=== PATIENT | female | born 1935 | race Caucasian/White ===

== ENCOUNTER 2023-07-14 17:26 | Inpatient (IN) | payer MEDICARE, SELFPAY ==
[2023-07-13] VITALS (10 sets, daily range): BP systolic 82–152; BP diastolic 55–104; BMI 23.0; BMI 21.4; BMI 22.7
--- NOTE | 2023-07-13 08:27 | ED.GENMED ---
History of Present Illness
General
Chief Complaint: Failure to Thrive
Time Seen by Provider: 07/13/23 08:13
Travel History
Have you had any contact with someone who has COVID-19?: No
Do you have any symptoms of coronavirus? Fever > 100 degrees, chills, cough, shortness of breath, sore throat, loss of taste or smell, muscle aches, or headache?: No
History of Present Illness
History of Present Illness:
88-year-old female with history of dementia and A-fib on Eliquis presents to the emergency department via EMS for reported failure to thrive. She resides at home with her son who according to EMS does have some degree of intellectual disability.
EMS was called by the son for lift assist in order to roll the patient in bed however they noted generally poor living conditions and a foul smell of urine about the patient and thus opted to bring her to the emergency department for medical
evaluation. She is a very poor historian and cannot provide me know significant medical details at this time. She is disoriented to year and events which apparently is baseline. She was admitted to this hospital in early May for GI bleeding
Past History
Past History
ED Past Medical History: Arrthythmia (Atrial fibrillation), HTN and Other (urinary track infection recently treated)
ED Past Surgical History: Appendectomy, Cholecystectomy and Gynecological
Social History
Tobacco: Non-smoker
Alcohol: None
Drug: None
Personal: Single
Living: with family
Employment: Retired
Review of Systems
Review of Systems
Allergies reviewed?: Yes
Unable to obtain full review of systems at this time due to: dementia
Phy Exam
Physical Exam
Physical Exam:
GEN: Thin and frail, disheveled, no immediate distress
Eyes: PERRLA, EOMs intact, no scleral icterus
HENT: NCAT, oral mucosa dry
Lungs: CTAB, no wheezes, rales, rhonchi, normal chest wall excursion
Cardiac: Tachycardic and irregular
Abdomen: S, NT, ND, NABS, no masses or hepatosplenomegaly
Neuro: Alert, follows commands, confused
MSK: No gross deformity or ecchymosis.
Skin: No rashes, petechiae.
Psych: Calm, cooperative, disheveled and malodorous
Course
Orders/Labs/Results
Orders:
Orders
07/13/23 08:26
Electrocardiogram (*1) Urgent
Reason for Study: Tachycardia
EKG- Treatment ONCE
Straight cath- Treatment ONCE
07/13/23 08:27
CT Head W/o Iv Contrast Urgent
Comment:
Reason For Exam: altered mental status
07/13/23 08:39
Basic Metabolic Panel Urgent
Complete Blood Count/With Diff Urgent
Prothrombin Time Urgent
Urinalysis Reflex To Culture Urgent
Date Specimen was Collected: 07/13/23
Time Specimen was Collected: 08:38
Urine Microscopic Reflex Cult Urgent
Blood Culture Q30M
ABRAHAN Source: Blood/Venous
Specimen Description:
Blood Culture Q30M
ABRAHAN Source: Blood/Venous
Specimen Description:
Urine Culture Urgent
ABRAHAN Source: U
Specimen Description:
Date Specimen was Collected: 07/13/23
Time Specimen was Collected: 08:38
07/13/23 09:31
LevoFLOXacin 500 MG/100 ML [Levaquin] 500 mg in 100 ml IV NOW
07/13/23 09:32
0.9% Sodium Chloride 1000 ml [Nss] 1,000 ml IV BOLUS
07/13/23 10:30
CMP [Comprehensive Metabolic Panel] Urgent
07/13/23 11:05
Lactic Acid Urgent
07/13/23 12:30
Lactic Acid Q4H
Comment: CANCEL 2nd LACTIC ACID IF 1st LACTIC ACID IS LESS THAN 2
Abnormal Lab Results
07/13/23 07/13/23
08:39 10:30
WBC 13.5 H 10^3/uL
(4.8-10.8)
Abs Immat Gran (auto) 0.1 H 10^3/uL
(0-0.05)
Absolute Neuts (auto) 11.7 H 10^3/uL
(1.4-6.5)
Absolute Lymphs (auto) 1.1 L 10^3/uL
(1.2-3.4)
Immature Gran % 0.6 H %
(0-0.5)
Neutrophils % 86.9 H %
(42.2-75.2)
Lymphocytes % 7.8 L %
(20.5-51.1)
PT 17.3 H Sec
(11.4-14.6)
BUN 22 H mg/dl 22 H mg/dl
(7-17) (7-17)
Creatinine 0.5 L mg/dL
(0.6-1.0)
Glucose 211 H mg/dl 169 H mg/dl
(70-99) (70-99)
Total Bilirubin 1.8 H mg/dl
(0.2-1.3)
Total Protein 5.9 L g/dl
(6.3-8.2)
Albumin 3.1 L g/dl
(3.5-5.0)
Ur Occult Blood Reflex Trace A
(Negative)
Leukocyte Esterase Rfl 2+ A
(Negative)
Urine WBC (Reflex) 70-80 A /HPF
(0-5)
Urine Bacteria (Reflex) Many A
(Negative)
07/13/23 08:39
07/13/23 10:30
Vital Signs
Initial and Last Documented VS:
Initial Vital Signs
Pulse Ox
94
07/13/23 08:15
Last Documented Vital Signs
Pulse Resp BP Pulse Ox
107 21 111/71 95
07/13/23 11:00 07/13/23 11:00 07/13/23 10:13 07/13/23 08:26
MDM/Problems Addressed
MDM/Problems Addressed:
88-year-old female arrives due to EMS concerns for failure to thrive. She is quite malodorous and disheveled and has excoriations to the genitourinary and rectal area suggesting development of pressure injuries. Does have evidence for UTI.
Unclear if her mental status is baseline for her or acutely altered. Given the associated leukocytosis we will admit for IV antibiotics and further case management evaluations
*Critical Care Note
Total Time (30-74mins, 75-104mins- exclusive of procedures): Not Applicable
ED Attending Note
-
Portions of this chart may have been created with voice recognition software.� Occasional wrong word or��sound alike� substitutions may have occurred due to the inherent limitations of voice recognition software.
Discharge Plan
Departure
Patient Disposition: Admit
Date of Disposition: 07/13/23
Time of Disposition: 09:35
Admit to: Med/Surg
Presentation/result/management discussed w/ accepting MD/DO: Hospitalist
Discharge Problem:
Urinary tract infection, Adult failure to thrive
Prescriptions:
No Action
citalopram 10 mg Tablet
10 mg PO DAILY
Patient Comments:
07/13/2023, prescribed BID or 2 tablets daily; however, discharge paperwork from 05/26/2023 state that this med. is taken once daily.
metoprolol succinate 100 mg Tablet Extended Release 24 Hr
100 mg PO BID
Santyl 250 unit/gram Ointment
1 applic TOPICAL TID
Patient Comments:
07/13/2023, this med. is included on discharge paperwork from 05/26/2023 but not in pt.'s pharmacy fill or [facility] records.
cholecalciferol (vitamin D3) 25 mcg (1,000 unit) Tablet
25 mcg PO DAILY
diltiazem HCl 180 mg Capsule,Ext.Rel 24h Degradable
180 mg PO DAILY
Eliquis 5 mg Tablet
2.5 mg PO BID Qty: 0 0RF
Patient Comments:
07/13/2023, discharge paperwork from 05/26/2023 mention that this med. was changed to be taken 1/2 tablet BID.
Referrals:
Pedro Richter MD [Family Provider] -
Interventions
Interventions:
*Risk Screen - Suicide Last Done: 07/13/23 08:15
*General Assessment Last Done: 07/13/23 08:15
*Neglect/Abuse Screening Last Done: 07/13/23 08:15
*ED COVID-19 Vaccine History Last Done: 07/13/23 08:15
[2023-07-13 08:53] LABS: % Basophils 0.2 % (0-2); % Immature Granulocytes 0.6 % (0-0.5); % Lymphocytes 7.8 % (20.5-51.1); % Monocytes 4.5 % (1.7-9.3); % Neutrophils 86.9 % (42.2-75.2); Absolute Immature Granulocytes 0.1 10^3/uL (0-0.05); Absolute Lymphocytes 1.1 10^3/uL (1.2-3.4); Absolute Monocytes 0.6 10^3/uL (0.1-0.6); Absolute Neutrophils 11.7 10^3/uL (1.4-6.5); Hemoglobin 15.1 g/dL (12.0-16.0); Mean Corp Hgb Conc. 34.3 g/dL (33.0-37.0); Mean Corpuscular Hgb 30.6 pg (27.0-31.0); Mean Corpuscular Volume 89.2 fL (81.0-99.0); Nucleated Red Blood Cells % 0 %; Platelet Count 223 10^3/uL (130-400); Red Blood Cell Count 4.93 10^6/uL (4.20-5.40); Red Cell Dist. Width 13.9 % (11.5-14.5); White Blood Cell Count 13.5 10^3/uL (4.8-10.8)
[2023-07-13 09:01] LABS: Urine Albumin Trace (Neg - Trace); Urine Bilirubin Negative (Negative); Urine Character Very Cloudy (Clear); Urine Color Yellow; Urine Glucose Negative (Negative); Urine Ketone Negative (Negative); Urine Leukocyte 2+ (Negative); Urine Nitrite Negative (Negative); Urine Occult Blood Trace (Negative); Urine Urobilinogen Negative (Neg - 1+)
[2023-07-13 09:04] LABS: PT 17.3 Sec (11.4-14.6)
[2023-07-13 09:09] LABS: Urine Amorphous Seen; Urine Mucus Few
[2023-07-13 09:11] LABS: Urine Red Blood Cell 0-2 /HPF (0-2); Urine White Cell 70-80 /HPF (0-5)
[2023-07-13 09:12] LABS: Urine Bacteria Many (Negative)
[2023-07-13 09:15] LABS: Blood Urea Nitrogen 22 mg/dl (7-17); Glucose 211 mg/dl (70-99)
[2023-07-13 09:16] LABS: Calcium 9.4 mg/dl (8.4-10.2); Carbon Dioxide 25 mmol/L (22-30); Chloride 99 mmol/L (98-107); Sodium 135 mmol/L (135-145); eGFR > 60.00
[2023-07-13] MEDS: NSS 1000 IV ×2 (10:10→15:07)
[2023-07-13] MEDS: LEVAQUIN 100 IV (10:13)
--- NOTE | 2023-07-13 10:16 | PHANOTE ---
07/13/2023, med rec tech, used pt.'s discharge paperwork from 05/26/2023, [facility] records, and pharmacy fill data to compile a list of pt.'s meds.; attempted to call pt.'s son to help confirm pt.'s meds. but was unsuccessful in reaching him. Could not
confirm pt.'s meds.
[2023-07-13 11:00] LABS: ALT (SGPT) 18 U/L (0-35); AST (SGOT) 28 U/L (14-36); Albumin 3.1 g/dl (3.5-5.0); Alkaline Phosphatase 71 U/L (38-126); Blood Urea Nitrogen 22 mg/dl (7-17); Calcium 8.9 mg/dl (8.4-10.2); Carbon Dioxide 30 mmol/L (22-30); Chloride 102 mmol/L (98-107); Glucose 169 mg/dl (70-99); Sodium 135 mmol/L (135-145); Total Bilirubin 1.8 mg/dl (0.2-1.3); Total Protein 5.9 g/dl (6.3-8.2); eGFR > 60.00
--- NOTE | 2023-07-13 11:01 | HPS.HSE ---
Family Physician
-
Family Physician: Pedro Richter
Chief Complaint
-
Foul urine smell, failure to thrive, poor living conditions at home
History of Present Illness
88-year-old female with history of dementia, A-fib on Eliquis, vertigo, diverticulosis with history of diverticulitis, nephrolithiasis, depression, dementia, and history of old stroke presented to the emergency department via EMS for reported
failure to thrive. She resides at home with her son who according to EMS does have some degree of intellectual disability. EMS was called by the son for lift assist in order to roll the patient in bed however they noted generally poor living
conditions and a foul smell of urine about the patient and thus opted to bring her to the emergency department for medical evaluation. She was admitted to [facility] in early May 2023 for rectal bleeding (in the setting of taking
Eliquis for atrial fibrillation) - per the discharge summary from that time, at that time she got Kcentra in the ER, she had scan of the abdomen and pelvis with contrast that showed findings suggesting active or recent gastrointestinal hemorrhage in
the transverse colon, possibly secondary to angiodysplasia; rectal bleeding stopped; patient was offered interventional radiology evaluation for possible embolization but she declined. Urine culture was positive for Klebsiella infection. Patient
received Levaquin - at that patient was evaluated by urologist - she was found to have right hydronephrosis with some layering and lower pole calculi, nonobstructive but urology recommended treating the urinary tract infection and no further workup
recommended for this issue needed because of patient age and comorbidities.
Medical History
Past Medical History
Past Medical History: Reports Other (As per HPI above)
Past Surgical History: Reports Appendectomy and Urological (Kidney Stone Surgery. Bilateral Cataract Surgery.)
Social History
Tobacco: Non-smoker
Alcohol: None
Drug: None
Family History
Family History: Not pertinent
Allergies / Home Medications
Allergies reflects when Allergies were last updated in [facility].
Home Medications with original date entered in [facility]
Allergy/Medication List:
Allergies
Allergy/AdvReac Type Severity Reaction Status Date / Time
cephalexin monohydrate Allergy RASH, SOB Verified 05/26/23 19:24
[From Keflex]
erythromycin base Allergy Unknown Verified 05/26/23 19:24
Penicillins Allergy SOB, RASH Verified 05/26/23 19:24
sulfamethoxazole Allergy Unknown Verified 05/26/23 19:24
antibiotic that starts w/ 'a' Allergy Unknown Uncoded 05/26/23 19:24
Home Medications
cholecalciferol (vitamin D3) 25 mcg (1,000 unit) tablet 25 mcg PO DAILY 05/20/23
citalopram 10 mg tablet 10 mg PO DAILY 05/20/23
collagenase clostridium histo. 250 unit/gram topical ointment (Santyl) 1 applic topical TID apply to B/L heels 05/20/23
diltiazem HCl 180 mg capsule,extended release 24 hr, controlled 180 mg PO DAILY 05/20/23
metoprolol succinate 100 mg tablet,extended release 24 hr 100 mg PO BID 05/20/23
apixaban 5 mg tablet (Eliquis) 2.5 mg PO BID #0 tabs 05/26/23
Review of Systems
-
Unable to obtain full review of systems at this time due to: Dementia
Physical Exam
Vital Signs
Vital Signs
Pulse Resp BP Pulse Ox
129 17 121/81 95
07/13/23 08:24 07/13/23 08:24 07/13/23 08:23 07/13/23 08:26
Physical Exam
General: Appears Chronically Ill
HEENT: NormoCephalic
Respiratory: Clear
Cardiac: S1/S2 and Tachycardia
GI: Soft, Non Tender and Normal Bowel Sounds
Musculoskeletal: No Cyanosis and No Edema
Skin: Warm and Dry
Neuro: Other (Sleepy)
Psych: Calm and Apparent Dementia
Laboratory Results
-
07/13/23 08:39
07/13/23 10:30
Laboratory Results
PT 17.3 Sec (11.4-14.6) H 07/13/23 08:39
INR 1.40 07/13/23 08:39
Total Bilirubin 1.8 mg/dl (0.2-1.3) H 07/13/23 10:30
AST 28 U/L (14-36) 07/13/23 10:30
ALT 18 U/L (0-35) 07/13/23 10:30
Alkaline Phosphatase 71 U/L (38-126) 07/13/23 10:30
Impression/Plan
-
Assessment/Plan
# Suspected Urinary Tract Infection
# Recent Urinary Tract Infection
# Leukocytosis
# Failure to Thrive
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
# History of nephrolithiasis
# Recent Mild Right Hydronephrosis on the right side without evidence of obstruction such as calculus
-Urinalysis this admission suggests UTI
-Last admission urine culture grew Klebsiella ozaenae, resistant to Amipicillin
-Continue Levaquin (patient has allergies to multiple different antibiotics - but received Levaquin last admission and this morning in the ER)
-Will consider ID consultation
-Follow urine and blood cultures
-PT/OT
-Placement
# Recent Acute Rectal bleeding - in the transverse colon, possibly secondary to angiodysplasia
-Hgb this admission is good at 15.1
-Got Kcentra last admission
-Last admission refused arteriogramolization, saying that she doesn't want any invasive procedures at her age
# Paroxysmal atrial fibrillation on Eliquis at home
Continue Eliquis
Continue metoprolol and Cardizem
# Moderate to severe mitral regurgitation
moderate TR, mild AI
Mild pulmonary regurgitation
# Recent moderate right pleural effusion
# Recent Small Left Pleural Effusion
# Moderate to severe aortic regurgitation.
# Severe tricuspid regurgitation.
# Pulmonary Hypertension
# Moderate to severe mitral regurgitation
# Mild pulmonary regurgitation
# History of h. pylori
# History of erosive gastropathy
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
# History of fatty liver
# Hypertension
-Continue home diltiazem
# Depression-continue Celexa
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
# Per CT Head radiologist's report on 07/13/23: 3.5 cm focal area of encephalomalacia at the right parietal occipital junction, stable dating back to the 01/29/2023 MRI examination and most consistent with nonhemorrhagic infarct
# Vertigo
# Dementia
# Underweight
# DVT prophylaxis-SCDs
# CODE STATUS-full code
[2023-07-13 12:57] LABS: Lactic Acid 1.6 mmol/L (0.7-2.0)
[2023-07-13] MEDS: MIRALAX 17 GRAMS PO (15:06)
[2023-07-13] MEDS: DESENEX/MITRAZOL/ZEASORB 1 APPLIC TOPICAL ×2 (15:10→19:55)
[2023-07-13] MEDS: ELIQUIS 2.5 MG PO ×2 (15:10→19:50)
[2023-07-13] MEDS: CARDIZEM CD 180 MG PO (15:11)
[2023-07-13] MEDS: TOPROL XL 100 MG PO ×2 (15:17→19:50)
--- NOTE | 2023-07-13 15:50 | CM ---
CM reviewed medical records. CM spoke with patient's son via phone. Patient's son confirmed demographics. Patient lives with son. He confirmed that they have caregivers 7 days a week 4 hours/day from [facility] [place]. Patient is know to [facility].
Patient's son stated that patient did have a history of SNF at [facility].
Patient's son stated that he feels that she needs additional caregiving hours. He requested assistance from [facility] CM sent request for services via email to [facility] Patient's son is agreeable to placement if needed .
PETERS letter given and discussed.
PLAN: Pending PT recommendations.
[2023-07-13] MEDS: COLACE 100 MG PO (19:50)
[2023-07-13] MEDS: SENOKOT 8.59999999999999964 MG PO (19:50)
[2023-07-13] MEDS: CELEXA 10 MG PO (19:50)
[2023-07-14 03:38] VITALS: BP 110/55
[2023-07-14] MEDS: NSS 1000 IV ×2 (04:06→19:18)
[2023-07-14 07:23] VITALS: BP 108/62
[2023-07-14 07:37] LABS: % Basophils 0.2 % (0-2); % Eosinophils 0.5 % (0-6); % Immature Granulocytes 0.6 % (0-0.5); % Lymphocytes 26.1 % (20.5-51.1); % Monocytes 10.3 % (1.7-9.3); % Neutrophils 62.3 % (42.2-75.2); Absolute Immature Granulocytes 0.1 10^3/uL (0-0.05); Absolute Lymphocytes 2.2 10^3/uL (1.2-3.4); Absolute Monocytes 0.9 10^3/uL (0.1-0.6); Absolute Neutrophils 5.3 10^3/uL (1.4-6.5); Hematocrit 37.7 % (37.0-47.0); Hemoglobin 12.5 g/dL (12.0-16.0); Mean Corp Hgb Conc. 33.2 g/dL (33.0-37.0); Mean Corpuscular Hgb 30.3 pg (27.0-31.0); Mean Corpuscular Volume 91.5 fL (81.0-99.0); Mean Platelet Volume 9.4 fL (7.4-10.4); Nucleated Red Blood Cells % 0 %; Platelet Count 192 10^3/uL (130-400); Red Blood Cell Count 4.12 10^6/uL (4.20-5.40); Red Cell Dist. Width 14.1 % (11.5-14.5); White Blood Cell Count 8.5 10^3/uL (4.8-10.8)
[2023-07-14 08:10] LABS: Blood Urea Nitrogen 20 mg/dl (7-17); Calcium 8.3 mg/dl (8.4-10.2); Carbon Dioxide 29 mmol/L (22-30); Chloride 105 mmol/L (98-107); Creatine Phosphokinase 94 U/L (30-135); Estimated Creatinine Clearance 43 ml/min; Glucose 83 mg/dl (70-99); Magnesium 1.6 mg/dl (1.6-2.3); Potassium 3.7 mmol/L (3.5-5.1); Sodium 136 mmol/L (135-145); eGFR > 60.00
[2023-07-14] MEDS: CELEXA 10 MG PO ×2 (08:55→19:35)
[2023-07-14] MEDS: COLACE 100 MG PO ×2 (08:55→19:35)
[2023-07-14] MEDS: CARDIZEM CD 180 MG PO (08:55)
[2023-07-14] MEDS: TOPROL XL 100 MG PO ×2 (08:55→19:35)
[2023-07-14] MEDS: VITAMIN D3 (cholecalciferol) 25 MCG PO (08:55)
[2023-07-14] MEDS: ELIQUIS 2.5 MG PO ×2 (08:55→19:36)
[2023-07-14] MEDS: SENOKOT 8.59999999999999964 MG PO ×2 (08:55→19:36)
[2023-07-14] MEDS: MAGNESIUM SULFATE 50 IV (08:55)
[2023-07-14] MEDS: MIRALAX 17 GRAMS PO (08:56)
[2023-07-14] MEDS: DESENEX/MITRAZOL/ZEASORB 1 APPLIC TOPICAL ×2 (09:03→19:36)
[2023-07-14 11:15] VITALS: BP 98/44
--- NOTE | 2023-07-14 15:00 | WOUNDNOTE ---
WOC RN NOTE: Reviewed chart, met with patient. Patient assessed with JENNEI Whitaker and PCT Leni. Patient admitted with Sacral stage 1 PI vs DTI. Left buttock with open area likely the result of pressure and moisture (stage 2, pink wound bed). Bilateral
heels are boggy, with small open area on left heel. Patient requires assistance turning and is incontinent of urine. Static air overlay placed and properly inflated. Local wound care provided to heels and stage 2 PI. Plan is to continue off-loading
sacrum along with frequent continence care and skin protection. Recommend dietary consult as chart review states 'failure to thrive.' Patient positioned off-sacrum with heels off-loaded on pillows. Contact WOC RN if wounds worsen. Will confirm
orders with hospitalist. JENNIE Whitaker updated. Will follow as needed.
[2023-07-14 15:20] VITALS: BP 96/50
--- NOTE | 2023-07-14 16:13 | W.PN.HOSP.TC ---
Today's Communication/Plan
-
Doing better
Continue Abx
Monitor QTc
Assessment / Plan
Assessment / Plan
Physical Exam
General: Appears Chronically Ill
HEENT: Normocephalic
Respiratory: Clear
Cardiac: S1/S2 and Regular Rate
GI: Soft, Non Tender and Normal Bowel Sounds
Musculoskeletal: No Cyanosis and No Edema
Skin: Warm and Dry
Neuro: Awake. Alert.
Psych: Calm and Apparent Dementia

Assessment/Plan
# Suspected Urinary Tract Infection
# Recent Urinary Tract Infection
# Leukocytosis
# Failure to Thrive
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
# History of nephrolithiasis
# Recent Mild Right Hydronephrosis on the right side without evidence of obstruction such as calculus
-Urinalysis this admission suggests UTI
-Last admission urine culture grew Klebsiella ozaenae, resistant to Amipicillin
-Continue Levaquin (patient has allergies to multiple different antibiotics - but received Levaquin last admission and this morning in the ER)
-Will consider ID consultation
-Follow urine and blood cultures
-PT/OT
-Placement
# Recent Acute Rectal bleeding - in the transverse colon, possibly secondary to angiodysplasia
�
-Hgb this admission is good at initial value of 15.1
-Got Kcentra last admission
-Last admission refused arteriogramolization, saying that she doesn't want any invasive procedures at her age
# Paroxysmal atrial fibrillation on Eliquis at home
Continue Eliquis
Continue Metoprolol and Cardizem
# Moderate to severe mitral regurgitation
moderate TR, mild AI
Mild pulmonary regurgitation
# Recent moderate right pleural effusion
# Recent Small Left Pleural Effusion
# Moderate to severe aortic regurgitation.
# Severe tricuspid regurgitation.
# Pulmonary Hypertension
# Moderate to severe mitral regurgitation
# Mild pulmonary regurgitation
# History of h. pylori
# History of erosive gastropathy
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
# History of fatty liver
# Hypertension
-Continue home diltiazem
# Depression-continue Celexa
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
# Per CT Head radiologist's report on 07/13/23: 3.5 cm focal area of encephalomalacia at the right parietal occipital junction, stable dating back to the 01/29/2023 MRI examination and most consistent with nonhemorrhagic infarct
# Vertigo
# Dementia
# Underweight
# DVT prophylaxis-SCDs
# CODE STATUS-full code
Anticipated Discharge: 24 - 48 hours
Subjective/Interval History
-
Date of Service: July 14, 2023
Patient was seen and examined. She appeared more alert and responsive today, asking for breakfast.
Objective Data
-
Labs:
Laboratory Results
07/14/23
06:25
WBC 8.5
Hgb 12.5
Hct 37.7
Plt Count 192
Sodium 136
Potassium 3.7
Chloride 105
Carbon Dioxide 29
BUN 20 H
Creatinine 0.7
Glucose 83
Calcium 8.3 L
Vital Signs:
Vital Signs
Temp Pulse Resp BP Pulse Ox
98.1 F 89 20 98/44 97
07/14/23 11:15 07/14/23 11:15 07/14/23 11:15 07/14/23 11:15 07/14/23 13:28
I&O
07/13/23 07/14/23 07/15/23
06:59 06:59 06:59
Intake Total 900 / 900
Balance 900 / 900
[2023-07-14 16:39] VITALS: BMI 22.7
--- NOTE | 2023-07-14 17:10 | CM ---
Pt on 1 liter oxygen Pox 97%.
Pt attempted PT but will try again tomorrow.
Will need PT OT for SNF.
Son requested [facility].
PLAN Will need to check if she has had prior SNF . She is under observation.
[2023-07-14 19:23] VITALS: BP 93/63
[2023-07-14 23:07] VITALS: BP 105/61
[2023-07-15 03:25] VITALS: BP 122/58
[2023-07-15 05:30] VITALS: BMI 23.7
[2023-07-15 07:25] VITALS: BP 143/82
--- NOTE | 2023-07-15 07:28 | PTCARENOTE ---
Patient had no urine output overnight. Tried to urinate on own and was unable. AAOx1 (self only). RN bladder scanned for over 400mL. HOST AND HOSTESS put in order for bladder scan and straight cath. Patient tolerated straight cath, output of 530mL yellow, kathleen
urine with some sediment. UA sent down to lab. Patient made comfortable, call hennessy within reach.
[2023-07-15 07:42] LABS: % Basophils 0.5 % (0-2); % Eosinophils 1.2 % (0-6); % Immature Granulocytes 0.5 % (0-0.5); % Lymphocytes 31.1 % (20.5-51.1); % Neutrophils 56.7 % (42.2-75.2); Absolute Eosinophils 0.1 10^3/uL (0-0.7); Absolute Lymphocytes 2.5 10^3/uL (1.2-3.4); Absolute Monocytes 0.8 10^3/uL (0.1-0.6); Absolute Neutrophils 4.6 10^3/uL (1.4-6.5); Mean Corp Hgb Conc. 33.3 g/dL (33.0-37.0); Mean Corpuscular Hgb 30.6 pg (27.0-31.0); Mean Corpuscular Volume 91.8 fL (81.0-99.0); Mean Platelet Volume 9.4 fL (7.4-10.4); Nucleated Red Blood Cells % 0 %; Platelet Count 194 10^3/uL (130-400); Red Blood Cell Count 4.25 10^6/uL (4.20-5.40); Red Cell Dist. Width 14.1 % (11.5-14.5); White Blood Cell Count 8.1 10^3/uL (4.8-10.8)
[2023-07-15] MEDS: ELIQUIS 2.5 MG PO ×2 (08:17→20:53)
[2023-07-15] MEDS: SENOKOT 8.59999999999999964 MG PO ×2 (08:17→20:52)
[2023-07-15] MEDS: COLACE 100 MG PO ×2 (08:17→20:52)
[2023-07-15] MEDS: CARDIZEM CD 180 MG PO (08:17)
[2023-07-15] MEDS: CELEXA 10 MG PO ×2 (08:17→20:52)
[2023-07-15] MEDS: TOPROL XL 100 MG PO ×2 (08:17→20:53)
[2023-07-15] MEDS: VITAMIN D3 (cholecalciferol) 25 MCG PO (08:17)
[2023-07-15] MEDS: MIRALAX 17 GRAMS PO (08:18)
--- NOTE | 2023-07-15 08:18 | PN.CDI ---
CDI
- -
CDI:
Physician Documentation Request
Admit Date: 07/13/23 12:34
Dear Doctor Blayne,
Patient admitted with UTI.
Nursing skin assessment, 'Stage 2 left buttock, POA....Stage 1 right heel, POA.'
Physician documentation of the type and location of wounds is required for compliant documentation. Based on the above clinical findings and your assessment, please provide the following in your progress note:
2. Type (etiology) of ulcer/wound:
- Pressure (decubitus) ulcer
- Other
- Unable to determine
For a pressure ulcer, please also include the stage* of the ulcer:
- Stage 1 - Skin intact, non-blanchable redness
- Stage 2 - Partial thickness loss of dermis, includes intact or open blister
- Stage 3 - Full thickness tissue not including bone, tendon or muscle
- Stage 4 - Full thickness tissue loss, including exposed bone, tendon or muscle
- Unstageable - Full thickness loss in which the base of the ulcer is covered by slough (yellow, solis, hitchcock, green or brown) and/or eschar (solis, brown or black) in the wound bed.
- Unable to determine
Use of terms such as suspected, likely, concern for, or probable (associated with a specific diagnosis that is being evaluated, monitored, or treated as if it exists) are acceptable and can be coded in the inpatient setting, when documented at the
time of discharge.
Thank you,
Keira POTTER,RN,CCDS
CDI Specialist
Available via [employer]
Please use your independent medical judgment in providing your response.
*Source: National Pressure Ulcer Advisory Panel (NPUAP)
[2023-07-15 08:21] LABS: Blood Urea Nitrogen 17 mg/dl (7-17); Calcium 8.2 mg/dl (8.4-10.2); Carbon Dioxide 29 mmol/L (22-30); Chloride 105 mmol/L (98-107); Estimated Creatinine Clearance 50 ml/min; Glucose 91 mg/dl (70-99); Magnesium 1.9 mg/dl (1.6-2.3); Sodium 137 mmol/L (135-145); eGFR > 60.00
[2023-07-15] MEDS: DESENEX/MITRAZOL/ZEASORB 1 APPLIC TOPICAL ×2 (08:25→20:53)
[2023-07-15] MEDS: LEVAQUIN 150 IV (08:28)
[2023-07-15 08:36] LABS: Potassium 3.4 mmol/L (3.5-5.1)
--- NOTE | 2023-07-15 08:41 | PN.CDI ---
CDI
- -
CDI:
Physician Documentation Request
Admit Date: 07/13/23 12:34
Dear Doctor Blayne,
Patient admitted with UTI.
PN, 'Continue Levaquin.'
On admission, WBC 13.5 and HR> 90.
Please clarify which of the following most accurately describes the status of the patient's infection:
Sepsis, POA
UTI only
Other
Sepsis
- Systemic manifestations of infection, with 2 or more SIRS criteria which include:
- Fever >100.4 degrees F or hypothermia < 96.8 degrees F
- Leukocytosis - WBC > 12,000 or leukopenia - WBC < 4,000 or > 10% bands
- Tachycardia > 90 beats per minute
- Tachypnea - RR > 20 breaths per minute or PaCO2 , 32mmHg
Source: Merck Manual 2013
- Indicate the known or suspected organism
- Indicate the known or suspected underlying infection, such as UTI
Localized Infection Only, Without Systemic Illness
- indicate the site/source, such as UTI
Other
Use of terms such as suspected, likely, concern for, or probable (associated with a specific diagnosis that is being evaluated, monitored, or treated as if it exists) are acceptable and can be coded in the inpatient setting, when documented at the
time of discharge.
Thank you,
Keira POTTER,RN,CCDS
CDI Specialist
Available via [employer] text
Please use your independent medical judgment in providing your response.
--- NOTE | 2023-07-15 09:04 | PN.CDI ---
CDI
- -
CDI:
Physician Documentation Request
Admit Date: 07/13/23 12:34
Dear Doctor,
Dear Doctor Blayne,
Patient admitted with UTI.
Nursing skin assessment, 'Stage 2 left buttock pressure injury, POA....Stage 1 right heel pressure injury, POA.'
Physician documentation of the type and location of wounds is required for compliant documentation. Based on the above clinical findings and your assessment, please provide the following in your progress note:
2. Type (etiology) of ulcer/wound:
- Pressure (decubitus) ulcer
- Other
- Unable to determine
For a pressure ulcer, please also include the stage* of the ulcer:
- Stage 1 - Skin intact, non-blanchable redness
- Stage 2 - Partial thickness loss of dermis, includes intact or open blister
- Stage 3 - Full thickness tissue not including bone, tendon or muscle
- Stage 4 - Full thickness tissue loss, including exposed bone, tendon or muscle
- Unstageable - Full thickness loss in which the base of the ulcer is covered by slough (yellow, solis, hitchcock, green or brown) and/or eschar (solis, brown or black) in the wound bed.
- Unable to determine
Use of terms such as suspected, likely, concern for, or probable (associated with a specific diagnosis that is being evaluated, monitored, or treated as if it exists) are acceptable and can be coded in the inpatient setting, when documented at the
time of discharge.
Thank you,
Please use your independent medical judgment in providing your response.
*Source: National Pressure Ulcer Advisory Panel (NPUAP)
--- NOTE | 2023-07-15 09:23 | PTOTSP ---
Attempted to see patient for evaluation - patient AAOx3, initially agreeable to sitting edge of bed but upon initiation of assisting the patient, she became very upset, noting she was very fearful, 'last time I sat up I almost !' Patient
refusing sitting edge of bed despite much encouragement and education. Per notes on previous admissions, the patient remains in bed all day at home, including for ADL's. Patient stated again today that she does not get out of bed. There are no
functional goals to support rehab at discharge - will sign off at this time. Patient's requires long-term care needs, will defer to case management.
--- NOTE | 2023-07-15 10:02 | PTOTSP ---
ST Dysphagia Evaluation
Oropharyngeal function appears intact at the bedside
Pt received awake/alert with AM meal of regular solids/thin liquids at the bedside. Demo grossly functional mastication and bolus was orally cleared. Thin liquids by straw serial sips swallow appears prompt. No overt s/sx of aspiration observed.
Recommend
1. Continue current diet of regular solids/thin liquids
2. Standard aspirtaion precautions
3. Meds with sip of water
4. No further acute BLOG WRITER needs. BLOG WRITER signing off please reconsult as needed
[2023-07-15 11:33] VITALS: BP 110/67
[2023-07-15] MEDS: KCL 40 MEQ PO (14:09)
[2023-07-15 15:12] VITALS: BP 120/68
--- NOTE | 2023-07-15 16:11 | W.PN.HOSP.TC ---
Today's Communication/Plan
-
Continue abx
ID consulted
Case management working on SNF placement
Assessment / Plan
Assessment / Plan
Physical Exam
General: Appears Chronically Ill
HEENT: Normocephalic
Respiratory: Clear
Cardiac: S1/S2 and Regular Rate
GI: Soft, Non Tender and Normal Bowel Sounds
Musculoskeletal: No Cyanosis and No Edema
Skin: Warm and Dry
Neuro: Awake. Alert.
Psych: Calm and Apparent Dementia

Assessment/Plan
# Suspected Urinary Tract Infection
# Sepsis - POA Secondary to Urinary Tract Infection
# Recent Urinary Tract Infection
# Leukocytosis
# Failure to Thrive
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
# History of nephrolithiasis
# Recent Mild Right Hydronephrosis on the right side without evidence of obstruction such as calculus
-Urinalysis this admission suggests UTI
-Last admission urine culture grew Klebsiella ozaenae, resistant to Ampicillin
-Continue Levaquin (patient has allergies to multiple different antibiotics - but received Levaquin last admission and this morning in the ER)
-Consulted ID, recommendations appreciated
-Follow urine and blood cultures
-PT/OT
-Placement
# Recent Acute Rectal bleeding - in the transverse colon, possibly secondary to angiodysplasia
�
-Hgb this admission is good at initial value of 15.1
-Got Kcentra last admission
-Last admission refused arteriogramolization, saying that she doesn't want any invasive procedures at her age
# Hypokalemia
-Monitor and replace
# Paroxysmal atrial fibrillation on Eliquis at home
Continue Eliquis
Continue Metoprolol and Cardizem
# Moderate to severe mitral regurgitation
moderate TR, mild AI
Mild pulmonary regurgitation
# Recent moderate right pleural effusion
# Recent Small Left Pleural Effusion
# Moderate to severe aortic regurgitation.
# Severe tricuspid regurgitation.
# Pulmonary Hypertension
# Moderate to severe mitral regurgitation
# Mild pulmonary regurgitation
# History of h. pylori
# History of erosive gastropathy
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
# History of fatty liver
# Hypertension
-Continue home diltiazem
# Depression-continue Celexa
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
# Per CT Head radiologist's report on 07/13/23: 3.5 cm focal area of encephalomalacia at the right parietal occipital junction, stable dating back to the 01/29/2023 MRI examination and most consistent with nonhemorrhagic infarct
# Vertigo
# Dementia
# Underweight
# Stage 2 left buttock pressure injury, POA
# Stage 1 right heel pressure injury, POA
-Continue wound care
# DVT prophylaxis-SCDs
# CODE STATUS-full code
Anticipated Discharge: > 48 hours
Subjective/Interval History
-
Date of Service: July 15, 2023
Objective Data
-
Labs:
Laboratory Results
07/15/23
07:18
WBC 8.1
Hgb 13.0
Hct 39.0
Plt Count 194
Sodium 137
Potassium 3.4 L
Chloride 105
Carbon Dioxide 29
BUN 17
Creatinine 0.5 L
Glucose 91
Calcium 8.2 L
Vital Signs:
Vital Signs
Temp Pulse Resp BP Pulse Ox
97.5 F 78 18 120/68 95
07/15/23 15:12 07/15/23 15:12 07/15/23 15:12 07/15/23 15:12 07/15/23 15:12
I&O
07/14/23 07/15/23 07/16/23
06:59 06:59 06:59
Intake Total 900 / 900 1120 / 1120
Output Total 530 / 530
Balance 900 / 900 590 / 590
--- NOTE | 2023-07-15 17:19 | CM ---
Pt refusing PT OT evals. She is fearful.
Spoke with brother James and brother (in person )in [facility]( via phone).
Explained that can not place in SNF if she does not participate in PT OT.
Pt lives with brother James and [facility] 4 hours daily.
Pt has been having several UTI. James does not change her depends till Care givers come next day.
Instructed James that depend needs to be changed depend every 4 hours as needed.
Encouraged family to contact [facility] and see if she qualifies for waiver care care givers to increase time of care giving.
Weaned to room air.
Pt has hospital bed ,commode,wc and walker at home as per James.
PLAN Home with care givers
[2023-07-15 19:46] VITALS: BP 125/79
[2023-07-15 23:30] VITALS: BP 136/77
[2023-07-16 03:47] VITALS: BP 145/91
[2023-07-16 06:00] VITALS: BMI 24.4
[2023-07-16 06:57] LABS: % Basophils 0.4 % (0-2); % Eosinophils 1.3 % (0-6); % Immature Granulocytes 0.7 % (0-0.5); % Lymphocytes 31.2 % (20.5-51.1); % Neutrophils 56.4 % (42.2-75.2); Absolute Eosinophils 0.1 10^3/uL (0-0.7); Absolute Immature Granulocytes 0.1 10^3/uL (0-0.05); Absolute Lymphocytes 2.2 10^3/uL (1.2-3.4); Absolute Monocytes 0.7 10^3/uL (0.1-0.6); Absolute Neutrophils 3.9 10^3/uL (1.4-6.5); Hematocrit 38.3 % (37.0-47.0); Hemoglobin 12.8 g/dL (12.0-16.0); Mean Corp Hgb Conc. 33.4 g/dL (33.0-37.0); Mean Corpuscular Hgb 30.5 pg (27.0-31.0); Mean Corpuscular Volume 91.4 fL (81.0-99.0); Mean Platelet Volume 9.3 fL (7.4-10.4); Nucleated Red Blood Cells % 0 %; Platelet Count 200 10^3/uL (130-400); Red Blood Cell Count 4.19 10^6/uL (4.20-5.40); Red Cell Dist. Width 14.3 % (11.5-14.5); White Blood Cell Count 6.9 10^3/uL (4.8-10.8)
[2023-07-16 07:24] VITALS: BP 145/79
[2023-07-16 07:29] LABS: Blood Urea Nitrogen 16 mg/dl (7-17); Calcium 8.3 mg/dl (8.4-10.2); Carbon Dioxide 29 mmol/L (22-30); Chloride 105 mmol/L (98-107); Estimated Creatinine Clearance 50 ml/min; Glucose 89 mg/dl (70-99); Sodium 137 mmol/L (135-145); eGFR > 60.00
[2023-07-16] MEDS: DESENEX/MITRAZOL/ZEASORB 1 APPLIC TOPICAL ×2 (08:00→20:45)
[2023-07-16] MEDS: CARDIZEM CD 180 MG PO (09:53)
[2023-07-16] MEDS: TOPROL XL 100 MG PO ×2 (09:54→20:44)
--- NOTE | 2023-07-16 09:57 | CM ---
Chart reviewed and plan is skilled placement per sample case porter notes, patient needs to participate in physical therapy for skilled placement. Referral sent to [facility] however no determination from admissions at [facility] and admissions is not open on
weekends, physician made aware.
Plan; skilled placement, need PT/OT evaluations.
[2023-07-16] MEDS: ELIQUIS 2.5 MG PO ×2 (10:09→20:43)
[2023-07-16] MEDS: VITAMIN D3 (cholecalciferol) 25 MCG PO (10:10)
[2023-07-16] MEDS: COLACE 100 MG PO ×2 (10:11→20:43)
[2023-07-16] MEDS: SENOKOT 8.59999999999999964 MG PO ×2 (10:11→20:43)
[2023-07-16] MEDS: CELEXA 10 MG PO ×2 (10:12→20:44)
[2023-07-16] MEDS: MIRALAX 17 GRAMS PO (10:13)
[2023-07-16 11:09] VITALS: BP 139/87
--- NOTE | 2023-07-16 13:32 | CON.ID ---
Consultation
-
Date/Time Consultation Requested: 07/15/2023, 1614
Date/Time Consultation Performed: 07/16/2023, 1330
Requesting Provider: Dr. Binh Cisneros
Performing Provider: Dr. Sofi Perez
Reason for Consultation: UTI
Chief Complaint / Past History
Chief Complaint
Poor living condition.
History of Present Illness
88 year old female with Afib on Apixaban, renal stones recently admitted 05/20 - 05/26 with GIB. CTA showed GI bleeding tansverse colon, pt refused embolization. CT also showed air in bladder wall, mild right hydro without obstructing stone. Urologist
deemed hydronephrosis was not acute. Pt was treated with levofloxacin for Klebsiella in urine. Pt lives with son who called EMS to help turn patient over while in bed. EMS noted poor living condition and patient covered in urine. She was brought
to ED on 07/13. UA 2+LE, 20-80 WBC, Ucx contaminanted specimen. She is curretly on levoloacin. Pt reports not dysuria, urgency, or frequency. No flank pain. Appetite is good.
Past History
Additional Past Medical History:
Depression
Afib on Eliquis
GIB
nephrolithiasis
LOPES
CVA
Appendectomy
Allergy History:
cephalexin monohydrate [From Keflex] Allergy (Verified 05/26/23 19:24)
RASH, SOB
erythromycin base Allergy (Verified 05/26/23 19:24)
Unknown
Penicillins Allergy (Verified 05/26/23 19:24)
SOB, RASH
sulfamethoxazole Allergy (Verified 05/26/23 19:24)
Unknown
antibiotic that starts w/ 'a' Allergy (Uncoded 05/26/23 19:24)
Unknown
Medications Reviewed: Yes
Current Antibiotics:
Levofloxacin IV d4
Social History
Tobacco: Non-Smoker
Alcohol: None
Drug: None
Family History
Family History: Not Pertinent
Review of Systems
Review of Systems
General: Negative Fever, Chills or Change in Appetite
HEENT: Negative Sinus Problems or Headache
Respiratory: Negative Dyspnea or Cough
Gasteroenterology: Other (no diarrhea); Negative Nausea or Vomiting
Genital / Urological: Negative Dysuria or Flank Pain
Neurological: Negative Headache
All systems: All other systems were reviewed and were negative
Vital Signs
Temp Pulse Resp BP Pulse Ox
98.2 F 117 18 139/87 96
07/16/23 11:09 07/16/23 11:09 07/16/23 11:09 07/16/23 11:09 07/16/23 11:09
Physical Exam
Physical Exam
Constitutional: No Acute Distress and Comfortable
Eyes: No Conjunctival Hemorrhage and Sclera Anicteric
Pulmonary: Clear
Gastrointestinal: Soft, Non Tender and Non Distended
Genito-Urinary: Negative Carrion, Suprapubic Tenderness or CVA Tenderness
Extremities: Negative Edema
Neurological: Awake and Alert
Lab / Diagnostic Study Results
07/16/23 05:57
07/16/23 05:57
Abs Immat Gran (auto) 0.1 10^3/uL (0-0.05) H 07/16/23 05:57
Absolute Neuts (auto) 3.9 10^3/uL (1.4-6.5) 07/16/23 05:57
Absolute Lymphs (auto) 2.2 10^3/uL (1.2-3.4) 07/16/23 05:57
Absolute Monos (auto) 0.7 10^3/uL (0.1-0.6) H 07/16/23 05:57
Absolute Basos (auto) 0.0 10^3/uL (0-0.2) 07/16/23 05:57
Immature Gran % 0.7 % (0-0.5) H 07/16/23 05:57
Neutrophils % 56.4 % (42.2-75.2) 07/16/23 05:57
Lymphocytes % 31.2 % (20.5-51.1) 07/16/23 05:57
Monocytes % 10.0 % (1.7-9.3) H 07/16/23 05:57
Eosinophils % 1.3 % (0-6) 07/16/23 05:57
Basophils % 0.4 % (0-2) 07/16/23 05:57
PT 17.3 Sec (11.4-14.6) H 07/13/23 08:39
INR 1.40 07/13/23 08:39
Lactic Acid 1.6 mmol/L (0.7-2.0) 07/13/23 12:32
Ur Squamous Epith Cells 6-10 /LPF (Few) 07/13/23 08:39
Microbiology Results
Micro:
07/15/23 06:36 Urine Culture - Preliminary
Urine
07/13/23 08:39 Blood Culture - Preliminary
Blood/Venous No Growth in 72 hours- Final report to follow
07/13/23 08:39 Blood Culture - Preliminary
Blood/Venous No Growth in 72 hours- Final report to follow
07/13/23 18:18 MRSA Screen - Final
Nose No Methicillin Resistant Staphylococcus aureus isolated.
07/13/23 08:39 Urine Culture - Final
Urine
Assessment / Plan
# Pyuria/bacteruria
- Pt without urinary symptoms.
-Afebrile, normal WBC.
-DC Levofloxacin (day4)
[2023-07-16] MEDS: SANTYL OINTMENT 1 APPLIC TOPICAL (13:35)
[2023-07-16 15:35] VITALS: BP 112/63
--- NOTE | 2023-07-16 18:10 | W.PN.HOSP.TC ---
Today's Communication/Plan
-
Pending SNF placement
Assessment / Plan
Assessment / Plan
Physical Exam
General: Appears Chronically Ill
HEENT: Normocephalic
Respiratory: Clear
Cardiac: S1/S2 and Regular Rate
GI: Soft, Non Tender and Normal Bowel Sounds
Musculoskeletal: No Cyanosis and No Edema
Skin: Warm and Dry
Neuro: Awake. Alert.
Psych: Calm and Apparent Dementia

Assessment/Plan
# Suspected Urinary Tract Infection
# Sepsis - POA Secondary to Urinary Tract Infection
# Recent Urinary Tract Infection
# Leukocytosis
# Failure to Thrive
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
# History of nephrolithiasis
# Recent Mild Right Hydronephrosis on the right side without evidence of obstruction such as calculus
-Urinalysis this admission suggested UTI
-Last admission urine culture grew Klebsiella ozaenae, resistant to Ampicillin
-Status post Levaquin
-Consulted ID, recommendations appreciated: patient is not having symptoms of UTI, stop Levaquin/antibiotics
-Follow urine (contaminated) and blood cultures (no growth)
-PT/OT
-Placement
# Recent Acute Rectal bleeding - in the transverse colon, possibly secondary to angiodysplasia
�
-Hgb this admission is good at initial value of 15.1
-Got Kcentra last admission
-Last admission refused arteriogramolization, saying that she doesn't want any invasive procedures at her age
# Hypokalemia
-Monitor and replace
# Paroxysmal atrial fibrillation on Eliquis at home
Continue Eliquis
Continue Metoprolol and Cardizem
# Moderate to severe mitral regurgitation
moderate TR, mild AI
Mild pulmonary regurgitation
# Recent moderate right pleural effusion
# Recent Small Left Pleural Effusion
# Moderate to severe aortic regurgitation.
# Severe tricuspid regurgitation.
# Pulmonary Hypertension
# Moderate to severe mitral regurgitation
# Mild pulmonary regurgitation
# History of h. pylori
# History of erosive gastropathy
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
# History of fatty liver
# Hypertension
-Continue home diltiazem
# Depression-continue Celexa
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
# Per CT Head radiologist's report on 07/13/23: 3.5 cm focal area of encephalomalacia at the right parietal occipital junction, stable dating back to the 01/29/2023 MRI examination and most consistent with nonhemorrhagic infarct
# Vertigo
# Dementia
# Underweight
# Stage 2 left buttock pressure injury, POA
# Stage 1 right heel pressure injury, POA
-Continue wound care
# DVT prophylaxis-SCDs
# CODE STATUS-full code
Anticipated Discharge: > 48 hours
Subjective/Interval History
-
Date of Service: July 16, 2023
Patient was seen and examined. She denied any new symptoms or complaints.
Objective Data
-
Labs:
Laboratory Results
07/16/23
05:57
WBC 6.9
Hgb 12.8
Hct 38.3
Plt Count 200
Sodium 137
Potassium 4.0
Chloride 105
Carbon Dioxide 29
BUN 16
Creatinine 0.5 L
Glucose 89
Calcium 8.3 L
Vital Signs:
Vital Signs
Temp Pulse Resp BP Pulse Ox
98.2 F 76 16 112/63 97
07/16/23 15:35 07/16/23 15:35 07/16/23 15:35 07/16/23 15:35 07/16/23 15:35
I&O
07/15/23 07/16/23 07/17/23
06:59 06:59 06:59
Intake Total 1120 / 1120 240 / 240
Output Total 530 / 530
Balance 590 / 590 240 / 240
[2023-07-16 19:22] VITALS: BP 134/73
[2023-07-16 23:14] VITALS: BP 128/82
[2023-07-17 03:27] VITALS: BP 140/83
[2023-07-17 06:06] LABS: % Basophils 0.7 % (0-2); % Eosinophils 2.1 % (0-6); % Immature Granulocytes 0.3 % (0-0.5); % Lymphocytes 35.9 % (20.5-51.1); % Monocytes 8.8 % (1.7-9.3); % Neutrophils 52.2 % (42.2-75.2); Absolute Basophils 0.1 10^3/uL (0-0.2); Absolute Eosinophils 0.2 10^3/uL (0-0.7); Absolute Lymphocytes 2.6 10^3/uL (1.2-3.4); Absolute Monocytes 0.6 10^3/uL (0.1-0.6); Absolute Neutrophils 3.8 10^3/uL (1.4-6.5); Hematocrit 41.6 % (37.0-47.0); Hemoglobin 13.8 g/dL (12.0-16.0); Mean Corp Hgb Conc. 33.2 g/dL (33.0-37.0); Mean Corpuscular Hgb 30.5 pg (27.0-31.0); Mean Corpuscular Volume 91.8 fL (81.0-99.0); Mean Platelet Volume 9.1 fL (7.4-10.4); Nucleated Red Blood Cells % 0 %; Platelet Count 214 10^3/uL (130-400); Red Blood Cell Count 4.53 10^6/uL (4.20-5.40); Red Cell Dist. Width 14.3 % (11.5-14.5); White Blood Cell Count 7.2 10^3/uL (4.8-10.8)
[2023-07-17 06:32] LABS: Blood Urea Nitrogen 13 mg/dl (7-17); Calcium 8.2 mg/dl (8.4-10.2); Carbon Dioxide 29 mmol/L (22-30); Chloride 107 mmol/L (98-107); Estimated Creatinine Clearance 50 ml/min; Glucose 90 mg/dl (70-99); Sodium 136 mmol/L (135-145); eGFR > 60.00
[2023-07-17 07:38] VITALS: BP 157/78
[2023-07-17] MEDS: VITAMIN D3 (cholecalciferol) 25 MCG PO (08:59)
[2023-07-17] MEDS: TOPROL XL 100 MG PO ×2 (08:59→21:35)
[2023-07-17] MEDS: SENOKOT 8.59999999999999964 MG PO ×2 (08:59→21:31)
[2023-07-17] MEDS: CELEXA 10 MG PO ×2 (09:00→21:30)
[2023-07-17] MEDS: COLACE 100 MG PO ×2 (09:00→21:30)
[2023-07-17] MEDS: CARDIZEM CD 180 MG PO (09:00)
[2023-07-17] MEDS: ELIQUIS 2.5 MG PO ×2 (09:01→21:31)
[2023-07-17] MEDS: MIRALAX 17 GRAMS PO (09:05)
[2023-07-17] MEDS: DESENEX/MITRAZOL/ZEASORB 1 APPLIC TOPICAL ×2 (09:08→21:31)
[2023-07-17 11:48] VITALS: BP 120/65
[2023-07-17 15:00] VITALS: BP 114/62
--- NOTE | 2023-07-17 18:33 | W.PN.HOSP.TC ---
Today's Communication/Plan
-
Patient is pending SNF placement
Assessment / Plan
Assessment / Plan
Physical Exam
General: Appears Chronically Ill
HEENT: Normocephalic
Respiratory: Clear
Cardiac: S1/S2 and Regular Rate
GI: Soft, Non Tender and Normal Bowel Sounds
Musculoskeletal: No Cyanosis and No Edema
Skin: Warm and Dry
Neuro: Awake. Alert.
Psych: Calm and Apparent Dementia

Assessment/Plan
# Urinary Tract Infection - ruled out
# Recent Urinary Tract Infection
# Leukocytosis
# Failure to Thrive
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
# History of nephrolithiasis
# Recent Mild Right Hydronephrosis on the right side without evidence of obstruction such as calculus
-Urinalysis this admission suggested UTI
-Last admission urine culture grew Klebsiella ozaenae, resistant to Ampicillin
-Status post Levaquin
-Consulted ID, recommendations appreciated: patient is not having symptoms of UTI, stop Levaquin/antibiotics
-Follow urine (contaminated) and blood cultures (no growth)
-PT/OT
-Placement
# Recent Acute Rectal bleeding - in the transverse colon, possibly secondary to angiodysplasia
�
-Hgb this admission is good at initial value of 15.1
-Got Kcentra last admission
-Last admission refused arteriogramolization, saying that she doesn't want any invasive procedures at her age
# Hypokalemia
-Monitor and replace
# Paroxysmal atrial fibrillation on Eliquis at home
Continue Eliquis
Continue Metoprolol and Cardizem
# Moderate to severe mitral regurgitation
moderate TR, mild AI
Mild pulmonary regurgitation
# Recent moderate right pleural effusion
# Recent Small Left Pleural Effusion
# Moderate to severe aortic regurgitation.
# Severe tricuspid regurgitation.
# Pulmonary Hypertension
# Moderate to severe mitral regurgitation
# Mild pulmonary regurgitation
# History of h. pylori
# History of erosive gastropathy
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
# History of fatty liver
# Hypertension
-Continue home diltiazem
# Depression-continue Celexa
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
# Per CT Head radiologist's report on 07/13/23: 3.5 cm focal area of encephalomalacia at the right parietal occipital junction, stable dating back to the 01/29/2023 MRI examination and most consistent with nonhemorrhagic infarct
# Vertigo
# Dementia
# Underweight
# Stage 2 left buttock pressure injury, POA
# Stage 1 right heel pressure injury, POA
-Continue wound care
# DVT prophylaxis-SCDs
# CODE STATUS-full code
Anticipated Discharge: 24 - 48 hours
Subjective/Interval History
-
Date of Service: July 17, 2023
Patient was seen and examined. She reported no problems and denied any new symptoms.
Objective Data
-
Vital Signs:
Vital Signs
Temp Pulse Resp BP Pulse Ox
98.2 F 73 20 114/62 94
07/17/23 15:00 07/17/23 15:00 07/17/23 15:00 07/17/23 15:00 07/17/23 15:00
I&O
07/16/23 07/17/23 07/18/23
06:59 06:59 06:59
Intake Total 240 / 240 240 / 240 240 / 240
Balance 240 / 240 240 / 240 240 / 240
[2023-07-17 23:21] VITALS: BP 130/80
[2023-07-18 07:10] VITALS: BP 122/65
[2023-07-18 08:12] LABS: % Basophils 0.5 % (0-2); % Eosinophils 1.7 % (0-6); % Immature Granulocytes 0.5 % (0-0.5); % Lymphocytes 35.3 % (20.5-51.1); Absolute Eosinophils 0.1 10^3/uL (0-0.7); Absolute Lymphocytes 2.8 10^3/uL (1.2-3.4); Absolute Monocytes 0.6 10^3/uL (0.1-0.6); Absolute Neutrophils 4.3 10^3/uL (1.4-6.5); Hematocrit 40.3 % (37.0-47.0); Hemoglobin 13.5 g/dL (12.0-16.0); Mean Corp Hgb Conc. 33.5 g/dL (33.0-37.0); Mean Corpuscular Hgb 30.2 pg (27.0-31.0); Mean Corpuscular Volume 90.2 fL (81.0-99.0); Mean Platelet Volume 9.1 fL (7.4-10.4); Nucleated Red Blood Cells % 0 %; Platelet Count 232 10^3/uL (130-400); Red Blood Cell Count 4.47 10^6/uL (4.20-5.40); Red Cell Dist. Width 14.5 % (11.5-14.5)
[2023-07-18 08:37] LABS: Blood Urea Nitrogen 10 mg/dl (7-17); Calcium 8.1 mg/dl (8.4-10.2); Carbon Dioxide 29 mmol/L (22-30); Chloride 105 mmol/L (98-107); Estimated Creatinine Clearance 50 ml/min; Glucose 89 mg/dl (70-99); Potassium 3.6 mmol/L (3.5-5.1); Sodium 135 mmol/L (135-145); eGFR > 60.00
[2023-07-18] MEDS: VITAMIN D3 (cholecalciferol) 25 MCG PO (09:33)
[2023-07-18] MEDS: TOPROL XL 100 MG PO ×2 (09:33→22:28)
[2023-07-18] MEDS: CELEXA 10 MG PO ×2 (09:33→22:22)
[2023-07-18] MEDS: CARDIZEM CD 180 MG PO (09:33)
[2023-07-18] MEDS: ELIQUIS 2.5 MG PO ×2 (09:33→22:21)
[2023-07-18] MEDS: COLACE PO (09:34)
[2023-07-18] MEDS: DESENEX/MITRAZOL/ZEASORB 1 APPLIC TOPICAL ×2 (09:34→22:31)
[2023-07-18] MEDS: SENOKOT PO (09:34)
[2023-07-18] MEDS: MIRALAX PO (09:34)
--- NOTE | 2023-07-18 11:09 | W.PN.HOSP.TC ---
Today's Communication/Plan
-
DC planning
Assessment / Plan
Assessment / Plan

Assessment/Plan
# Urinary Tract Infection - ruled out
# Recent Urinary Tract Infection
# Leukocytosis
# Failure to Thrive
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
# History of nephrolithiasis
# Recent Mild Right Hydronephrosis on the right side without evidence of obstruction such as calculus
-Urinalysis this admission suggested UTI
-Last admission urine culture grew Klebsiella ozaenae, resistant to Ampicillin
-Status post Levaquin
-Consulted ID, recommendations appreciated: patient is not having symptoms of UTI, stop Levaquin/antibiotics
-Follow urine (contaminated) and blood cultures (no growth)
-PT/OT
-Placement
# Recent Acute Rectal bleeding - in the transverse colon, possibly secondary to angiodysplasia
�
-Hgb stable
-Got Kcentra last admission
-Last admission refused arteriogramolization, saying that she doesn't want any invasive procedures at her age
# Paroxysmal atrial fibrillation on Eliquis at home
Continue Eliquis
Continue Metoprolol and Cardizem
# Moderate to severe mitral regurgitation
moderate TR, mild AI
Mild pulmonary regurgitation
# Recent moderate right pleural effusion
# Recent Small Left Pleural Effusion
# Moderate to severe aortic regurgitation.
# Severe tricuspid regurgitation.
# Pulmonary Hypertension
# Moderate to severe mitral regurgitation
# Mild pulmonary regurgitation
# History of h. pylori
# History of erosive gastropathy
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
# History of fatty liver
# Hypertension
-Continue home diltiazem
# Depression-continue Celexa
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
0n AC for stroke prevention
# Per CT Head radiologist's report on 07/13/23: 3.5 cm focal area of encephalomalacia at the right parietal occipital junction, stable dating back to the 01/29/2023 MRI examination and most consistent with nonhemorrhagic infarct
# Vertigo
# Dementia
Pt is bedbound status for a while and taken care by son
She has declined PT eval and PT recs no skilled need as she is bedbound
Pt admits not thriving at home and needs help.
Her motor strength is 4+/5 in LE but pt is refusing to get up and participate with PT
Needs placement
# Underweight
# Stage 2 left buttock pressure injury, POA
# Stage 1 right heel pressure injury, POA
-Continue wound care
# DVT prophylaxis-SCDs
# CODE STATUS-full code
Anticipated Discharge: Today
Subjective/Interval History
-
Date of Service: July 18, 2023
Alert and oriented to place person.
Not sure why she came to the hospital.
She is voicing no specific complaints. She does recognize that she is not able to cope at home now.
She says that she has not been able to ambulate and pretty much bedbound for some time now. Son takes care of all the staff including personal care.
Objective Data
-
Labs:
Laboratory Results
07/18/23
06:37
WBC 8.0
Hgb 13.5
Hct 40.3
Plt Count 232
Sodium 135
Potassium 3.6
Chloride 105
Carbon Dioxide 29
BUN 10
Creatinine 0.5 L
Glucose 89
Calcium 8.1 L
Vital Signs:
Vital Signs
Temp Pulse Resp BP Pulse Ox
97.7 F 81 18 120/65 94
07/18/23 07:10 07/18/23 09:33 07/18/23 07:10 07/18/23 09:33 07/18/23 07:10
I&O
07/17/23 07/18/23 07/19/23
06:59 06:59 06:59
Intake Total 240 / 240 240 / 240
Balance 240 / 240 240 / 240
Review of Systems
-
Constitutional: Denies Fever
EENT: Denies Sore Throat
Respiratory: Denies Trouble Breathing
Cardiac: Denies Chest Pain
Abdomen/GI: Denies Abdominal Pain, Nausea or Vomiting
Neuro: Denies Dizzy, Weakness (But cannot walk.), Numbness or Tremors
Physical Exam
-
General: No Apparent Distress
HEENT: Moist Mucous Membranes
Respiratory: Clear to Auscultation
Cardiac: Regular Rhythm and S1/S2
GI: Soft and Nontender
Neuro: AO x 3 and No Motor Deficits (4+/5 BL LE; 5/5 UE BL); Negative Tremors
Psych: Calm
Data Reviewed
-
Labs: Labs Reviewed by me
--- NOTE | 2023-07-18 12:44 | VNURNOTE ---
Patient is current with [facility] since 02/18, with SN, resumption of care 05/28, will monitor progress and plan at discharge.
[2023-07-18 15:10] VITALS: BP 120/69
[2023-07-18] MEDS: COLACE 100 MG PO (22:22)
[2023-07-18] MEDS: SENOKOT 8.59999999999999964 MG PO (22:22)
[2023-07-18 22:25] VITALS: BP 136/76
[2023-07-18 23:15] VITALS: BP 130/75
[2023-07-19 06:00] VITALS: BMI 23.8
[2023-07-19 06:56] LABS: % Basophils 0.4 % (0-2); % Immature Granulocytes 0.4 % (0-0.5); % Lymphocytes 29.9 % (20.5-51.1); % Monocytes 8.7 % (1.7-9.3); % Neutrophils 58.6 % (42.2-75.2); Absolute Eosinophils 0.2 10^3/uL (0-0.7); Absolute Lymphocytes 2.3 10^3/uL (1.2-3.4); Absolute Monocytes 0.7 10^3/uL (0.1-0.6); Absolute Neutrophils 4.5 10^3/uL (1.4-6.5); Hematocrit 42.5 % (37.0-47.0); Hemoglobin 13.9 g/dL (12.0-16.0); Mean Corp Hgb Conc. 32.7 g/dL (33.0-37.0); Mean Corpuscular Hgb 29.9 pg (27.0-31.0); Mean Corpuscular Volume 91.4 fL (81.0-99.0); Mean Platelet Volume 8.9 fL (7.4-10.4); Nucleated Red Blood Cells % 0 %; Platelet Count 224 10^3/uL (130-400); Red Blood Cell Count 4.65 10^6/uL (4.20-5.40); Red Cell Dist. Width 14.1 % (11.5-14.5); White Blood Cell Count 7.6 10^3/uL (4.8-10.8)
[2023-07-19 07:00] VITALS: BP 134/83
[2023-07-19 07:17] LABS: Blood Urea Nitrogen 11 mg/dl (7-17); Calcium 8.5 mg/dl (8.4-10.2); Carbon Dioxide 33 mmol/L (22-30); Chloride 101 mmol/L (98-107); Estimated Creatinine Clearance 50 ml/min; Glucose 91 mg/dl (70-99); Potassium 3.8 mmol/L (3.5-5.1); Sodium 137 mmol/L (135-145); eGFR > 60.00
[2023-07-19] MEDS: COLACE 100 MG PO ×2 (08:36→20:37)
[2023-07-19] MEDS: TOPROL XL 100 MG PO ×2 (08:36→20:37)
[2023-07-19] MEDS: SENOKOT 8.59999999999999964 MG PO ×2 (08:36→20:38)
[2023-07-19] MEDS: CELEXA 10 MG PO ×2 (08:36→20:38)
[2023-07-19] MEDS: MIRALAX 17 GRAMS PO (08:36)
[2023-07-19] MEDS: VITAMIN D3 (cholecalciferol) 25 MCG PO (08:36)
[2023-07-19] MEDS: ELIQUIS 2.5 MG PO ×2 (08:37→20:37)
[2023-07-19] MEDS: SANTYL OINTMENT 1 APPLIC TOPICAL (08:37)
[2023-07-19] MEDS: CARDIZEM CD 180 MG PO (08:37)
[2023-07-19] MEDS: DESENEX/MITRAZOL/ZEASORB 1 APPLIC TOPICAL ×2 (08:43→20:39)
--- NOTE | 2023-07-19 09:07 | CM ---
Entry form 07/18/23/
Spoke with Kemi Amezcua she said she can take her tomorrow 07/19/23.
Brother James she lives with and brother in [place] is [place].
She has [facility] 4 hours daily.
Pt has been having several UTI. James does not change her depends till Care givers come next day.
Instructed James that depend needs to be changed depend every 4 hours as needed.
Encouraged family to contact [facility] and see if she qualifies for waiver care care givers to increase time of care giving.
Weaned to room air.
Pt has hospital bed ,commode,wc and walker at home as per James.
Will need ambulance
PLAN [facility]avier A[facility]zcua if accepted
--- NOTE | 2023-07-19 12:13 | CM ---
Addendum entered by Alison Perez 07/19/23 13:55:
CM received a TT from nursing indicating that the patient does not feel safe returning home with her son and is willing to participate in PT session to hopefully admit to SNF
CM sent a TT to admissions at [facility] to inform of pt possibly admitting today based off of therapy assessment and also sent a TT to clinical liaison w/[facility]
CM awaiting therapy assessment to assist with recommendations r/t to discharge planning
PLAN; CM following for d/c needs
Original Note:
CM following re: d/c planning
Chart reviewed
Pt is medically stable for d/c
Initially discharge goal was for SNF however patient has been denying therapy and at baseline is bed bound
CM called and left a voice mail message for the patient's son James to discuss d/c plans as going to a SNF is not option since the patient does not have a skilled need
Pt is current with [facility] and also has 4 hours of private care givers through [facility]
Additionally, the patient does have a hospital bed at home and other DME to assist the patient's son when care givers aren't presen
Previous CM encouraged the patient's son to contact [facility] to inquire about waiver services and in home support
Awaiting a return call from James at this time to discuss
PLAN; d/c to home with DEB provided by [facility] and [facility]
--- NOTE | 2023-07-19 12:41 | W.PN.HOSP.TC ---
Today's Communication/Plan
-
DC
Assessment / Plan
Assessment / Plan

Assessment/Plan
# Urinary Tract Infection - ruled out
# Recent Urinary Tract Infection
# Leukocytosis
# Failure to Thrive
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
# History of nephrolithiasis
# Recent Mild Right Hydronephrosis on the right side without evidence of obstruction such as calculus
-Urinalysis this admission suggested UTI
-Last admission urine culture grew Klebsiella ozaenae, resistant to Ampicillin
-Status post Levaquin
-Consulted ID, recommendations appreciated: patient is not having symptoms of UTI, stop Levaquin/antibiotics
-Follow urine (contaminated) and blood cultures (no growth)
-PT/OT
-Placement
# Recent Acute Rectal bleeding - in the transverse colon, possibly secondary to angiodysplasia
�
-Hgb stable
-Got Kcentra last admission
-Last admission refused arteriogramolization, saying that she doesn't want any invasive procedures at her age
# Paroxysmal atrial fibrillation on Eliquis at home
Continue Eliquis
Continue Metoprolol and Cardizem
# Moderate to severe mitral regurgitation
moderate TR, mild AI
Mild pulmonary regurgitation
# Recent moderate right pleural effusion
# Recent Small Left Pleural Effusion
# Moderate to severe aortic regurgitation.
# Severe tricuspid regurgitation.
# Pulmonary Hypertension
# Moderate to severe mitral regurgitation
# Mild pulmonary regurgitation
# History of h. pylori
# History of erosive gastropathy
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
# History of fatty liver
# Hypertension
-Continue home diltiazem
# Depression-continue Celexa
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
0n AC for stroke prevention
# Per CT Head radiologist's report on 07/13/23: 3.5 cm focal area of encephalomalacia at the right parietal occipital junction, stable dating back to the 01/29/2023 MRI examination and most consistent with nonhemorrhagic infarct
# Vertigo
# Dementia
Pt is bedbound status for a while and taken care by son
She has declined PT eval and PT recs no skilled need as she is bedbound
Pt admits not thriving at home and needs help.
Her motor strength is 4+/5 in LE but pt is refusing to get up and participate with PT
Needs placement
# Underweight
# Stage 2 left buttock pressure injury, POA
# Stage 1 right heel pressure injury, POA
-Continue wound care
# DVT prophylaxis-SCDs
# CODE STATUS-full code
Medically stable for discharge to rehab when bed available.
Anticipated Discharge: Today
Subjective/Interval History
-
Date of Service: July 19, 2023
No overnight events. Patient voicing no specific complaints.
Objective Data
-
Labs:
Laboratory Results
07/19/23
06:28
WBC 7.6
Hgb 13.9
Hct 42.5
Plt Count 224
Sodium 137
Potassium 3.8
Chloride 101
Carbon Dioxide 33 H
BUN 11
Creatinine 0.5 L
Glucose 91
Calcium 8.5
Vital Signs:
Vital Signs
Temp Pulse Resp BP Pulse Ox
97.8 F 87 18 134/83 97
07/19/23 07:00 07/19/23 07:00 07/19/23 07:00 07/19/23 07:00 07/19/23 09:47
I&O
07/18/23 07/19/23 07/20/23
06:59 06:59 06:59
Intake Total 240 / 240 840 / 840
Balance 240 / 240 840 / 840
Review of Systems
-
Constitutional: Denies Fever
EENT: Denies Sore Throat
Respiratory: Denies Cough or Trouble Breathing
Cardiac: Denies Chest Pain
Abdomen/GI: Denies Abdominal Pain, Nausea or Vomiting
Neuro: Denies Dizzy
Physical Exam
-
General: No Apparent Distress
HEENT: Moist Mucous Membranes
Respiratory: Clear to Auscultation
Cardiac: Regular Rhythm and S1/S2
GI: Soft and Nontender
Neuro: AO x 3
Psych: Calm
Data Reviewed
-
Labs: Labs Reviewed by me
--- NOTE | 2023-07-19 12:45 | W.DS.TRANS ---
DC Summary - [facility] [employer]
-
Discharge Instructions:
Discharge Diagnosis/Procedures Failure to thrive
Diet Regular
Activity As tolerated
Driving Restrictions No driving
Bathing Restrictions None
Other Services PT,OT
Instructions:
Stand-Alone Forms:
Changes to Home Medications: Yes
Discharge Medications:
DC Medications w/original date entered in [facility]
cholecalciferol (vitamin D3) 25 mcg (1,000 unit) tablet 25 mcg PO DAILY Supplement 05/20/23
citalopram 10 mg tablet 10 mg PO BID Mental Health 05/20/23
collagenase clostridium histo. 250 unit/gram topical ointment (Santyl) 1 applic topical .2 X PER WEEK apply to B/L heels 05/20/23
diltiazem HCl 180 mg capsule,extended release 24 hr, controlled 180 mg PO DAILY Arrhythmia 05/20/23
metoprolol succinate 100 mg tablet,extended release 24 hr 100 mg PO BID Blood Pressure 05/20/23
apixaban 5 mg tablet (Eliquis) 2.5 mg PO BID Blood Clot Prevention/Tx 07/13/23
miconazole nitrate 2 % topical powder (Desenex) 1 applic topical BID right breast rash 07/13/23
docusate sodium 100 mg capsule 100 mg PO BID #1 cap 07/19/23
polyethylene glycol 3350 17 gram oral powder packet (HealthyLax) 17 g PO DAILY #14 ea 07/19/23
sennosides 8.6 mg tablet (Senna Lax) 8.6 mg PO BID #1 tab 07/19/23
Home Medication Changes
New-Senna, MiraLAX, Colace
Pending Results: No
[2023-07-19 15:00] VITALS: BP 134/76
--- NOTE | 2023-07-19 16:18 | W.DCSUMMARY ---
Addendum entered and electronically signed by Johnny Garcia MD 07/20/23 10:51:
Date of discharge 07/20/2023
Original Note:
Discharge Summary
Discharge Data
Date of Admission: 07/13/23
Date of Discharge: 07/19/23
-
Pending Results: No
Hospital Course
Primary diagnosis:
Failure to thrive
Secondary diagnosis:
Paroxysmal fibrillation on Eliquis
Moderate to severe mitral regurgitation
Severe tricuspid regurgitation
Pulmonary hypertension
Moderate to severe aortic regurgitation
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
Hypertension essential
Depression
History of stroke
Hospital course:
Patient came in as she was failing to thrive at home and living in poor living conditions and foul-smelling urine.
She resides at home with his son. She apparently is pretty much bedbound and not participating with PT/therapies.
Son called EMS for lift assist in order to roll the patient in the bed however with when EMS noted poor poor living condition and pt in foul smelling of urine they brought her to the hospital.
Essentially she is not motivated to work with a therapist despite significant encouragement.
She was ruled out for any acute infection. No acute new medical issues. She was compensated from a cardiac standpoint. She is noted to have normal EF despite all her valvular dysfunction. Her A-fib was mostly rate controlled without issues
during the stay here. She had CT of the head without any acute intracranial abnormalities. She was maintained on Eliquis for A-fib.
Lab work showed no significant metabolic disturbances daily.
She was afraid to work with the PT here as she was not feeling confident on her legs. She needed strong encouragement to participate with them. She did realize that she can go back home as she is requiring more help and agreed to go to rehab this
time.
Consultants on board:
Infectious disease-Dr. Perez
Discharge Plan
-
Patient Disposition: Residential/SNF
Discharge Diagnosis/Procedures: Failure to thrive
Diet: Regular
Activity: As tolerated
Driving Restrictions: No driving
Bathing Restrictions: None
Other Services: PT and OT
Activity Restrictions/Additional Instructions:
Wound Care Instructions Left Buttock- Clean with normal saline or soap and water. Apply silicone border foam. Change Q 48 hours and PRN for drainage or if soiled. May also use Calazime to open wound if patient is frequently incontinent.
Bilateral heels- No sting barrier wipe and adhesive foam. Change Q 3 days and PRN if loose or soiled
Sacrum- Keep off-loaded with frequent position changes. Use barrier ointment for incontinence management.
Static Air Overlay
Keep Sacrum off-loaded with frequent position changes
Encourage good po intake
Keep heels off-loaded with air cushion or pillow under calves
Follow up at wound care center call for an appointment.
Referrals:
Pedro Richter MD [Family Provider] -
Prescriptions:
New
docusate sodium 100 mg Capsule
100 mg PO BID Qty: 1 0RF
polyethylene glycol 3350 [HealthyLax] 17 gram Powder In Packet
17 g PO DAILY Qty: 14 0RF
sennosides [Senna Lax] 8.6 mg Tablet
8.6 mg PO BID Qty: 1 0RF
Continued
citalopram 10 mg Tablet
10 mg PO BID
metoprolol succinate 100 mg Tablet Extended Release 24 Hr
100 mg PO BID
Santyl 250 unit/gram Ointment
1 applic TOPICAL .2 X PER WEEK
cholecalciferol (vitamin D3) 25 mcg (1,000 unit) Tablet
25 mcg PO DAILY
diltiazem HCl 180 mg Capsule,Ext.Rel 24h Degradable
180 mg PO DAILY
miconazole nitrate [Desenex] 2 % Powder
1 applic TOPICAL BID
Eliquis 5 mg tablet
2.5 mg PO BID
Patient Comments:
07/13/2023, discharge paperwork from 05/26/2023 mention that this med. was changed to be taken 1/2 tablet BID.
Discharge Orders:
Discharge Patient (As Directed); Ordered 07/19/23
Ordered By: Johnny Garcia
[2023-07-19 23:24] VITALS: BP 146/79
[2023-07-20 06:00] VITALS: BMI 23.8
[2023-07-20 07:25] VITALS: BP 165/94
[2023-07-20 08:17] LABS: % Basophils 0.6 % (0-2); % Eosinophils 1.6 % (0-6); % Immature Granulocytes 0.5 % (0-0.5); % Lymphocytes 31.5 % (20.5-51.1); % Monocytes 8.9 % (1.7-9.3); % Neutrophils 56.9 % (42.2-75.2); Absolute Basophils 0.1 10^3/uL (0-0.2); Absolute Eosinophils 0.1 10^3/uL (0-0.7); Absolute Lymphocytes 2.5 10^3/uL (1.2-3.4); Absolute Monocytes 0.7 10^3/uL (0.1-0.6); Absolute Neutrophils 4.6 10^3/uL (1.4-6.5); Hematocrit 40.7 % (37.0-47.0); Mean Corp Hgb Conc. 34.4 g/dL (33.0-37.0); Mean Platelet Volume 8.9 fL (7.4-10.4); Nucleated Red Blood Cells % 0 %; Platelet Count 229 10^3/uL (130-400); Red Blood Cell Count 4.52 10^6/uL (4.20-5.40); Red Cell Dist. Width 14.3 % (11.5-14.5)
[2023-07-20] MEDS: VITAMIN D3 (cholecalciferol) 25 MCG PO (08:45)
[2023-07-20] MEDS: SENOKOT 8.59999999999999964 MG PO (08:45)
[2023-07-20] MEDS: TOPROL XL 100 MG PO (08:45)
[2023-07-20] MEDS: COLACE 100 MG PO (08:45)
[2023-07-20] MEDS: CELEXA 10 MG PO (08:46)
[2023-07-20] MEDS: CARDIZEM CD 180 MG PO (08:46)
[2023-07-20] MEDS: ELIQUIS 2.5 MG PO (08:46)
[2023-07-20] MEDS: DESENEX/MITRAZOL/ZEASORB 1 APPLIC TOPICAL (08:48)
[2023-07-20] MEDS: MIRALAX 17 GRAMS PO (08:48)
[2023-07-20 08:50] LABS: Blood Urea Nitrogen 11 mg/dl (7-17); Calcium 8.4 mg/dl (8.4-10.2); Carbon Dioxide 30 mmol/L (22-30); Chloride 101 mmol/L (98-107); Estimated Creatinine Clearance 50 ml/min; Glucose 84 mg/dl (70-99); Potassium 3.4 mmol/L (3.5-5.1); Sodium 137 mmol/L (135-145); eGFR > 60.00
--- NOTE | 2023-07-20 10:51 | W.PN.HOSP.TC ---
Addendum entered and electronically signed by Johnny Garcia MD 07/24/23 16:11:
Sepsis ruled out
Original Note:
Today's Communication/Plan
-
DC
Assessment / Plan
Assessment / Plan

Assessment/Plan
# Urinary Tract Infection - ruled out
# Recent Urinary Tract Infection
# Leukocytosis
# Failure to Thrive
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
# History of nephrolithiasis
# Recent Mild Right Hydronephrosis on the right side without evidence of obstruction such as calculus
-Urinalysis this admission suggested UTI
-Last admission urine culture grew Klebsiella ozaenae, resistant to Ampicillin
-Status post Levaquin
-Consulted ID, recommendations appreciated: patient is not having symptoms of UTI, stop Levaquin/antibiotics
-Follow urine (contaminated) and blood cultures (no growth)
-PT/OT
-Placement
# Recent Acute Rectal bleeding - in the transverse colon, possibly secondary to angiodysplasia
�
-Hgb stable
-Got Kcentra last admission
-Last admission refused arteriogramolization, saying that she doesn't want any invasive procedures at her age
# Paroxysmal atrial fibrillation on Eliquis at home
Continue Eliquis
Continue Metoprolol and Cardizem
# Moderate to severe mitral regurgitation
moderate TR, mild AI
Mild pulmonary regurgitation
# Recent moderate right pleural effusion
# Recent Small Left Pleural Effusion
# Moderate to severe aortic regurgitation.
# Severe tricuspid regurgitation.
# Pulmonary Hypertension
# Moderate to severe mitral regurgitation
# Mild pulmonary regurgitation
# History of h. pylori
# History of erosive gastropathy
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
# History of fatty liver
# Hypertension
-Continue home diltiazem
# Depression-continue Celexa
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
0n AC for stroke prevention
# Per CT Head radiologist's report on 07/13/23: 3.5 cm focal area of encephalomalacia at the right parietal occipital junction, stable dating back to the 01/29/2023 MRI examination and most consistent with nonhemorrhagic infarct
# Vertigo
# Dementia
Pt is bedbound status for a while and taken care by son
She has declined PT evals
Pt admits not thriving at home and needs help.
Her motor strength is 4+/5 in LE but pt is refusing to get up and participate with PT
Needs placement
# Underweight
# Stage 2 left buttock pressure injury, POA
# Stage 1 right heel pressure injury, POA
-Continue wound care
# DVT prophylaxis-SCDs
# CODE STATUS-full code
Medically stable for discharge to rehab when bed available.
DW son James yesterday about clinicals and discharge plan.
While at home patient she was declining all therapies.Stayed pretty much in the bed despite encouragement from the son. he was glad she is agreeing to go to rehab ,hopefully she gets on her feet and do well.
More than 30 minutes spent in discharge including
Final examination of the patient
Summarizing hospital stay
Instructions for continuing care to all relevant caregivers
Preparation of discharge records, prescriptions, and referral forms
Total time spent (in minutes): 35
Anticipated Discharge: Today
Subjective/Interval History
-
Date of Service: July 20, 2023
Await placement.
No overnight events.
Objective Data
-
Labs:
Laboratory Results
07/20/23
07:31
WBC 8.0
Hgb 14.0
Hct 40.7
Plt Count 229
Sodium 137
Potassium 3.4 L
Chloride 101
Carbon Dioxide 30
BUN 11
Creatinine 0.5 L
Glucose 84
Calcium 8.4
Vital Signs:
Vital Signs
Temp Pulse Resp BP Pulse Ox
98.0 F 81 18 165/94 99
07/20/23 07:25 07/20/23 08:45 07/20/23 07:25 07/20/23 08:45 07/20/23 07:25
I&O
07/19/23 07/20/23 07/21/23
06:59 06:59 06:59
Intake Total 840 / 840 960 / 960
Balance 840 / 840 960 / 960
Review of Systems
-
Constitutional: Denies Fever
Respiratory: Denies Trouble Breathing
Cardiac: Denies Chest Pain
Abdomen/GI: Denies Abdominal Pain, Nausea or Vomiting
Neuro: Denies Dizzy
Physical Exam
-
General: No Apparent Distress
HEENT: Moist Mucous Membranes
Respiratory: Clear to Auscultation
Cardiac: Regular Rhythm and S1/S2
GI: Soft
Neuro: AO x 3
Psych: Calm
[2023-07-20] MEDS: KCL 20 MEQ PO (12:08)
--- NOTE | 2023-07-20 12:39 | CON.MD ---
Addendum entered and electronically signed by Nhung Avina MD 07/20/23 12:55:
psych will sign off.
Original Note:
Consultation - Medical
-
patient seen chart reviewed. this consult ordered re ? depression and FTT. the patient was admitted to for UTI FTT . spoke with nursing . this patient is an 88 year old woman who was pleasant but is rather confused and unable to give a good
hx. she started out seeming to answer questions appropriately eg have you been depressed in the past 'yes' but adding 'feeling better today' do you take medication for depression? 'yes but could not tell me what medication, did not know the year,
could not tell me how old she was (eventually said '34') could not tell me where she was born. i asked her if how i could help her and she did say 'have they served lunch yet?' which is not inappropriate at 1 pm. i do not know how reliable her
answers to other questions are....she denied ever being in a psychiatric hospital (she did know she was in hospital currently). she said she sleeps well. she said she eats okay (nursing begs to differ and said she eats very little). i asked her
about her unwillingness to be engaged in PT and she was adamant that she was unable to get up and walk. she is not wanting to hurt herself and is not hearing voices. my understanding is that patient is close to dc to snf.
past psych hx being rx w celexa 10 mg bid patient denied psych hospital stay but not clear if this is accurate.
medical hx uti ftt htn other kidney issues hx gi issues in the past inc rectal bleed diverticulitis/losis, h pylori underweight perhaps secondary to angiodysplasia paf cardiac valvular dysfunction hx cva and dementia sodium okay qtc
normal lft's nl
fh non contributory
social resides w son at home
substance abuse not
mse alert to person place not to time. hearing impaired. accented speech very short answers not necessarily accurate no psychosis mood is neutral affect constricted denies aud briceno cognitive impairment insight judgment lacking
dx dysthymia neurocognitive disorder
recommendations there does seem to be a level of cognitive dysfunction which should be clarifired as out patient and when patient medically more stable. could continue celexa as there is no contraindication. sodium and qtc are ok. it can be
given as a once daily dose 20 mg. not sure there is any benefit to increasing it as it is not clear to me at this point whether this is a severe depression or debility secondary to living situation, insufficient caloric intake and stimulation. would
have her dc to snf and observed there. could consider switch to remeron which would inc appetite but would not change medications when dc is imminent.
--- NOTE | 2023-07-20 15:24 | CM ---
Addendum entered by Alison Perez 07/20/23 15:44:
DESEAN also called and spoke with Keira Spring at [facility] to inquire about waiver program and in home services the [facility] may be able to provide to the patient when she's stable to be released from SNF
Keira states that the son had already been in contact with the office and they will make an appointment to meet the patient once she's at home
Original Note:
CM following re: d/c planning
Chart reviewed
Pt is medically stable for d/c
Pt again refused PT/OT when they attempted to assess patient at bedside
DESEAN then met with the patient's son James at bedside and he called his brother Mp who resides on the [facility] to include in discharge planning discussion
Both sons in agreement with placement if one found as patient's care currently exceeds what can be managed at home
DESEAN called [facility] and spoke with Katrin in admissions and she confirmed one female bed in the memory care unit
CM completed LOMN & inhouse transport forms and attached to patient chart
Transport confirmed for 7pm
No additional d/c needs identified at this time
DESEAN did speak with James to provide transport time and the address of the facility & notified the patient's nurse of above
PLAN; d/c to [facility]
Report: [phone] ext [phone]
[2023-07-20 15:26] VITALS: BP 130/69
--- NOTE | 2023-07-20 19:19 | PTCARENOTE ---
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 Pt refused at first. RN called patients son James. James spoke to his mom. Pt agreed to go. She was yelling when first put on stretcher. She then was
transported by ambulance. Pt has history of dementia. Four attempts made to call Report. [id number] called to [place] Nurse Viola.
--- NOTE | 2023-07-21 15:15 | PN.CDI ---
CDI
- -
CDI:
Physician Documentation Request
Admit Date: 07/14/23 17:26
Dear Doctor Jose,
Patient admitted with UTI.
3/2 PN, 'Sepsis - POA Secondary to Urinary Tract Infection.'
3/6 PN, 'Urinalysis this admission suggested UTI...Status post Levaquin...Urinary Tract Infection - ruled out.
After careful study, please update the status of documented sepsis:
Sepsis remains a valid diagnosis
Sepsis is ruled out
Other
Use of terms such as suspected, likely, concern for, or probable (associated with a specific diagnosis that is being evaluated, monitored, or treated as if it exists) are acceptable and can be coded in the inpatient setting, when documented at the
time of discharge.
Thank you,
Keira POTTER,RN,CCDS
CDI Specialist
Available via tiger text
Please use your independent medical judgment in providing your response.
== END 2023-07-20 19:05 | DRG 641 ==
LOC: EICU 17:26
PROVIDERS: Physician Assistant; ADMITTING PHYSICIAN Hospitalist; ATTENDING PHYSICIAN Internal Medicine; CONSULT PHYSICIAN Internal Medicine Infectious Disease; CONSULT PHYSICIAN Psychiatry & Neurology Psychiatry; EMERGENCY PHYSICIAN Emergency Medicine; FAMILY PHYSICIAN Internal Medicine Geriatric Medicine
DX: R62.7 Adult failure to thrive (principal); N13.6 Pyonephrosis; F03.93 Unspecified dementia, unspecified severity, with mood disturbance; I48.0 Paroxysmal atrial fibrillation; Z79.01 Long term (current) use of anticoagulants; I10 Essential (primary) hypertension; F32.A Depression, unspecified; R63.6 Underweight; E87.6 Hypokalemia; L89.322 Pressure ulcer of left buttock, stage 2; L89.611 Pressure ulcer of right heel, stage 1; I27.20 Pulmonary hypertension, unspecified; I08.3 Combined rheumatic disorders of mitral, aortic and tricuspid valves; Z68.23 Body mass index [BMI] 23.0-23.9, adult
CPT/HCPCS: 51701; 70450; 80048; 80053; 81003; 81015; 82550; 83605; 83735; 85025; 85610; 87040; 87070; 87077; 87086; 87147; 87186; 92610; 93005; 96361; 96365; 99285

== ENCOUNTER 2023-08-09 15:44 | Inpatient (IN) | payer MEDICARE, SELFPAY ==
[2023-08-09] VITALS (35 sets, daily range): BP systolic 65–137; BP diastolic 36–96
[2023-08-09 14:11] LABS: % Basophils 0.3 % (0-2); % Immature Granulocytes 1.3 % (0-0.5); % Lymphocytes 23.9 % (20.5-51.1); % Monocytes 5.4 % (1.7-9.3); % Neutrophils 69.1 % (42.2-75.2); Absolute Immature Granulocytes 0.2 10^3/uL (0-0.05); Absolute Lymphocytes 2.8 10^3/uL (1.2-3.4); Absolute Monocytes 0.6 10^3/uL (0.1-0.6); Absolute Neutrophils 8.2 10^3/uL (1.4-6.5); Hematocrit 40.6 % (37.0-47.0); Hemoglobin 12.8 g/dL (12.0-16.0); Mean Corp Hgb Conc. 31.5 g/dL (33.0-37.0); Mean Corpuscular Hgb 29.7 pg (27.0-31.0); Mean Corpuscular Volume 94.2 fL (81.0-99.0); Mean Platelet Volume 9.7 fL (7.4-10.4); Nucleated Red Blood Cells % 0.6 %; Platelet Count 191 10^3/uL (130-400); Red Blood Cell Count 4.31 10^6/uL (4.20-5.40); Red Cell Dist. Width 14.8 % (11.5-14.5); White Blood Cell Count 11.9 10^3/uL (4.8-10.8)
--- NOTE | 2023-08-09 14:20 | ED.GENMED ---
History of Present Illness
General
Chief Complaint: CODE
Source: patient, ambulance crew and [facility]
Exam Limitations: clinical condition
Time Seen by Provider: 08/09/23 14:00
Nursing documentation reviewed up to this point in time: agreed with
Travel History
Have you had any contact with someone who has COVID-19?: Unable to Answer
Do you have any symptoms of coronavirus? Fever > 100 degrees, chills, cough, shortness of breath, sore throat, loss of taste or smell, muscle aches, or headache?: Unable to Answer
History of Present Illness
History of Present Illness:
Patient with history of paroxysmal atrial fibrillation on Eliquis, presents to ED from [facility], after patient became unresponsive shortly after returning from [facility]. Per paramedics, [facility] staff transported patient back from dining
briceno to her room. After she was transitioned to her bed, patient became unresponsive. CPR was initiated immediately by staff. Pulse returned within 2 to 3 minutes. When paramedics arrived at scene, patient with decreased mental status with
agonal breathing. For airway protection, patient was intubated prehospital. Postintubation, patient was bolused with epinephrine secondary to hypotension. Unable to obtain any further information at this time.
Past History
Past History
ED Past Medical History: Arrthythmia (Atrial fibrillation), HTN and Other (urinary track infection recently treated)
ED Past Surgical History: Appendectomy, Cholecystectomy and Gynecological
Social History
Tobacco: Non-smoker
Alcohol: None
Drug: None
Personal: Single
Living: with family
Employment: Retired
Review of Systems
Review of Systems
Allergies reviewed?: Yes
Unable to obtain full review of systems at this time due to: intubated
All Other Systems: Not applicable
Phy Exam
Physical Exam
Physical Exam:
Physical Exam
General: no apparent distress, not acutely ill. afebrile. unresponsive to verbal/physical stimuli.
Head: nc/at. eomi
Neck: supple. no jvd.
Heart: tachycardic, systolic ejection murmur. equal radial pulses.
Lungs: no acute respiratory distress. clear while being bagged.
Abdomen: normal bowel sounds. not tender.
Neuro: unresponsive to verbal/physical stimuli.
Skin: no rash
Extremities: LE edema b/l
Course
Orders/Labs/Results
Orders:
Orders
08/09/23
Electrocardiogram (*1) Stat
Comment: ALREADY DONE
08/09/23 13:53
Sterile Water [Sterile Water For Injection] 10 ml .ROUTE .STK-MED ONE
Vecuronium [place] [Norcuron] 10 mg .ROUTE .STK-MED ONE
08/09/23 13:55
NORepinephrine 4 MG/250 ML [Levophed] 4 mg in 250 ml .ROUTE .STK-MED
08/09/23 13:56
NORepinephrine 4 MG/250 ML [Levophed] 4 mg in 250 ml .ROUTE .STK-MED
Propofol 1,000,000 Mcg/100 ml [Diprivan] 1,000,000 mcg in 100 ml .ROUTE .STK-MED
08/09/23 13:59
Portable Chest Xray [CR Chest Portable - 1 View] Urgent
Comment:
Reason For Exam: intubation
Reason Study Needs to be Portable: Patient Unstable
08/09/23 14:04
Complete Blood Count/With Diff Urgent
Comprehensive Metabolic Panel Urgent
Cortisol, Random Urgent
Comment: ADD ON
Lactate Level [Lactic Acid] Urgent
NT-proBNP Urgent
Comment: ADD ON
Troponin I Urgent
08/09/23 14:10
CT Head W/o Iv Contrast Urgent
Comment:
Reason For Exam: mental status change
Vecuronium [place] [Norcuron] 10 mg IV NOW STA
08/09/23 14:11
Propofol 1,000,000 Mcg/100 ml [Diprivan] 1,000,000 mcg in 100 ml IV NOW
Indication:: Light Sedation
Begin Infusion:: Now
Goal:: RASS 0 to -2
Maximum dose in mcg/kg/min:: 50
Initial dose based on RASS:: Yes
If RASS is:: +1 or pt hemodynamically unstable (SBP < 90mmHg), initiate at 10 mcg/kg/min
If RASS is:: +2, initiate at 20 mcg/kg/min
If RASS is:: greater than or equal to +3, initiate at 30 mcg/kg/min
Titration Instructions:: Titrate by 5-10 mcg/kg/min every 5 minutes until RASS 0 to -2 achieved.
Taper Instructions:: If RASS is at or below goal for 4 consecutive hours decrease infusion by
Taper Instructions:: 5-10 mcg/kg/min every 2 hours to off.
Over-sedation Instructions:: If CPOT 0-2 (at goal) AND RASS -3 to -5 (below goal) decrease sedative by
Over-sedation Instructions:: 50% first. If pain score remains at goal and RASS remains below goal in
Over-sedation Instructions:: 1 hour, decrease opioid infusion by 50%.
Notify provider:: immediately if patient exhibits signs/symptoms of propofol-related
Notify provider:: infusion syndrome.
Additional Instructions:: Patient MUST be mechanically ventilated and MUST receive analgesia.
08/09/23 14:12
0.9% Sodium Chloride 1000 ml [Nss] 1,000 ml IV BOLUS
08/09/23 14:15
NORepinephrine 4 MG/250 ML [Levophed] 4 mg in 250 ml IV PER PROTOCOL
Initial dose in mcg/min, then titrate:: 5
Titrate to keep:: SBP > 90 mmHg
Titrate by mcg/min:: 1-2 mcg/min
Frequency of titrations (minutes):: 5
Maximum dose in ICU in mcg/min:: 30
Maximum dose in IMU in mcg/min:: 8
Maximum dose in IVU in mcg/min:: 4
Begin to taper infusion when:: Remained at goal for 4hrs
Taper by mcg/min:: 1-2 mcg/min
Frequency of taper (minutes) if patient maintains goal:: 30
Taper to off?: Yes
If infusion off & no longer maintaining goal:: Contact Provider
08/09/23 14:27
ABG [Arterial Blood Gas] Urgent
%Oxygen/Room Air: 100
Comment: on ventilator
Triglycerides Routine
Comment: baseline levels with propofol infusion
08/09/23 14:34
Carrion Placement- Treatment ONCE
Reason for insertion: I&O's Critical Care
Catheter- Indwelling As Directed
Reason for insertion: I&O's Critical Care
Assess insertion reason daily.Remove if no longer applicable: Yes
08/09/23 14:37
DOPamine 400 MG/D5W 250 ML [DOPamine 400 MG] 400 mg in 250 ml .ROUTE .STK-MED
08/09/23 14:45
DOPamine 400 MG/D5W 250 ML [DOPamine 400 MG] 400 mg in 250 ml IV PER PROTOCOL
Initial dose in mcg/kg/min, then titrate:: 10
Titrate to keep:: MAP > 65 mmHg
Titrate by mcg/kg/min:: 1-2 mcg/kg/min
Frequency of titrations (minutes):: 15
Maximum dose in ICU in mcg/kg/min:: 20
Maximum dose in IMU in mcg/kg/min:: 10
Begin to taper infusion when:: Remained at goal for 4hrs
Taper by mcg/kg/min:: 1-2 mcg/kg/min
Frequency of taper (minutes) if patient maintains goal:: 30
Taper to off?: Yes
If infusion off & no longer maintaining goal:: Contact Provider
08/09/23 15:06
CT Chest/abd/pel Wo Iv Cont Urgent
Comment:
Reason For Exam: mental status change with hypotension
08/09/23 15:09
Metoprolol [Lopressor] 5 mg IV NOW STA
08/09/23 15:10
Metoprolol [Lopressor] 5 mg .ROUTE .STK-MED ONE
08/09/23 15:23
Echo 2D MMode Color/Doppler Stat
Reason for Study: cardiac arrest
08/09/23 15:31
Admit/Transfer Patient As Directed
Co-Sign Provider:
Level of Care: Inpatient admission
Assign to:: ICU
Physician / Group: Jose
Diagnosis: out of hospital cardiac arrest
Reason for Hospitalization: ICU admit
Expected length of stay greater than two midnights?: Yes
ELOS- Estimated Length of Stay in days: 5
I certify the patient meets the requirements for IP care: Yes
08/09/23 15:33
Code Status As Directed
Resuscitation Status: Full Code
08/09/23 16:37
Acetaminophen [Tylenol] 650 mg PO Q6HPRN PRN
Bisacodyl [Dulcolax] 10 mg RECTAL DAILYPRN PRN
Magnesium Hydroxide [Milk of Magnesia] 30 ml PO [id number] PRN
Phosphate Enema [Fleet Phosphate Enema-Adult] 135 ml RECTAL DAILYPRN PRN
08/09/23 16:37
Add On- LAB Routine
Tests Added?: BNP
CARDIOLOGY CONSULT Routine
Consulting Provider: Tam Caicedo
Was physician already notified: Yes
Reason for consult: cardiac arrest
Ice Puller Consult Routine
Consulting Provider: Jeffrey Blake
Was physician already notified: Yes
Reason for consult: cardiac arrest
I&O [Intake/ Output] As Directed
Frequency: q12h
08/09/23 19:10
Troponin I Q8H
08/09/23 20:00
Apixaban [Eliquis] 2.5 mg TUBE BID
Citalopram [Celexa] 10 mg TUBE BID
Docusate Sodium [Colace Liquid] 100 mg TUBE BID
Sennosides [Senna Syrup] 8.8 mg TUBE BID
08/10/23 03:52
CBC/No Diff [Complete Blood Count/No Diff] IN AM
Comprehensive Metabolic Panel IN AM
Abnormal Lab Results
08/09/23 08/09/23 08/09/23
14:04 14:25 14:27
WBC 11.9 H 10^3/uL
(4.8-10.8)
MCHC 31.5 L g/dL
(33.0-37.0)
RDW 14.8 H %
(11.5-14.5)
Abs Immat Gran (auto) 0.2 H 10^3/uL
(0-0.05)
Absolute Neuts (auto) 8.2 H 10^3/uL
(1.4-6.5)
Immature Gran % 1.3 H %
(0-0.5)
pH 7.20 L
(7.35-7.45)
pCO2 51 H mmHg
(32-35)
pO2 157 H mmHg
(83-108)
HCO3 19.9 L mmol/L
(21-28)
ABG O2 Sat (Measured) 99.8 H %
(94-98)
BUN 39 H mg/dl
(7-17)
Glucose 193 H mg/dl
(70-99)
Lactic Acid 6.1 H* mmol/L
(0.7-2.0)
Calcium 7.9 L mg/dl
(8.4-10.2)
Troponin I 0.055 H* ng/ml
Total Protein 5.1 L g/dl
(6.3-8.2)
Albumin 2.5 L g/dl
(3.5-5.0)
POC Glucose 161 H mg/dl
(70-99)
08/09/23 14:04
08/09/23 14:04
Vital Signs
Initial and Last Documented VS:
Initial Vital Signs
Pulse Resp BP Pulse Ox
92 18 99/50 98
08/09/23 13:53 08/09/23 13:53 08/09/23 13:53 08/09/23 13:53
Last Documented Vital Signs
Temp Pulse Resp BP Pulse Ox
98.0 F 124 22 78/48 99
08/10/23 03:53 08/10/23 03:30 08/10/23 03:30 08/10/23 00:00 08/10/23 04:00
MDM/Problems Addressed
MDM/Problems Addressed:
Patient arrived in ED and evaluated immediately. Breath sounds equal bilaterally while being bagged. Hypotension noted. Patient started on Levophed infusion immediately along with continue IV fluid administration. EKG without any acute changes.
CXR ordered to confirm ETT placement. No changes made, as patient with stable pulse ox
Patient started on propofol infusion as well as dose of vecuronium.
CT head: No acute findings.
(ICU attending) notified via [employer]. Requesting noncontrast CT chest/abd/pel.
Pt will be admitted to ICU for further evaluation and treatment.
Dopamine infusion started at low-dose, secondary to persistent hypotension despite max dose of Levophed. Shortly afterwards, patient noted to become moderately tachycardic. Dopamine discontinued and patient given Lopressor 5 mg IV, with
improvement.
Discussed with patient's son at bedside - FULL CODE
Critical care statement: A total of 60 minutes of critical care time was provided for this patient. This includes management of unstable vital signs, evaluation of the patient at bedside, reviewing the patient's pertinent medical records, discussion
with consultants, review of old EKGs and review of pertinent medical records. This time with separate from time utilized to perform the aforementioned documented procedures
*EKG
Interpreted by ED Provider?: Yes
EKG Intrepretation Date: 08/09/23
Heart Rate: 101
Rate: tachycardiac
Rhythm: a-fib
Schneider: left axis deviation
Interval: normal interval
QRS Pattern: normal QRS
*Critical Care Note
Total Time (30-74mins, 75-104mins- exclusive of procedures): 60 min
ED Attending Note
-
Portions of this chart may have been created with voice recognition software.� Occasional wrong word or��sound alike� substitutions may have occurred due to the inherent limitations of voice recognition software.
Discharge Plan
Departure
Patient Disposition: Admit
Date of Disposition: 08/09/23
Time of Disposition: 15:21
Admit to: ICU
Presentation/result/management discussed w/ accepting MD/DO: Hospitalist
Discharge Problem:
Altered mental status, Respiratory failure
Interventions
Interventions:
*Risk Screen - Suicide Last Done: 08/09/23 13:53
*General Assessment Last Done: 08/09/23 13:53
*Neglect/Abuse Screening Last Done: 08/09/23 13:53
*ED COVID-19 Vaccine History Last Done: 08/09/23 13:53
*Nursing Disposition Last Done: 08/09/23 16:47
ED- Cardiac Assessment Last Done: 08/09/23 14:52
ED- Pulmonary Assessment Last Done: 08/09/23 14:52
Discharge Date and Time
Discharge Date/Time: 08/09/23 16:48
[2023-08-09] MEDS: NORCURON 10 MG IV (14:23)
[2023-08-09 14:24] LABS: ALT (SGPT) 19 U/L (0-35); AST (SGOT) 35 U/L (14-36); Albumin 2.5 g/dl (3.5-5.0); Alkaline Phosphatase 53 U/L (38-126); Blood Urea Nitrogen 39 mg/dl (7-17); Calcium 7.9 mg/dl (8.4-10.2); Carbon Dioxide 24 mmol/L (22-30); Chloride 105 mmol/L (98-107); Glucose 193 mg/dl (70-99); Potassium 3.8 mmol/L (3.5-5.1); Sodium 140 mmol/L (135-145); Total Bilirubin 0.7 mg/dl (0.2-1.3); Total Protein 5.1 g/dl (6.3-8.2); eGFR > 60.00
[2023-08-09] MEDS: DIPRIVAN 100 IV (14:24)
[2023-08-09] MEDS: LEVOPHED 250 IV ×3 (14:25→21:08)
[2023-08-09] MEDS: NSS 1000 IV ×3 (14:25→21:03)
[2023-08-09 14:27] LABS: Glucose - Point of Care 161 mg/dl (70-99)
[2023-08-09 14:39] LABS: B.E. -8.3 mmol/L; HCO3 19.9 mmol/L (21-28); O2 Saturation % 99.8 % (94-98); PCO2 51 mmHg (32-35); PO2 157 mmHg (83-108)
[2023-08-09 14:42] LABS: Lactic Acid 6.1 mmol/L (0.7-2.0); Troponin I 0.055 ng/ml
--- NOTE | 2023-08-09 14:54 | EDRN ---
the pt is currentlyo n 20 of Levo, and 10 of dopamine, this RN notified Dr. Frausto that the pts blood pressure is 89/74 (79), no new orders received and per provider no titration on drips
--- NOTE | 2023-08-09 15:05 | EDRN ---
Dr. Frausto was brought to the pts bedside due to the pts HR increasing from the 90's to the 140-150's, per Dr. Frausto Dopamine is to be turned off
[2023-08-09 15:06] LABS: Triglycerides 54 mg/dl (10-149)
[2023-08-09] MEDS: LOPRESSOR 5 MG IV (15:10)
--- NOTE | 2023-08-09 15:36 | HPS.HSE ---
Family Physician
-
Family Physician: Jeffrey Oden, DO
Chief Complaint
-
Cardiac arrest - [id number].
History of Present Illness
Patient currently living in [facility].
Came in because of out of hospital cardiac arrest.
Patient currently sedated and intubated.
History from ER physician and the son at bedside in the ER.
Last time son saw her was 2 days ago and she was doing okay. Not eating much but otherwise she had no specific complaints to the Son.
Today at the [facility] she became unresponsive shortly after returning from dining briceno. Apparently [facility] staff transported patient from the dining room to her room. After she was transition to her bed she became unresponsive and CPR was
started immediately. Again according to the chart pulse return within 2 to 3 minutes.
When EMS came patient decreased mental status with agonal breathing so got intubated. She got a bolus of epinephrine for hypotension.
Currently on propofol and Levophed in the ER. Unresponsive. She is in rapid atrial fibrillation. Has hx of atrial fibrillation. No ventricular arrhythmia noted on the monitor.
She was here discharged from at the beginning of the month. She was here because of failure to thrive at home. She was not participating with physical therapy here and according to son she is still not participating much with physical therapy
at rehab.
Medical History
Past Medical History
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
pulmonary hypertension)
Past Surgical History: Reports Appendectomy
Social History
Tobacco: Non-smoker
Alcohol: None
Drug: None
Living: Usp
Family History
Family History: Not pertinent
Allergies / Home Medications
Allergies reflects when Allergies were last updated in [employer].
Home Medications with original date entered in [employer]
Allergy/Medication List:
Allergies
Allergy/AdvReac Type Severity Reaction Status Date / Time
cephalexin monohydrate Allergy RASH, SOB Verified 05/26/23 19:24
[From Keflex]
erythromycin base Allergy Unknown Verified 05/26/23 19:24
Penicillins Allergy SOB, RASH Verified 05/26/23 19:24
sulfamethoxazole Allergy Unknown Verified 05/26/23 19:24
antibiotic that starts w/ 'a' Allergy Unknown Uncoded 05/26/23 19:24
Home Medications
cholecalciferol (vitamin D3) 25 mcg (1,000 unit) tablet 25 mcg PO DAILY Supplement 05/20/23
citalopram 10 mg tablet 10 mg PO BID Mental Health 05/20/23
diltiazem HCl 180 mg capsule,extended release 24 hr, controlled 180 mg PO DAILY Arrhythmia 05/20/23
metoprolol succinate 100 mg tablet,extended release 24 hr 100 mg PO BID Blood Pressure 05/20/23
apixaban 5 mg tablet (Eliquis) 2.5 mg PO BID Blood Clot Prevention/Tx 07/13/23
miconazole nitrate 2 % topical powder (Desenex) 1 applic topical BID right breast rash 07/13/23
docusate sodium 100 mg capsule 100 mg PO BID #1 cap 07/19/23
polyethylene glycol 3350 17 gram oral powder packet (HealthyLax) 17 g PO DAILY #14 ea 07/19/23
sennosides 8.6 mg tablet (Senna Lax) 8.6 mg PO BID #1 tab 07/19/23
acetaminophen 325 mg tablet (Tylenol) 650 mg PO Q6HPRN PRN mild pain 08/09/23
bisacodyl 10 mg rectal suppository (Dulcolax (bisacodyl)) 10 mg NH DAILYPRN PRN if no bm aftr mom 08/09/23
magnesium hydroxide 400 mg/5 mL oral suspension (Milk of Magnesia) 2,400 mg PO [id number] PRN if no bm by 3rd day 08/09/23
sodium phosphates 19 gram-7 gram/118 mL enema (Fleet Enema) 118 ml NH DAILYPRN PRN if no bm aftr dulcolax 08/09/23
Review of Systems
-
A 12 point ROS was completed and negative except as noted: Yes
Physical Exam
Vital Signs
Vital Signs
Temp Pulse Resp BP Pulse Ox
75.9 F L 145 16 122/76 94
08/09/23 15:06 08/09/23 15:10 08/09/23 15:06 08/09/23 15:10 08/09/23 15:08
Physical Exam
General: No Apparent Distress
HEENT: Moist mucous membranes
Respiratory: Clear (Anteriorly) and Non Labored Respirations; No Accessory Resp Muscle Use
Cardiac: S1/S2, Irregular Rhythm, Tachycardia, Murmur, Peripheral Edema and JVD
GI: Soft, Non Distended and Normal Bowel Sounds
Musculoskeletal: Edema, Left Lower Extremity, Edema, Right Lower Extremity and Other
Skin: Other (LE foot cyanosis ;capillary refill <5 sec)
Neuro: No AO x 3
Psych: Calm
Laboratory Results
-
08/09/23 14:04
08/09/23 14:04
Laboratory Results
pH 7.20 (7.35-7.45) L 08/09/23 14:27
pCO2 51 mmHg (32-35) H 08/09/23 14:27
pO2 157 mmHg (83-108) H 08/09/23 14:27
HCO3 19.9 mmol/L (21-28) L 08/09/23 14:27
Lactic Acid 6.1 mmol/L (0.7-2.0) H* 08/09/23 14:04
Total Bilirubin 0.7 mg/dl (0.2-1.3) 08/09/23 14:04
AST 35 U/L (14-36) 08/09/23 14:04
ALT 19 U/L (0-35) 08/09/23 14:04
Alkaline Phosphatase 53 U/L (38-126) 08/09/23 14:04
Troponin I 0.055 ng/ml H* 08/09/23 14:04
Data Reviewed
-
CT Scan: Report Reviewed by me (CT head)
Lab Data: Labs Reviewed by me
Impression/Plan
-
[id number] cardiac arrest status post successful resuscitation on ROSC? In 2 to 3 minutes. Hard to assess neurological status as she is on propofol. Consider holding propofol and assess neurological status and if not responsive consider
cooling protocol. Admit to ICU. Consult safety engineer pressure vessels.
Unclear etiology for cardiac arrest. EKG with A-fib and RVR which is known to her. No acute ST-T changes. No significant troponin elevation yet. Patient with significant valvular heart disease concern if she has new cardiomyopathy and secondary
arrhythmia. Will get a stat echocardiogram and consult cardiology.Doubt PE - on work station support specialist AC and receiving it at [place].Doubt volume related -HH stable ,Cr normal.
Permanent Afib - now in RVR -patient hypotensive post cardiac arrest and on Levophed. Normally on Cardizem and beta-rosa elena which she may not tolerate now. Consider antiarrhythmic. Consult cardiology. Continue with anticoagulation.
Moderate to severe AR/moderate to severe MR/severe TR- Clinical concern for heart failure-elevated JVD, bilateral lower extremity edema noted. Chest x-ray without overt pulm edema check BNP and echocardiogram.
Pulmonary hypertension
Hypotensive shock-patient currently requiring vasopressors postcardiac arrest. Continue with vasopressors. Check an echocardiogram. Follow urine output and I&O.
Lactic acidosis-suspect secondary to cardiac arrest and hypotension. Continue to follow .
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 LFTs normal. No clinical evidence of ascites.
Essential hypertension-hold home medications due to current hypotension
Discussed with James zamorano at the bedside and explained out of hospital cardiac arrest, respiratory failure, hypotensive shock and prognosis is very guarded. He understands the critical nature of illness. Full code for now.
--- NOTE | 2023-08-09 15:58 | CON.INTV ---
Consultation
Consultation Request
Date/Time Consultation Requested: 15:00pm, 08/09/2023
Date/Time Consultation Performed: 16:15 pm, 08/09/2023
Medical History
Past Medical History
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
Past Surgical History: Appendectomy, Cholecystectomy and Gynecological
Social History
Tobacco: Non-smoker
Alcohol: None
Drug: None
Personal: Single
Living: Residential
Employment: Retired
Allergies / Home Medications
Allergies
Allergy/AdvReac Type Severity Reaction Status Date / Time
cephalexin monohydrate Allergy RASH, SOB Verified 05/26/23 19:24
[From Keflex]
erythromycin base Allergy Unknown Verified 05/26/23 19:24
Penicillins Allergy SOB, RASH Verified 05/26/23 19:24
sulfamethoxazole Allergy Unknown Verified 05/26/23 19:24
antibiotic that starts w/ 'a' Allergy Unknown Uncoded 05/26/23 19:24
Home Medications
Medication Instructions Recorded Confirmed Last Taken Type
cholecalciferol (vitamin D3) 25 25 mcg PO DAILY Supplement 05/20/23 08/09/23 07/12/23 History
mcg (1,000 unit) tablet
citalopram 10 mg tablet 10 mg PO BID Mental Health 05/20/23 08/09/23 07/12/23 History
diltiazem HCl 180 mg 180 mg PO DAILY Arrhythmia 05/20/23 08/09/23 07/12/23 History
capsule,extended release 24 hr,
controlled
metoprolol succinate 100 mg 100 mg PO BID Blood Pressure 05/20/23 08/09/23 07/12/23 History
tablet,extended release 24 hr
apixaban 5 mg tablet (Eliquis) 2.5 mg PO BID Blood Clot 07/13/23 08/09/23 07/12/23 19:00 History
Prevention/Tx
miconazole nitrate 2 % topical 1 applic topical BID right breast 07/13/23 08/09/23 Unknown History
powder (Desenex) rash
docusate sodium 100 mg capsule 100 mg PO BID #1 cap 07/19/23 08/09/23 Unknown Rx
polyethylene glycol 3350 17 gram 17 g PO DAILY #14 ea 07/19/23 08/09/23 Unknown Rx
oral powder packet (HealthyLax)
sennosides 8.6 mg tablet (Senna 8.6 mg PO BID #1 tab 07/19/23 08/09/23 Unknown Rx
Lax)
acetaminophen 325 mg tablet 650 mg PO Q6HPRN PRN mild pain 08/09/23 08/09/23 Unknown History
(Tylenol)
bisacodyl 10 mg rectal suppository 10 mg NM DAILYPRN PRN if no bm 08/09/23 08/09/23 Unknown History
(Dulcolax (bisacodyl)) aftr mom
magnesium hydroxide 400 mg/5 mL 2,400 mg PO [id number] PRN if no bm 08/09/23 08/09/23 Unknown History
oral suspension (Milk of Magnesia) by 3rd day
sodium phosphates 19 gram-7 118 ml NM DAILYPRN PRN if no bm 08/09/23 08/09/23 Unknown History
gram/118 mL enema (Fleet Enema) aftr dulcolax
Review of Systems
Vitals / Labs / Diagnostic Testing
Vital Signs
Temp Pulse Resp BP Pulse Ox
75.9 F L 145 16 122/76 94
08/09/23 15:06 08/09/23 15:10 08/09/23 15:06 08/09/23 15:10 08/09/23 15:08
Lab Data
08/09/23 14:04
08/09/23 14:04
Laboratory Results
08/09/23
14:27
pH 7.20 L
pCO2 51 H
pO2 157 H
HCO3 19.9 L
O2 Delivery Level Not Reportable
Diagnostic Testing:
Physical Exam
-
HEENT: Normocephalic
Cardiovascular: S1/S2, Irregular Rhythm, Murmur (Systolic murmur) and Peripheral Edema
Respiratory: Other
GI: Soft and Non Distended
General: Other (Patient is sedated)
Assessment
-
88-year-old, female was brought to the ER by EMS after having out of hospital cardiac arrest. She is a resident of [facility] , patient became unresponsive shortly after returning from dining briceno, CPR was started with return of
pulse in 2 to 3 minutes. Patient had altered mental status with agonal respirations at the time when EMS arrived, and she was intubated. She got a bolus of epinephrine for hypotension. Currently patient is critically ill on ventilator, on
propofol. She is hypotensive requiring pressors, Levophed. Patient has a past medical history of atrial fibrillation on Eliquis, rate controlled with diltiazem, h/o hypertension on metoprolol.
Chest x-ray 08/09/23
Endotracheal tube with tip in trachea above the darshan. No pneumothorax.
Some mild bibasilar opacification such as subsegmental atelectasis and/or pneumonia cannot be excluded, left greater than right.
Head CT 08/09/2023 - No acute intracranial abnormality.
EKG 08/09/2023- ATRIAL FIBRILLATION WITH RAPID VENTRICULAR RESPONSE
LEFT AXIS DEVIATION
MINIMAL VOLTAGE CRITERIA FOR LVH, MAY BE NORMAL VARIANT ( Hammad product )
ANTERIOR INFARCT (CITED ON OR BEFORE 26-MAY-2023)
CT chest 08/09/2023 1)There is moderate interstitial and confluent alveolar airspace disease in both perihilar regions extending into the mid and lower portions of both lungs, most consistent with pneumonia associated with small left moderate right
pleural effusions.
2). Cardiomegaly without associated pulmonary edema
3). Atherosclerosis.
4). Bilateral nonobstructing calculi.
5). Moderate bilateral cortical atrophy
6). 9.5 cm left renal cyst
7).Imaging for bowel pathology is limited by the lack of enteric contrast
Diverticuli are present in the colon with no CT evidence of diverticulitis
8).There is mild thoracolumbar dextroscoliosis
There is multilevel degenerative disc disease
Echo 08/09/2023: 1.� Normal left ventricular size and function, ejection fraction 55-60%
�2.� Thickened mitral leaflets, mild to moderate mitral regurgitation and
�dilated left atrium
�3.� Aortic sclerosis with mild-moderate aortic regurgitation
�4.� Dilated right ventricle with preserved systolic function, dilated right
�atrium, moderate to severe tricuspid regurgitation, and pulmonary artery
�systolic pressure 46 mmHg systolic
�
�In May of this year, mitral regurgitation was called moderate to severe,
�and aortic regurgitation was called moderate to severe.� Tricuspid
�regurgitation was severe and the pulmonary artery systolic pressure was
�similar.� The EF was 60-65%.
�
Impression
Acute hypoxic respiratory failure
Cardiac arrest/hypotensive shock requiring pressors
Pneumonia
Atrial fibrillation in RVR
Leukocytosis
Lactic acidosis
Respiratory acidosis
Hyperglycemia
Elevated troponin
History of nonalcoholic steatohepatitis/cirrhosis
# Acute hypoxic respiratory failure
Patient is on ventilatory support, sedated
Continue mechanical ventilation, adjust PEEP and FiO2 to maintain SpO2> 94%
Spontaneous breathing trial/spontaneous awakening trial
Repeat ABG at 6 PM
Trend BMP
# Pneumonia
Start antibiotics vancomycin/cefepime
Blood cultures
Endotracheal aspirate cultures
Check procalcitonin
Streptococcal antigen
Legionella urinary antigen
# Cardiac arrest/hypotensive shock
Patient is on norepinephrine, maintain MAP greater than 65
Start albumin
IVF�bolus NS
Elevated troponin at 0.055
Check BNP
# History of recurrent UTIs
Leukocyte esterase positive
Urine culture
# A-fib with RVR
Diltiazem and metoprolol on hold due to hypotension
Continue Eliquis 2.5 mg twice daily
Monitor telemetry
# Hyperglycemia
No history of DM
Insulin low-dose sliding scale
Monitor blood sugars, goal 140-180
# Check random cortisol, if less than 9 start, stress dose steroids
# IV Protonix
# DVT prophylaxis�continue Eliquis
--- NOTE | 2023-08-09 16:09 | CON.CAR ---
Addendum entered and electronically signed by Tam Caicedo MD 08/09/23 17:45:
88-year-old woman known to me, last seen in the office in April 2022, at which point she was active cleaning her home and offering no complaints. She declined over 2022 and was admitted with failure to thrive in June 2023, possibly with UTI
and with marked decrease in activity tolerance. She was transferred to [facility], and today became unresponsive, received CPR and had ROSC. She was never shocked, and was intubated by paramedics at the scene for respiratory failure. Seen in the
emergency department on high-dose Levophed and low-dose dopamine she has a heart rate of approximately 100 with a blood pressure of approximately 100. Urgent echocardiography shows preserved LV function, biatrial dilatation, mitral and aortic
regurgitation but no pulmonary hypertension. She is unresponsive on propofol and having been paralyzed. Son at bedside.
PMH: Permanent atrial fibrillation, hypertension, mild valvular heart disease that was more severe by echo May 2023, GERD, XAVIER, depression, CVA by imaging
PSH: Noncontributory
SH: Non-smoker, no alcohol, , was living with son until recently
Allergies/meds as below
ROS not obtainable
Intubated, blood pressure 100 systolic heart rate 100 and irregular
Head neck exam NG tube, endotracheal tube, lungs relatively clear, cardiac irregular rate and rhythm with soft systolic murmur at apex, JVD okay, abdomen benign extremities without much edema neuro patient paralyzed and sedated, pulses palpable,
mildly cyanotic
CT of chest abdomen pelvis suspected bilateral pneumonia, pleural effusion, no pulmonary edema, vascular calcification, renal cortical atrophy, renal stones
Echo: As above
ECG: Atrial fibrillation, possible old anterior UT, lateral T wave changes, possible inferior UT, left axis deviation, LVH by Grethel, lateral T wave changes are new
White count 11.9, hemoglobin 12.8, potassium 3.8, BUN/creatinine 39 and 0.8, Lactic acid 6.1, procalcitonin pending, proBNP 6640, troponin 0.055
Chest x-ray suspected bilateral pneumonia
Assessment:
Out of hospital respiratory arrest, with vent dependent respiratory failure and suspected septic shock related to pneumonia
Permanent atrial fibrillation
Possible acute HFpEF
Elevated troponin, suspect nonischemic myocardial injury
Admission to for FTT 07/13-07/19/23, discharged to [facility] for SNF
History of rectal bleeding
HTN
MR and AR, severe TR by echo 05/2023
GERD
XAVIER
Depression
History of CVA on MRI imaging
Plan:
The sequence of events is uncertain but the most likely explanation may be pneumonia with septic shock and respiratory failure.
LV function remains preserved by echo. There are no regional wall motion abnormalities and troponin is minimally elevated, suspect nonischemic myocardial injury related to sepsis and pneumonia.
proBNP is elevated, but on exam she is not volume overloaded. Will need to follow volume status closely, no diuretics at present given hypotension and shock.
Her valvular heart disease is not as severe as described by echo in early 2023.
At present, diltiazem and metoprolol will need to be on hold. IV amiodarone may be needed for rate control if she remains hypotensive.
Would continue Eliquis if possible.
Continue pressor support, would use norepinephrine and phenylephrine, limit dopamine at present. Digoxin could be considered for short-term use and IV amiodarone may be necessary as mentioned above.
We will continue to follow.
Original Note:
Consultation
Consultation Request
Date/Time Consultation Performed: 08/09/23
Requesting Provider: Dr. Frausto
Performing Provider: Agata Yoon PA-C for Dr. BRENNAN Caicedo
Reason for Consultation: OOH arrest
Medical History
-
Chief Complaint: OOH arrest
History of Present Illness:
Patient is an 88-year-old female with past medical history of permanent atrial fibrillation on chronic Eliquis, hypertension, Xavier, moderate to severe MR and AR and severe TR by echo 05/2023 who had recent admission to [facility] for failure
to thrive 07/13 - 07/19/2023. She previously lived with her son who was helping to take care of her, however was discharged to [facility] for rehab after recent admission. Reportedly at the [facility] today she became unresponsive after returning
to her room from the dining briceno. With transitioning her to the bed she became unresponsive and CPR was started immediately. She reportedly received 2 to 3 minutes of CPR with ROSC. Upon EMS arrival was noted to have agonal breathing and was
intubated in the field. She also received epinephrine for hypotension. Her son who is present at the bedside, states she last saw her on Tuesday and she was doing well at that time without complaints, and seemed at baseline for her by his report.
She is currently on Levophed, low-dose dopamine, and propofol. She is noted to be in atrial fibrillation with heart rates around 100. Cardiology consulted for evaluation of out of hospital arrest.
PMH:
Admission to for FTT 07/13-07/19/23, discharged to [facility] for SNF
permanent atrial fibrillation
chronic OAC with eliquis
History of rectal bleeding
HTN
mod to severe MR and AR, severe TR by echo 05/2023
GERD
XAVIER
Depression
History of CVA on MRI imaging
Past Medical History
Past Medical History: Other (in HPI)
Social History
Tobacco: Non-Smoker
Alcohol: None
Living: With Family (until recent admission, subsequently discharged to [facility])
Employment: Retired
Allergies / Home Medications
Allergy/AdvReac Type Severity Reaction Status Date / Time
cephalexin monohydrate Allergy RASH, SOB Verified 05/26/23 19:24
[From Keflex]
erythromycin base Allergy Unknown Verified 05/26/23 19:24
Penicillins Allergy SOB, RASH Verified 05/26/23 19:24
sulfamethoxazole Allergy Unknown Verified 05/26/23 19:24
antibiotic that starts w/ 'a' Allergy Unknown Uncoded 05/26/23 19:24
Medication Instructions Recorded Confirmed Type
cholecalciferol (vitamin D3) 25 25 mcg PO DAILY Supplement 05/20/23 08/09/23 History
mcg (1,000 unit) tablet
citalopram 10 mg tablet 10 mg PO BID Mental Health 05/20/23 08/09/23 History
diltiazem HCl 180 mg 180 mg PO DAILY Arrhythmia 05/20/23 08/09/23 History
capsule,extended release 24 hr,
controlled
metoprolol succinate 100 mg 100 mg PO BID Blood Pressure 05/20/23 08/09/23 History
tablet,extended release 24 hr
apixaban 5 mg tablet (Eliquis) 2.5 mg PO BID Blood Clot 07/13/23 08/09/23 History
Prevention/Tx
miconazole nitrate 2 % topical 1 applic topical BID right breast 07/13/23 08/09/23 History
powder (Desenex) rash
docusate sodium 100 mg capsule 100 mg PO BID #1 cap 07/19/23 08/09/23 Rx
polyethylene glycol 3350 17 gram 17 g PO DAILY #14 ea 07/19/23 08/09/23 Rx
oral powder packet (HealthyLax)
sennosides 8.6 mg tablet (Senna 8.6 mg PO BID #1 tab 07/19/23 08/09/23 Rx
Lax)
acetaminophen 325 mg tablet 650 mg PO Q6HPRN PRN mild pain 08/09/23 08/09/23 History
(Tylenol)
bisacodyl 10 mg rectal suppository 10 mg PA DAILYPRN PRN if no bm 08/09/23 08/09/23 History
(Dulcolax (bisacodyl)) aftr mom
magnesium hydroxide 400 mg/5 mL 2,400 mg PO [id number] PRN if no bm 08/09/23 08/09/23 History
oral suspension (Milk of Magnesia) by 3rd day
sodium phosphates 19 gram-7 118 ml PA DAILYPRN PRN if no bm 08/09/23 08/09/23 History
gram/118 mL enema (Fleet Enema) aftr dulcolax
Review of Systems
-
Unable to obtain full review of systems at this time due to: Patient Intubation
History Source: Family, Transfer Record and Other (ER nursing)
All other systems: Negative unless noted
Physical Exam
Vital Signs
Temp Pulse Resp BP Pulse Ox
75.9 F L 145 16 122/76 94
08/09/23 15:06 08/09/23 15:10 08/09/23 15:06 08/09/23 15:10 08/09/23 15:08
Lab Results
08/09/23 14:04
08/09/23 14:04
Troponin I 0.055 ng/ml H* 08/09/23 14:04
Physical Exam
General: Intubated and Other (sedated)
HEENT: Normocephalic, Anicteric and Moist Mucous Membranes
Respiratory: Rhonchi
Cardiac: S1/S2, Irregular Rhythm and Murmur
GI: Soft, Non Tender, Non Distended and Normal Bowel Sounds
Musculoskeletal: No Clubbing, No Cyanosis and Edema (1+ edema of B/L LE)
Skin: Warm and Dry
Neuro: Sedated
Impression / Plan
-
Primary Adding Machine Servicer: Dr. BRENNAN Caicedo, last seen in office 2021
Assessment:
Presentation with OOH arrest s/p CPR and epi with ROSC 08/09/23
Hypotensive shock, requiring pressor support
Agonal breathing per EMS, requiring intubatio 08/09/23
Elevated lactic acid
Leukocytosis, mild
Elevated troponin
Permanent atrial fibrillation, now with rapid response
chronic OAC with eliquis
Admission to for FTT 07/13-07/19/23, discharged to [facility] for SNF
History of rectal bleeding
HTN
mod to severe MR and AR, severe TR by echo 05/2023
GERD
XAVIER
Depression
History of CVA on MRI imaging
ECHO 05/20/23: EF 60-65%, mild cLVH, mod to severe eccentric jet MR with flow reversal in pulm veins, dilated LA, mod to severe AR, severe TR, PAP 46mmHg
Plan:
-Patient presented with OOH cardiac arrest of unclear etiology. head CT without evidence of acute abnormalities. CXR without PTX, PNA vs atelectasis not able to be excluded. CT C/A/P pending at this time
-intubated, sedated
-reviewed records from last admission 07/13-07/19/23
-prelim repeat echo with preserved EF, dilated B/L atria, AI/MR. awaiting official report
-trop 0.055. trend to peak. EKG without evidence of STEMI
-tele strips from EMS reviewed - atrial fibrillation with elevated HRs with occasional PVCs vs aberrantly conducted complexes. follow on tele
-director of managed services to determine candidacy for targeted temp protocol
-currently on levo @20, dopamine @2. was tachy with higher doses of dopamine. will stop dopamine at this time. wean pressors as able
-SBP 90-100s with MAP in 70s.
-if HRs become uncontrolled in afib, would consider for IV amiodarone as also hypotensive at this time. as OP on toprol 100mg BID and cardizem cd 180mg daily, on hold at present with hypotension
-on eliquis 2.5mg BID as OP. if will not have way to take pills (dobhoff, etc), would consider initiation of IV heparin. hgb stable
-prognosis guarded
-d/w ER nurse/physician, pilot plant technician, son at bedside
-CCT 34 minutes
Data Reviewed
-
EKG: Tracing Personally Visualized and interpreted
Radiology: Report Reviewed by me
CT Scan: Report Reviewed by me
Medical Tests (Nuc Med, Echo etc): Report Reviewed by me
Labs: Labs Reviewed by me
Old Records: Reviewed
Critical Care Time (in minutes): 34
[2023-08-09 17:26] LABS: Urine Albumin 1+ (Neg - Trace); Urine Bilirubin Negative (Negative); Urine Color Yellow; Urine Glucose Negative (Negative); Urine Ketone Trace (Negative); Urine Leukocyte 2+ (Negative); Urine Nitrite Negative (Negative); Urine Occult Blood 4+ (Negative); Urine Urobilinogen Negative (Neg - 1+)
[2023-08-09 17:27] LABS: Urine Character Mucus (Clear)
[2023-08-09 17:29] LABS: NT-proBNP 6640 pg/ml
[2023-08-09 17:51] LABS: Urine Bacteria Many (Negative); Urine Mucus Many; Urine White Cell 21-25 /HPF (0-5)
[2023-08-09] MEDS: FLEXBUMIN 100 IV (17:56)
[2023-08-09] MEDS: SUBLIMAZE 50 MCG IV (17:57)
--- NOTE | 2023-08-09 18:08 | PTCARENOTE ---
recd to ICU 3361 via ED stretcher at 1610. levophed infusing, propofol infusing, propofol dcd per MD to assess responsiveness. no purposeful, no movement, unrestrained. no gag on mouth care. muscle tone limp. Dr. Blake bedside several times,
updates, spoke at length to lona Ramirez re: plan. cultures of urine, sputum, and blood obtained. small bore feeding tube placed. NS bolus infusing, albumin now infusing. see levophed titrations. core temp low, to leave at this time r/t diagnosis,
admission, cooler temps not harmful per MD. son left for home approx 1745. urine very cloudy, sediment. did not flinch with care or lab draw. MRSA swab obtained per order. med with fentanyl as ordered given conditions prior to admission, CPR,
tubes prior to turning/painful procedures of abd flat plate just obtained. capnography in place.
[2023-08-09] MEDS: MAXIPIME 2000 MG IV (18:20)
[2023-08-09] MEDS: STERILE WATER FOR INJECTION 10 ML IV (18:20)
[2023-08-09] MEDS: VANCOCIN 300 MG IV (18:20)
[2023-08-09] MEDS: VANCOCIN 300 ML IV (18:20)
[2023-08-09 18:34] LABS: Glucose - Point of Care 226 mg/dl (70-99)
--- NOTE | 2023-08-09 18:43 | PTCARENOTE ---
discussed with Dr. Blake and BLOCK PRESS OPERATOR Chyna, updated on labs, for arterial line, inserting at present. multiple labs drawn, sent, MRSA swab. getting abx, vanco, maxipime, albumin infusing. fluid bolus nearly completed. titrating levophed see
intervention. pt remains unresponsive. glucose elevated, awaiting insulin pen to treat. abd film obtained, pending reading.
[2023-08-09 18:52] LABS: INR 1.62; PT 19.1 Sec (11.4-14.6)
[2023-08-09 18:53] LABS: APTT 34.6 Sec (23.4-35.0)
[2023-08-09 19:09] LABS: Procalcitonin 1.11 ng/ml (0.0-0.25)
[2023-08-09 19:09] LABS: Cortisol, Random > 123.0 ug/dl
[2023-08-09 19:18] LABS: B.E. -5.5 mmol/L; HCO3 18.2 mmol/L (21-28); O2 Saturation % 91.4 % (94-98); PCO2 30 mmHg (32-35); pH 7.39 (7.35-7.45)
--- NOTE | 2023-08-09 19:19 | W.PN.UPDATE ---
Update Note
Progress Note Update
ARTERIAL LINE (A-Line) PLACEMENT
Date: 08/09/23
Time: 1900
Indication: Hemodynamic monitoring, consent emergent
A time-out was completed verifying correct patient, procedure, site, and positioning.. Chris�s test was performed to ensure adequate perfusion. The patient�s right wrist was prepped and draped in sterile fashion. �A�20G Arrow arterial line was
introduced into the right radial artery. The catheter was threaded over the guide wire and the needle was removed with appropriate pulsatile�blood return. A sterile dressing applied. Perfusion to the extremity distal to the point of catheter
insertion was checked and found to be adequate.
Estimated Blood Loss: <5cc, minimal
The patient tolerated the procedure well and there were no complications.
[2023-08-09 19:21] LABS: PO2 59 mmHg (83-108)
[2023-08-09 19:30] LABS: Lactic Acid 3.8 mmol/L (0.7-2.0)
[2023-08-09 19:44] LABS: Troponin I 0.051 ng/ml
--- NOTE | 2023-08-09 20:00 | PTCARENOTE ---
Received pt from previous RN, pt is intubated, unresponsive, not on sedation. Pupils are 3/3 sluggish and reactive, no corneal reflex. # 7ET tube 23@ lip center of mouth. Po2 59, respiratory therapist increased oxygen to 100%. Dobbhoff in Left nare.
Afib on the monitor, extremities are dusky, pedal pulses with doppler. Carrion with little urine output. Bruising and skin tears scattered. Levo titrated per order, Double lumen PICC placed in right upper arm, Xray confirmed. Hamilton in right wrist.
--- NOTE | 2023-08-09 20:01 | W.PN.UPDATE ---
Addendum entered and electronically signed by Nimco Valencia DO 08/10/23 06:35:
cEEG unchanged through 6:30am; no seizures noted. Will c/t follow.
Original Note:
Update Note
Progress Note Update
Continuous EEG Update Note
Reviewed cEEG through 8pm which showed diffuse slowing of the background to 3-4Hz on average. No seizures noted. Will c/t follow.
[2023-08-09] MEDS: NOVOLOG FLEXPEN-MODERATE RESISTANCE 1 UNITS SC (20:28)
[2023-08-09] MEDS: COLACE LIQUID 100 MG TUBE (20:28)
[2023-08-09] MEDS: SENNA SYRUP 8.80000000000000071 MG TUBE (20:28)
[2023-08-09] MEDS: CELEXA 10 MG TUBE (20:28)
[2023-08-09] MEDS: ELIQUIS 2.5 MG TUBE (20:28)
--- NOTE | 2023-08-09 20:30 | PHA.VAN.IN ---
Assessment
- Assessment
Renal Function: Appears elevated from baseline (0.5 on 07/20/23)
Minimum Temperature: 95.8 F core 08/08 @ 1645
Concomitant Antimicrobials: cefepime
Plan
- Plan
Initial / Loading Dose: vanc 1500mg
Maintenance Regimen: dosing by level
Monitoring: random level 08/09 0600
Pharmacokinetics Vancomycin I
- -
Patient Age: 88
Patient Sex: Female
Vancomycin Day #: 1
Indication: Pulmonary/Respiratory
Requesting Provider: Dr. Blake
Pertinent Antimicrobial Allergies:
cephalexin - rash, SOB
erythromycin unknown
penicillin - rash, SOB
'antibiotic that starts with 'a'' - unknown
Height / Weight:
Height 5 ft 2 in
Actual Weight 57.6 kg
- Vital Signs / Lab Results
Temp Pulse Resp BP Pulse Ox
95.8 F L 97 22 110/72 97
08/09/23 16:45 08/09/23 19:15 08/09/23 19:15 08/09/23 18:45 08/09/23 20:25
Lab Results - Hematology
08/09/23
14:04
WBC 11.9 H
Lab Results - Chemistry
08/09/23
14:04
BUN 39 H
Creatinine 0.8
Albumin 2.5 L
08/09/23 08/09/23 08/09/23
14:04 19:10 20:00
Lactic Acid 6.1 H* 3.8 H Cancelled
08/09/23
22:37
Lactic Acid Cancelled
Lab Results - Urine
08/09/23
17:12
Urine Nitrite (Reflex) Negative
Leukocyte Esterase Rfl 2+ A
Urine WBC (Reflex) 21-25 A
Urine Bacteria (Reflex) Many A
Microbiology Results
08/09/23 17:12 Gram Stain - Preliminary
Endotracheal
08/09/23 17:12 Legionella Urinary Antigen - Final
Urine Negative for Legionella pneumophila Serogroup 1 antigen.
A negative result does not rule out the possiblity of
Legionella infection due to other serogroups or species of
Legionella. Clinical correlation is recommended.
Streptococcus pneumoniae Antigen (M - Final
Negative for Streptococcus pneumoniae antigen.
A negative result does not exclude infection with
Streptococcus pneumoniae. Clinical correlation is
recommended.
[2023-08-09 20:35] LABS: Glucose - Point of Care 196 mg/dl (70-99)
--- NOTE | 2023-08-09 21:05 | VATNOTE ---
right picc dsg saturated with bright red blood; redressed per protocol with 2 quik clot , claus and 500ml bag of IV fluid for pressure.
[2023-08-09 21:39] LABS: Blood Urea Nitrogen 34 mg/dl (7-17); Calcium 7.6 mg/dl (8.4-10.2); Carbon Dioxide 16 mmol/L (22-30); Chloride 109 mmol/L (98-107); Estimated Creatinine Clearance 50 ml/min; Glucose 203 mg/dl (70-99); Magnesium 1.5 mg/dl (1.6-2.3); Potassium 3.1 mmol/L (3.5-5.1); Sodium 137 mmol/L (135-145); eGFR > 60.00
[2023-08-09] MEDS: MAGNESIUM SULFATE 50 IV (22:43)
[2023-08-09] MEDS: KCL 100 IV (22:43)
[2023-08-09] MEDS: CALCIUM GLUCONATE 100 IV (23:47)
[2023-08-09 23:56] LABS: Glucose - Point of Care 158 mg/dl (70-99)
[2023-08-10] VITALS (21 sets, daily range): BP systolic 78–129; BP diastolic 48–90; BMI 24.2
[2023-08-10] MEDS: NOVOLOG FLEXPEN-MODERATE RESISTANCE 1 UNITS SC (00:07)
[2023-08-10 00:17] LABS: B.E. -7.9 mmol/L; HCO3 17.7 mmol/L (21-28); O2 Saturation % 96.1 % (94-98); PCO2 36 mmHg (32-35); PO2 73 mmHg (83-108)
[2023-08-10] MEDS: MAXIPIME 2000 MG IV ×3 (00:54→18:20)
[2023-08-10] MEDS: STERILE WATER FOR INJECTION 10 ML IV ×3 (00:54→18:20)
[2023-08-10] MEDS: LEVOPHED 250 IV ×4 (00:58→14:40)
[2023-08-10] MEDS: NEO-SYNEPHRINE 250 IV (00:58)
[2023-08-10] MEDS: TYLENOL 650 MG PO (03:26)
[2023-08-10 04:08] LABS: B.E. -7.5 mmol/L; HCO3 17.4 mmol/L (21-28); O2 Saturation % 97.1 % (94-98); PCO2 33 mmHg (32-35); PO2 81 mmHg (83-108); pH 7.33 (7.35-7.45)
[2023-08-10 04:14] LABS: Hematocrit 43.6 % (37.0-47.0); Hemoglobin 14.1 g/dL (12.0-16.0); Mean Corp Hgb Conc. 32.3 g/dL (33.0-37.0); Mean Corpuscular Hgb 29.6 pg (27.0-31.0); Mean Corpuscular Volume 91.4 fL (81.0-99.0); Mean Platelet Volume 9.9 fL (7.4-10.4); Platelet Count 166 10^3/uL (130-400); Red Blood Cell Count 4.77 10^6/uL (4.20-5.40); Red Cell Dist. Width 14.9 % (11.5-14.5); White Blood Cell Count 7.1 10^3/uL (4.8-10.8)
[2023-08-10 04:27] LABS: Vancomycin Random 17.4 ug/ml
[2023-08-10] MEDS: SODIUM BICARBONATE 50 MEQ IV (04:28)
[2023-08-10 04:33] LABS: ALT (SGPT) 15 U/L (0-35); AST (SGOT) 26 U/L (14-36); Albumin 2.3 g/dl (3.5-5.0); Alkaline Phosphatase 42 U/L (38-126); Blood Urea Nitrogen 34 mg/dl (7-17); Carbon Dioxide 14 mmol/L (22-30); Chloride 114 mmol/L (98-107); Estimated Creatinine Clearance 43 ml/min; Glucose 135 mg/dl (70-99); Lactic Acid 4.1 mmol/L (0.7-2.0); Potassium 4.1 mmol/L (3.5-5.1); Sodium 135 mmol/L (135-145); Total Bilirubin 0.8 mg/dl (0.2-1.3); Total Protein 4.6 g/dl (6.3-8.2); eGFR > 60.00
[2023-08-10 04:36] LABS: Troponin I 0.063 ng/ml
[2023-08-10] MEDS: SODIUM BICARBONATE 1150 MEQ IV (04:59)
--- NOTE | 2023-08-10 05:23 | PTCARENOTE ---
Pt CO2 was 14, Bicarb push given and IVF changed to Sodium bicarb at 100ml/hr. Adrián added to for more pressure support. Potassium, Magnesium and calcium replaced. Urine out put is scant.
[2023-08-10] MEDS: CORDARONE 103 MG IV (05:58)
[2023-08-10] MEDS: CORDARONE 518 MG IV (06:14)
[2023-08-10] MEDS: NOVOLOG FLEXPEN-MODERATE RESISTANCE SC ×2 (06:28→17:40)
--- NOTE | 2023-08-10 06:28 | PTCARENOTE ---
Amiodarone bolus given and gtt started.
--- NOTE | 2023-08-10 06:28 | DOWNTIME ---
There was a [employer] Client Rectifying Operator Downtime on 08/10/2023 from 0100 to 08/10/2023 at 0322. Downtime documentation of patient's care, including medication administrations, has been reconciled in the electronic record per guidelines. Refer to the
patient's paper chart under the miscellaneous tab to see printed paper medication records and downtime forms.
[2023-08-10 06:33] LABS: Glucose - Point of Care 143 mg/dl (70-99)
--- NOTE | 2023-08-10 08:20 | CON.NEURO4 ---
Addendum entered and electronically signed by Paul Medina MD 08/10/23 12:33:
Studies reviewed.
I have personally examined the patient. I reviewed and agree with the CLASSROOM COORDINATOR's Note.
My addenda:
Awake, Closes eyes after few seconds of interaction, non-interactive. Wearing O2.
Speech unable, intubated
Follows no step requests. Spontaneously opens eyes some limited tracking. Involuntary intermittent movements momentarily of all extremities in nonsynkinetic manner more distally than proximally
Extra-ocular movements grossly intact, Negative doll's eyes.
Facial movements full and symmetric. Hearing Unable to assess.
Normal UE movements bilaterally.
Neck: full ROM.
Chest: no dyspnea
Heart: no JVD
Ext: (-) Clubbing, (-) Cyanosis, (-) Edema
IMPRESSIONS/RECOMMENDATIONS:
Abrupt onset of Change in mental status associated with sepsis, And immediately following short-term pulselessness
Differential diagnosis includes toxic metabolic encephalopathy as well as anoxic encephalopathy both of which are likely producing worsening of function in this person of extreme age
Supportive care
May continue Apixaban from neurological standpoint
May discontinue EEG based on improvement of cognitive function over time and absence of epileptiform changes; recheck if worsening of mentation without focal cause
Check blood work for additional metabolic causes
Will continue to follow as needed.
Original Note:
Consultation - Neurology 4
-
CONSULTING PHYSICIAN: Paul Medina MD
REFERRING PHYSICIAN: [facility]/Dr. Blake
DICTATED BY: BORA Hewitt
DATE/TIME OF REQUEST: 08/09/23
DATE/TIME OF CONSULTATION: 08/10/23
Reason for Consultation: Cardiac arrest
History of Present Illness:
This is an 88-year-old female who has presented to the hospital on 08/09/23 from [facility] with report of cardiac arrest. This information is obtained from medical records as the patient is unable to provide any details. Patient was recently
hospitalized here in May 2023 with rectal bleeding and was treated for a UTI. She presented to again earlier this month with failure to thrive and was ultimately discharged to [facility] instead of home for a higher level of care.
Yesterday (08/09/23), patient was being transferred by staff from the dining briceno back to her bed, when she suddenly became unresponsive with no pulse. CPR was initiated immediately and ROSC was achieved in about 2-3 minutes. When EMS arrived patient
was noted to be agonally breathing and poorly responsive, and she was intubated in transit for airway protection. She also required on dose of epi for hypotension. CT head was obtained on arrival to the ER and is negative for any acute abnormalities
but demonstrates a chronic right parietal-occipital ischemic infarct. CT chest/abd/pelvis demonstrates bilateral pneumonia with a small left and moderate right pleural effusion. WBC 11.9, lactic acid 4.1, trop 0.063, pro-BNP 6640. Continuous EEG was
placed overnight and demonstrates diffuse slowing but no seizures are noted. Patient is currently in the ICU on mechanical ventilation and two pressors, she is not requiring any sedation. She is on Eliquis for Afib. She has never been evaluated by
our Neurology service but per psychiatry's evaluation during her last admission there was question of baseline cognitive impairment.
Past Medical History: Afib (Eliquis), chronic R parietal-occipital ischemic stroke, HTN, HLD, GERD, fatty liver, vitamin D deficiency, depression
Surgical History: Cholecystectomy, hysterectomy
Family History: Reviewed and noncontributory.
Social History: No tobacco, alcohol, or illicit drug use.
Allergies: Penicillins, sulfamethoxazole, erythromycin base, cephalexin.
Home Medications: See below.
Review of Symptoms:
Per the HPI. I am unable to obtain a complete review of systems�because of patient's inability to provide history.
Physical Exam:
The patient is afebrile, abdomen is nondistended, breathing assisted with mechanical ventilation, skin is cold and dry, trace BLE edema.
Neurologic Examination:
The patient is intubated, not on any sedation. She opens her eyes to loud voice. Does not follow any commands. On cranial nerve assessment, pupils are 3 mm bilateral, round and reactive to light and accommodation. JHONATAN visual santos or EOMs but she
tracks in all directions, conjugate gaze. Absent Dolls eyes. +Cough. JHONATAN facial asymmetry or tongue. JHONATAN hearing. All extremities withdraw to pain. Lorraine scale. There is a low amplitude, intermittent but frequent movement of the feet and hands,
unclear if this is myoclonus vs shivering. Deep tendon reflexes are 1+ bilateral upper and lower extremities. Babinski is positive bilaterally. JHONATAN sensation, DBS, and coordination.
Lab Results: See below.
Neuro Imaging:
1. CT Head 08/09/23: No acute intracranial abnormality. Mild to moderate age-related parenchymal atrophy. Stable chronic infarct at the right parieto-occipital junction.
2. EEG 08/09/23: Diffuse slowing, no seizures noted.
3. CT Chest/Abd/Pelvis: Bilateral pneumonia associated with small left moderate right pleural effusions.
Differentials for the patient's presentation include:
1. Toxic metabolic encephalopathy in the setting of cardiac arrest, vent dependent respiratory failure, and sepsis. Etiology metabolic vs anoxic. Improving since arrival.
2. Chronic right parietal-occipital ischemic infarct.
3. Afib (Eliquis)
4. Pneumonia
Patient has the following risk factors for their symptoms: Sepsis, age, Afib, FTF
Recommendations:
-Discontinue EEG as there is no sign of seizure activity.
-Supportive care.
-Infectious workup per primary team
-Continue home Eliquis 2.5mg BID.
-Neurological checks.
-If no improvement in mental status in several days, can consider MRI brain imaging.
-If patient makes a full recovery, consider outpatient neuropsychological testing.
Discussed patient care with: Dr. Medina, nursing staff, ICU Resident
Vital Signs and Labs
-
Vital Signs and Labs:
Vital Signs
Temp Pulse Resp BP Pulse Ox
99.7 F 124 22 78/48 100
08/10/23 07:23 08/10/23 03:30 08/10/23 03:30 08/10/23 00:00 08/10/23 07:41
Lab Results
08/10/23 03:52
08/10/23 03:52
PT 19.1 Sec (11.4-14.6) H 08/09/23 18:35
INR 1.62 08/09/23 18:35
APTT 34.6 Sec (23.4-35.0) 08/09/23 18:35
Sodium 135 mmol/L (135-145) 08/10/23 03:52
Potassium 4.1 mmol/L (3.5-5.1) D 08/10/23 03:52
BUN 34 mg/dl (7-17) H 08/10/23 03:52
Glucose 135 mg/dl (70-99) H 08/10/23 03:52
Calcium 8.0 mg/dl (8.4-10.2) L 08/10/23 03:52
Udl-Z-Dtlkqjpojfl Pept 6640 pg/ml 08/09/23 14:04
Medications
-
Active Medications
Generic Name Dose Route Start Last Admin
Trade Name Freq PRN Reason Stop Dose Admin
Acetaminophen 650 mg 08/09/23 16:37 08/10/23 03:26
Acetaminophen 325 Mg Tablet PO 09/06/23 16:36 650 mg
Q6HPRN PRN Administration
mild pain
Apixaban 2.5 mg 08/09/23 20:00 08/10/23 08:59
Apixaban (Eliquis) 2.5 Mg Tablet TUBE 09/06/23 19:59 2.5 mg
BID SAMANTHA Administration
Bisacodyl 10 mg 08/09/23 16:37
Bisacodyl 10 Mg Rectal Suppository RECTAL 09/06/23 16:36
DAILYPRN PRN
if no bm aftr mom
Cefepime HCl 2,000 mg 08/09/23 18:00 08/10/23 10:08
Cefepime Hcl 2,000 Mg/12.5 Ml Vial IV 2,000 mg
Q8H SAMANTHA Administration
Citalopram Hydrobromide 10 mg 08/09/23 20:00 08/10/23 08:59
Citalopram 10 Mg Tablet TUBE 09/06/23 19:59 10 mg
BID SAMANTHA Administration
Docusate Sodium 100 mg 08/09/23 20:00 08/10/23 08:59
Docusate Sodium Liquid (100 Mg/10 Ml) Cup TUBE 09/06/23 19:59 100 mg
BID SAMANTHA Administration
Fentanyl Citrate 50 mcg 08/09/23 16:49 08/09/23 17:57
Fentanyl (50 Mcg/Ml) 100 Mcg/2 Ml Ampul IV 08/23/23 16:48 50 mcg
[id number] PRN Administration
see protocol
Protocol
Norepinephrine Bitartrate 4 mg in 250 mls @ 0 mls/hr 08/09/23 14:15 08/10/23 09:50
Levophed IV 250 mls
PER PROTOCOL SAMANTHA Administration
Protocol
Per Protocol
Vancomycin HCl 1 each/ Device 0 mls @ 0 mls/hr 08/09/23 18:00
IV
PER PROTOCOL SAMANTHA
Protocol
As Directed
Sodium Bicarbonate 150 meq/ 1,150 mls @ 100 mls/hr 08/10/23 04:30 08/10/23 04:59
Sterile Water IV 08/11/23 04:29 1,150 mls
.[id number] SAMANTHA Administration
Amiodarone HCl 900 mg/ 518 mls @ 0 mls/hr 08/10/23 05:45 08/10/23 06:14
Dextrose/Water IV 518 mls
PER PROTOCOL SAMANTHA Administration
Protocol
Per Protocol
Albumin Human 25 grams in 100 mls @ 60 mls/hr 08/10/23 09:30 08/10/23 10:09
Flexbumin IV 08/10/23 15:09 100 mls
Q4H SAMANTHA Administration
Insulin Aspart 0 units 08/09/23 20:00 08/10/23 06:28
Insulin Aspart Moderate Resistance 300 Units/3 Ml Pen.Injctr SC 09/06/23 19:59 Not Given
Q6 SAMANTHA
Protocol
Magnesium Hydroxide 30 ml 08/09/23 16:37
Milk Of Magnesia 30 Ml Cup PO 09/06/23 16:36
[id number] PRN
if no bm by 3rd day
Pantoprazole Sodium 40 mg 08/10/23 08:00 08/10/23 08:59
Pantoprazole Sodium 40 Mg/10 Ml Vial IV 09/07/23 07:59 40 mg
DAILY SAMANTHA Administration
Polyethylene Glycol 17 grams 08/10/23 08:00 08/10/23 09:06
Polyethylene Glycol Powder 17 Grams Packet TUBE 09/07/23 07:59 17 grams
DAILY SAMANTHA Administration
Sennosides 8.8 mg 08/09/23 20:00 08/10/23 08:59
Sennosides (Senna Syrup) 8.8 Mg/5 Ml Unit Dose Cup TUBE 09/06/23 19:59 8.8 mg
BID SAMANTHA Administration
Sodium Biphosphate/Sodium Phosphate 135 ml 08/09/23 16:37
Fleet Phosphate Enema (Adult) 135 Ml Bottle RECTAL 09/06/23 16:36
DAILYPRN PRN
if no bm aftr dulcolax
Sodium Chloride 0 flush 08/09/23 17:00 08/10/23 10:09
Sodium Chloride 0.9% (Flush) Syringe IV 09/06/23 16:59 1 flush
PER PROTOCOL SAMANTHA Administration
Sterile Water 10 ml 08/09/23 18:00 08/10/23 10:08
Sterile Water For Injection 10 Ml Vial IV 09/06/23 17:59 10 ml
Q8H SAMANTHA Administration
Home Medications
�Medication �Instructions �Recorded
cholecalciferol (vitamin D3) 25 25 mcg PO DAILY Supplement 05/20/23
mcg (1,000 unit) tablet
citalopram 10 mg tablet 10 mg PO BID Mental Health 05/20/23
diltiazem HCl 180 mg 180 mg PO DAILY Arrhythmia 05/20/23
capsule,extended release 24 hr,
controlled
metoprolol succinate 100 mg 100 mg PO BID Blood Pressure 05/20/23
tablet,extended release 24 hr
apixaban 5 mg tablet (Eliquis) 2.5 mg PO BID Blood Clot 07/13/23
Prevention/Tx
miconazole nitrate 2 % topical 1 applic topical BID right breast 07/13/23
powder (Desenex) rash
docusate sodium 100 mg capsule 100 mg PO BID #1 cap 07/19/23
polyethylene glycol 3350 17 gram 17 g PO DAILY #14 ea 07/19/23
oral powder packet (HealthyLax)
sennosides 8.6 mg tablet (Senna 8.6 mg PO BID #1 tab 07/19/23
Lax)
acetaminophen 325 mg tablet 650 mg PO Q6HPRN PRN mild pain 08/09/23
(Tylenol)
bisacodyl 10 mg rectal suppository 10 mg NV DAILYPRN PRN if no bm 08/09/23
(Dulcolax (bisacodyl)) aftr mom
magnesium hydroxide 400 mg/5 mL 2,400 mg PO [id number] PRN if no bm 08/09/23
oral suspension (Milk of Magnesia) by 3rd day
sodium phosphates 19 gram-7 118 ml NV DAILYPRN PRN if no bm 08/09/23
gram/118 mL enema (Fleet Enema) aftr dulcolax
--- NOTE | 2023-08-10 08:40 | W.PN.INTV ---
Today's Communication / Plan
Recommendations
Continue mechanical ventilation
Hopefully can do SBT tomorrow
Patient remains full code
Diurese today and replete K >4, Mg >2
prn DuoNebs
MAP>65
Remove off bicarb gtt as pH>7.40
Guarded prognosis
Assessment
-
Assessment: 88-year-old with PMHx of HTN, A-fib on AC, valvular heart disease, Hx of GI bleed and pHTN who presents with unresponsiveness while at [facility]. Staff at [facility] found her and pt was pulseless and CPR started - appears that CPR was started soon
after pt became unresponsive. Pt achieved ROSC after 2-3 mins. EMS arrived and she was intubated [facility] then brought here to ER. Vitals in ER were BP 99/50, HR 92, RR 18 and SpO2 98% on vent. Labs showed WBC 11.9, Hb 12.8, plt 191, pH 7.2, pCO2
51, pO2 157, glucose 193, lactate 6.1 Vent settings are: 16/450/5/50%. Imaging done with CT head/chest/abd/pelvis, and there is no acute intracranial pathology, there is e/o multifocal PNA, normal appearing liver, bilateral renal stones
(non-obstructing) measuring up to 1.2cm, and diverticuli without diverticulosis. In ER she was given 1L NS 0.9%, vecuronium 10mg IVP x1, started on propofol gtt and levophed + dopamine also started due to hypotension with SBP in 80s. Patient then
became tachycardic and dopamine was stopped. Lopressor 5 mg IV was given as well. Given her cardiac arrest and need for continuous monitoring while on ventilator, pt admitted to ICU and Application Security Architect consulted for additional
management/recommendations.
Chronic medical conditions [facility]: Atrial fibrillation on Eliquis, hypertension, valvular heart disease, history of GI bleed, pulmonary pretension, history of UTI, Hx of FTT
Impression:
#Pxi-li-qcghavxy cardiac arrest - difficult to say if pt actually lost a pulse as unknown which rhythm she was in and does not appear that she received any epinephrine during code
#Acute respiratory failure with hypoxemia and hypercapnea on mechanical ventilation
#HAP
#Hypothermic - likely auto-hypothermic in ?setting of cardiac arrest with autonomic dysfunction and likely due to reduced PO intake [facility]
#Chronic bilateral pleural effusions (R>L)
#Lactic acidosis - likely dude to cardiac arrest
#Elevated troponin - likely due to cardiac arrest with resultant type II IL - troponin peaked at 0.063 on 08/10/2023
#Hypoalbuminemia
#Abnormal UA suspicious for UTI
#Chronic liver disease with cirrhotic appearing morphology on abd US
Plan:
- Continue mechanical ventilation with daily SAT/SBT if clinically appropriate
- Titrate PEEP and FiO2 to maintain SpO2 >94%
- Keep plateau pressure <30, driving pressure 15-20
- Limit sedation so we can assess her neurological status; would give boluses of fentanyl only to help with this
- Avoid fever
- Maintain net negative fluid balance as tolerated as it appears that she is having worsening bilateral pleural effusions on today's CXR
- Considering patient is now awakening and following commands, no need to passively maintain hypothermia. Would still avoid fever.
- Neurology and cardiology consulted --> recs appreciated
- Continue broad spectrum Abx with vanc/cefepime; check MRSA swab and DC IV vanco if this is negative
- Follow up paredes-culture with blood, sputum and urine Cx
- Trend lactate until <2mmol/L
- No need to continue trending troponin at it has already peaked this morning at 0.063
- Maintain BG 140-180mg/dL and check BG q4-6hr
- stress ulcer ppx: continue PPI
- DVT ppx: Continue ELiquis 2.5mg BID
- Guarded prognosis
Critical care statement: A total of 38 minutes of critical care time was provided for this patient today. This includes management of unstable vital signs, evaluation of the patient at bedside, reviewing the patient's pertinent medical records
including radiographs, microbiology, laboratory evaluations, and discussion with primary team, consultants, pharmacy, nutrition, physical therapy, case management, charge nurse, critical care nursing, and respiratory therapy.
Data:
CT Chest/Abd/Pelvis without Contrast 08-09-2023:
1).There is moderate interstitial and confluent alveolar airspace disease in both perihilar regions extending into the mid and lower portions of both lungs, most consistent with pneumonia associated with small left moderate right pleural effusions.
2). Cardiomegaly without associated pulmonary edema
3). Atherosclerosis.
4). Bilateral nonobstructing calculi.
5). Moderate bilateral cortical atrophy
6). 9.5 cm left renal cyst
7).Imaging for bowel pathology is limited by the lack of enteric contrast
Diverticuli are present in the colon with no CT evidence of diverticulitis
8).There is mild thoracolumbar dextroscoliosis
There is multilevel degenerative disc disease
CT Head without COntrast 08-09-2023: No acute intracranial abnormality. Stable chronic findings
CXR 08-09-2023:
Endotracheal tube with tip in trachea above the darshan. No pneumothorax.
Some mild bibasilar opacification such as subsegmental atelectasis and/or pneumonia cannot be excluded, left greater than right.
CXR 08-10-2023:
Endotracheal tube is present with its tip 5.6 cm above the darshan.
Airspace opacities within both lungs, with appearance most suggestive of pneumonia, although pulmonary edema could have a similar appearance. Slight interval increase in confluent increased density over the left lower hemithorax.
EEG 08-10-2023:
This EEG is abnormal due to the presence of polymorphic moderate to severe diffuse slowing of the background consistent with moderate to severe diffuse cerebral dysfunction, nonspecific in etiology. No clear epileptiform abnormalities were noted.
Subjective Dataa
Subjective Data
Date of Service:
Date of Service: August 10, 2023
Chief Complaint: Application Security Architect Follow Up
Subjective:
Patient was seen and evaluated today at bedside. A-line placed overnight and serum HCO3 dropped this morning via AM labs and sterile water-bicarb drip was started. Currently on Levophed at 14mcg/min and Adrián-Synephrine at 30mcg/min. She is on
amiodarone and 1mg/min. Son at bedside and I answered all of his questions. Patient's current heart rate is 111, BP 101/82 and SpO2 100% on FiO2 70%. She does awaken and is following commands. She has a cough/gag reflex this morning. She is
sleepy but easily arousable and in no acute distress.
Review of Systems
General: Other (Unable to obtain as patient is intubated)
Objective Data
Data Reviewed
Vital Signs / I&O / Oxygen:
Vital Signs
Temp Pulse Resp BP Pulse Ox
98.3 F 112 22 113/76 99
08/10/23 15:03 08/10/23 15:15 08/10/23 15:15 08/10/23 15:00 08/10/23 15:15
Intake and Output
08/09/23 08/10/23 08/11/23
06:59 06:59 06:59
Intake Total 3015.5 / 3222.3 2994.6 / 2994.6
Output Total 285 / 285 115 / 115
Balance 2730.5 / 2937.3 2879.6 / 2879.6
SaO2 [A/C] 100
SaO2 99
Physical Exam
General: Respiratory Distress (negative) and Comfortable
HEENT: Normocephalic and Anicteric
Cardiovascular: Irregular Rhythm (Irregularly irregular), Peripheral Edema (+1 LE pitting edema ) and Other (Tachycardic)
Respiratory: Wheeze (negative), Crackles (negative), Rhonchi (bilaterally), Accessory Resp Muscle Use (negative), Stridor (negative) and ET Tube
GI: Soft, Non Distended, Non Tender and Normal Bowel Sounds
Neurology: Tremors (Negative), Lethargic (Easily arousable to voice and is following commands) and Other (Pupils +4mm and brisk)
Labs/Micro/Reports
Lab Data
08/10/23 03:52
Laboratory Results
08/09/23 08/09/23 08/10/23
18:35 19:10 00:01
PT 19.1 H
INR 1.62
APTT 34.6
pH 7.39 7.30 L
pCO2 30 L 36 H
pO2 59 L* 73 L
HCO3 18.2 L 17.7 L
O2 Delivery Level
08/10/23 08/10/23
03:52 13:05
PT
INR
APTT
pH 7.33 L 7.43
pCO2 33 29 L
pO2 81 L 103
HCO3 17.4 L 19.2 L
O2 Delivery Level
Microbiology
08/09/23 17:12 Endotracheal Respiratory Culture - Preliminary
Usual Respiratory Viviana
08/09/23 17:12 Endotracheal Gram Stain - Preliminary
08/09/23 17:12 Urine Urine Culture - Preliminary
Sparse growth, too young to be identified. Further results
to follow.
08/09/23 17:12 Urine Legionella Urinary Antigen - Final
Negative for Legionella pneumophila Serogroup 1 antigen.
A negative result does not rule out the possiblity of
Legionella infection due to other serogroups or species of
Legionella. Clinical correlation is recommended.
08/09/23 17:12 Urine Streptococcus pneumoniae Antigen (M - Final
Negative for Streptococcus pneumoniae antigen.
A negative result does not exclude infection with
Streptococcus pneumoniae. Clinical correlation is
recommended.
--- NOTE | 2023-08-10 08:58 | W.PN.CARDCBS ---
Today's Communication / Plan
-
Cont IV pressor support for hypotension.
Wean IV Adrián as able. Remains on IV Levo as well
IV Amiodarone started for better HR control
Outpt Toprol and Cardizem are on hold with hypotension
Eliquis for stroke prophylaxis. Consider IV heparin if Eliquis needs to be held.
Continue medical therapy of likely non-MT troponin trend until peak
Monitor EKG, lateral T wave inversions last 24 hrs.
Impression / Plan
-
.
Primary Geography Professor: Dr. BRENNAN Caicedo, last seen in office 2021
Impression:
Presentation with OOH arrest s/p CPR and epi with ROSC 08/09/23
Hypotensive shock, requiring pressor support
VDRF, s/p agonal breathing per EMS, requiring intubation 08/09/23
Elevated lactic acid
Leukocytosis, mild
Elevated troponin
Permanent atrial fibrillation, now with rapid response on chronic OAC with eliquis
mod to severe MR and AR, severe TR by echo 05/2023
Admission to for FTT 07/13-07/19/23, discharged to [facility] for SNF
History of rectal bleeding
HTN
LOPES
GERD
Depression
History of CVA on MRI imaging
ECHO 05/20/23: EF 60-65%, mild cLVH, mod to severe eccentric jet MR with flow reversal in pulm veins, dilated LA, mod to severe AR, severe TR, PAP 46mmHg
CT chest/abd/pelvis August 09 2023: moderate interstitial and confluent alveolar airspace disease in both perihilar regions extending into the mid and lower portions of both lungs, most consistent with pneumonia associated with small left moderate
right pleural effusions. Cardiomegaly without associated pulmonary edema. Atherosclerosis. Bilateral nonobstructing calculi.
Echo August 09 2023: EF 55 to 60% with mild to moderate aortic regurgitation, severe tricuspid regurgitation, pulmonary artery pressure 46 mmHg
Plan:
Cont IV pressor support for hypotension.
Wean IV Adrián as able. Remains on IV Levo as well
IV Amiodarone started for better HR control
Outpt Toprol and Cardizem are on hold with hypotension
Eliquis for stroke prophylaxis. Consider IV heparin if Eliquis needs to be held.
Continue medical therapy of likely non-MT troponin trend until peak
Monitor EKG, lateral T wave inversions last 24 hrs.
Cont pulm toilet and vent care. Wean as able.
Broad spectrum abx as per [employer].
Prognosis guarded.
Discussed with nursing
CCT: 31 min
HPI: 88-year-old woman known to Dr Caicedo, last seen in the office in April 2022, at which point she was active cleaning her home and offering no complaints. She declined over 2022 and was admitted with failure to thrive in June 2023,
possibly with UTI and with marked decrease in activity tolerance. She was transferred to [facility], and today became unresponsive, received CPR and had ROSC. She was never shocked, and was intubated by paramedics at the scene for respiratory
failure. Seen in the emergency department on high-dose Levophed and low-dose dopamine she has a heart rate of approximately 100 with a blood pressure of approximately 100. Urgent echocardiography shows preserved LV function, biatrial dilatation,
mitral and aortic regurgitation but no pulmonary hypertension. She is unresponsive on propofol and having been paralyzed. Son at bedside.
Progress Note - Geography Professor
Subjective
Date of Service: August 10, 2023
Pt seen and examined. sedated on vent.
Objective
Labs:
08/10/23 03:52
08/10/23 03:52
Labs
Hgb 14.1 g/dL (12.0-16.0) 08/10/23 03:52
Hct 43.6 % (37.0-47.0) 08/10/23 03:52
Plt Count 166 10^3/uL (130-400) 08/10/23 03:52
PT 19.1 Sec (11.4-14.6) H 08/09/23 18:35
INR 1.62 08/09/23 18:35
APTT 34.6 Sec (23.4-35.0) 08/09/23 18:35
Sodium 135 mmol/L (135-145) 08/10/23 03:52
Potassium 4.1 mmol/L (3.5-5.1) D 08/10/23 03:52
BUN 34 mg/dl (7-17) H 08/10/23 03:52
Creatinine 0.7 mg/dL (0.6-1.0) 08/10/23 03:52
Glucose 135 mg/dl (70-99) H 08/10/23 03:52
Troponins
08/09/23 08/09/23 08/09/23
14:04 19:10 20:00
Troponin I 0.055 H* 0.051 H* Cancelled
08/10/23
03:52
Troponin I 0.063 H*
Vital Signs and I&O:
Vital Signs
Temp Pulse Resp BP Pulse Ox
99.7 F 124 78/48 100
08/10/23 07:23 08/10/23 03:30 08/10/23 03:30 08/10/23 00:00 08/10/23 07:41
Vital Signs
Temp Pulse Resp BP Pulse Ox
99.7 F 124 48 100
08/10/23 07:23 08/10/23 03:30 08/10/23 03:30 08/10/23 00:00 08/10/23 07:41
Intake & Output
08/08/23 08/09/23 08/10/23 08/11/23
06:59 06:59 06:59 06:59
Intake Total 3015.5 / 3015.5
Output Total 285 / 285
Balance 2730.5 / 2730.5
Physical Exam
Physical Exam
General: sedated on vent, cachetic chronic ill appearing
Neck: Negative JVD
Heart: Irregularly irregular, Negative S3 positive S1/S2, Negative S4, No murmur
Lungs: CTA b/l, negative wheezes/rales/rhonchi
Abd: Positive BS, NT/ND, neg rebound/rigidity/guarding
Ext: Negative cyanosis/clubbing/edema
Neuro: nonfocal
[2023-08-10] MEDS: COLACE LIQUID 100 MG TUBE (08:59)
[2023-08-10] MEDS: CELEXA 10 MG TUBE ×2 (08:59→20:28)
[2023-08-10] MEDS: PROTONIX IV 40 MG IV (08:59)
[2023-08-10] MEDS: ELIQUIS 2.5 MG TUBE ×2 (08:59→20:28)
[2023-08-10] MEDS: SENNA SYRUP 8.80000000000000071 MG TUBE (08:59)
--- NOTE | 2023-08-10 09:00 | PTCARENOTE ---
ETT is a 7.0 tube at the 23 cm lei
--- NOTE | 2023-08-10 09:00 | PTCARENOTE ---
Rec'd pt at 0730 resting in bed. Initially had started to move her hands and feet almost like an intermittent twitch but not rhythmic. By 0800 had started to open eyes and intermittently have purposeful movements- would withdrawal to pain then by
0900 was opening eyes to command, nodding head yes and no and following basic commands to grasp hand and move feet/wiggle toes. Nodded head no to having pain. When pt turned reached arm over to try to hold siderail. Overall however when left alone
will tend to keep her eyes shut. YISEL at 3mm. Pt had continuous EEG in progress. Neurology here at 0800 and currently EEG removed. Skin is pale wm and dry. Feet are cool to the touch. Temp 99.4 via thermistor dickinson. Foam dressing placed on stage 2
excoriation on buttocks and on skin tear on R lateral calf. Respirs are intact on the Vent. Vent settings currently AC 22, tv 450m peep 5 Fio2 90%. Sats are 99-100%. Pt not adding rate or volume currently but now has a cough and a gag which she did
not have earlier. #7.5 ett at the 25 cm lei- repositioned in the center of the mouth. Suctioned for very scant whitish secretions. Monitor AFib in the 120's. Pt remains on IV Amiodarone at 1 mg/min. VS as documented. Pt with R radial david-site
wnl. Good cms checks. Overall within 10 mm/hr of cuff bp. Waveform as documented. Rec'd pt on IV Levophed at 14 mcg and Adrián at 70 mcg. Currently Adrián weaned down to 50mcg with goal of syst BP >90. + pulses. PT and DP pulses with the doppler. +2 pedal
edema. Abd is round and soft with hypoactive BS, L nare dobhoff clamped. Placement auscultated. Scant clear residual. Thermistor dickinson in place for small amts of cloudy yellow/kathleen urine with sediment. IV Levo/Adrián and AMiodarone infusing via R arm
DL picc-site wnl. IV team in and removed pressure dressing. IV Bicarb gtt infusing via LAC IV site. Capped int intact L wrist/forearm. Sites wnl. Pt with multiple bruises. Turned and repositioned. Skin and mouth care given. Bilateral soft wrist
restraints in place for pt safety. Pt reoriented as to events. Will monitor closely.
[2023-08-10] MEDS: FLUSH (NSS) 2 FLUSH IV (09:06)
[2023-08-10] MEDS: MIRALAX 17 GRAMS TUBE (09:06)
[2023-08-10 10:00] LABS: Lactic Acid 4.2 mmol/L (0.7-2.0)
[2023-08-10] MEDS: FLEXBUMIN 100 IV ×2 (10:09→13:28)
[2023-08-10] MEDS: FLUSH (NSS) 1 FLUSH IV ×5 (10:09→19:21)
--- NOTE | 2023-08-10 10:11 | PHA.VAN.FU ---
Vancomycin Assessment / Plan
- Assessment
Renal Function: Stable (BUN remains elevated)
WBC's are: WNL
Concomitant Antimicrobials: cefepime
- Assessment - Therapeutic Drug Monitoring
Random Level: 17.4 - drawn ~9.5H after 1500mg loading dose
- Dosing Plan
Dosing by Level: Re-dose today (Vanc 750mg)
- Monitoring Plan
Random Level: 08/10 599
- Follow Up
Pharmacy will continue to follow.
Vancomycin Follow UP
- -
Patient Age: 88
Patient Sex: Female
Vancomycin Day #: 2
Indication: Pulmonary/Respiratory
Requesting Provider: Dr. Blake
Pertinent Antimicrobial Allergies:
cephalexin - rash, SOB
erythromycin unknown
penicillin - rash, SOB
'antibiotic that starts with 'a'' - unknown
Height / Weight:
Height 5 ft 2 in
Actual Weight 60 kg
Pertinent Past Medical History: s/p cardiac arrest
- Vital Signs / Lab Results
Temp Pulse Resp BP Pulse Ox
99.7 F 124 22 78/48 100
08/10/23 07:23 08/10/23 03:30 08/10/23 03:30 08/10/23 00:00 08/10/23 07:41
Lab Results - Hematology
08/09/23 08/10/23
14:04 03:52
WBC 11.9 H 7.1
Lab Results - Chemistry
08/09/23 08/09/23 08/10/23
14:04 21:08 03:52
BUN 39 H 34 H 34 H
Creatinine 0.8 0.6 0.7
Estimated Creat Clear 50 43
Albumin 2.5 L 2.3 L
08/09/23 08/09/23 08/09/23
14:04 19:10 20:00
Lactic Acid 6.1 H* 3.8 H Cancelled
08/09/23 08/10/23 08/10/23
22:37 00:00 03:52
Lactic Acid Cancelled Cancelled 4.1 H*
08/10/23
08:46
Lactic Acid 4.2 H*
Lab Results - Urine
08/09/23
17:12
Urine Nitrite (Reflex) Negative
Leukocyte Esterase Rfl 2+ A
Microbiology Results
08/09/23 17:12 Gram Stain - Preliminary
Endotracheal
08/09/23 17:12 Legionella Urinary Antigen - Final
Urine Negative for Legionella pneumophila Serogroup 1 antigen.
A negative result does not rule out the possiblity of
Legionella infection due to other serogroups or species of
Legionella. Clinical correlation is recommended.
Streptococcus pneumoniae Antigen (M - Final
Negative for Streptococcus pneumoniae antigen.
A negative result does not exclude infection with
Streptococcus pneumoniae. Clinical correlation is
recommended.
Therapeutic Drug Monitoring
Random Vancomycin 17.4 ug/ml 08/10/23 03:52
--- NOTE | 2023-08-10 10:40 | PTCARENOTE ---
IV Albumin hung per md order at 1010 via L forearm IV site. Pt currently decreased to 70% FIo2. Weaning IV Levophed as BP permits- currently keeping syst BP >90. Pt is sensitive to the IV Levophed- when levophed bag ran dry pts BP decreased briefly
to the 60's syst and back up almost immediately when new bag hung. Pt drowsy but does arouse to stimuli. HR overall lower- more in the 115-120 range- AFIb. Will continue to monitor
[2023-08-10 11:48] LABS: Glucose - Point of Care 211 mg/dl (70-99)
[2023-08-10] MEDS: VANCOCIN 150 IV (11:50)
[2023-08-10] MEDS: NOVOLOG FLEXPEN-MODERATE RESISTANCE 3 UNITS SC ×2 (11:50→23:59)
--- NOTE | 2023-08-10 11:50 | PTCARENOTE ---
IV Adrián weaned to off. Resp therapy in and Fio2 decreased to 60%.
--- NOTE | 2023-08-10 12:02 | CM ---
CM following re: discharge planning.
Discussed in Rounds, reviewed pt's chart, met with pt and spoke to pt's son James over the phone.
Pt is an 88 year old female, admitted with primary dx of out of hospital cardiac arrest. Per Rounds meeting, pt remains intubated, continue supportive care.
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 Pt's son expressed his negative feelings
regarding care at [facility] and he is requested pt be discharged to a different SNF for a short term and a fdc care. Per son, his mother was not doing well with PT and OT at [facility], ambulated with a walker with PT and mostly uses
a wheelchair. Pt's son requested [facility] and pt's son was informed that [facility] does not accept pts for a terminal computer operator care. Pt's son stated he will visit his mother at 1:30 p.m. today and this CM will give him a list of SNFs.Pt's son stated he
lives in [place] and he expressed his interest to get the pt to [facility] for a short term and a terminal computer operator care.
D/C plan: Preferred SNF for a short term and a fdc care.
CM will follow with discharge plan updates as hospitalization progresses
--- NOTE | 2023-08-10 12:45 | PTCARENOTE ---
Addendum entered by Denisse Morales RN 08/10/23 15:45:
additional assessment- Amiodarone gtt decreased at 1225 to 0.5 mg/min per protocol
Original Note:
Labs sent as ordered.
[2023-08-10] MEDS: NSS 1000 IV (12:51)
--- NOTE | 2023-08-10 13:12 | EEGC.RPT ---
Continuous EEG Report
Recording
Start Date of Data Reviewed: 08/09/23
Start Time of Data Reviewed: 19:31
End Date of Data Reviewed: 08/10/23
End Time of Data Reviewed: 09:13
Type of EEG: Continuous
Done with Video Recording: Yes
Study Sequence: Initiation of Study
Electrocardiogram: Unremarkable
Report
METHODS
A 21 channel digitized electroencephalogram was performed at [facility]. The 10/20 international system of electrode placement was used. In addition to EEG, the patient was monitored for EKG. The duration of the recording was 13 hours and
41 minutes.
BACKGROUND
With eyes closed, the EEG was diffusely slow to 3-4Hz frequencies on average. The study was at times limited by muscle artifact.
HYPERVENTILATION
Hyperventilation was not performed as the patient is intubated.
ABNORMAL EEG ACTIVITY
This EEG is abnormal due to the presence of delta range slowing that was diffuse and polymorphic. The study was at times limited by muscle artifact.
CLINICAL EVENTS
None
INTERPRETATION AND CLINICAL CORRELATION
This EEG is abnormal due to the presence of polymorphic moderate to severe diffuse slowing of the background consistent with moderate to severe diffuse cerebral dysfunction, nonspecific in etiology. No clear epileptiform abnormalities were noted.
[2023-08-10 13:19] LABS: HCO3 19.2 mmol/L (21-28); O2 Saturation % 99.7 % (94-98); PCO2 29 mmHg (32-35); PO2 103 mmHg (83-108); pH 7.43 (7.35-7.45)
[2023-08-10] MEDS: TYLENOL ORAL SOLUTION 650 MG PO (13:26)
--- NOTE | 2023-08-10 13:30 | PTCARENOTE ---
1000 ml NS bolus hung via PICC per md order. Levophed at 12 mcg currently - will wean now to MAP >65. Pt turned and repositioned. Mostly keeps eyes closed but will open them to stimuli and follow some basic commands. Nods head no to pain but did
grimace with turning. CPOT a 3 medicated with Tylenol 650 mg via tube at 1325. Currently on 60% FIo2 and tolerating with sats of 100%. Urine output remains about 10-15 ml/hr. Vancomycin 750 mg dose hung at 1150 and completed. Currently 2nd bag of
Albumin 25 % hung via L wrist/forearm site. Pts son James in to see pt and updated. Son also spoke with Case management. ECG done as ordered
[2023-08-10 13:31] LABS: Lactic Acid 5.5 mmol/L (0.7-2.0)
[2023-08-10 13:33] LABS: Blood Urea Nitrogen 34 mg/dl (7-17); Calcium 7.6 mg/dl (8.4-10.2); Carbon Dioxide 19 mmol/L (22-30); Chloride 106 mmol/L (98-107); Estimated Creatinine Clearance 43 ml/min; Glucose 155 mg/dl (70-99); Potassium 3.3 mmol/L (3.5-5.1); Sodium 131 mmol/L (135-145); eGFR > 60.00
[2023-08-10 13:45] LABS: Troponin I 0.055 ng/ml
--- NOTE | 2023-08-10 14:57 | W.PN.HOSP.TC ---
Today's Communication/Plan
-
Discussed with the nurse
Discussed with ICU team
Prognosis is poor
Assessment / Plan
Assessment / Plan
Physical exam:
General: On vent, opens eyes to verbal stimuli, shake it in answering some question,, not in distress.
HEENT: Ecchymosis and bruises on the face, ET and OG tube, no active discharge, ecchymosis or bruising, moist lips, tongue and mucous membrane.
Eyes: No discharge or red conjunctiva, no nystagmus, pupils are reactive and equal
Neck:Supple, no JVD no bruit no goiter.
Respiratory: Normal AP contour and diameter, normal chest wall movement, normal respiratory effort, no respiratory distress,
Lungs: Good air entry bilaterally, no wheezing or rhonchi, no rales or crackles
Heart: S1, S2 tachycardic with irregular irregular no added sound.
Gastrointestinal: Positive bowel sounds, soft, nontender, no guarding or rigidity or organomegaly
Musculoskeletal: , no chest wall abnormality or tenderness. All joints and extremities have good range of motion, no muscle tenderness or any joint swelling or tenderness.
Extremities: No pitting edema, good peripheral pulses, good range of motion
Skin: Warm and dry, no ulceration, normal color.
Assessment and plan:
[id number] cardiac arrest status post successful resuscitation on ROSC? In 2 to 3 minutes. Possibility in light of A-fib with RVR or septic shock.
On the vent and on 2 pressor
Continue Levophed and wean as tolerated
Phenylephrine
IV cefepime and bank
Discussed with the critical care team
Discussed with the nurse
Close monitoring
Unclear etiology for cardiac arrest. Possible to be related toeptic shock with A-fib with RVR, known history of A-fib. No acute ST-T changes. No significant troponin elevation yet. Patient with significant valvular heart disease concern if she
has new cardiomyopathy and secondary arrhythmia. Will get a stat echocardiogram and consult cardiology.Doubt PE - on buttermaker continuous churn AC and receiving it at [facility].
No evidence volume related
HH stable ,Cr normal.
Permanent Afib - now in RVR -patient hypotensive post cardiac arrest and on Levophed. Normally on Cardizem and beta-rosa elena which she may not tolerate now.
Continue Eliquis
Cardiology input appreciated
On amiodarone drip as Cardizem discontinued because of the hypotension
Moderate to severe AR/moderate to severe MR/severe TR- Clinical concern for heart failure-elevated JVD, bilateral lower extremity edema noted. Chest x-ray without overt pulm edema check BNP and echocardiogram.
Pulmonary hypertension
Hypotensive shock-patient currently requiring vasopressors postcardiac arrest. Continue with vasopressors.
Lactic acidosis-suspect secondary to cardiac arrest and hypotension. Continue to follow .
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 LFTs normal. No clinical evidence of ascites.
Essential hypertension-hold home medications due to current hypotension
Anticipated Discharge: > 48 hours
Subjective/Interval History
-
Date of Service: August 10, 2023
Seen and examined with the nurse and ICU team, on the vent, opens eyes to verbal stimulus, off sedation but on pressors Levophed and phenylephrine, also on amiodarone drip.
Still A-fib with RVR
Objective Data
-
Labs:
Laboratory Results
08/10/23 08/10/23
03:52 13:05
WBC 7.1
Hgb 14.1
Hct 43.6
Plt Count 166
HCO3 17.4 L 19.2 L
Sodium 135 131 L
Potassium 4.1 D 3.3 L
Chloride 114 H 106
Carbon Dioxide 14 L* 19 L
BUN 34 H 34 H
Creatinine 0.7 0.7
Glucose 135 H 155 H
Calcium 8.0 L 7.6 L
Total Bilirubin 0.8
AST 26
ALT 15
Alkaline Phosphatase 42
Vital Signs:
Vital Signs
Temp Pulse Resp BP Pulse Ox
98.8 F 96 22 99/67 100
08/10/23 13:00 08/10/23 14:00 08/10/23 14:00 08/10/23 14:00 08/10/23 14:00
I&O
08/09/23 08/10/23 08/11/23
07:59 07:59 07:59
Intake Total 3222.3 / 3429.1 2626.1 / 2626.1
Output Total 285 / 295 90 / 90
Balance 2937.3 / 3134.1 2536.1 / 2536.1
Review of Systems
-
Unable to obtain full review of systems at this time due to: Patient Intubation
All other systems: Not reviewed unless documented
[2023-08-10] MEDS: KCL ELIXIR 40 MEQ TUBE ×2 (15:20→18:20)
--- NOTE | 2023-08-10 15:30 | PTCARENOTE ---
KCL 40 meq given via Feeding tube.
[2023-08-10] MEDS: PITRESSIN 100 IV (16:07)
[2023-08-10] MEDS: SUBLIMAZE 50 MCG IV ×2 (16:43→19:19)
[2023-08-10] MEDS: LASIX 40 MG IV (16:45)
--- NOTE | 2023-08-10 17:00 | PTCARENOTE ---
Has remained resting mostly with eyes closed this afternoon. Continues to wake up with verbal stimuli and will nod and follow few basic commands. Will nod head no to pain but at 1640 medicated with Fentanyl 50 mcg for vent dysnchrony and biting on
the ETT. Also seemed anxious and uncomfortable after turning and cleaning up stool. CPOT was a 5 and RASS a +2. More comfortable after. ETT repositioned on the L side of her mouth at the 23 cm lei. Suctioned for scan whitish secretions. + cough and
gag, BS remain coarse rhonchi. Monitor Afib rates were the 105-100 range but with anxiousness up to 120's. Amiodarone remians at 0.5 mg/min. Vasopressin added at 1610 as Bp was running around 102-105 syst and MAP 70. With the Vasopressin on will try
to wean the Levophed which is currently at 10 mcg. Currently Tube feeds Osmolite 1.2 started at 20 ml/hr with 15 ml/hr flush via L nare feeding tube. Pt incont of a large amt of loose brown liquid stool. Tala care given. Lasix 40 mg IV given at
1645 per MD order. IV with Bicarb was DC'd at 1530 per md order. Pt turned and repositioned. Mouth care given. Will continue to monitor
[2023-08-10 17:51] LABS: Glucose - Point of Care 134 mg/dl (70-99)
--- NOTE | 2023-08-10 18:40 | PTCARENOTE ---
Pt has been on 40% Fio2 since 1600- overall tolerating. Sats currently 92-94%- sometimes difficult to lease picker. LA sent. Awake and calm. No other changes.
--- NOTE | 2023-08-10 19:35 | PTCARENOTE ---
Incont again of large amt of liquid brown stool. Got anxious after moving bowels and was biting on ETT. Fentanyl 50 mcg IV given
[2023-08-10] MEDS: SENNA SYRUP TUBE (20:14)
[2023-08-10] MEDS: COLACE LIQUID TUBE (20:14)
[2023-08-10 20:49] LABS: Lactic Acid 7.1 mmol/L (0.7-2.0)
[2023-08-10 20:58] LABS: Blood Urea Nitrogen 32 mg/dl (7-17); Calcium 7.8 mg/dl (8.4-10.2); Carbon Dioxide 16 mmol/L (22-30); Chloride 105 mmol/L (98-107); Estimated Creatinine Clearance 43 ml/min; Glucose 265 mg/dl (70-99); Magnesium 1.7 mg/dl (1.6-2.3); Potassium 5.2 mmol/L (3.5-5.1); Sodium 130 mmol/L (135-145); eGFR > 60.00
--- NOTE | 2023-08-10 21:02 | VATNOTE ---
DRSG ON 5FR DL R PICC CHANGED.QUICK CLOT REMOVED BUT SMALL AMT OF CONTINUOUS OOZING OF BLOOD NOTED. RD WITH GAUZE BUT NO BIOPATCH. PCN AWARE OF INTERVETNION. WILL ASSESS IN AM.
[2023-08-10 23:25] LABS: Glucose - Point of Care 230 mg/dl (70-99)
[2023-08-11] VITALS (10 sets, daily range): BP systolic 77–127; BP diastolic 60–82; BMI 26.4
[2023-08-11] MEDS: PITRESSIN 100 IV (02:20)
[2023-08-11] MEDS: SUBLIMAZE 50 MCG IV ×3 (02:25→20:54)
[2023-08-11] MEDS: MAXIPIME 2000 MG IV ×3 (02:25→17:34)
[2023-08-11] MEDS: STERILE WATER FOR INJECTION 10 ML IV ×3 (02:25→17:34)
[2023-08-11 02:58] LABS: B.E. -13.6 mmol/L; O2 Saturation % 94.9 % (94-98); PCO2 33 mmHg (32-35); PO2 74 mmHg (83-108); pH 7.21 (7.35-7.45)
[2023-08-11 02:59] LABS: HCO3 13.2 mmol/L (21-28)
[2023-08-11] MEDS: SODIUM BICARBONATE 50 MEQ IV ×3 (03:10→05:56)
[2023-08-11 04:18] LABS: % Basophils 0.1 % (0-2); % Immature Granulocytes 3.9 % (0-0.5); % Lymphocytes 5.4 % (20.5-51.1); % Monocytes 1.6 % (1.7-9.3); Absolute Immature Granulocytes 0.6 10^3/uL (0-0.05); Absolute Lymphocytes 0.8 10^3/uL (1.2-3.4); Absolute Monocytes 0.3 10^3/uL (0.1-0.6); Absolute Neutrophils 13.6 10^3/uL (1.4-6.5); Hemoglobin 12.6 g/dL (12.0-16.0); Mean Corp Hgb Conc. 33.2 g/dL (33.0-37.0); Mean Corpuscular Hgb 29.4 pg (27.0-31.0); Mean Corpuscular Volume 88.6 fL (81.0-99.0); Mean Platelet Volume 10.2 fL (7.4-10.4); Nucleated Red Blood Cells % 0.2 %; Platelet Count 163 10^3/uL (130-400); Red Blood Cell Count 4.29 10^6/uL (4.20-5.40); Red Cell Dist. Width 15.5 % (11.5-14.5); White Blood Cell Count 15.2 10^3/uL (4.8-10.8)
[2023-08-11 04:42] LABS: Lactic Acid 8.4 mmol/L (0.7-2.0)
[2023-08-11 04:43] LABS: Albumin 2.4 g/dl (3.5-5.0); Blood Urea Nitrogen 34 mg/dl (7-17); Calcium 7.7 mg/dl (8.4-10.2); Carbon Dioxide 17 mmol/L (22-30); Chloride 103 mmol/L (98-107); Estimated Creatinine Clearance 38 ml/min; Glucose 317 mg/dl (70-99); Magnesium 1.7 mg/dl (1.6-2.3); Phosphorus 3.6 mg/dl (2.5-4.5); Potassium 4.6 mmol/L (3.5-5.1); Sodium 132 mmol/L (135-145); eGFR > 60.00
[2023-08-11 04:53] LABS: Procalcitonin 11.17 ng/ml (0.0-0.25)
[2023-08-11 04:56] LABS: NT-proBNP 8260 pg/ml
[2023-08-11] MEDS: LASIX 40 MG IV ×2 (05:09→16:06)
[2023-08-11] MEDS: CORDARONE 518 MG IV (05:40)
[2023-08-11] MEDS: LEVOPHED 250 IV ×2 (05:44→19:59)
[2023-08-11] MEDS: NOVOLOG FLEXPEN-MODERATE RESISTANCE 5 UNITS SC (05:50)
[2023-08-11 06:01] LABS: Glucose - Point of Care 263 mg/dl (70-99)
--- NOTE | 2023-08-11 06:37 | PTCARENOTE ---
received patient from dayshift RN, patient is vented and awake able to follow simple commands. assessments completed and charted,
patient is on levo which has been titrated per protocol,
no c/o pain or discomfort, patient suctioned as needed, respiratory adjusting settings for spo2 of 88
--- NOTE | 2023-08-11 06:40 | PTCARENOTE ---
patient having drop in BP, levo titrated, however labs drawn andd bicarb low, new order for 2 amps bicarb,
urine output decreasing, lasix given
patient had 2 soft bm this shift
lactic acid elevating however no new orders at this time,
vent settings changed r/t pnuemothorax, pt has small thick secretions from her ETT,
3rd amp of bicarb given at 0600
patient is awake and still offers no c//o pain,
patient remains restrained for her safety,
--- NOTE | 2023-08-11 07:06 | W.PN.UPDATE ---
Update Note
Progress Note Update
0615- Large left pneumothorax on morning chest xray. Respiratory therapist called to bedside, tidal volume dropped on ventilator settings. RN updated at bedside. Interventional radiologist Dr. Riley consulted for chest tube placement for
pneumothorax. IR updated patient has had increased hypotension and is on vasopressors. Dr. Stephenson, taker off braker machine updated on current patient condition/events.
--- NOTE | 2023-08-11 07:30 | PTCARENOTE ---
recd pt IR here for CT, resp here to discontinue peep. wide awake, med with fentanyl. amio, levo, vaso infusing, rest of assessment as in report. bilat restraints. rest of vent settings noted.
[2023-08-11] MEDS: ELIQUIS 2.5 MG TUBE ×2 (08:15→20:33)
--- NOTE | 2023-08-11 08:15 | W.PN.INTV ---
Today's Communication / Plan
Recommendations
Repeat CXR this evening and if pneumothorax resolved Place chest tube to waterseal, overnight continue to lower FiO2 to goal 50% and keep PEEP at 0
Possible SBT in the morning
Keep lightly sedated with SAT in the morning
Raise Lasix to 40 mg IV BID to get net negative 1.5L per day for next 1-2 days
Start scheduled aspart to reach goal BG 140�180
Start oxycodone for possible pain especially in the setting of newly placed chest tube
Trend lactate until <2
Guarded prognosis -GOC was discussed with son � emotional support provided, he wants to remain full code with full medical treatment however depending on the next several days he may change code status depending on her progression.
Assessment
-
Assessment: 88-year-old with PMHx of HTN, A-fib on AC, valvular heart disease, Hx of GI bleed and pHTN who presents with unresponsiveness while at [facility]. Staff at [facility] found her and pt was pulseless and CPR started - appears that CPR was started soon
after pt became unresponsive. Pt achieved ROSC after 2-3 mins. 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 Vitals in ER were BP 99/50, HR 92, RR 18 and SpO2 98% on vent. Labs showed WBC 11.9, Hb 12.8, plt 191, pH 7.2, pCO2
51, pO2 157, glucose 193, lactate 6.1 Vent settings are: 16/450/5/50%. Imaging done with CT head/chest/abd/pelvis, and there is no acute intracranial pathology, there is e/o multifocal PNA, normal appearing liver, bilateral renal stones
(non-obstructing) measuring up to 1.2cm, and diverticuli without diverticulosis. In ER she was given 1L NS 0.9%, vecuronium 10mg IVP x1, started on propofol gtt and levophed + dopamine also started due to hypotension with SBP in 80s. Patient then
became tachycardic and dopamine was stopped. Lopressor 5 mg IV was given as well. Given her cardiac arrest and need for continuous monitoring while on ventilator, pt admitted to ICU and Christian Counselor consulted for additional
management/recommendations.
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
Impression:
#Fay-mg-tzivqxdn cardiac arrest - difficult to say if pt actually lost a pulse as unknown which rhythm she was in and does not appear that she received any epinephrine during code
#Acute respiratory failure with hypoxemia and hypercapnea on mechanical ventilation
#Left large spontaneous secondary pneumothorax s/p IR chest tube (placed 08/11/2023)
#HAP
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
#Acute on chronic bilateral pleural effusions (R>L) with acute pulmonary edema
#A-fib with RVR now on amio gtt
#Lactic acidosis - worsening - likely worsening in setting of tension PTX and septic shock on vasopressors
#Elevated troponin - likely due to cardiac arrest with resultant type II OH - troponin peaked at 0.063 on 08/10/2023
#Hypoalbuminemia
#UTI - coagulase negative Staph on urine Cx (she has a hx of Staph epidermidis from [facility] on 07/15/2023)
#Hyperglycemia - likely due to critical illness
#Chronic liver disease with cirrhotic appearing morphology on abd US
Plan:
- Continue mechanical ventilation with daily SAT/SBT if clinically appropriate
- Titrate PEEP and FiO2 to maintain SpO2 >94%, but in setting of PTX keep PEEP to 0 and maintain FiO2 100% at least until air leak resolves --> repeat CXR later today and if PTX gone and no air leak when suction interrupted, then will place chest
tube to CWS and wean down FiO2 to goal of 50% and keep PEEP to 0.
- Keep plateau pressure <30, driving pressure 15-20
- Limit sedation so we can assess her neurological status; would give boluses of fentanyl only to help with this; due to concern for pain we will start scheduled oxycodone
- Avoid fever
- Maintain net negative fluid balance as tolerated as it appears that she is having worsening bilateral pleural effusions on CXR --> raise lasix to 40mg IV BID with goal net negative 1.5L/24 hrs for 1-2 days
- Considering patient is now awake and following commands, no need to passively maintain hypothermia. Would still avoid fever.
- Neurology and cardiology consulted --> recs appreciated
- Continue broad spectrum Abx with cefepime (started 08/09/2023); IV vanco DC'd given negative MRSA swab (she got 2 doses of IV vanco on 08/08 + 08/09)
- Follow up paredes-culture with blood, sputum and urine Cx --> Urine Cx growing coag. negative Staph, likely Staph epidermidis; follow up species and sensitivities
- Continue amiodarine gtt with goal HR<110
- Trend lactate until <2mmol/L
- No need to continue trending troponin at it has already peaked this morning at 0.063
- Maintain BG 140-180mg/dL and with ISS q6hr; add Aspart 2 units q6hr
- stress ulcer ppx: continue PPI
- DVT ppx: Continue Eliquis 2.5mg BID
- Guarded prognosis
Critical care statement: A total of 41 minutes of critical care time was provided for this patient today. This includes management of unstable vital signs, evaluation of the patient at bedside, reviewing the patient's pertinent medical records
including radiographs, microbiology, laboratory evaluations, and discussion with primary team, consultants, pharmacy, nutrition, physical therapy, case management, charge nurse, critical care nursing, and respiratory therapy.
Data:
CT Chest/Abd/Pelvis without Contrast 08-09-2023:
1).There is moderate interstitial and confluent alveolar airspace disease in both perihilar regions extending into the mid and lower portions of both lungs, most consistent with pneumonia associated with small left moderate right pleural effusions.
2). Cardiomegaly without associated pulmonary edema
3). Atherosclerosis.
4). Bilateral nonobstructing calculi.
5). Moderate bilateral cortical atrophy
6). 9.5 cm left renal cyst
7).Imaging for bowel pathology is limited by the lack of enteric contrast
Diverticuli are present in the colon with no CT evidence of diverticulitis
8).There is mild thoracolumbar dextroscoliosis
There is multilevel degenerative disc disease
CT Head without COntrast 08-09-2023: No acute intracranial abnormality. Stable chronic findings
CXR 08-09-2023:
Endotracheal tube with tip in trachea above the darshan. No pneumothorax.
Some mild bibasilar opacification such as subsegmental atelectasis and/or pneumonia cannot be excluded, left greater than right.
CXR 08-10-2023:
Endotracheal tube is present with its tip 5.6 cm above the darshan.
Airspace opacities within both lungs, with appearance most suggestive of pneumonia, although pulmonary edema could have a similar appearance. Slight interval increase in confluent increased density over the left lower hemithorax.
CXR 08-11-2023:
1. Significantly improved left pneumothorax following chest tube insertion.
2. Mild cardiomegaly. Central pulmonary vascular congestion.
3. Bibasilar opacities, which may represent pneumonia, subsegmental atelectasis, or aspiration.
4. Tiny bilateral pleural effusions.
EEG 08-10-2023:
This EEG is abnormal due to the presence of polymorphic moderate to severe diffuse slowing of the background consistent with moderate to severe diffuse cerebral dysfunction, nonspecific in etiology. No clear epileptiform abnormalities were noted.
Subjective Dataa
Subjective Data
Date of Service:
Date of Service: August 11, 2023
Chief Complaint: Christian Counselor Follow Up
Subjective:
Pt seen this AM. She suffered a PTX overnight on left hemithorax. Chest tube placed this AM. She is on levophed at 3mcg/min this AM, and off vaso and off loraine. She is awake and following commands. ETT secretions are scant. UOP 575cc last 24
hrs. She does reply to some my questions, otherwise she may just stare at me with a blank face. I discussed her worsening status with her son today including her persistently elevated lactic acidosis, pneumothorax requiring chest tube, and her
rising procalcitonin. She also has poor urine output over the last 24 hours despite getting Lasix yesterday. He was upset but understandable. Emotional support was provided. Patient remains full code with full medical treatment.
Review of Systems
General: Other (Unable to obtain due to patient's acute clinical condition (intubated))
Objective Data
Data Reviewed
Vital Signs / I&O / Oxygen:
Vital Signs
Temp Pulse Resp BP Pulse Ox
98.5 F 136 21 127/82 100
08/11/23 07:34 08/11/23 07:15 08/11/23 07:15 08/11/23 07:00 08/11/23 08:00
Intake and Output
08/10/23 08/11/23 08/12/23
06:59 06:59 06:59
Intake Total 3015.5 / 3222.3 3944.5 / 4039.0 189.0 / 189.0
Output Total 285 / 285 575 / 575 35 / 35
Balance 2730.5 / 2937.3 3369.5 / 3464.0 154.0 / 154.0
SaO2 [A/C] 100
SaO2 100
Physical Exam
General: Respiratory Distress (negative) and Comfortable
HEENT: Normocephalic and Anicteric
Cardiovascular: Irregular Rhythm (Irregularly irregular), Peripheral Edema (+1 LE pitting edema ) and Other (Tachycardic)
Respiratory: Wheeze (negative), Crackles (negative), Rhonchi (bilaterally), Accessory Resp Muscle Use (negative), Stridor (negative), ET Tube and Chest Tube (left hemithorax)
GI: Soft, Non Distended, Non Tender and Normal Bowel Sounds
Neurology: Awake, Alert, Tremors (Negative) and Other (Pupils +4mm and brisk)
Skin: Warm, Dry and Jaundice (negative)
Labs/Micro/Reports
Lab Data
08/11/23 04:09
08/11/23 04:09
Laboratory Results
08/10/23 08/11/23
13:05 02:44
pH 7.43 7.21 L
pCO2 29 L 33
pO2 103 74 L
HCO3 19.2 L 13.2 L*
O2 Delivery Level
Microbiology
08/09/23 17:47 Blood/Venous Blood Culture - Preliminary
No Growth in 24 hours- Final report to follow
08/09/23 17:34 Blood/Venous Blood Culture - Preliminary
No Growth in 24 hours- Final report to follow
08/09/23 17:12 Endotracheal Respiratory Culture - Preliminary
Usual Respiratory Viviana
08/09/23 17:12 Endotracheal Gram Stain - Preliminary
08/09/23 17:12 Urine Urine Culture - Preliminary
Sparse growth, too young to be identified. Further results
to follow.
08/09/23 17:12 Urine Legionella Urinary Antigen - Final
Negative for Legionella pneumophila Serogroup 1 antigen.
A negative result does not rule out the possiblity of
Legionella infection due to other serogroups or species of
Legionella. Clinical correlation is recommended.
08/09/23 17:12 Urine Streptococcus pneumoniae Antigen (M - Final
Negative for Streptococcus pneumoniae antigen.
A negative result does not exclude infection with
Streptococcus pneumoniae. Clinical correlation is
recommended.
[2023-08-11] MEDS: MIRALAX TUBE (08:16)
[2023-08-11] MEDS: NSS (PRESERVATIVE FREE) 10 ML IV (08:16)
[2023-08-11] MEDS: PROTONIX IV 40 MG IV (08:16)
[2023-08-11] MEDS: COLACE LIQUID TUBE ×2 (08:16→20:20)
[2023-08-11] MEDS: SENNA SYRUP TUBE ×2 (08:16→20:21)
[2023-08-11] MEDS: CELEXA 10 MG TUBE ×2 (08:16→20:33)
--- NOTE | 2023-08-11 09:09 | W.PN.CARDCBS ---
Today's Communication / Plan
-
cont Iv Amiodarone for rate control.
Continue Levophed and Adrián-Synephrine
Continue Eliquis
Chest tube output placed for pneumothorax.
Continue antibiotics
Impression / Plan
-
.
Primary Public Works Director: Dr. BRENNAN Caicedo, last seen in office 2021
Impression:
Presentation with OOH arrest s/p CPR and epi with ROSC 08/09/23
Hypotensive shock, requiring pressor support
VDRF, s/p agonal breathing per EMS, requiring intubation 08/09/23
Pneumothorax status post chest tube 08/10
Elevated lactic acid
Leukocytosis, mild
Elevated troponin
Permanent atrial fibrillation, now with rapid response on chronic OAC with eliquis
mod to severe MR and AR, severe TR by echo 05/2023
Admission to for FTT 07/13-07/19/23, discharged to [facility] for SNF
History of rectal bleeding
HTN
LOPES
GERD
Depression
History of CVA on MRI imaging
ECHO 05/20/23: EF 60-65%, mild cLVH, mod to severe eccentric jet MR with flow reversal in pulm veins, dilated LA, mod to severe AR, severe TR, PAP 46mmHg
CT chest/abd/pelvis August 09 2023: moderate interstitial and confluent alveolar airspace disease in both perihilar regions extending into the mid and lower portions of both lungs, most consistent with pneumonia associated with small left moderate
right pleural effusions. Cardiomegaly without associated pulmonary edema. Atherosclerosis. Bilateral nonobstructing calculi.
Echo August 09 2023: EF 55 to 60% with mild to moderate aortic regurgitation, severe tricuspid regurgitation, pulmonary artery pressure 46 mmHg
Plan:
Chest tube placed today
Remains in Afib. Vent rates are adequate
cont IV Amiodarone. Consider switch to po over next 24 hours
Outpt Toprol and Cardizem are on hold with hypotension
Eliquis for stroke prophylaxis. Consider IV heparin if Eliquis needs to be held.
echo with EF 55-60%
Cont Adrián/levophed.
Continue medical therapy of likely non-IA troponin trend until peak
Monitor EKG, lateral T wave inversions last 24 hrs.
Cont pulm toilet and vent care. Wean as able.
Broad spectrum abx as per jig box operator.
Prognosis guarded.
Discussed with nursing
CC time 33 min
HPI: 88-year-old woman known to Dr Caicedo, last seen in the office in April 2022, at which point she was active cleaning her home and offering no complaints. She declined over 2022 and was admitted with failure to thrive in June 2023,
possibly with UTI and with marked decrease in activity tolerance. She was transferred to [facility], and today became unresponsive, received CPR and had ROSC. She was never shocked, and was intubated by paramedics at the scene for respiratory
failure. Seen in the emergency department on high-dose Levophed and low-dose dopamine she has a heart rate of approximately 100 with a blood pressure of approximately 100. Urgent echocardiography shows preserved LV function, biatrial dilatation,
mitral and aortic regurgitation but no pulmonary hypertension. She is unresponsive on propofol and having been paralyzed. Son at bedside.
Progress Note - Public Works Director
Subjective
Date of Service: August 11, 2023
had pneumothorax and CT placed this morning. Remains on pressors
Objective
Labs:
08/11/23 04:09
08/11/23 04:09
Labs
Hgb 12.6 g/dL (12.0-16.0) 08/11/23 04:09
Hct 38.0 % (37.0-47.0) 08/11/23 04:09
Plt Count 163 10^3/uL (130-400) 08/11/23 04:09
PT 19.1 Sec (11.4-14.6) H 08/09/23 18:35
INR 1.62 08/09/23 18:35
APTT 34.6 Sec (23.4-35.0) 08/09/23 18:35
Sodium 132 mmol/L (135-145) L 08/11/23 04:09
Potassium 4.6 mmol/L (3.5-5.1) 08/11/23 04:09
BUN 34 mg/dl (7-17) H 08/11/23 04:09
Creatinine 0.8 mg/dL (0.6-1.0) 08/11/23 04:09
Glucose 317 mg/dl (70-99) H 08/11/23 04:09
Troponins
08/09/23 08/09/23 08/09/23
14:04 19:10 20:00
Troponin I 0.055 H* 0.051 H* Cancelled
08/10/23 08/10/23
03:52 13:05
Troponin I 0.063 H* 0.055 H*
Vital Signs and I&O:
Vital Signs
Temp Pulse Resp BP Pulse Ox
98.5 F 136 21 127/82 100
08/11/23 07:34 08/11/23 07:15 08/11/23 07:15 08/11/23 07:00 08/11/23 08:00
Vital Signs
Temp Pulse Resp BP Pulse Ox
98.5 F 136 21 127/82 100
08/11/23 07:34 08/11/23 07:15 08/11/23 07:15 08/11/23 07:00 08/11/23 08:00
Intake & Output
08/09/23 08/10/23 08/11/23 08/12/23
06:59 06:59 06:59 06:59
Intake Total 3015.5 / 3222.3 3944.5 / 4039.0 189.0 / 189.0
Output Total 285 / 285 575 / 575 35 / 35
Balance 2730.5 / 2937.3 3369.5 / 3464.0 154.0 / 154.0
Physical Exam
Physical Exam
GEN: No distress, awake,
HEENT: supple, anicteric, mmm, ET
LUNGS: scatt rhonchi, chests tube
CV: Irreg, S1/S2, 1/6 syst LSB, no gallop
ABD: soft, BS+, NT/ND
EXT: No edema
NEURO: Gross non-focal
SKIN: No rash
[2023-08-11 09:35] LABS: Lactic Acid 7.2 mmol/L (0.7-2.0)
--- NOTE | 2023-08-11 09:37 | PN.CDI ---
CDI
- -
CDI:
Physician Documentation Request
Admit Date: 08/09/23 15:44
Dear Doctor Yifan,
Patient admitted after cardiac arrest.
08/09 Park Interpreter PN: 'Elevated troponin - likely due to cardiac arrest with resultant type II UT - troponin peaked at 0.063 on 08/10/2023'
08/09 Cardiology PN: 'Continue medical therapy of likely non-UT troponin trend until peak'
Please clarify the following regarding the elevated troponin:
Non-ischemic myocardial infarction
Type 2 UT
Other
Use of terms such as suspected, likely, concern for, or probable (associated with a specific diagnosis that is being evaluated, monitored, or treated as if it exists) are acceptable and can be coded in the inpatient setting, when documented at the
time of discharge.
Thank you,
Sujey Bueno RN, BSN
CDI Specialist
Available via [employer] text
Please use your independent medical judgment in providing your response.
[2023-08-11] MEDS: TYLENOL ORAL SOLUTION 650 MG PO (11:00)
--- NOTE | 2023-08-11 11:07 | PTCARENOTE ---
bite block removed earlier for comfort, replaced now for continuing biting, high pressuring, non-redirectable. med with tylenol as ordered for CPOT score.
[2023-08-11 12:09] LABS: Glucose - Point of Care 166 mg/dl (70-99)
[2023-08-11] MEDS: ROXICODONE ORAL SOLUTION 2.5 MG TUBE ×2 (12:18→16:14)
[2023-08-11] MEDS: NOVOLOG FLEXPEN-MODERATE RESISTANCE 1 UNITS SC (12:47)
[2023-08-11] MEDS: NOVOLOG FLEXPEN 2 UNITS SC ×2 (12:48→17:34)
[2023-08-11 13:17] LABS: B.E. -2.8 mmol/L; HCO3 19.4 mmol/L (21-28); PCO2 26 mmHg (32-35); PO2 263 mmHg (83-108); pH 7.48 (7.35-7.45)
[2023-08-11 13:30] LABS: Lactic Acid 6.1 mmol/L (0.7-2.0)
--- NOTE | 2023-08-11 14:53 | CM ---
CM following re: discharge planning.
Discussed in rounds, reviewed pt's chart. Per rounds meeting, pt remains intubated, chest tube output placed for pneumothorax, continue antibiotics, continue supportive care.
CM met with pt's son aJmes yesterday and requested list of SNFs with LTC options provided.
D/C plan: uncertain at this time and will depend on pt's progress.
CM will follow with discharge plan updates as hospitalization progresses
--- NOTE | 2023-08-11 15:00 | W.PN.INTV ---
Today's Communication / Plan
Recommendations
Continue norepinephrine
Vancomycin stopped, continue cefepime
Start IV Lasix 40 mg twice daily
Assessment
-
88-year-old, female in critically ill condition in ICU requiring mechanical ventilation and vasopressors. She was brought to the ER by EMS after having out of hospital cardiac arrest. She is a resident of [facility] , patient
became unresponsive shortly after returning from dining briceno, CPR was started with return of pulse in 2 to 3 minutes. Patient had altered mental status with agonal respirations at the time when EMS arrived, and she was intubated. She got a bolus
of epinephrine for hypotension. Currently patient is critically ill on ventilator, on propofol. She is hypotensive requiring pressors, Levophed. Patient has a past medical history of atrial fibrillation on Eliquis, rate controlled with diltiazem,
h/o hypertension on metoprolol.
Chest x-ray 08/11/2023 at 7:30 AM- Large left pneumothorax with possible minimal tension component.
Chest x-ray 08/11/2023 after chest tube placement-
There is no pneumothorax
There is left-sided chest tube as detailed above and left pneumothorax has completely resolved
There are small bilateral pleural effusions
There is retrocardiac atelectasis
Chest x-ray 08/09/23
Endotracheal tube with tip in trachea above the darshan. No pneumothorax.
Some mild bibasilar opacification such as subsegmental atelectasis and/or pneumonia cannot be excluded, left greater than right.
Head CT 08/09/2023 - No acute intracranial abnormality.
EKG 08/09/2023- ATRIAL FIBRILLATION WITH RAPID VENTRICULAR RESPONSE
LEFT AXIS DEVIATION
MINIMAL VOLTAGE CRITERIA FOR LVH, MAY BE NORMAL VARIANT ( Hammad product )
ANTERIOR INFARCT (CITED ON OR BEFORE 26-MAY-2023)
CT chest 08/09/2023 1)There is moderate interstitial and confluent alveolar airspace disease in both perihilar regions extending into the mid and lower portions of both lungs, most consistent with pneumonia associated with small left moderate right
pleural effusions.
2). Cardiomegaly without associated pulmonary edema
3). Atherosclerosis.
4). Bilateral nonobstructing calculi.
5). Moderate bilateral cortical atrophy
6). 9.5 cm left renal cyst
7).Imaging for bowel pathology is limited by the lack of enteric contrast
Diverticuli are present in the colon with no CT evidence of diverticulitis
8).There is mild thoracolumbar dextroscoliosis
There is multilevel degenerative disc disease
Echo 08/09/2023: 1.� Normal left ventricular size and function, ejection fraction 55-60%
�2.� Thickened mitral leaflets, mild to moderate mitral regurgitation and
�dilated left atrium
�3.� Aortic sclerosis with mild-moderate aortic regurgitation
�4.� Dilated right ventricle with preserved systolic function, dilated right
�atrium, moderate to severe tricuspid regurgitation, and pulmonary artery
�systolic pressure 46 mmHg systolic
�
�In May of this year, mitral regurgitation was called moderate to severe,
�and aortic regurgitation was called moderate to severe.� Tricuspid
�regurgitation was severe and the pulmonary artery systolic pressure was
�similar.� The EF was 60-65%.
�
Impression
Pneumothorax
Acute hypoxic respiratory failure
Cardiac arrest/hypotensive shock requiring pressors
Pneumonia
Atrial fibrillation in RVR
Leukocytosis
Lactic acidosis
Respiratory acidosis
Hyperglycemia
Elevated troponin
History of nonalcoholic steatohepatitis/cirrhosis
# Spontaneous pneumothorax
Tidal volume dropped on ventilator settings
Large left-sided pneumothorax on chest x-ray
Chest tube placed by IR on 08/11/2023
Chest drain with underwater seal showing level 1 air leak
# Acute hypoxic respiratory failure
Patient is on mechanical ventilation
Continue mechanical ventilation, adjust PEEP and FiO2 to maintain SpO2> 94%
VAP prevention protocol
Aspiration precautions
Trend ABG
Trend BMP
# Pneumonia
On day 3 antibiotics ,continue cefepime
MRSA screen negative, stop vancomycin
procalcitonin trending high 11.7
Streptococcal antigen negative
Legionella urinary antigen negative
# Cardiac arrest/hypotensive shock
Patient is on norepinephrine, maintain MAP greater than 65
Elevated troponin at 0.055
BNP 8260
# History of recurrent UTIs
Leukocyte esterase positive
Urine imdudsg-lgvaoizzk-sciftivb staph
# A-fib with RVR
Diltiazem and metoprolol on hold due to hypotension
Continue amiodarone drip
Continue Eliquis 2.5 mg twice daily
Monitor telemetry
# Lactic acidosis-possibly secondary to cardiac arrest/ hypotension
Trend lactate
# Hyperglycemia
No history of DM
Insulin low-dose sliding scale
Monitor blood sugars, goal 140-180
# IV Protonix
# DVT prophylaxis�continue Eliquis
Subjective Dataa
Subjective Data
Date of Service:
Date of Service: August 11, 2023
Chief Complaint: Purchasing/Receiving Follow Up
Subjective:
Patient is responding to verbal stimuli. She is not in acute distress.
Review of Systems
GI: Tube Feeding
Genitourinary: Carrion
Objective Data
Data Reviewed
Vital Signs / I&O / Oxygen:
Vital Signs
Temp Pulse Resp BP Pulse Ox
98.2 F 136 21 127/82 99
08/11/23 11:15 08/11/23 07:15 08/11/23 07:15 08/11/23 07:00 08/11/23 12:00
Intake and Output
08/10/23 08/11/23 08/12/23
06:59 06:59 06:59
Intake Total 3015.5 / 3222.3 3944.5 / 4039.0 577.6 / 577.6
Output Total 285 / 285 575 / 575 100 / 100
Balance 2730.5 / 2937.3 3369.5 / 3464.0 477.6 / 477.6
SaO2 [A/C] 99
SaO2 100
Physical Exam
General: Comfortable
HEENT: Normocephalic and Anicteric
Cardiovascular: S1-S2, Irregular Rhythm (Irregularly irregular), Peripheral Edema (+1 LE pitting edema ) and Other (Tachycardic)
Respiratory: Clear, ET Tube and Chest Tube
GI: Soft, Non Distended, Non Tender, Normal Bowel Sounds and Feeding Tube
Neurology: Awake
Labs/Micro/Reports
Lab Data
08/11/23 04:09
08/11/23 04:09
Laboratory Results
08/11/23 08/11/23
02:44 13:04
pH 7.21 L 7.48 H
pCO2 33 26 L
pO2 74 L 263 H
HCO3 13.2 L* 19.4 L
O2 Delivery Level
Microbiology
08/09/23 17:12 Urine Urine Culture - Preliminary
Coagulase neg. staphylococcus
08/09/23 17:12 Endotracheal Respiratory Culture - Final
Usual Respiratory Viviana
08/09/23 17:12 Endotracheal Gram Stain - Final
08/09/23 17:46 Nose MRSA Screen - Final
No Methicillin Resistant Staphylococcus aureus isolated.
08/09/23 17:47 Blood/Venous Blood Culture - Preliminary
No Growth in 24 hours- Final report to follow
08/09/23 17:34 Blood/Venous Blood Culture - Preliminary
No Growth in 24 hours- Final report to follow
08/09/23 17:12 Urine Legionella Urinary Antigen - Final
Negative for Legionella pneumophila Serogroup 1 antigen.
A negative result does not rule out the possiblity of
Legionella infection due to other serogroups or species of
Legionella. Clinical correlation is recommended.
08/09/23 17:12 Urine Streptococcus pneumoniae Antigen (M - Final
Negative for Streptococcus pneumoniae antigen.
A negative result does not exclude infection with
Streptococcus pneumoniae. Clinical correlation is
recommended.
--- NOTE | 2023-08-11 15:11 | W.PN.HOSP.TC ---
Addendum entered and electronically signed by Óscar Saha MD 08/11/23 17:08:
Other impression: Elevated troponin likely secondary to demand ischemia and type II VA
Original Note:
Today's Communication/Plan
-
Discussed with the nurse and ICU team
Assessment / Plan
Assessment / Plan
Physical exam:
General: On vent, opens eyes to verbal stimuli, shake it in answering some question,, not in distress.
HEENT: Ecchymosis and bruises on the face, ET and OG tube, no active discharge, ecchymosis or bruising, moist lips, tongue and mucous membrane.
Eyes: No discharge or red conjunctiva, no nystagmus, pupils are reactive and equal
Neck:Supple, no JVD no bruit no goiter.
Respiratory: Normal AP contour and diameter, normal chest wall movement, normal respiratory effort, no respiratory distress,
Lungs: Good air entry bilaterally, no wheezing or rhonchi, no rales or crackles
Heart: S1, S2 tachycardic with irregular irregular no added sound.
Gastrointestinal: Positive bowel sounds, soft, nontender, no guarding or rigidity or organomegaly
Musculoskeletal: , no chest wall abnormality or tenderness. All joints and extremities have good range of motion, no muscle tenderness or any joint swelling or tenderness.
Extremities: No pitting edema, good peripheral pulses, good range of motion
Assessment and plan:
[id number] cardiac arrest status post successful resuscitation on ROSC? In 2 to 3 minutes. Possibility in light of A-fib with RVR or septic shock.
On the vent and on 1 pressor only today,
Continue Levophed
IV cefepime and bank
Discussed with the critical care team
Discussed with the nurse
Close monitoring
Unclear etiology for cardiac arrest. Possible to be related toeptic shock with A-fib with RVR, known history of A-fib. No acute ST-T changes. No significant troponin elevation yet. Patient with significant valvular heart disease concern if she
has new cardiomyopathy and secondary arrhythmia. Will get a stat echocardiogram and consult cardiology.Doubt PE - on [facility] AC and receiving it at [facility].
No evidence volume related
HH stable ,Cr normal.
Permanent Afib - now in RVR -patient hypotensive post cardiac arrest and on Levophed. Normally on Cardizem and beta-rosa elena which she may not tolerate now.
Continue Eliquis
Cardiology input appreciated
On amiodarone drip as Cardizem discontinued because of the hypotension
Moderate to severe AR/moderate to severe MR/severe TR- Clinical concern for heart failure-elevated JVD, bilateral lower extremity edema noted. Chest x-ray without overt pulm edema check BNP and echocardiogram.
Pulmonary hypertension
Hypotensive shock-patient currently requiring vasopressors postcardiac arrest. Continue with vasopressors.
Lactic acidosis-suspect secondary to cardiac arrest and hypotension. Continue to follow .
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 LFTs normal. No clinical evidence of ascites.
Essential hypertension-hold home medications due to current hypotension
Anticipated Discharge: > 48 hours
Subjective/Interval History
-
Date of Service: August 11, 2023
Seen and examined, still on the vent not sedated open eyes to verbal stimuli
Only on 1 pressor now. Urinating well.
Objective Data
-
Labs:
Laboratory Results
08/11/23 08/11/23
04:09 13:04
WBC 15.2 H
Hgb 12.6
Hct 38.0
Plt Count 163
HCO3 19.4 L
Sodium 132 L
Potassium 4.6
Chloride 103
Carbon Dioxide 17 L
BUN 34 H
Creatinine 0.8
Glucose 317 H
Calcium 7.7 L
Vital Signs:
Vital Signs
Temp Pulse Resp BP Pulse Ox
98.2 F 136 21 127/82 99
08/11/23 11:15 08/11/23 07:15 08/11/23 07:15 08/11/23 07:00 08/11/23 12:00
I&O
08/10/23 08/11/23 08/12/23
07:59 07:59 07:59
Intake Total 3222.3 / 3429.1 3832.2 / 3915.4 650.9 / 650.9
Output Total 285 / 295 575 / 610 125 / 125
Balance 2937.3 / 3134.1 3257.2 / 3305.4 525.9 / 525.9
Review of Systems
-
Unable to obtain full review of systems at this time due to: Patient Intubation
--- NOTE | 2023-08-11 16:11 | PTCARENOTE ---
cxr obtained per order. Dr. Blake in room, CT to water seal completed. Tolerating cxr well, awake, only rarely following commands or answering questions but is brightly awake. did wriggle toes to command.
[2023-08-11 17:25] LABS: Glucose - Point of Care 134 mg/dl (70-99)
[2023-08-11] MEDS: NOVOLOG FLEXPEN-MODERATE RESISTANCE SC (17:35)
--- NOTE | 2023-08-11 18:30 | PTCARENOTE ---
remains as noted, levophed titrated slightly, see block charting, seems to need no more and no less than 3 mcg/min.
[2023-08-11 18:32] LABS: Lactic Acid 4.5 mmol/L (0.7-2.0)
--- NOTE | 2023-08-11 20:15 | PTCARENOTE ---
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 AFib HR low 100s-1teens, occasionally appears to be in ST briefly. R PICC with amio & levo gtts infusing per work list. R Jm AL WNL.
intubated, Sat 99% on current settings. L CT to water seal, BT drainage, WNL. L dht with TF infusing per order. Carrion cath draining borderline amt kathleen yellow urine. repositioned/mouth care. full assessment per work list doc.
[2023-08-12] MEDS: ROXICODONE ORAL SOLUTION 2.5 MG TUBE ×3 (00:32→20:38)
[2023-08-12] MEDS: NOVOLOG FLEXPEN-MODERATE RESISTANCE SC ×5 (00:37→23:57)
[2023-08-12] MEDS: NOVOLOG FLEXPEN 2 UNITS SC (00:38)
[2023-08-12 00:48] LABS: Glucose - Point of Care 113 mg/dl (70-99)
[2023-08-12] MEDS: MAXIPIME 2000 MG IV ×2 (03:00→09:27)
[2023-08-12] MEDS: STERILE WATER FOR INJECTION 10 ML IV ×3 (03:20→18:16)
[2023-08-12] MEDS: SUBLIMAZE 50 MCG IV (03:21)
[2023-08-12 04:50] LABS: % Basophils 0.5 % (0-2); % Eosinophils 0.1 % (0-6); % Immature Granulocytes 4.2 % (0-0.5); % Neutrophils 87.2 % (42.2-75.2); Absolute Basophils 0.1 10^3/uL (0-0.2); Absolute Immature Granulocytes 0.5 10^3/uL (0-0.05); Absolute Lymphocytes 0.8 10^3/uL (1.2-3.4); Absolute Monocytes 0.1 10^3/uL (0.1-0.6); Absolute Neutrophils 9.4 10^3/uL (1.4-6.5); Hematocrit 33.4 % (37.0-47.0); Hemoglobin 11.3 g/dL (12.0-16.0); Mean Corp Hgb Conc. 33.8 g/dL (33.0-37.0); Mean Corpuscular Hgb 28.9 pg (27.0-31.0); Mean Corpuscular Volume 85.4 fL (81.0-99.0); Nucleated Red Blood Cells % 0.4 %; Platelet Count 108 10^3/uL (130-400); Red Blood Cell Count 3.91 10^6/uL (4.20-5.40); Red Cell Dist. Width 14.9 % (11.5-14.5); White Blood Cell Count 10.8 10^3/uL (4.8-10.8)
[2023-08-12 04:51] LABS: B.E. 1.3 mmol/L; HCO3 24.7 mmol/L (21-28); O2 Saturation % 98.8 % (94-98); PCO2 34 mmHg (32-35); PO2 88 mmHg (83-108); pH 7.47 (7.35-7.45)
[2023-08-12 04:54] LABS: O2 Therapy 80%
[2023-08-12 05:10] LABS: ALT (SGPT) 130 U/L (0-35); AST (SGOT) 223 U/L (14-36); Alkaline Phosphatase 110 U/L (38-126); Blood Urea Nitrogen 42 mg/dl (7-17); Carbon Dioxide 25 mmol/L (22-30); Chloride 102 mmol/L (98-107); Estimated Creatinine Clearance 38 ml/min; Glucose 96 mg/dl (70-99); Magnesium 1.7 mg/dl (1.6-2.3); Phosphorus 1.7 mg/dl (2.5-4.5); Potassium 3.8 mmol/L (3.5-5.1); Sodium 133 mmol/L (135-145); Total Protein 4.1 g/dl (6.3-8.2); eGFR > 60.00
[2023-08-12 05:18] LABS: NT-proBNP 7520 pg/ml
[2023-08-12 06:00] VITALS: BMI 25.8
--- NOTE | 2023-08-12 06:00 | PTCARENOTE ---
no changes in pt assessment.
[2023-08-12] MEDS: NOVOLOG FLEXPEN SC ×2 (06:27→12:25)
--- NOTE | 2023-08-12 08:24 | W.PN.INTV ---
Today's Communication / Plan
Recommendations
Continue vasopressors
Continue IV Lasix 40 mg twice daily --> may increase if UOP not sufficient to make net negative
Keep chest tube to CWS
Failed SBT this AM due to tachypnea --> mumtaz re-assess tomorrow
Goal BG 140�180
Reduce oxycodone frequency to q12hr from q8hr given her less responsive state today - she does not seem uncomfortable or in pain
Trend lactate until <2
Guarded prognosis -GOC was discussed with son yesterday � emotional support provided, he wants her to remain full code with full medical treatment however depending on the next several days he may change code status depending on her progression. I
believe she should be DNR at very least as she is not improving and our aggressive interventions may not lead to a favorable outcome.
Assessment
-
Assessment: 88-year-old with PMHx of HTN, A-fib on AC, valvular heart disease, Hx of GI bleed and pHTN who presents with unresponsiveness while at [facility]. Staff at [facility] found her and pt was pulseless and CPR started - appears that CPR was started soon
after pt became unresponsive. Pt achieved ROSC after 2-3 mins. 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 Vitals in ER were BP 99/50, HR 92, RR 18 and SpO2 98% on vent. Labs showed WBC 11.9, Hb 12.8, plt 191, pH 7.2, pCO2
51, pO2 157, glucose 193, lactate 6.1 Vent settings are: 16/450/5/50%. Imaging done with CT head/chest/abd/pelvis, and there is no acute intracranial pathology, there is e/o multifocal PNA, normal appearing liver, bilateral renal stones
(non-obstructing) measuring up to 1.2cm, and diverticuli without diverticulosis. In ER she was given 1L NS 0.9%, vecuronium 10mg IVP x1, started on propofol gtt and levophed + dopamine also started due to hypotension with SBP in 80s. Patient then
became tachycardic and dopamine was stopped. Lopressor 5 mg IV was given as well. Given her cardiac arrest and need for continuous monitoring while on ventilator, pt admitted to ICU and Scrum Product Owner consulted for additional
management/recommendations.
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
Impression:
#Ouf-sm-kfkeaody cardiac arrest - difficult to say if pt actually lost a pulse as unknown which rhythm she was in and does not appear that she received any epinephrine during code
#Acute respiratory failure with hypoxemia and hypercapnea on mechanical ventilation
#Left large spontaneous secondary pneumothorax s/p IR chest tube (placed 08/11/2023)
#HAP
#Hypothermic - likely auto-hypothermic in ?setting of cardiac arrest with autonomic dysfunction and likely due to reduced PO intake GRIT REMOVAL OPERATOR
#Acute on chronic bilateral pleural effusions (R>L) with acute pulmonary edema
#A-fib with RVR now on amio gtt
#Lactic acidosis -improving- likely worsened in setting of tension PTX and septic shock on vasopressors
#Elevated troponin - likely due to cardiac arrest with resultant type II MT - troponin peaked at 0.063 on 08/10/2023
#Hypoalbuminemia
#UTI - due to Staph simulans (she has a hx of Staph epidermidis from [facility] on 07/15/2023)
#Hyperglycemia - likely due to critical illness
#Chronic liver disease with cirrhotic appearing morphology on abd US
Plan:
- Continue mechanical ventilation with daily SAT/SBT if clinically appropriate
- Titrate PEEP and FiO2 to maintain SpO2 >94%, but in setting of PTX keep PEEP to 0 and can wean down FiO2 given PTX has resolved per CXR; of note, repeat CXR last night (08/10) shows resolved PTX, hence chest tube placed to CWS and PEEP kept at 0.
Wean FIO2 down to keep SpO2 >90-94%
- Keep plateau pressure <30, driving pressure 15-20
- Limit sedation so we can assess her neurological status; would give boluses of fentanyl only to help with this; due to concern for pain we started scheduled oxycodone --> I will lower oxy 2.5mg from q8hr to q12hr as she is less responsive today
- Avoid fever
- Maintain net negative fluid balance as tolerated as it appears that she is having worsening bilateral pleural effusions on CXR --> continue lasix to 40mg IV BID with goal net negative 1.5L/24 hrs for 1-2 days
- Neurology and cardiology consulted --> recs appreciated
- Continue broad spectrum Abx with cefepime (started 08/09/2023); IV vanco DC'd given negative MRSA swab (she got 2 doses of IV vanco on 08/08 + 08/09)
- Follow up paredes-culture with blood, sputum and urine Cx --> Urine Cx grew S. simulans
- Continue amiodarine gtt with goal HR<110 --> add low dose BB with metoprolol 12.5mg BID
- Trend lactate until <2mmol/L
- No need to continue trending troponin at it has already peaked this morning at 0.063
- Maintain BG 140-180mg/dL and with ISS q6hr; BG improved, will DC scheduled aspart
- stress ulcer ppx: continue PPI
- DVT ppx: Continue Eliquis 2.5mg BID
- Guarded prognosis
Critical care statement: A total of 38 minutes of critical care time was provided for this patient today. This includes management of unstable vital signs, evaluation of the patient at bedside, reviewing the patient's pertinent medical records
including radiographs, microbiology, laboratory evaluations, and discussion with primary team, consultants, pharmacy, nutrition, physical therapy, case management, charge nurse, critical care nursing, and respiratory therapy.
Data:
CT Chest/Abd/Pelvis without Contrast 08-09-2023:
1).There is moderate interstitial and confluent alveolar airspace disease in both perihilar regions extending into the mid and lower portions of both lungs, most consistent with pneumonia associated with small left moderate right pleural effusions.
2). Cardiomegaly without associated pulmonary edema
3). Atherosclerosis.
4). Bilateral nonobstructing calculi.
5). Moderate bilateral cortical atrophy
6). 9.5 cm left renal cyst
7).Imaging for bowel pathology is limited by the lack of enteric contrast
Diverticuli are present in the colon with no CT evidence of diverticulitis
8).There is mild thoracolumbar dextroscoliosis
There is multilevel degenerative disc disease
CT Head without COntrast 08-09-2023: No acute intracranial abnormality. Stable chronic findings
CXR 08-09-2023:
Endotracheal tube with tip in trachea above the darshan. No pneumothorax.
Some mild bibasilar opacification such as subsegmental atelectasis and/or pneumonia cannot be excluded, left greater than right.
CXR 08-10-2023:
Endotracheal tube is present with its tip 5.6 cm above the darshan.
Airspace opacities within both lungs, with appearance most suggestive of pneumonia, although pulmonary edema could have a similar appearance. Slight interval increase in confluent increased density over the left lower hemithorax.
CXR 08-11-2023:
1. Significantly improved left pneumothorax following chest tube insertion.
2. Mild cardiomegaly. Central pulmonary vascular congestion.
3. Bibasilar opacities, which may represent pneumonia, subsegmental atelectasis, or aspiration.
4. Tiny bilateral pleural effusions.
CXR 08-12-2023:
1. No pneumothorax on the current study.
2. Interstitial prominence, consistent with mild pulmonary edema, more pronounced compared to prior chest x-ray.
3. Bibasilar airspace consolidation, also pronounced. Differential diagnosis includes pneumonia, subsegmental atelectasis, aspiration, and alveolar pulmonary edema.
4. Small bilateral pleural effusions may be present.
EEG 08-10-2023:
This EEG is abnormal due to the presence of polymorphic moderate to severe diffuse slowing of the background consistent with moderate to severe diffuse cerebral dysfunction, nonspecific in etiology. No clear epileptiform abnormalities were noted.
Subjective Dataa
Subjective Data
Date of Service:
Date of Service: August 12, 2023
Chief Complaint: Scrum Product Owner Follow Up
Subjective:
Pt seen and evaluated this AM. Left sided chest tube on CWS with level 1 air leak. She is awake today, slow to respond -not following commands today. HR 122 on amiodarone at 0.5mg/min, on levo at 3mcg/min. BP 112/71, SpO2 94% on FiO2 40%, PEEP
of 0. TV 400 and rate at 18. UOP 580cc last 24 hrs. Net (+) 890 last 24 hrs.
Review of Systems
General: Unobtainable - Pat Unresp
Objective Data
Data Reviewed
Vital Signs / I&O / Oxygen:
Vital Signs
Temp Pulse Resp BP Pulse Ox
98.5 F 120 19 109/58 96
08/12/23 07:57 08/12/23 06:30 08/12/23 06:30 08/11/23 16:06 08/12/23 10:31
Intake and Output
08/11/23 08/12/23 08/13/23
06:59 06:59 06:59
Intake Total 3944.5 / 4039.0 2090.4 / 2183.4 214.0 / 214.0
Output Total 575 / 575 1200 / 1300 200 / 200
Balance 3369.5 / 3464.0 890.4 / 883.4 14.0 / 14.0
SaO2 [A/C] 97
SaO2 96
Physical Exam
General: Comfortable and Chills (negative)
HEENT: Normocephalic and Anicteric
Cardiovascular: Irregular Rhythm (Irregularly irregular), Peripheral Edema (+1 LE pitting edema ) and Other (Tachycardic)
Respiratory: Wheeze (negative), Crackles (negative), Rhonchi (bilaterally), Accessory Resp Muscle Use (negative), Stridor (negative), ET Tube and Chest Tube (left hemithorax)
GI: Soft, Non Distended, Non Tender, Normal Bowel Sounds and Feeding Tube
Neurology: Awake, Tremors (Negative) and Other (Pupils +2mm and brisk)
Skin: Warm, Dry and Jaundice (negative)
Labs/Micro/Reports
Lab Data
08/12/23 04:34
08/12/23 04:33
Laboratory Results
08/11/23 08/12/23
13:04 04:34
pH 7.48 H 7.47 H
pCO2 26 L 34
pO2 263 H 88
HCO3 19.4 L 24.7
O2 Delivery Level 80%
Microbiology
08/09/23 17:47 Blood/Venous Blood Culture - Preliminary
No Growth in 48 hours- Final report to follow
08/09/23 17:34 Blood/Venous Blood Culture - Preliminary
No Growth in 48 hours- Final report to follow
08/09/23 17:12 Urine Urine Culture - Preliminary
Coagulase neg. staphylococcus
08/09/23 17:12 Endotracheal Respiratory Culture - Final
Usual Respiratory Viviana
08/09/23 17:12 Endotracheal Gram Stain - Final
08/09/23 17:46 Nose MRSA Screen - Final
No Methicillin Resistant Staphylococcus aureus isolated.
08/09/23 17:12 Urine Legionella Urinary Antigen - Final
Negative for Legionella pneumophila Serogroup 1 antigen.
A negative result does not rule out the possiblity of
Legionella infection due to other serogroups or species of
Legionella. Clinical correlation is recommended.
08/09/23 17:12 Urine Streptococcus pneumoniae Antigen (M - Final
Negative for Streptococcus pneumoniae antigen.
A negative result does not exclude infection with
Streptococcus pneumoniae. Clinical correlation is
recommended.
[2023-08-12] MEDS: NSS (PRESERVATIVE FREE) 10 ML IV (09:14)
[2023-08-12] MEDS: PROTONIX IV 40 MG IV (09:15)
[2023-08-12] MEDS: SENNA SYRUP 8.80000000000000071 MG TUBE ×2 (09:15→20:38)
[2023-08-12] MEDS: LASIX 40 MG IV ×2 (09:16→16:02)
[2023-08-12] MEDS: ELIQUIS 2.5 MG TUBE ×2 (09:16→20:38)
[2023-08-12] MEDS: MIRALAX TUBE (09:17)
[2023-08-12] MEDS: COLACE LIQUID 100 MG TUBE (09:17)
[2023-08-12] MEDS: CELEXA 10 MG TUBE ×2 (09:20→20:38)
[2023-08-12] MEDS: CORDARONE 518 MG IV (09:46)
[2023-08-12 10:09] VITALS: BP 112/71
--- NOTE | 2023-08-12 10:37 | W.PN.CARDCBS ---
Today's Communication / Plan
-
Remains vented. Continue ventilatory care.
Continue antibiotics.
Agree with Lasix 40 mg IV twice daily. proBNP is elevated and she has severe valvular disease. LVEF is preserved.
A-fib rates are somewhat elevated. Will continue IV amiodarone for another 12 hours and start oral amiodarone load 400 3 times daily via tube
Continue Eliquis
Continue chest tube care
Impression / Plan
-
.
Primary Candy Rolling Machine Operator: Dr. BRENNAN Caicedo, last seen in office 2021
Impression:
Presentation with OOH arrest s/p CPR and epi with ROSC 08/09/23
Hypotensive shock, requiring pressor support
VDRF, s/p agonal breathing per EMS, requiring intubation 08/09/23
Pneumothorax status post chest tube 08/10
Elevated lactic acid
Leukocytosis, mild
Elevated troponin
Permanent atrial fibrillation, now with rapid response on chronic OAC with eliquis
acute HFpef
mod to severe MR and AR, severe TR by echo 05/2023
Admission to for FTT 07/13-07/19/23, discharged to [facility] for SNF
History of rectal bleeding
HTN
LOPES
GERD
Depression
History of CVA on MRI imaging
ECHO 05/20/23: EF 60-65%, mild cLVH, mod to severe eccentric jet MR with flow reversal in pulm veins, dilated LA, mod to severe AR, severe TR, PAP 46mmHg
CT chest/abd/pelvis August 09 2023: moderate interstitial and confluent alveolar airspace disease in both perihilar regions extending into the mid and lower portions of both lungs, most consistent with pneumonia associated with small left moderate
right pleural effusions. Cardiomegaly without associated pulmonary edema. Atherosclerosis. Bilateral nonobstructing calculi.
Echo August 09 2023: EF 55 to 60% with mild to moderate aortic regurgitation, severe tricuspid regurgitation, pulmonary artery pressure 46 mmHg
Plan:
Chest tube still in place
Remains in Afib. Vent rates are elevated.
cont IV Amiodarone. will start po load 400mg tid via tube
Outpt Toprol and Cardizem are on hold with hypotension
Eliquis for stroke prophylaxis. Consider IV heparin if Eliquis needs to be held.
echo with EF 55-60%
Cont levophed. Wean as tolerated
Agree with IV Lasix. proBNP remains elevated. Patient has a preserved ejection fraction but severe mitral aortic and tricuspid valvular disease. Creatinine is normal
Continue medical therapy of likely non-[place] troponin trend until peak
Monitor EKG, lateral T wave inversions last 24 hrs.
Cont pulm toilet and vent care. Wean as able.
Broad spectrum abx as per long filler cigar roller machine.
Prognosis guarded.
CC time 31 min
HPI: 88-year-old woman known to Dr Caicedo, last seen in the office in April 2022, at which point she was active cleaning her home and offering no complaints. She declined over 2022 and was admitted with failure to thrive in June 2023,
possibly with UTI and with marked decrease in activity tolerance. She was transferred to [facility], and today became unresponsive, received CPR and had ROSC. She was never shocked, and was intubated by paramedics at the scene for respiratory
failure. Seen in the emergency department on high-dose Levophed and low-dose dopamine she has a heart rate of approximately 100 with a blood pressure of approximately 100. Urgent echocardiography shows preserved LV function, biatrial dilatation,
mitral and aortic regurgitation but no pulmonary hypertension. She is unresponsive on propofol and having been paralyzed. Son at bedside.
Progress Note - Candy Rolling Machine Operator
Subjective
Date of Service: August 12, 2023
remains intubated/sedated
Objective
Labs:
08/12/23 04:34
08/12/23 04:33
Labs
Hgb 11.3 g/dL (12.0-16.0) L 08/12/23 04:34
Hct 33.4 % (37.0-47.0) L 08/12/23 04:34
Plt Count 108 10^3/uL (130-400) L D 08/12/23 04:34
PT 19.1 Sec (11.4-14.6) H 08/09/23 18:35
INR 1.62 08/09/23 18:35
APTT 34.6 Sec (23.4-35.0) 08/09/23 18:35
Sodium 133 mmol/L (135-145) L 08/12/23 04:33
Potassium 3.8 mmol/L (3.5-5.1) 08/12/23 04:33
BUN 42 mg/dl (7-17) H 08/12/23 04:33
Creatinine 0.9 mg/dL (0.6-1.0) 08/12/23 04:33
Glucose 96 mg/dl (70-99) 08/12/23 04:33
Troponins
08/09/23 08/09/23 08/09/23
14:04 19:10 20:00
Troponin I 0.055 H* 0.051 H* Cancelled
08/10/23 08/10/23
03:52 13:05
Troponin I 0.063 H* 0.055 H*
Vital Signs and I&O:
Vital Signs
Temp Pulse Resp BP Pulse Ox
98.5 F 120 19 109/58 96
08/12/23 07:57 08/12/23 06:30 08/12/23 06:30 08/11/23 16:06 08/12/23 10:31
Vital Signs
Temp Pulse Resp BP Pulse Ox
98.5 F 120 19 109/58 96
08/12/23 07:57 08/12/23 06:30 08/12/23 06:30 08/11/23 16:06 08/12/23 10:31
Intake & Output
03/27/24 03/28/24 03/29/24 03/30/24
06:59 06:59 06:59 06:59
Intake Total 3015.5 / 3222.3 3944.5 / 4039.0 2090.4 / 2183.4 214.0 / 214.0
Output Total 285 / 285 575 / 575 1200 / 1300 200 / 200
Balance 2730.5 / 2937.3 3369.5 / 3464.0 890.4 / 883.4 14.0 / 14.0
Physical Exam
Physical Exam
GEN: No distress, intubated/sedated
HEENT: supple, anicteric, mmm
LUNGS: CTA, no wheezes/rales
CV: Irreg, S1/S2, 1/6 syst LSB, no gallop
ABD: soft, BS+, NT/ND
EXT: No edema
NEURO: Gross non-focal
SKIN: No rash
[2023-08-12 11:51] LABS: Glucose - Point of Care 90 mg/dl (70-99)
[2023-08-12] MEDS: LOPRESSOR 12.5 MG PO ×2 (12:24→20:39)
[2023-08-12] MEDS: PACERONE 400 MG TUBE ×3 (12:24→20:41)
--- NOTE | 2023-08-12 12:27 | W.PN.HOSP.TC ---
Addendum entered and electronically signed by Mono Mcgee MD 08/12/23 14:40:
Typo. should read as Non-ischemic myocardial injury
Original Note:
Today's Communication/Plan
-
Monitor vital signs and see plan
Continues to be intubated
vent management per pulmonary
Maintain chest tube
Continue with Amio
Replete Phos
Continue with antibiotics
Assessment / Plan
Assessment / Plan
Physical exam:
General: On vent, opens eyes to verbal stimuli
HEENT: anicteric; pink conjunctiva
Respiratory: Ventilated breath sounds, normal respiratory effort, no respiratory distress,
Heart: S1, S2 tachycardic with irregular irregular
Gastrointestinal: soft, nontender, no guarding
Extremities: No pitting edema
Assessment and plan:
Jlv-io-xidagtge cardiac arrest status post successful resuscitation on ROSC? In 2 to 3 minutes. Possibility in light of A-fib with RVR or septic shock.
Continue Levophed, wean as
Continue with cefepime
Unclear etiology for cardiac arrest. Possible to be related to septic shock with A-fib with RVR, known history of A-fib. No acute ST-T changes. No significant troponin elevation yet. Patient with significant valvular heart disease concern if
she has new cardiomyopathy and secondary arrhythmia. Echo August 09 2023: EF 55 to 60% with mild to moderate aortic regurgitation, severe tricuspid regurgitation, pulmonary artery pressure 46 mmHg. Doubt PE - on [facility] AC and [facility].
Acute hypoxic hypercapnic respiratory failure
Continues to be intubated, vent management per captain assistant
on tube feeds; monitor
Large left spontaneous secondary pneumothorax status post IR chest tube 08/10
Monitor
Non-ischemic myocardial infarction
Permanent Afib - now in RVR -patient hypotensive post cardiac arrest and on Levophed. Normally on Cardizem and beta-rosa elena which she may not tolerate now.
Continue Eliquis
Cardiology input appreciated
On amiodarone
Suspect acute CHF with preserved ejection fraction
Continue with IV Lasix
Cardiology following
Moderate to severe AR/moderate to severe MR/severe TR
Pulmonary hypertension
Elevated LFTs
Monitor
History of Xavier
Thrombocytopenia
Monitor
Hypophosphatemia
Replete
Hyponatremia
Monitor
Hypotensive shock-patient currently requiring vasopressors postcardiac arrest. Continue with vasopressors.
Lactic acidosis-suspect secondary to cardiac arrest and hypotension. Continue to follow .
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 LFTs normal. No clinical evidence of ascites.
Essential hypertension-hold home medications due to current hypotension
DVTppx
Eliquis
Full code
I spent a total of 54 minutes with the patient or on the floor. More than 50% of this time involved counseling and coordination of care.
Anticipated Discharge: > 48 hours
Subjective/Interval History
-
Date of Service: August 12, 2023
Continues to be intubated
Objective Data
-
Labs:
Laboratory Results
08/12/23 08/12/23
04:33 04:34
WBC 10.8
Hgb 11.3 L
Hct 33.4 L
Plt Count 108 L D
HCO3 24.7
Sodium 133 L
Potassium 3.8
Chloride 102
Carbon Dioxide 25
BUN 42 H
Creatinine 0.9
Glucose 96
Calcium 8.0 L
Total Bilirubin 1.0
AST 223 H
ALT 130 H
Alkaline Phosphatase 110
Vital Signs:
Vital Signs
Temp Pulse Resp BP Pulse Ox
98.2 F 124 18 98/56 93
08/12/23 11:16 08/12/23 12:24 08/12/23 11:45 08/12/23 12:24 08/12/23 11:45
I&O
08/11/23 08/12/23 08/13/23
06:59 06:59 06:59
Intake Total 3944.5 / 4039.0 2090.4 / 2183.4 214.0 / 214.0
Output Total 575 / 575 1200 / 1300 200 / 200
Balance 3369.5 / 3464.0 890.4 / 883.4 14.0 / 14.0
--- NOTE | 2023-08-12 12:40 | PTCARENOTE ---
At 11:00 attempted weaning trial 09/17, shortly after pt RR 50's placed back on (S)CMV 18/400/+0/40%. POX 95%. RR 18; Peak 26; suction oral and ETT thick solis secretion. A/fib 125. RT A/line 114/61 MAP 78. patient open eyes to touch, not following
simple comments. Pupils reactive to light +2 . Restrains to b/l UE. HOB elevated. oral care done per hospital's protocol . Afib 114-125. Metoprolol 12.5 and Amiodarone 400 via tube administered. Tube Feeding Osmolite 50/15water flushed via left
Dobbhoff, tube auscultated for proper placement . Carrion draining cloudy yellow urine left chest tube dressing intact, air leak +1
--- NOTE | 2023-08-12 13:17 | CM ---
CM following re: discharge planning.
Discussed in rounds, reviewed pt's chart. Per rounds meeting, pt remains intubated, continue antibiotics, continue supportive care. GOC discussion will be initiated with pt's son by .
D/C plan: uncertain at this time and will depend on pt's progress.
CM will follow with discharge plan updates as hospitalization progresses
--- NOTE | 2023-08-12 13:40 | PTCARENOTE ---
Titrated Levophed from 3mcg to 2mcg. BP dropped SBP 75 MAP 60.
--- NOTE | 2023-08-12 14:13 | PN.CDI ---
CDI
- -
CDI:
Physician Documentation Request
Admit Date: 08/09/23 15:44
Dear Doctor Everardo,
Patient admitted after cardiac arrest.
08/09 Freight Broker PN: 'Elevated troponin - likely due to cardiac arrest with resultant type II DE - troponin peaked at 0.063 on 08/10/2023'
08/09 Cardiology PN: 'Continue medical therapy of likely non-DE troponin trend until peak'
08/10 Hospitalist PN: 'Elevated troponin likely secondary to demand ischemia and type II DE'
08/11 Hospitalist PN: 'Non-ischemic myocardial infarction'
Please clarify the following regarding the elevated troponin:
Non-ischemic myocardial injury
Type 2 myocardial infarction
Other
Use of terms such as suspected, likely, concern for, or probable (associated with a specific diagnosis that is being evaluated, monitored, or treated as if it exists) are acceptable and can be coded in the inpatient setting, when documented at the
time of discharge.
Thank you,
Sujey Bueno RN, BSN
CDI Specialist
Available via [place] text
Please use your independent medical judgment in providing your response.
[2023-08-12] MEDS: FLEXBUMIN 100 IV (15:39)
[2023-08-12 15:51] LABS: Lactic Acid 2.5 mmol/L (0.7-2.0)
[2023-08-12] MEDS: NEUTRA-PHOS POWDER PACKET 250 MG TUBE (16:02)
[2023-08-12] MEDS: LEVOPHED 250 IV (16:06)
[2023-08-12] MEDS: MAXIPIME 1000 MG IV (18:16)
--- NOTE | 2023-08-12 19:31 | PTCARENOTE ---
pt in bed . no change in assessment. Intubated. pt not on sedation.
--- NOTE | 2023-08-12 20:30 | PTCARENOTE ---
cvt rn, intubated, eyes open but not following commands at this time, makes eye contact to her name. AFib HR low 100s-1teens. R PICC with amio & levo gtts infusing per work list. R Jm AL WNL. intubated, Sat 97% on current settings. L CT to
water seal, BT drainage, WNL. L dht with TF infusing at goal. Carrion cath draining yellow urine. repositioned/mouth care. full assessment per work list doc.
[2023-08-13] MEDS: SUBLIMAZE 50 MCG IV ×5 (00:05→19:39)
[2023-08-13 00:08] LABS: Glucose - Point of Care 112 mg/dl (70-99)
--- NOTE | 2023-08-13 00:30 | PTCARENOTE ---
no changes in pt assessment, CHG cloths, CT drsg changed, turned, +inc small loose brown stool, skin care, repositioned.
[2023-08-13] MEDS: MAXIPIME 1000 MG IV ×3 (03:00→18:16)
[2023-08-13] MEDS: STERILE WATER FOR INJECTION 10 ML IV ×3 (03:30→18:16)
[2023-08-13 03:45] VITALS: BMI 25.6
[2023-08-13 03:47] LABS: B.E. 2.2 mmol/L; HCO3 26.5 mmol/L (21-28); PCO2 39 mmHg (32-35); PO2 76 mmHg (83-108); pH 7.44 (7.35-7.45)
[2023-08-13 03:48] LABS: Hematocrit 30.7 % (37.0-47.0); Hemoglobin 10.6 g/dL (12.0-16.0); Mean Corp Hgb Conc. 34.5 g/dL (33.0-37.0); Mean Corpuscular Hgb 29.7 pg (27.0-31.0); Red Blood Cell Count 3.57 10^6/uL (4.20-5.40); Red Cell Dist. Width 14.9 % (11.5-14.5); White Blood Cell Count 7.2 10^3/uL (4.8-10.8)
--- NOTE | 2023-08-13 04:00 | PTCARENOTE ---
no changes in pt assessment.
[2023-08-13 04:01] LABS: Lactic Acid 2.3 mmol/L (0.7-2.0)
[2023-08-13 04:18] LABS: ALT (SGPT) 99 U/L (0-35); AST (SGOT) 131 U/L (14-36); Albumin 2.7 g/dl (3.5-5.0); Alkaline Phosphatase 95 U/L (38-126); Blood Urea Nitrogen 45 mg/dl (7-17); Carbon Dioxide 26 mmol/L (22-30); Chloride 96 mmol/L (98-107); Estimated Creatinine Clearance 34 ml/min; Glucose 106 mg/dl (70-99); Magnesium 1.6 mg/dl (1.6-2.3); Phosphorus 2.4 mg/dl (2.5-4.5); Potassium 3.8 mmol/L (3.5-5.1); Sodium 131 mmol/L (135-145); Total Bilirubin 1.3 mg/dl (0.2-1.3); Total Protein 4.7 g/dl (6.3-8.2); eGFR > 60.00
[2023-08-13 04:28] LABS: NT-proBNP 7650 pg/ml
[2023-08-13] MEDS: KCL 50 IV (04:41)
[2023-08-13 04:52] LABS: Mean Platelet Volume 10.8 fL (7.4-10.4); Platelet Count 79 10^3/uL (130-400)
[2023-08-13] MEDS: MAGNESIUM SULFATE 102 GRAMS IV (05:38)
[2023-08-13] MEDS: NOVOLOG FLEXPEN-MODERATE RESISTANCE SC ×2 (05:40→18:15)
[2023-08-13] MEDS: FLEXBUMIN 100 IV ×2 (05:43)
[2023-08-13] MEDS: ELIQUIS 2.5 MG TUBE ×2 (08:11→19:36)
[2023-08-13] MEDS: LASIX 40 MG IV ×2 (08:11→16:24)
[2023-08-13] MEDS: PACERONE 400 MG TUBE ×3 (08:11→21:32)
[2023-08-13] MEDS: CELEXA 10 MG TUBE ×2 (08:12→19:36)
[2023-08-13] MEDS: PROTONIX IV 40 MG IV (08:12)
[2023-08-13] MEDS: LOPRESSOR 12.5 MG PO ×2 (08:12→19:36)
[2023-08-13] MEDS: NSS (PRESERVATIVE FREE) 10 ML IV (08:12)
[2023-08-13] MEDS: MIRALAX TUBE (08:13)
[2023-08-13] MEDS: ROXICODONE ORAL SOLUTION 2.5 MG TUBE (08:13)
[2023-08-13] MEDS: SENNA SYRUP 8.80000000000000071 MG TUBE ×2 (08:13→19:37)
--- NOTE | 2023-08-13 08:23 | W.PN.CARDCBS ---
Today's Communication / Plan
-
Okay to stop IV amiodarone after next oral amiodarone dose. Continue Eliquis.
Continue management of ventilator and chest tube. She failed to wean yesterday and overall prognosis appears to be very poor.
Continue IV Lasix and diuresis.
Creatinine overall stable
Comfort care would be reasonable for her.
Impression / Plan
-
.
Primary Public Address Announcer: Dr. BRENNAN Caicedo, last seen in office 2021
Impression:
Presentation with OOH arrest s/p CPR and epi with ROSC 08/09/23
Hypotensive shock, requiring pressor support
VDRF, s/p agonal breathing per EMS, requiring intubation 08/09/23
Pneumothorax status post chest tube 08/10
Elevated lactic acid
Leukocytosis, mild
Elevated troponin
Permanent atrial fibrillation, now with rapid response on chronic OAC with eliquis
acute HFpef
mod to severe MR and AR, severe TR by echo 05/2023
Admission to for FTT 07/13-07/19/23, discharged to [facility] for SNF
History of rectal bleeding
HTN
LOPES
GERD
Depression
History of CVA on MRI imaging
ECHO 05/20/23: EF 60-65%, mild cLVH, mod to severe eccentric jet MR with flow reversal in pulm veins, dilated LA, mod to severe AR, severe TR, PAP 46mmHg
CT chest/abd/pelvis August 09 2023: moderate interstitial and confluent alveolar airspace disease in both perihilar regions extending into the mid and lower portions of both lungs, most consistent with pneumonia associated with small left moderate
right pleural effusions. Cardiomegaly without associated pulmonary edema. Atherosclerosis. Bilateral nonobstructing calculi.
Echo August 09 2023: EF 55 to 60% with mild to moderate aortic regurgitation, severe tricuspid regurgitation, pulmonary artery pressure 46 mmHg
Plan:
Chest tube still in place
Remains in Afib. Continue oral amiodarone via tube today and would stop IV amiodarone. Ventricular rates are overall improved. I would except the ventricular rate of 100 to 110 bpm.
Outpt Toprol and Cardizem are on hold with hypotension
Cont Eliquis for stroke prophylaxis.
echo with EF 55-60%
Cont levophed. Wean as tolerated
Continue Lasix 40 mg IV twice daily. Weight is slowly improving. proBNP remains elevated. Patient has a preserved ejection fraction but severe mitral aortic and tricuspid valvular disease. Creatinine is normal
Continue medical therapy of likely non-AR troponin trend until peak
Monitor EKG, lateral T wave inversions last 24 hrs.
Cont pulm toilet and vent care. Wean as able.
Broad spectrum abx as per boom worker.
Prognosis poor. Would continue to discuss end-of-life care with family
CC time 35 min
HPI: 88-year-old woman known to Dr Caicedo, last seen in the office in April 2022, at which point she was active cleaning her home and offering no complaints. She declined over 2022 and was admitted with failure to thrive in June 2023,
possibly with UTI and with marked decrease in activity tolerance. She was transferred to [facility], and today became unresponsive, received CPR and had ROSC. She was never shocked, and was intubated by paramedics at the scene for respiratory
failure. Seen in the emergency department on high-dose Levophed and low-dose dopamine she has a heart rate of approximately 100 with a blood pressure of approximately 100. Urgent echocardiography shows preserved LV function, biatrial dilatation,
mitral and aortic regurgitation but no pulmonary hypertension. She is unresponsive on propofol and having been paralyzed. Son at bedside.
Progress Note - Public Address Announcer
Subjective
Date of Service: August 13, 2023
Remains intubated and sedated. A-fib rates are overall controlled.
Objective
Labs:
08/13/23 03:28
08/13/23 03:28
Labs
Hgb 10.6 g/dL (12.0-16.0) L 08/13/23 03:28
Hct 30.7 % (37.0-47.0) L 08/13/23 03:28
Plt Count 79 10^3/uL (130-400) L D 08/13/23 03:28
PT 19.1 Sec (11.4-14.6) H 08/09/23 18:35
INR 1.62 08/09/23 18:35
APTT 34.6 Sec (23.4-35.0) 08/09/23 18:35
Sodium 131 mmol/L (135-145) L 08/13/23 03:28
Potassium 3.8 mmol/L (3.5-5.1) 08/13/23 03:28
BUN 45 mg/dl (7-17) H 08/13/23 03:28
Creatinine 0.9 mg/dL (0.6-1.0) 08/13/23 03:28
Glucose 106 mg/dl (70-99) H 08/13/23 03:28
Troponins
08/10/23
13:05
Troponin I 0.055 H*
Vital Signs and I&O:
Vital Signs
Temp Pulse Resp BP Pulse Ox
98.6 F 99 18 125/63 94
08/13/23 06:32 08/13/23 08:12 08/13/23 06:45 08/13/23 08:12 08/13/23 06:45
Vital Signs
Temp Pulse Resp BP Pulse Ox
98.6 F 99 18 125/63 94
08/13/23 06:32 08/13/23 08:12 08/13/23 06:45 08/13/23 08:12 08/13/23 06:45
Intake & Output
08/11/23 08/12/23 08/13/23 08/14/23
06:59 06:59 06:59 06:59
Intake Total 3944.5 / 4039.0 2090.4 / 2183.4 2537.0 / 2537.0
Output Total 575 / 575 1200 / 1300 1984 / 1984
Balance 3369.5 / 3464.0 890.4 / 883.4 552.0 / 552.0
Physical Exam
Physical Exam
GEN: No distress, intubated, sedated
HEENT: supple, anicteric, mmm, ET tube
LUNGS: Bilateral rhonchi
CV: Irreg, S1/S2, 1/6 syst LSB, no gallop
ABD: soft, BS+, NT/ND
EXT: No edema
NEURO: Gross non-focal
SKIN: No rash
--- NOTE | 2023-08-13 08:50 | W.PN.INTV ---
Today's Communication / Plan
Recommendations
Continue vasopressors
Continue IV Lasix 40 mg twice daily --> may increase if UOP not sufficient to make net negative
Keep chest tube to CWS
Failed SBT this AM due to tachypnea --> daily are-assessment
Goal BG 140�180
Stop oxycodone as she appears to be unresponsive today and she started to become less responsive after we started this few days ago
Trend lactate until <2
Guarded prognosis -GOC was discussed with son yesterday and today � emotional support provided, he wants her to remain full code with full medical treatment however now given the information that she is less responsive and had a poor functional
status prior to this admission, I also told him that I am not optimistic about her having a meaningful recovery. I encouraged him to discuss with his brother about changing her code status to DNR. I answered all of his questions.
Assessment
-
Assessment: 88-year-old with PMHx of HTN, A-fib on AC, valvular heart disease, Hx of GI bleed and pHTN who presents with unresponsiveness while at [facility]. Staff at [facility] found her and pt was pulseless and CPR started - appears that CPR was started soon
after pt became unresponsive. Pt achieved ROSC after 2-3 mins. 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 Vitals in ER were BP 99/50, HR 92, RR 18 and SpO2 98% on vent. Labs showed WBC 11.9, Hb 12.8, plt 191, pH 7.2, pCO2
51, pO2 157, glucose 193, lactate 6.1 Vent settings are: 16/450/5/50%. Imaging done with CT head/chest/abd/pelvis, and there is no acute intracranial pathology, there is e/o multifocal PNA, normal appearing liver, bilateral renal stones
(non-obstructing) measuring up to 1.2cm, and diverticuli without diverticulosis. In ER she was given 1L NS 0.9%, vecuronium 10mg IVP x1, started on propofol gtt and levophed + dopamine also started due to hypotension with SBP in 80s. Patient then
became tachycardic and dopamine was stopped. Lopressor 5 mg IV was given as well. Given her cardiac arrest and need for continuous monitoring while on ventilator, pt admitted to ICU and Bicycle Ii Assembler consulted for additional
management/recommendations.
Chronic medical conditions COMPUTER BOOKKEEPER: Atrial fibrillation on Eliquis, hypertension, valvular heart disease, history of GI bleed, pulmonary pretension, history of UTI, Hx of FTT
Impression:
#[id number] cardiac arrest - difficult to say if pt actually lost a pulse as unknown which rhythm she was in and does not appear that she received any epinephrine/drugs during 'code'
#Acute respiratory failure with hypoxemia and hypercapnea on mechanical ventilation
#Left large spontaneous secondary pneumothorax s/p IR chest tube (placed 08/11/2023)
#HAP
#Hypothermic - likely auto-hypothermic in ?setting of cardiac arrest with autonomic dysfunction and likely due to reduced PO intake COMPUTER BOOKKEEPER
#Acute on chronic bilateral pleural effusions (R>L) with acute pulmonary edema
#A-fib now off amiodarone drip (on PO amio) --> tachycardia may also be due to BB withdrawal
#Lactic acidosis -improving- likely worsened in setting of tension PTX and septic shock on vasopressors
#Elevated troponin - likely due to cardiac arrest with resultant type II NM - troponin peaked at 0.063 on 08/10/2023
#Hypoalbuminemia
#UTI - due to Staph simulans (she has a hx of Staph epidermidis from [facility] on 07/15/2023)
#Hyperglycemia (improved)- likely due to critical illness
#Chronic liver disease with cirrhotic appearing morphology on abd US
Plan:
- Patient remains critically ill on mechanical ventilation, on vasopressors
- Continue mechanical ventilation with daily SAT/SBT if clinically appropriate
- Blood gas reviewed and ventilator adjusted as needed
- Titrate PEEP and FiO2 to maintain SpO2 >94%; in setting of PTX keep PEEP to 0 and wean down FiO2 as tolerated to maintain SpO2 >9094%; CXR continues to show resolved PTX, hence chest tube to CWS and PEEP kept at 0.
- Keep plateau pressure <30
- Limit sedation so we can assess her neurological status; would give boluses of fentanyl only to help with this; due to concern for pain we started scheduled oxycodone --> I will stop her oxy as she appeared to become less responsive ever since she
started this. I will leave fentanyl 50 mcg ordered as needed and defer to nursing judgment for usage
- Avoid fever
- Maintain net negative fluid balance as tolerated as it appears that she is having worsening bilateral pleural effusions on CXR --> continue lasix to 40mg IV BID with goal net negative 1.5L/24 hrs
- Neurology and cardiology consulted --> recs appreciated
- Continue broad spectrum Abx with cefepime (started 08/09/2023); IV vanco DC'd given negative MRSA swab (she got 2 doses of IV vanco on 08/08 + 08/09)
- Follow up paredes-culture with blood, sputum and urine Cx --> Urine Cx grew S. simulans
- Continue PO amiodarine --> amio gtt stopped this AM; goal HR<110 --> continue low dose BB with metoprolol 12.5mg BID (she takes toprol-XL 100mg at home)
- Trend lactate until <2mmol/L
- No need to continue trending troponin at it has already peaked this morning at 0.063
- Maintain BG 140-180mg/dL and with ISS q6hr
- stress ulcer ppx: continue PPI
- DVT ppx: Continue Eliquis 2.5mg BID
- Guarded prognosis - had GOC/code status discussion with son today (08-13-2023). I explained that she is now less responsive and is continuing to be weak and I doubt that we can successfully extubate her over the coming days. He tells me that
prior to her coming to the hospital that she was not very mobile, would be frequently living a sedentary lifestyle. Based on this information I highly doubt that she will improve and have a meaningful recovery. I encouraged him to discuss with his
brother about changing code status to DNR at very least. He will discuss this with his brother and then get back to me.
Critical care statement: A total of 41 minutes of critical care time was provided for this patient today. This includes management of unstable vital signs, evaluation of the patient at bedside, reviewing the patient's pertinent medical records
including radiographs, microbiology, laboratory evaluations, and discussion with primary team, consultants, pharmacy, nutrition, physical therapy, case management, charge nurse, critical care nursing, and respiratory therapy.
Data:
CT Chest/Abd/Pelvis without Contrast 08-09-2023:
1).There is moderate interstitial and confluent alveolar airspace disease in both perihilar regions extending into the mid and lower portions of both lungs, most consistent with pneumonia associated with small left moderate right pleural effusions.
2). Cardiomegaly without associated pulmonary edema
3). Atherosclerosis.
4). Bilateral nonobstructing calculi.
5). Moderate bilateral cortical atrophy
6). 9.5 cm left renal cyst
7).Imaging for bowel pathology is limited by the lack of enteric contrast
Diverticuli are present in the colon with no CT evidence of diverticulitis
8).There is mild thoracolumbar dextroscoliosis
There is multilevel degenerative disc disease
CT Head without COntrast 08-09-2023: No acute intracranial abnormality. Stable chronic findings
CXR 08-09-2023:
Endotracheal tube with tip in trachea above the darshan. No pneumothorax.
Some mild bibasilar opacification such as subsegmental atelectasis and/or pneumonia cannot be excluded, left greater than right.
CXR 08-10-2023:
Endotracheal tube is present with its tip 5.6 cm above the darshan.
Airspace opacities within both lungs, with appearance most suggestive of pneumonia, although pulmonary edema could have a similar appearance. Slight interval increase in confluent increased density over the left lower hemithorax.
CXR 08-11-2023:
1. Significantly improved left pneumothorax following chest tube insertion.
2. Mild cardiomegaly. Central pulmonary vascular congestion.
3. Bibasilar opacities, which may represent pneumonia, subsegmental atelectasis, or aspiration.
4. Tiny bilateral pleural effusions.
CXR 08-12-2023:
1. No pneumothorax on the current study.
2. Interstitial prominence, consistent with mild pulmonary edema, more pronounced compared to prior chest x-ray.
3. Bibasilar airspace consolidation, also pronounced. Differential diagnosis includes pneumonia, subsegmental atelectasis, aspiration, and alveolar pulmonary edema.
4. Small bilateral pleural effusions may be present.
CXR 08-13-2023:
Slightly improved aeration in the right mid to lower lung zone. Persistent patchy opacity is noted on the right, most pronounced in the right perihilar distribution.
There is persistent relatively homogeneous retrocardiac opacity without significant interval change.
Endotracheal tube remains in place, unchanged. The gastric tube remains extending into the stomach. Stable right PICC line catheter. Stable chest tube catheter overlying the lower left hemithorax.
No pneumothorax.
The cardiomedial subtle margins are stable.
EEG 08-10-2023:
This EEG is abnormal due to the presence of polymorphic moderate to severe diffuse slowing of the background consistent with moderate to severe diffuse cerebral dysfunction, nonspecific in etiology. No clear epileptiform abnormalities were noted.
Subjective Dataa
Subjective Data
Date of Service:
Date of Service: August 13, 2023
Chief Complaint: Bicycle Ii Assembler Follow Up
Subjective:
Patient seen and evaluated this morning. Not tracking, not following commands. She remains on Levophed at 5mcg/min. CXR today shows persistence airspace opacities in bilateral interstitial edema with improvement seen in the mid lung of the right
hemithorax. Current vitals are: BP 122/60, heart rate 105 (amiodarone drip off since this morning), SpO2 95% on 18/400/40%/PEEP of 0. Left-sided chest tube in place with no airleak. PIP 26, breathing at 18. Carrion catheter in place draining
yellow urine.
Review of Systems
General: Unobtainable - Pat Unresp
Objective Data
Data Reviewed
Vital Signs / I&O / Oxygen:
Vital Signs
Temp Pulse Resp BP Pulse Ox
98.7 F 92 18 120/103 95
08/13/23 12:45 08/13/23 12:30 08/13/23 12:30 08/13/23 09:25 08/13/23 12:30
Intake and Output
08/12/23 08/13/23 08/14/23
06:59 06:59 06:59
Intake Total 2090.4 / 2183.4 2537.0 / 2602.0 325 / 325
Output Total 1200 / 1300 1984 / 2034 400 / 400
Balance 890.4 / 883.4 552.0 / 567.0 -75 / -75
SaO2 [A/C] 97
SaO2 95
Physical Exam
General: Chills (negative)
HEENT: Normocephalic and Anicteric
Cardiovascular: Irregular Rhythm (Irregularly irregular), Peripheral Edema (Trace LE pitting edema ) and Other (Normal heart rate)
Respiratory: Wheeze (negative), Crackles (negative), Rhonchi (bilaterally), Accessory Resp Muscle Use (negative), Stridor (negative), ET Tube, Chest Tube (left hemithorax) and Other (Coarse breath sounds heard bilaterally; mechanical breath sounds
heard)
GI: Soft, Non Distended, Non Tender, Normal Bowel Sounds and Feeding Tube
Neurology: Tremors (Negative), Unresponsive (Moves arms/legs to tactile stimuli but not following commands nor awakening) and Other (Pupils +2mm and brisk)
Skin: Warm, Dry and Jaundice (negative)
Labs/Micro/Reports
Lab Data
08/13/23 03:28
08/13/23 03:28
Laboratory Results
08/13/23
03:27
pH 7.44
pCO2 39 H
pO2 76 L
HCO3 26.5
O2 Delivery Level
Microbiology
08/09/23 17:47 Blood/Venous Blood Culture - Preliminary
No Growth in 72 hours- Final report to follow
08/09/23 17:34 Blood/Venous Blood Culture - Preliminary
No Growth in 72 hours- Final report to follow
08/09/23 17:12 Urine Urine Culture - Final
Staphylococcus simulans
08/09/23 17:12 Endotracheal Respiratory Culture - Final
Usual Respiratory Viviana
08/09/23 17:12 Endotracheal Gram Stain - Final
08/09/23 17:46 Nose MRSA Screen - Final
No Methicillin Resistant Staphylococcus aureus isolated.
--- NOTE | 2023-08-13 08:54 | RESPNOTE ---
Addendum entered by Felicia Luis, RT 08/13/23 09:00:
small cut noted, just inside mouth, left upper lip.
Original Note:
ETT feliciano removed and changed. redness noted under, no breakdown. skin cleaned and dried, steri-prep applied followed by exuderm to cheeks and upper lip. ETT secured on RIGHT side of mouth, 7.0 @ 25. mild agitation during care, vitals stable, SpO2
95%. RN updated.
[2023-08-13 09:25] VITALS: BP 120/103
[2023-08-13] MEDS: NEUTRA-PHOS POWDER PACKET 500 MG PO (11:03)
--- NOTE | 2023-08-13 11:41 | CHAP ---
Addendum entered by William Valles 08/13/23 14:46:
Stopped by again and talked with son, James. He said his mother 'prays every night.' We prayed together for Radha, and a prayer blanket was provided. Assured James he can call on us.
Original Note:
Ms. Diaz opened her eyes, but did not respond. I offered gentle words of comfort and prayed for her at bedside. Asked billing control clerk to contact me if family arrives.
[2023-08-13 12:15] LABS: Glucose - Point of Care 157 mg/dl (70-99)
--- NOTE | 2023-08-13 12:36 | W.PN.HOSP.TC ---
Today's Communication/Plan
-
Monitor vital signs see plan
Amiodarone
Lasix
Wean pressors as tolerated
Continues to be intubated, not following much commands
Prognosis guarded
Assessment / Plan
Assessment / Plan
Physical exam:
General: On vent, opens eyes to verbal stimuli
HEENT: anicteric; pink conjunctiva
Respiratory: Ventilated breath sounds, normal respiratory effort, no respiratory distress,
Heart: S1, S2 tachycardic with irregular irregular
Gastrointestinal: soft, nontender, no guarding
Extremities: No pitting edema
Assessment and plan:
[id number] cardiac arrest status post successful resuscitation on ROSC? In 2 to 3 minutes. Possibility in light of A-fib with RVR or septic shock.
Continue Levophed, wean as tolerated
Continue with cefepime
Unclear etiology for cardiac arrest. Possible to be related to septic shock with A-fib with RVR, known history of A-fib. No acute ST-T changes. No significant troponin elevation yet. Patient with significant valvular heart disease concern if
she has new cardiomyopathy and secondary arrhythmia. Echo August 09 2023: EF 55 to 60% with mild to moderate aortic regurgitation, severe tricuspid regurgitation, pulmonary artery pressure 46 mmHg. Doubt PE - on retirement AC and receiving it at [facility].
Failed weaning trial 08/11. Not following much commands.
Acute hypoxic hypercapnic respiratory failure
Continues to be intubated, vent management per breastfeeding program coordinator
on tube feeds; monitor
Large left spontaneous secondary pneumothorax status post IR chest tube 08/10
Monitor
Non-ischemic myocardial infarction
Permanent Afib - now in RVR -patient hypotensive post cardiac arrest and on Levophed. Normally on Cardizem and beta-rosa elena which she may not tolerate now.
Continue Eliquis
Cardiology input appreciated
On amiodarone
Suspect acute CHF with preserved ejection fraction
Continue with IV Lasix
Cardiology following
Moderate to severe AR/moderate to severe MR/severe TR
Pulmonary hypertension
Elevated LFTs
Monitor
History of Xavier
Thrombocytopenia
Monitor
Hypophosphatemia
Replete
Hyponatremia
Monitor
Hypotensive shock-patient currently requiring vasopressors postcardiac arrest. Continue with vasopressors.
Lactic acidosis-suspect secondary to cardiac arrest and hypotension. Continue to follow .
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 LFTs normal. No clinical evidence of ascites.
Essential hypertension-hold home medications due to current hypotension
DVTppx
Eliquis
Full code
I spent a total of 53 minutes with the patient or on the floor. More than 50% of this time involved counseling and coordination of care.
Anticipated Discharge: > 48 hours
Subjective/Interval History
-
Date of Service: August 13, 2023
Continues to be intubated
Objective Data
-
Labs:
Laboratory Results
08/13/23 08/13/23
03:27 03:28
WBC 7.2
Hgb 10.6 L
Hct 30.7 L
Plt Count 79 L D
HCO3 26.5
Sodium 131 L
Potassium 3.8
Chloride 96 L
Carbon Dioxide 26
BUN 45 H
Creatinine 0.9
Glucose 106 H
Calcium 8.0 L
Total Bilirubin 1.3
AST 131 H
ALT 99 H
Alkaline Phosphatase 95
Vital Signs:
Vital Signs
Temp Pulse Resp BP Pulse Ox
98.6 F 99 18 125/63 94
08/13/23 06:32 08/13/23 08:12 08/13/23 06:45 08/13/23 08:12 08/13/23 10:55
I&O
08/12/23 08/13/23 08/14/23
06:59 06:59 06:59
Intake Total 2089.4 / 2183.4 2537.0 / 2602.0 325 / 325
Output Total 1200 / 1300 1984 / 2034 400 / 400
Balance 890.4 / 883.4 552.0 / 567.0 -75 / -75
[2023-08-13] MEDS: NOVOLOG FLEXPEN-MODERATE RESISTANCE 1 UNITS SC (12:48)
[2023-08-13 16:40] LABS: Lactic Acid 2.7 mmol/L (0.7-2.0)
[2023-08-13 18:22] LABS: Glucose - Point of Care 127 mg/dl (70-99)
[2023-08-14 00:04] LABS: Glucose - Point of Care 138 mg/dl (70-99)
[2023-08-14] MEDS: NOVOLOG FLEXPEN-MODERATE RESISTANCE SC ×2 (00:26→06:06)
--- NOTE | 2023-08-14 00:27 | PTCARENOTE ---
pt reassessed, no changes. a line zeroed and transduced. pt incontinent of stool, rectal tube in place. changed and repositioned. levophed infusing. no changes in vent settings. pt remains out of restraints, no attemps to pull at tubing.
[2023-08-14] MEDS: MAXIPIME 1000 MG IV ×3 (02:06→17:49)
[2023-08-14] MEDS: STERILE WATER FOR INJECTION 10 ML IV ×3 (02:07→17:49)
[2023-08-14] MEDS: SUBLIMAZE 50 MCG IV ×7 (02:30→16:01)
[2023-08-14] MEDS: LEVOPHED 250 IV ×2 (02:44→16:20)
--- NOTE | 2023-08-14 04:00 | PTCARENOTE ---
pt wakes up moves upper extremities but has not attempted to reach for the tube. grimicing, had tears in her eyes, fentanyl bolus given before bath. reassessed, no changes. remains on levophed 3mcg.
[2023-08-14 04:28] LABS: HCO3 29.1 mmol/L (21-28); PCO2 40 mmHg (32-35); PO2 106 mmHg (83-108); pH 7.47 (7.35-7.45)
[2023-08-14 04:29] LABS: Hematocrit 31.7 % (37.0-47.0); Hemoglobin 11.2 g/dL (12.0-16.0); Mean Corp Hgb Conc. 35.3 g/dL (33.0-37.0); Mean Corpuscular Hgb 29.2 pg (27.0-31.0); Mean Corpuscular Volume 82.6 fL (81.0-99.0); Mean Platelet Volume 11.5 fL (7.4-10.4); O2 Saturation % 98.4 % (94-98); O2 Therapy %Oxygen/Room Air 40%; Platelet Count 77 10^3/uL (130-400); Red Blood Cell Count 3.84 10^6/uL (4.20-5.40); Red Cell Dist. Width 14.9 % (11.5-14.5); White Blood Cell Count 8.6 10^3/uL (4.8-10.8)
[2023-08-14 04:49] LABS: Blood Urea Nitrogen 47 mg/dl (7-17); Carbon Dioxide 28 mmol/L (22-30); Chloride 96 mmol/L (98-107); Estimated Creatinine Clearance 34 ml/min; Glucose 120 mg/dl (70-99); Phosphorus 2.6 mg/dl (2.5-4.5); Potassium 3.9 mmol/L (3.5-5.1); Sodium 133 mmol/L (135-145); eGFR > 60.00
[2023-08-14 04:59] LABS: Magnesium 1.6 mg/dl (1.6-2.3)
[2023-08-14 06:00] VITALS: BMI 25.2
[2023-08-14 06:12] LABS: Glucose - Point of Care 112 mg/dl (70-99)
[2023-08-14] MEDS: SENNA SYRUP 8.80000000000000071 MG TUBE ×2 (08:11→19:28)
[2023-08-14] MEDS: MIRALAX 17 GRAMS TUBE (08:11)
[2023-08-14] MEDS: PACERONE 400 MG TUBE ×3 (08:12→21:46)
[2023-08-14] MEDS: ELIQUIS 2.5 MG TUBE ×2 (08:12→19:27)
[2023-08-14] MEDS: LOPRESSOR 12.5 MG PO ×2 (08:12→19:27)
[2023-08-14] MEDS: LASIX 40 MG IV ×2 (08:12→16:01)
[2023-08-14] MEDS: CELEXA 10 MG TUBE ×2 (08:13→19:27)
[2023-08-14] MEDS: PROTONIX IV 40 MG IV (08:13)
[2023-08-14] MEDS: NSS (PRESERVATIVE FREE) 10 ML IV (08:13)
--- NOTE | 2023-08-14 08:15 | W.PN.CARDCBS ---
Today's Communication / Plan
-
Continue amiodarone 400 mg 3 times daily via tube.
Ventricular rates 100-110 and overall acceptable
Continue IV Lasix. Weight improving.
Continue management of chest tube
cont ABx
Prognosis poor.
Impression / Plan
-
.
Primary Lap Machine Operator: Dr. BRENNAN Caicedo, last seen in office 2021
Impression:
Presentation with OOH arrest s/p CPR and epi with ROSC 08/09/23
Hypotensive shock, requiring pressor support
VDRF, s/p agonal breathing per EMS, requiring intubation 08/09/23
Pneumothorax status post chest tube 08/10
Elevated lactic acid
Leukocytosis, mild
Elevated troponin
Permanent atrial fibrillation, now with rapid response on chronic OAC with eliquis
acute HFpef
mod to severe MR and AR, severe TR by echo 05/2023
Admission to for FTT 07/13-07/19/23, discharged to [facility] for SNF
History of rectal bleeding
HTN
LOPES
GERD
Depression
History of CVA on MRI imaging
ECHO 05/20/23: EF 60-65%, mild cLVH, mod to severe eccentric jet MR with flow reversal in pulm veins, dilated LA, mod to severe AR, severe TR, PAP 46mmHg
CT chest/abd/pelvis August 09 2023: moderate interstitial and confluent alveolar airspace disease in both perihilar regions extending into the mid and lower portions of both lungs, most consistent with pneumonia associated with small left moderate
right pleural effusions. Cardiomegaly without associated pulmonary edema. Atherosclerosis. Bilateral nonobstructing calculi.
Echo August 09 2023: EF 55 to 60% with mild to moderate aortic regurgitation, severe tricuspid regurgitation, pulmonary artery pressure 46 mmHg
Plan:
Chest tube remains in place
Remains in Afib. Continue oral amiodarone via tube today 400mg po tid and likely decrease 08/14. Ventricular rates are overall stable I would accept the ventricular rate of 100 to 110 bpm.
Outpt Toprol and Cardizem are on hold with hypotension
Cont Eliquis for stroke prophylaxis.
echo with EF 55-60%
Cont levophed. Wean as tolerated
Continue Lasix 40 mg IV twice daily. Weight is slowly improving. proBNP remains elevated. Patient has a preserved ejection fraction but severe mitral aortic and tricuspid valvular disease. Creatinine is normal
Continue medical therapy of likely non-MD troponin trend until peak
Monitor EKG, lateral T wave inversions last 24 hrs.
Cont pulm toilet and vent care. Wean as able.
Broad spectrum abx as per carry out clerk.
Prognosis poor. Would continue to discuss end-of-life care with family
CC time 31 min
HPI: 88-year-old woman known to Dr Caicedo, last seen in the office in April 2022, at which point she was active cleaning her home and offering no complaints. She declined over 2022 and was admitted with failure to thrive in June 2023,
possibly with UTI and with marked decrease in activity tolerance. She was transferred to [facility], and today became unresponsive, received CPR and had ROSC. She was never shocked, and was intubated by paramedics at the scene for respiratory
failure. Seen in the emergency department on high-dose Levophed and low-dose dopamine she has a heart rate of approximately 100 with a blood pressure of approximately 100. Urgent echocardiography shows preserved LV function, biatrial dilatation,
mitral and aortic regurgitation but no pulmonary hypertension. She is unresponsive on propofol and having been paralyzed. Son at bedside.
Progress Note - Lap Machine Operator
Subjective
Date of Service: August 14, 2023
Remains intubated and sedated.
Objective
Labs:
08/14/23 04:17
08/14/23 04:17
Labs
Hgb 11.2 g/dL (12.0-16.0) L 08/14/23 04:17
Hct 31.7 % (37.0-47.0) L 08/14/23 04:17
Plt Count 77 10^3/uL (130-400) L 08/14/23 04:17
PT 19.1 Sec (11.4-14.6) H 08/09/23 18:35
INR 1.62 08/09/23 18:35
APTT 34.6 Sec (23.4-35.0) 08/09/23 18:35
Sodium 133 mmol/L (135-145) L 08/14/23 04:17
Potassium 3.9 mmol/L (3.5-5.1) 08/14/23 04:17
BUN 47 mg/dl (7-17) H 08/14/23 04:17
Creatinine 0.9 mg/dL (0.6-1.0) 08/14/23 04:17
Glucose 120 mg/dl (70-99) H 08/14/23 04:17
Vital Signs and I&O:
Vital Signs
Temp Pulse Resp BP Pulse Ox
99.2 F 120 18 112/53 96
08/14/23 07:41 08/14/23 08:12 08/14/23 07:00 08/14/23 08:12 08/14/23 08:09
Vital Signs
Temp Pulse Resp BP Pulse Ox
99.2 F 120 18 112/53 96
08/14/23 07:41 08/14/23 08:12 08/14/23 07:00 08/14/23 08:12 08/14/23 08:09
Intake & Output
08/12/23 08/13/23 08/14/23 08/15/23
06:59 06:59 06:59 06:59
Intake Total 2090.4 / 2183.4 2537.0 / 2602.0 915.6 / 1695.6 /
Output Total 1200 / 1300 1984 / 2034 2550 / 2550
Balance 890.4 / 883.4 552.0 / 567.0 -1634.4 / -854.4 /
Physical Exam
Physical Exam
GEN: No distress, intubated and sedated
HEENT: supple, anicteric, mmm, ET tube
LUNGS: bilat rhonchi
CV: irreg, S1/S2, 1/6 syst LSB, no gallop
ABD: soft, BS+, NT/ND
EXT: No edema
NEURO: Gross non-focal
SKIN: No rash
--- NOTE | 2023-08-14 08:18 | W.PN.INTV ---
Today's Communication / Plan
Recommendations
Continue vasopressors
Continue IV Lasix 40 mg twice daily --> may increase if UOP not sufficient to make net negative
Keep chest tube to CWS --> if PTX enlarges then place PEEP back to 0 and put chest tube back to suction
Failed SBT this AM again (2nd day in row) due to tachypnea --> daily re-assessment
Goal BG 140�180
I stopped oxycodone on 08/12 as she appears to be unresponsive today and she started to become less responsive after we started this few days ago
She is having jerking movements today and having ventilator asynchrony -I will start a low-dose propofol and notify neurology as she may need repeat EEG +/- AEDs; if this is due to seizure activity then the propofol should improve her jerking
movements
Trend lactate until <2
Guarded prognosis -GOC was discussed with son multiple days in a row � emotional support provided, he wants her to remain full code with full medical treatment however now given the information that she is less responsive and had a poor functional
status prior to this admission, I expressed that I am not optimistic about her having a meaningful recovery, or getting extubated. I encouraged him to discuss with his brother about changing her code status to DNR. I believe she should be comfort
care, but the son is unable to commit to this right now - he seems overwhelmed. I answered all of his questions.
Assessment
-
Assessment: 88-year-old with PMHx of HTN, A-fib on AC, valvular heart disease, Hx of GI bleed and pHTN who presents with unresponsiveness while at [facility]. Staff at [facility] found her and pt was pulseless and CPR started - appears that CPR was started soon
after pt became unresponsive. Pt achieved ROSC after 2-3 mins. EMS arrived and she was intubated CUSTOMER ADVISOR SPECIALIST then brought here to ER. Vitals in ER were BP 99/50, HR 92, RR 18 and SpO2 98% on vent. Labs showed WBC 11.9, Hb 12.8, plt 191, pH 7.2, pCO2
51, pO2 157, glucose 193, lactate 6.1 Vent settings are: 16/450/5/50%. Imaging done with CT head/chest/abd/pelvis, and there is no acute intracranial pathology, there is e/o multifocal PNA, normal appearing liver, bilateral renal stones
(non-obstructing) measuring up to 1.2cm, and diverticuli without diverticulosis. In ER she was given 1L NS 0.9%, vecuronium 10mg IVP x1, started on propofol gtt and levophed + dopamine also started due to hypotension with SBP in 80s. Patient then
became tachycardic and dopamine was stopped. Lopressor 5 mg IV was given as well. Given her cardiac arrest and need for continuous monitoring while on ventilator, pt admitted to ICU and Biller consulted for additional
management/recommendations.
Chronic medical conditions CUSTOMER ADVISOR SPECIALIST: Atrial fibrillation on Eliquis, hypertension, valvular heart disease, history of GI bleed, pulmonary pretension, history of UTI, Hx of FTT
Impression:
#Mne-[id number] cardiac arrest - difficult to say if pt actually lost a pulse as unknown which rhythm she was in and does not appear that she received any epinephrine/drugs during 'code'
#Acute respiratory failure with hypoxemia and hypercapnea on mechanical ventilation
#Left large spontaneous secondary pneumothorax s/p IR chest tube (placed 08/11/2023)
#HAP
#Hypothermic - likely auto-hypothermic in ?setting of cardiac arrest with autonomic dysfunction and likely due to reduced PO intake CUSTOMER ADVISOR SPECIALIST
#Acute on chronic bilateral pleural effusions (R>L) with acute pulmonary edema
#A-fib now off amiodarone drip (on PO amio) --> tachycardia may also be due to BB withdrawal
#Jerking movements
#Lactic acidosis -improving- likely worsened in setting of tension PTX and septic shock on vasopressors
#Elevated troponin - likely due to cardiac arrest with resultant type II DC - troponin peaked at 0.063 on 08/10/2023
#Hypoalbuminemia
#UTI - due to Staph simulans (she has a hx of Staph epidermidis from [facility] on 07/15/2023)
#Hyperglycemia (improved)- likely due to critical illness
#Chronic liver disease with cirrhotic appearing morphology on abd US
Plan:
- Patient remains critically ill on mechanical ventilation, on vasopressors and failingn PST multiple days in a row
- Continue mechanical ventilation with daily SAT/SBT if clinically appropriate
- Blood gas reviewed and ventilator adjusted as needed
- Titrate PEEP and FiO2 to maintain SpO2 >94%; will trial PEEP back to 5 today and re-check CXR tomorrow. If PTX enlarges then will return PEEP back to 0. Wean down FiO2 as tolerated to maintain SpO2 >90-94%; Keep chest tube to CWS, and place back
to suction if needed based on CXR and peak/plataeu pressures
- Keep plateau pressure <30
- Limit sedation so we can assess her neurological status; would give boluses of fentanyl only to help with this; due to concern for pain we started scheduled oxycodone --> I stopped her oxy as she appeared to become less responsive ever since she
started this. I will leave fentanyl 50 mcg ordered as needed and defer to nursing judgment for usage
- Today, pt appears to be more asynchronous with vent --> will start precedex
- Avoid fever
- Maintain net negative fluid balance as tolerated as it appears that she is having worsening bilateral pleural effusions on CXR --> continue lasix to 40mg IV BID with goal net negative 1.5L/24 hrs
- Neurology and cardiology consulted --> recs appreciated
- Continue broad spectrum Abx with cefepime (started 08/09/2023); IV vanco DC'd given negative MRSA swab (she got 2 doses of IV vanco on 08/08 + 08/09)
- Follow up paredes-culture with blood, sputum and urine Cx --> Urine Cx grew S. simulans
- Continue PO amiodarine --> amio gtt stopped this AM; goal HR<110 --> continue low dose BB with metoprolol 12.5mg BID (she takes toprol-XL 100mg at home) --> raise dose as needed/tolerated
- Trend lactate until <2mmol/L
- No need to continue trending troponin at it has already peaked this morning at 0.063
- Maintain BG 140-180mg/dL and with ISS q6hr
- stress ulcer ppx: continue PPI
- DVT ppx: Continue Eliquis 2.5mg BID
- Guarded prognosis - had GOC/code status discussion with son on 08-13-2023. I explained that she is now less responsive and is continuing to be weak and I doubt that we can successfully extubate her over the coming days. He tells me that prior to
her coming to the hospital that she was not very mobile, would be frequently living a sedentary lifestyle. Based on this information I do not think she will improve and have a meaningful recovery. I encouraged him to discuss with his brother about
changing code status to DNR at very least. He will discuss this with his brother and then get back to me.
Critical care statement: A total of 38 minutes of critical care time was provided for this patient today. This includes management of unstable vital signs, evaluation of the patient at bedside, reviewing the patient's pertinent medical records
including radiographs, microbiology, laboratory evaluations, and discussion with primary team, consultants, pharmacy, nutrition, physical therapy, case management, charge nurse, critical care nursing, and respiratory therapy.
Data:
CT Chest/Abd/Pelvis without Contrast 08-09-2023:
1).There is moderate interstitial and confluent alveolar airspace disease in both perihilar regions extending into the mid and lower portions of both lungs, most consistent with pneumonia associated with small left moderate right pleural effusions.
2). Cardiomegaly without associated pulmonary edema
3). Atherosclerosis.
4). Bilateral nonobstructing calculi.
5). Moderate bilateral cortical atrophy
6). 9.5 cm left renal cyst
7).Imaging for bowel pathology is limited by the lack of enteric contrast
Diverticuli are present in the colon with no CT evidence of diverticulitis
8).There is mild thoracolumbar dextroscoliosis
There is multilevel degenerative disc disease
CT Head without COntrast 08-09-2023: No acute intracranial abnormality. Stable chronic findings
CXR 08-09-2023:
Endotracheal tube with tip in trachea above the darshan. No pneumothorax.
Some mild bibasilar opacification such as subsegmental atelectasis and/or pneumonia cannot be excluded, left greater than right.
CXR 08-10-2023:
Endotracheal tube is present with its tip 5.6 cm above the darshan.
Airspace opacities within both lungs, with appearance most suggestive of pneumonia, although pulmonary edema could have a similar appearance. Slight interval increase in confluent increased density over the left lower hemithorax.
CXR 08-11-2023:
1. Significantly improved left pneumothorax following chest tube insertion.
2. Mild cardiomegaly. Central pulmonary vascular congestion.
3. Bibasilar opacities, which may represent pneumonia, subsegmental atelectasis, or aspiration.
4. Tiny bilateral pleural effusions.
CXR 08-12-2023:
1. No pneumothorax on the current study.
2. Interstitial prominence, consistent with mild pulmonary edema, more pronounced compared to prior chest x-ray.
3. Bibasilar airspace consolidation, also pronounced. Differential diagnosis includes pneumonia, subsegmental atelectasis, aspiration, and alveolar pulmonary edema.
4. Small bilateral pleural effusions may be present.
CXR 08-13-2023:
Slightly improved aeration in the right mid to lower lung zone. Persistent patchy opacity is noted on the right, most pronounced in the right perihilar distribution.
There is persistent relatively homogeneous retrocardiac opacity without significant interval change.
Endotracheal tube remains in place, unchanged. The gastric tube remains extending into the stomach. Stable right PICC line catheter. Stable chest tube catheter overlying the lower left hemithorax.
No pneumothorax.
The cardiomedial subtle margins are stable.
CXR 08-14-2023: Possible faint/trace left apical pneumothorax.
EEG 08-10-2023:
This EEG is abnormal due to the presence of polymorphic moderate to severe diffuse slowing of the background consistent with moderate to severe diffuse cerebral dysfunction, nonspecific in etiology. No clear epileptiform abnormalities were noted.
Subjective Dataa
Subjective Data
Date of Service:
Date of Service: August 14, 2023
Chief Complaint: Biller Follow Up
Subjective:
Patient seen and evaluated today at bedside. She failed her pressure support trial this AM due to tachypnea and she lasted less than 1 minute on wean. She is on Levophed at 4mcg/min with BP 110/55 via arterial line. Heart rate 114, respiratory
rate 18 (riding the ventilator) and SpO2 97%. She is on VC on settings 18/400/40% and PEEP of 0 due to left-sided PTX. Left-sided chest tube in place on CWS with occasional level 1 air leak. She is not following commands and she is randomly
opening eyes but not tracking. She is net -1.6 L last 24 hours.
Review of Systems
General: Unobtainable - Pat Unresp (Intubated)
Objective Data
Data Reviewed
Vital Signs / I&O / Oxygen:
Vital Signs
Temp Pulse Resp BP Pulse Ox
99.2 F 120 18 112/53 96
08/14/23 07:41 08/14/23 08:12 08/14/23 07:00 08/14/23 08:12 08/14/23 08:09
Intake and Output
08/13/23 08/14/23 08/15/23
06:59 06:59 06:59
Intake Total 2537.0 / 2602.0 915.6 / 1695.6 780 / 780
Output Total 1984 2550 / 2550
Balance 552.0 / 567.0 -1634.4 / -854.4 780 / 780
SaO2 [A/C] 97
SaO2 96
Physical Exam
General: Comfortable (Appears comfortable) and Chills (negative)
HEENT: Normocephalic and Anicteric
Cardiovascular: Irregular Rhythm (Irregularly irregular), Peripheral Edema (Trace LE pitting edema ) and Other (Tachycardic)
Respiratory: Wheeze (negative), Crackles (negative), Rhonchi (bilaterally), Accessory Resp Muscle Use (negative), Stridor (negative), ET Tube, Chest Tube (left hemithorax) and Other (Coarse breath sounds heard bilaterally; mechanical breath sounds
heard)
GI: Soft, Non Distended, Non Tender, Normal Bowel Sounds and Feeding Tube
Neurology: Tremors (Negative), Unresponsive (Moves arms/legs to tactile stimuli but not following commands) and Other (Pupils +2mm and brisk)
Skin: Warm, Dry and Jaundice (negative)
Labs/Micro/Reports
Lab Data
08/14/23 04:17
08/14/23 04:17
Laboratory Results
08/14/23
04:17
pH 7.47 H
pCO2 40 H
pO2 106
HCO3 29.1 H
O2 Delivery Level %oxygen/room air 40%
Microbiology
08/09/23 17:47 Blood/Venous Blood Culture - Preliminary
No Growth in 4 days- Final report to follow
08/09/23 17:34 Blood/Venous Blood Culture - Preliminary
No Growth in 4 days- Final report to follow
08/09/23 17:12 Urine Urine Culture - Final
Staphylococcus simulans
08/09/23 17:12 Endotracheal Respiratory Culture - Final
Usual Respiratory Viviana
08/09/23 17:12 Endotracheal Gram Stain - Final
08/09/23 17:46 Nose MRSA Screen - Final
No Methicillin Resistant Staphylococcus aureus isolated.
--- NOTE | 2023-08-14 09:49 | PTCARENOTE ---
report received, assessments per work list. patient with increased nonverbal pain cues. monitor afib, left chest tube to water seal+ leak. right picc patent, levophed per work list. dobhoff in place, tube feeds per orders. generalized anasarca.
multiple areas breakdown with dressings in place. rectal trumpet draining liquid stool. fentanyl administered per prn order
[2023-08-14 10:23] VITALS: BP_SYST 120
[2023-08-14 11:48] LABS: Glucose - Point of Care 169 mg/dl (70-99)
[2023-08-14] MEDS: NOVOLOG FLEXPEN-MODERATE RESISTANCE 1 UNITS SC ×2 (12:00→17:48)
[2023-08-14 12:19] VITALS: BP 95/71
--- NOTE | 2023-08-14 12:34 | W.PN.HOSP.TC ---
Today's Communication/Plan
-
Monitor vital signs
see plan
Prognosis guarded
Son updated over the phone
Wean vent as tolerated; been failing from past few days
Continue antibiotics
Continue Amio
Assessment / Plan
Assessment / Plan
Physical exam:
General: On vent, opens eyes to verbal stimuli
HEENT: anicteric; pink conjunctiva
Respiratory: Ventilated breath sounds, normal respiratory effort, no respiratory distress,
Heart: S1, S2 tachycardic with irregular irregular
Gastrointestinal: soft, nontender, no guarding
Extremities: No pitting edema
Assessment and plan:
Fhc-fw-[id number] cardiac arrest status post successful resuscitation on ROSC? In 2 to 3 minutes. Possibility in light of A-fib with RVR or septic shock.
Continue Levophed, wean as tolerated
Continue with cefepime
Unclear etiology for cardiac arrest. Possible to be related to septic shock with A-fib with RVR, known history of A-fib. No acute ST-T changes. No significant troponin elevation yet. Patient with significant valvular heart disease concern if
she has new cardiomyopathy and secondary arrhythmia. Echo August 09 2023: EF 55 to 60% with mild to moderate aortic regurgitation, severe tricuspid regurgitation, pulmonary artery pressure 46 mmHg. Doubt PE - on snf AC and receiving it at OR.
Failed weaning trial 08/11. Not following much commands.
Acute hypoxic hypercapnic respiratory failure
Continues to be intubated, vent management per dowel machine operator
on tube feeds; monitor
failing weaning trial
Large left spontaneous secondary pneumothorax status post IR chest tube 08/10
Monitor
mild air leak at times; discussed with dowel machine operator and will monitor
Suspected non-ischemic myocardial injury
Permanent Afib - now in RVR -patient hypotensive post cardiac arrest and on Levophed. Normally on Cardizem and beta-rosa elena which she may not tolerate now.
Continue Eliquis
Cardiology input appreciated
On amiodarone
Suspect acute CHF with preserved ejection fraction
Continue with IV Lasix
Cardiology following
Moderate to severe AR/moderate to severe MR/severe TR
Pulmonary hypertension
Elevated LFTs
Monitor
History of Xavier
Thrombocytopenia
Monitor
Hypophosphatemia
Replete
Hyponatremia
Monitor
Hypotensive shock-patient currently requiring vasopressors postcardiac arrest. Continue with vasopressors.
Lactic acidosis-suspect secondary to cardiac arrest and hypotension. Continue to follow .
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 LFTs normal. No clinical evidence of ascites.
Essential hypertension-hold home medications due to current hypotension
DVTppx
Eliquis
Full code
Imaging Nurse has discussed poor prognosis multiple times with the family. They still want full code. I also discussed with Son 08/13 and he is in process discussing with his other son and will make a decision. They are aware of patient's poor
prognosis.
I spent a total of 52 minutes with the patient or on the floor. More than 50% of this time involved counseling and coordination of care.
Anticipated Discharge: > 48 hours
Subjective/Interval History
-
Date of Service: August 14, 2023
Continues to be intubated
Objective Data
-
Labs:
Laboratory Results
08/14/23
04:17
WBC 8.6
Hgb 11.2 L
Hct 31.7 L
Plt Count 77 L
HCO3 29.1 H
Sodium 133 L
Potassium 3.9
Chloride 96 L
Carbon Dioxide 28
BUN 47 H
Creatinine 0.9
Glucose 120 H
Calcium 8.0 L
Vital Signs:
Vital Signs
Temp Pulse Resp BP Pulse Ox
99 F 110 18 112/53 97
08/14/23 11:24 08/14/23 10:23 08/14/23 10:23 08/14/23 08:12 08/14/23 12:21
I&O
08/13/23 08/14/23 08/15/23
06:59 06:59 06:59
Intake Total 2537.0 / 2602.0 915.6 / 1695.6 1020 / 1020
Output Total 1984 2550 / 2550 575 / 575
Balance 552.0 / 567.0 -1634.4 / -854.4 445 / 445
--- NOTE | 2023-08-14 12:37 | PTCARENOTE ---
reassessed, medicated with fentanyl per prn order. MAP 57 post fentanyl, levophed titration per work list. wound care provided.
--- NOTE | 2023-08-14 13:21 | PTCARENOTE ---
patient with repeated episode eye opening, biting on ETT and increase in generalized tremors, tachycardia and hypertension. fentnayl repeated with little effect. 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
--- NOTE | 2023-08-14 13:40 | W.PN.NEURO.1 ---
Today's Communication / Plan
-
-Would start Levetiracetam 1000 mg 12hr IV and Valproic acid 750 mg q12hr IV
-Low dose propofol IV is acceptable but would not seek to abolish the myoclonus entirely as this would not be a reasonable goal for post anoxic myoclonus
-Continue goals of care
-Not recommending further EEG or CT head non contrast at this time
Neuro Assessment/Plan
Assessment
88-year-old woman presented to hospital with unresponsiveness, suspected cardiac arrest although not clear on whether or not she is lost pulse and she did not receive any epinephrine during resuscitation
EEG shows significant slowing no epileptiform changes
CT head no acute abnormalities, chronic infarct seen
Neurologic examination shows nearly unresponsive, eyes are open spontaneously, no purposeful activity seen, significant stimulation induced myoclonic movements
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
Overall clearly a poor prognosis, doubtful can be extubated and expected to have lifelong severe neurologic disability in a nearly comatose state with myoclonus if survives
Subjective/Objective
Subjective Data
Date of Service: August 14, 2023
No acute events, increased myoclonus today and yesterday, mental status remains poor, intubated
Objective Data
Vital Signs
Temp Pulse Resp BP Pulse Ox
99 F 126 19 95/71 97
08/14/23 11:24 08/14/23 13:15 08/14/23 13:15 08/14/23 12:19 08/14/23 13:00
Lab Results
08/14/23 04:17
08/14/23 04:17
PT 19.1 Sec (11.4-14.6) H 08/09/23 18:35
INR 1.62 08/09/23 18:35
APTT 34.6 Sec (23.4-35.0) 08/09/23 18:35
Sodium 133 mmol/L (135-145) L 08/14/23 04:17
Potassium 3.9 mmol/L (3.5-5.1) 08/14/23 04:17
BUN 47 mg/dl (7-17) H 08/14/23 04:17
Glucose 120 mg/dl (70-99) H 08/14/23 04:17
Calcium 8.0 mg/dl (8.4-10.2) L 08/14/23 04:17
Phosphorus 2.6 mg/dl (2.5-4.5) 08/14/23 04:17
Uuz-B-Iqrdlerqcoy Pept 7650 pg/ml 08/13/23 03:28
Patient Allergies
cephalexin monohydrate [From Keflex] Allergy (Verified 08/12/23 15:23)
RASH, SOB; tolerates cefepime
erythromycin base Allergy (Verified 05/26/23 19:24)
Unknown
Penicillins Allergy (Verified 08/12/23 15:23)
SOB, RASH; tolerates cefepime
sulfamethoxazole Allergy (Verified 05/26/23 19:24)
Unknown
antibiotic that starts w/ 'a' Allergy (Uncoded 05/26/23 19:24)
Unknown
Review of Systems
-
Unable to obtain full review of systems at this time due to: Lethargy
Physical Exam
-
General: Appears Chronically Ill
Eyes: No Ptosis
Respiratory: Negative Accessory Resp Muscle Use or Decreased Breath Sounds
Cardiac: No Murmur
GI: Soft
Skin: Warm and Dry; Negative Rash
Extremities: No Edema
Psych: Unable to Assess
Extended Neurological Exam
Attention Span & Concentration: Other ([id number], eyes open spontaneously, does not track, does not obey commands, best motor response appears withdrawal no localization)
Memory: Unable to Assess
Speech: Mute
Cranial Nerve II: Left Eye: Pupillary Reactivity Unremarkable and Pupillary Size Unremarkable
Cranial Nerve II: Right Eye: Pupillary Reactivity Unremarkable and Pupillary Size Unremarkable
Cranial Nerves III, IV, : Extraocular Movement: Extraocular Movement Full in all Directions
Cranial Nerve VII: Facial Symmetry: Normal Facial Symmetry
Muscle Strength, Overall: Other (Stimulation inducted myoclonus with noxious stimulation centrally or in any extremity)
[2023-08-14] MEDS: DIPRIVAN 100 IV (13:50)
[2023-08-14] MEDS: MAGNESIUM OXIDE 500 MG TUBE (13:50)
[2023-08-14] MEDS: KCL ELIXIR 20 MEQ TUBE (13:50)
[2023-08-14] MEDS: DEPACON 57.5 MG IV (14:23)
[2023-08-14 15:10] LABS: Triglycerides 122 mg/dl (10-149)
--- NOTE | 2023-08-14 17:38 | PTCARENOTE ---
earlier in shift, patient placed on sbt by RT, lasted 8
--- NOTE | 2023-08-14 17:40 | PTCARENOTE ---
earlier in shift, placed on SBT by RT, lasted only 90 seconds. tachypneic, hypoxic and tachycardic. placed back on vent. settings adjustment by RT per orders. propofol per work list for vent management. fentanyl given for increased nonverbal pain
cues. diuresing post lasix. no family visited during shift today
[2023-08-14 17:44] LABS: Glucose - Point of Care 157 mg/dl (70-99)
[2023-08-14] MEDS: KEPPRA 1000 MG IV (19:27)
--- NOTE | 2023-08-14 21:15 | PTCARENOTE ---
received patient at change of shift. assessed as documented. turned and repositoned. pt opens eyes but doesnt follow commands. ETT moved to the center. a-fib on the monitor.
[2023-08-15] MEDS: NOVOLOG FLEXPEN-MODERATE RESISTANCE SC ×2 (00:31→17:45)
[2023-08-15 00:42] LABS: Glucose - Point of Care 137 mg/dl (70-99)
[2023-08-15] MEDS: DEPACON 57.5 MG IV ×2 (01:20→13:56)
[2023-08-15] MEDS: MAXIPIME 1000 MG IV ×3 (01:21→17:37)
[2023-08-15] MEDS: STERILE WATER FOR INJECTION 10 ML IV ×3 (01:21→17:56)
[2023-08-15] MEDS: SUBLIMAZE 50 MCG IV ×3 (01:25→21:02)
[2023-08-15] MEDS: DIPRIVAN 100 IV ×2 (01:26→07:43)
[2023-08-15] MEDS: LEVOPHED 250 IV ×3 (02:18→21:01)
[2023-08-15 04:39] LABS: B.E. 5.8 mmol/L; HCO3 29.8 mmol/L (21-28); O2 Saturation % 99.9 % (94-98); PCO2 40 mmHg (32-35); PO2 102 mmHg (83-108); pH 7.48 (7.35-7.45)
[2023-08-15 04:42] LABS: Hematocrit 33.7 % (37.0-47.0); Hemoglobin 11.8 g/dL (12.0-16.0); Mean Corpuscular Hgb 29.4 pg (27.0-31.0); Mean Platelet Volume 11.2 fL (7.4-10.4); Platelet Count 79 10^3/uL (130-400); Red Blood Cell Count 4.01 10^6/uL (4.20-5.40); Red Cell Dist. Width 15.1 % (11.5-14.5); White Blood Cell Count 8.4 10^3/uL (4.8-10.8)
[2023-08-15 04:52] LABS: Lactic Acid 2.3 mmol/L (0.7-2.0)
--- NOTE | 2023-08-15 05:05 | PTCARENOTE ---
PRN fentanyl given prior to bed bath. pt agitate with bathing biting down on ETT desatted to 7%, able to get a bite block inserted and manually bagged patient until she came up to the 90's then placed back on the vent.
[2023-08-15 05:07] VITALS: BMI 24.9
[2023-08-15 05:08] LABS: Blood Urea Nitrogen 52 mg/dl (7-17); Calcium 7.8 mg/dl (8.4-10.2); Carbon Dioxide 26 mmol/L (22-30); Chloride 96 mmol/L (98-107); Estimated Creatinine Clearance 34 ml/min; Glucose 159 mg/dl (70-99); Magnesium 1.5 mg/dl (1.6-2.3); Phosphorus 2.8 mg/dl (2.5-4.5); Potassium 3.8 mmol/L (3.5-5.1); Sodium 131 mmol/L (135-145); eGFR > 60.00
[2023-08-15] MEDS: MAGNESIUM SULFATE 50 IV (05:37)
[2023-08-15 06:14] LABS: Glucose - Point of Care 158 mg/dl (70-99)
[2023-08-15] MEDS: NOVOLOG FLEXPEN-MODERATE RESISTANCE 1 UNITS SC ×2 (06:18→11:27)
--- NOTE | 2023-08-15 07:15 | W.PN.INTV ---
Today's Communication / Plan
Recommendations
Remains critically ill, on pressors
Will add midodrine via tube
Stop sedation
Limit fluid intake/reduce gtt use/FWF
Lasix per cards team
GOC discussions are ongoing with son
Assessment
-
88-year-old with PMHx of HTN, A-fib on AC, valvular heart disease, Hx of GI bleed and pHTN who presents with unresponsiveness while at [facility]. Staff at [facility] found her and pt was pulseless and CPR started - appears that CPR was started soon after pt
became unresponsive. Pt achieved ROSC after 2-3 mins. 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 Vitals in ER were BP 99/50, HR 92, RR 18 and SpO2 98% on vent. Labs showed WBC 11.9, Hb 12.8, plt 191, pH 7.2, pCO2 51, pO2
157, glucose 193, lactate 6.1 Vent settings are: 16/450/5/50%. Imaging done with CT head/chest/abd/pelvis, and there is no acute intracranial pathology, there is e/o multifocal PNA, normal appearing liver, bilateral renal stones (non-obstructing)
measuring up to 1.2cm, and diverticuli without diverticulosis. In ER she was given 1L NS 0.9%, vecuronium 10mg IVP x1, started on propofol gtt and levophed + dopamine also started due to hypotension with SBP in 80s. Patient then became tachycardic
and dopamine was stopped. Lopressor 5 mg IV was given as well. Given her cardiac arrest and need for continuous monitoring while on ventilator, pt admitted to ICU and Barbering Teacher consulted for additional management/recommendations.
Impression:
Epy-gf-pbqnieqz cardiac arrest - difficult to say if pt actually lost a pulse as unknown which rhythm she was in and does not appear that she received any epinephrine/drugs during 'code'
Acute respiratory failure with hypoxemia and hypercapnia on mechanical ventilation
Left large spontaneous secondary pneumothorax s/p IR chest tube (placed 08/11/2023)
Septic shock from UTI
Hypothermia - likely auto-hypothermic in ?setting of cardiac arrest with autonomic dysfunction and likely due to reduced PO intake CHIEF CUSTOMER OFFICER
Acute on chronic HFpEF
Bilateral pleural effusions (R>L) with acute pulmonary edema
A-fib with RVR
Jerking movements likely myoclonus
Lactic acidosis -improving- likely worsened in setting of tension PTX and septic shock on vasopressors
Elevated troponin - likely due to cardiac arrest with resultant type II WA - troponin peaked at 0.063 on 08/10/2023
Hypoalbuminemia
UTI - due to Staph simulans (she has a hx of Staph epidermidis from [facility] on 07/15/2023)
Hyperglycemia (improved)- likely due to critical illness
Chronic liver disease with cirrhotic appearing morphology on abd US
Chronic medical conditions CHIEF CUSTOMER OFFICER:
Atrial fibrillation on Eliquis
hypertension
valvular heart disease
history of GI bleed
pulmonary pretension
history of UTI
Hx of FTT
Plan:
Anoxic brain injury suspected, myoclonus evident wtih poor neurologic recovery
Limit sedation so we can assess her neurological status; would give boluses of fentanyl only PRN
Hold PO oxy for oversedation
Today, pt appears to be more asynchronous with vent --> Precedex
Avoid fever
Neuro following, EEG neg for seizure but showing diffuse slowing
Intubated for cardiac arrest/hypoxia and hypercarbia noted
Left large spontaneous secondary pneumothorax s/p IR chest tube (placed 08/11/2023)--water seal, still with infrequent leaks
Patient remains critically ill on mechanical ventilation, on vasopressors and failing PSW multiple days in a row
Continue mechanical ventilation with daily SAT/SBT if clinically appropriate
Blood gas reviewed and ventilator adjusted as needed
Titrate PEEP and FiO2 to maintain SpO2 >94%
Wean down FiO2 as tolerated to maintain SpO2 >90-94%
Keep chest tube to CWS, and place back to suction if needed based on CXR and peak/plateau pressures--will attempt clamping if stable in 24 hours
Keep plateau pressure <30
Acute HFpEF, moderate PH on ECHO, mild-mod MR, proBNP 6640--worsening to 8260/declining now
Permanent Afib with RVR, on Eliquis
Levophed remains @8mcg, can try PO midodrine to wean pressor use
Maintain net negative fluid balance as tolerated -- worsening bilateral pleural effusions on CXR
Continue Lasix to 40mg IV BID with goal net negative 1.5L/24 hrs
Continue PO amiodarone --> amio gtt stopped this AM; goal HR<110
Continue low dose BB with metoprolol 12.5mg BID (she takes Toprol-XL 100mg at home), raise dose as needed/tolerated
No need to continue trending troponin, peak at 0.063, declining now
Cards following
HAP suspected but sputum culture remains neg
Urine + Staph, she has prior history of UTI
Continue broad spectrum Abx with cefepime (started 08/09/2023)
IV vanco DC'd given negative MRSA swab (she got 2 doses of IV vanco on 08/08 + 08/09)
Follow up paredes-culture with blood, sputum and urine Cx --> Urine Cx grew S. simulans
Trend lactate until <2mmol/L
No history of renal disease, creat stable
Monitor I/Os, UO
Daily weights, limit volume intake
Maintain BG 140-180mg/dL and with ISS q6hr
Hba1c 04/26/22: 5.9
NPO, TFs on and titrated to goal
Stress ulcer ppx: continue PPI
Aspiration precautions
DVT ppx: Continue Eliquis 2.5mg BID
SCDs
Family Discussions
Dr Blake- Guarded prognosis - had GOC/code status discussion with son on 08-13-2023. I explained that she is now less responsive and is continuing to be weak and I doubt that we can successfully extubate her over the coming days. He tells me
that prior to her coming to the hospital that she was not very mobile, would be frequently living a sedentary lifestyle. Based on this information I do not think she will improve and have a meaningful recovery. I encouraged him to discuss with his
brother about changing code status to DNR at very least. He will discuss this with his brother and then get back to me.
Diagnostic Data
CT Chest/Abd/Pelvis without Contrast 08-09-2023: There is moderate interstitial and confluent alveolar airspace disease in both perihilar regions extending into the mid and lower portions of both lungs, most consistent with pneumonia associated with
small left moderate right pleural effusions. Cardiomegaly without associated pulmonary edema. Atherosclerosis. Bilateral nonobstructing calculi. Moderate bilateral cortical atrophy. 9.5 cm left renal cyst. Imaging for bowel pathology is limited by
the lack of enteric contrast Diverticuli are present in the colon with no CT evidence of diverticulitis. There is mild thoracolumbar dextroscoliosis. There is multilevel degenerative disc disease
CT Head without Contrast 08-09-2023: No acute intracranial abnormality. Stable chronic findings
CXR 08-09-2023: Endotracheal tube with tip in trachea above the darshan. No pneumothorax. Some mild bibasilar opacification such as subsegmental atelectasis and/or pneumonia cannot be excluded, left greater than right.
CXR 08-10-2023: Endotracheal tube is present with its tip 5.6 cm above the darshan. Airspace opacities within both lungs, with appearance most suggestive of pneumonia, although pulmonary edema could have a similar appearance. Slight interval increase
in confluent increased density over the left lower hemithorax.
CXR 08-11-2023: Significantly improved left pneumothorax following chest tube insertion. Mild cardiomegaly. Central pulmonary vascular congestion. Bibasilar opacities, which may represent pneumonia, subsegmental atelectasis, or aspiration. Tiny
bilateral pleural effusions.
CXR 08-12-2023: No pneumothorax on the current study. Interstitial prominence, consistent with mild pulmonary edema, more pronounced compared to prior chest x-ray. Bibasilar airspace consolidation, also pronounced. Differential diagnosis includes
pneumonia, subsegmental atelectasis, aspiration, and alveolar pulmonary edema. Small bilateral pleural effusions may be present.
CXR 08-13-2023: Slightly improved aeration in the right mid to lower lung zone. Persistent patchy opacity is noted on the right, most pronounced in the right perihilar distribution. There is persistent relatively homogeneous retrocardiac opacity
without significant interval change. Endotracheal tube remains in place, unchanged. The gastric tube remains extending into the stomach. Stable right PICC line catheter. Stable chest tube catheter overlying the lower left hemithorax. No
pneumothorax. The cardiomedial subtle margins are stable.
CXR 08-14-2023: Possible faint/trace left apical pneumothorax.
EEG 08-10-2023: This EEG is abnormal due to the presence of polymorphic moderate to severe diffuse slowing of the background consistent with moderate to severe diffuse cerebral dysfunction, nonspecific in etiology. No clear epileptiform
abnormalities were noted.
Echo 08/09/23: EF 55 to 60% with mild to moderate aortic regurgitation, severe tricuspid regurgitation, pulmonary artery pressure 46 mmHg
-----
Critical Care time 45 mins -- The patient is admitted for acute critical illness for the treatment of vital organ failure and/or prevention of further life-threatening conditions. Total care includes time spent in review of history, physical exam,
medications, hemodynamic/ventilator parameters, laboratory data, imaging and discussion with house staff, pharmacy, respiratory therapy, superintendent measurement, and nursing.
Subjective Dataa
Subjective Data
Date of Service:
Date of Service: August 15, 2023
Chief Complaint: Barbering Teacher Follow Up
Subjective:
remains critically ill
minimally responsive, eyes open
chest tube to water seal, no leak
Objective Data
Data Reviewed
Vital Signs / I&O / Oxygen:
Vital Signs
Temp Pulse Resp BP Pulse Ox
98.6 F 116 16 100/52 95
08/15/23 05:07 08/15/23 07:00 08/15/23 07:00 08/14/23 21:46 08/15/23 07:00
Intake and Output
08/14/23 08/15/23 08/16/23
06:59 06:59 06:59
Intake Total 915.6 / 1695.6 2574.3 / 2574.3
Output Total 2550 / 2550 2535 / 2535
Balance -1634.4 / -854.4 39.3 / 39.3
SaO2 [A/C] 94
SaO2 95
Physical Exam
General: Comfortable (Appears comfortable) and Chills (negative)
HEENT: Normocephalic and Anicteric
Cardiovascular: Irregular Rhythm (Irregularly irregular), Peripheral Edema (Trace LE pitting edema ) and Other (Tachycardic)
Respiratory: Wheeze (negative), Crackles (negative), Rhonchi (bilaterally), Accessory Resp Muscle Use (negative), Stridor (negative), ET Tube, Chest Tube (left hemithorax) and Other (Coarse breath sounds heard bilaterally; mechanical breath sounds
heard)
GI: Soft, Non Distended, Non Tender, Normal Bowel Sounds and Feeding Tube
Neurology: Tremors (Negative), Unresponsive (Moves arms/legs to tactile stimuli but not following commands) and Other (Pupils +2mm and brisk)
Skin: Warm, Dry and Jaundice (negative)
Labs/Micro/Reports
Lab Data
08/15/23 04:28
08/15/23 04:28
Laboratory Results
08/15/23
04:28
pH 7.48 H
pCO2 40 H
pO2 102
HCO3 29.8 H
O2 Delivery Level
Microbiology
08/09/23 17:47 Blood/Venous Blood Culture - Final
No Growth - Final Report
08/09/23 17:34 Blood/Venous Blood Culture - Final
No Growth - Final Report
08/09/23 17:12 Urine Urine Culture - Final
Staphylococcus simulans
[2023-08-15] MEDS: MIRALAX 17 GRAMS TUBE (07:44)
[2023-08-15] MEDS: KEPPRA 1000 MG IV ×2 (07:44→21:03)
[2023-08-15] MEDS: PROTONIX IV 40 MG IV (07:44)
[2023-08-15] MEDS: NSS (PRESERVATIVE FREE) 10 ML IV (07:44)
[2023-08-15] MEDS: ELIQUIS 2.5 MG TUBE ×2 (07:44→21:03)
[2023-08-15] MEDS: SENNA SYRUP 8.80000000000000071 MG TUBE ×2 (07:45→21:03)
[2023-08-15] MEDS: LOPRESSOR 12.5 MG PO ×3 (07:45→17:37)
[2023-08-15] MEDS: CELEXA 10 MG TUBE ×2 (07:45→21:03)
[2023-08-15] MEDS: LASIX 40 MG IV ×2 (07:45→15:48)
[2023-08-15] MEDS: PACERONE 400 MG TUBE ×3 (07:45→21:03)
--- NOTE | 2023-08-15 08:30 | PTCARENOTE ---
received patient at change of shift. assessed as documented. turned and repositoned. pt opens eyes but doesnt follow commands. ETT moved to the center. a-fib on the monitor. Propofol off for SAT/SBT. Levophed weaned as charted.
--- NOTE | 2023-08-15 08:36 | W.PN.CARDCBS ---
Addendum entered and electronically signed by Tam Caicedo MD 08/15/23 09:59:
I called son James and recommended hospice after review of his mom status and very poor prognosis. He was open to the idea. He states his brother will be flying in from [place] tomorrow. At that point, if all are in agreement, would recommend
the patient transition to comfort care.
Original Note:
Today's Communication / Plan
-
Cardiac status unchanged
Continue IV Lasix, probably volume overloaded
Consider goals of care
Increase metoprolol for better rate control, continue amiodarone
Impression / Plan
-
.
Primary Manager Sourcing: Dr. BRENNAN Caicedo, last seen in office 2021
Impression:
Presentation with OOH arrest s/p CPR and epi with ROSC 08/09/23
Hypotensive shock, requiring pressor support
VDRF, s/p agonal breathing per EMS, requiring intubation 08/09/23
Pneumothorax status post chest tube 08/10
Elevated lactic acid
Leukocytosis, mild
Elevated troponin
Permanent atrial fibrillation, now with rapid response on chronic OAC with eliquis
acute HFpef
mod to severe MR and AR, severe TR by echo 05/2023
Admission to for FTT 07/13-07/19/23, discharged to [facility] for SNF
History of rectal bleeding
HTN
LOPES
GERD
Depression
History of CVA on MRI imaging
ECHO 05/20/23: EF 60-65%, mild cLVH, mod to severe eccentric jet MR with flow reversal in pulm veins, dilated LA, mod to severe AR, severe TR, PAP 46mmHg
CT chest/abd/pelvis August 09 2023: moderate interstitial and confluent alveolar airspace disease in both perihilar regions extending into the mid and lower portions of both lungs, most consistent with pneumonia associated with small left moderate
right pleural effusions. Cardiomegaly without associated pulmonary edema. Atherosclerosis. Bilateral nonobstructing calculi.
Echo August 09 2023: EF 55 to 60% with mild to moderate aortic regurgitation, severe tricuspid regurgitation, pulmonary artery pressure 46 mmHg
Plan:
From a cardiac standpoint she is unchanged. As an outpatient had been on high-dose diltiazem and metoprolol for rate control. Now on amiodarone with low-dose metoprolol and heart rates are rapid. Will try increasing metoprolol to 12.5 every 6,
though patient still on norepinephrine
Blood pressures currently adequate on norepinephrine 8 mcg/min. Lactic acid level is 2.3
Volume status probably overloaded, continue IV furosemide. Last proBNP was 7650, was 6640 on admission
Still has chest tube for pneumothorax
Peak troponin was 0.063, in the setting of cardiac arrest this makes ACS unlikely. Suspect mechanism of arrest was respiratory, possibly multifactorial pneumonia, CHF
Antibiotics per primary team and aircraft line assembler.
Prognosis poor. Will discuss end-of-life care with family
CC time 38min
HPI: 88-year-old woman known to Dr Caicedo, last seen in the office in April 2022, at which point she was active cleaning her home and offering no complaints. She declined over 2022 and was admitted with failure to thrive in June 2023,
possibly with UTI and with marked decrease in activity tolerance. She was transferred to [facility], and today became unresponsive, received CPR and had ROSC. She was never shocked, and was intubated by paramedics at the scene for respiratory
failure. Seen in the emergency department on high-dose Levophed and low-dose dopamine she has a heart rate of approximately 100 with a blood pressure of approximately 100. Urgent echocardiography shows preserved LV function, biatrial dilatation,
mitral and aortic regurgitation but no pulmonary hypertension. She is unresponsive on propofol and having been paralyzed. Son at bedside.
Progress Note - Manager Sourcing
Subjective
Date of Service: August 15, 2023:
Unresponsive, does not withdraw to pain
Allergies: Keflex, erythromycin, penicillins, sulfa
Home medications: Diltiazem ER 180 mg a day, Eliquis 2.5 twice daily, metoprolol ER 100 mg twice daily
Current medications apixaban 2.5 mg twice daily, Celexa 10 mg twice daily, Protonix, MiraLAX, Levophed, furosemide 40 IV twice daily, metoprolol ER 12.5 twice daily, amiodarone 400 mg via tube, propofol, Keppra, valproate
PMH/PSH/SH/FH: Reviewed
Review of systems: Negative/not obtainable
Hemoglobin 11.8, white count 8.4, platelets 79, 7.48, pCO2 40, pO2 102, bicarb 30, sodium 131, BUN 52, creatinine 0.9, potassium 3.8, glucose 159, lactate 2.3
Chest x-ray right lung pneumonia, chest tube left, small effusions, scoliosis, osteopenia
Objective
Labs:
08/15/23 04:28
08/15/23 04:28
Labs
Hgb 11.8 g/dL (12.0-16.0) L 08/15/23 04:28
Hct 33.7 % (37.0-47.0) L 08/15/23 04:28
Plt Count 79 10^3/uL (130-400) L 08/15/23 04:28
PT 19.1 Sec (11.4-14.6) H 08/09/23 18:35
INR 1.62 08/09/23 18:35
APTT 34.6 Sec (23.4-35.0) 08/09/23 18:35
Sodium 131 mmol/L (135-145) L 08/15/23 04:28
Potassium 3.8 mmol/L (3.5-5.1) 08/15/23 04:28
BUN 52 mg/dl (7-17) H 08/15/23 04:28
Creatinine 0.9 mg/dL (0.6-1.0) 08/15/23 04:28
Glucose 159 mg/dl (70-99) H 08/15/23 04:28
Vital Signs and I&O:
Vital Signs
Temp Pulse Resp BP Pulse Ox
36.6 C 116 16 100/52 96
08/15/23 07:52 08/15/23 07:00 08/15/23 07:00 08/14/23 21:46 08/15/23 07:44
Vital Signs
Temp Pulse Resp BP Pulse Ox
36.6 C 116 16 100/52 96
08/15/23 07:52 08/15/23 07:00 08/15/23 07:00 08/14/23 21:46 08/15/23 07:44
Intake & Output
08/13/23 08/14/23 08/15/23 08/16/23
07:59 07:59 07:59 07:59
Intake Total 2509.0 / 2574.0 1630.6 / 1710.6 1794.3 / 1794.3
Output Total 1934 / 1984 2500 / 2700 2535 / 2535
Balance 574.0 / 589.0 -869.4 / -989.4 -740.7 / -740.7
Physical Exam
Physical Exam
Pulse 100 and teens, afebrile, sats 96%, respiratory rate 16, weight 61.7 kg, down 0.7 kg, weight on admission was 57.6 kg, blood pressure 100/52, intake and output -0.6 L
Intubated, unresponsive
Does not withdraw to pain, subtle myoclonus
Lungs diminished in bases
Regular rate and rhythm, tachycardic, soft systolic murmur, JVD difficult to assess
Abdomen benign
Extremities without cyanosis or clubbing, trace to 1+ edema
neuro as above, consistent with diffuse anoxic encephalopathy
[2023-08-15 09:04] VITALS: BP_SYST 123
[2023-08-15 09:05] VITALS: BP_SYST 123
[2023-08-15 09:20] VITALS: BP_SYST 117
[2023-08-15 09:35] VITALS: BP_SYST 128
[2023-08-15] MEDS: ProAmatine 5 MG TUBE ×2 (10:39→17:37)
--- NOTE | 2023-08-15 10:52 | CM ---
Patient remains in ICU intubated. Per physician note son arriving from [place] tomorrow and plan is possible for hospice vs comfort care. CM will continue to follow for discharge planning needs.
Plan; TBD; pending family arrival/discussions
--- NOTE | 2023-08-15 11:20 | PTCARENOTE ---
SAT began at 0748. SBT started at 0905 at CPAP 5/5/40%. Returned to AC settings at 0947 due to tachycardia/tachypnea. Propofol remains off at this time.
[2023-08-15 11:38] LABS: Glucose - Point of Care 179 mg/dl (70-99)
[2023-08-15 12:03] LABS: Glucose - Point of Care 174 mg/dl (70-99)
--- NOTE | 2023-08-15 13:36 | W.PN.HOSP.TC ---
Today's Communication/Plan
-
Monitor vital signs see plan
Ongoing goals of care discussion with family
Wean pressors as tolerated
Continue to fail weaning trial
Chest tube per safety and skill based pay manager
Continue with amio
Assessment / Plan
Assessment / Plan
Physical exam:
General: On vent, opens eyes occasionally
HEENT: anicteric; pink conjunctiva
Respiratory: Ventilated breath sounds, normal respiratory effort, no respiratory distress,
Heart: S1, S2 tachycardic with irregular irregular
Gastrointestinal: soft, nontender, no guarding
Extremities: No pitting edema
Assessment and plan:
[id number] cardiac arrest status post successful resuscitation on ROSC? In 2 to 3 minutes. Possibility in light of A-fib with RVR or septic shock.
Continue Levophed, wean as tolerated, midodrine added
Continue with cefepime
Muscle twitching, myoclonus could be secondary to post code anoxic injury
Neurology following
Started on valproate, Keppra
Unclear etiology for cardiac arrest. Possible to be related to septic shock with A-fib with RVR, known history of A-fib. No acute ST-T changes. No significant troponin elevation yet. Patient with significant valvular heart disease concern if
she has new cardiomyopathy and secondary arrhythmia. Echo August 09 2023: EF 55 to 60% with mild to moderate aortic regurgitation, severe tricuspid regurgitation, pulmonary artery pressure 46 mmHg. Doubt PE - on group home AC and receiving it at [place].
Failing weaning trial. Not following much commands.
Acute hypoxic hypercapnic respiratory failure
Continues to be intubated, vent management per safety and skill based pay manager
on tube feeds; monitor
failing weaning trial, ongoing goals of care discussion with family
Lactic acidosis
monitor
Large left spontaneous secondary pneumothorax status post IR chest tube 08/10
Monitor
mild air leak at times; discussed with safety and skill based pay manager and will monitor
Suspected non-ischemic myocardial injury
Permanent Afib - now in RVR -patient hypotensive post cardiac arrest and on Levophed. Normally on Cardizem and beta-rosa elena which she may not tolerate now.
Continue Eliquis
Cardiology input appreciated
On amiodarone
Suspect acute CHF with preserved ejection fraction
Continue with IV Lasix
Cardiology following
Moderate to severe AR/moderate to severe MR/severe TR
Pulmonary hypertension
History of Xavier
Thrombocytopenia
Monitor
Hypophosphatemia
Resolved
Hyponatremia
Monitor
Hypomagnesemia
Replete
Hypotensive shock-patient currently requiring vasopressors postcardiac arrest. Continue with vasopressors.
Lactic acidosis-suspect secondary to cardiac arrest and hypotension. Continue to follow .
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 LFTs normal. No clinical evidence of ascites.
Essential hypertension-hold home medications due to current hypotension
DVTppx
Eliquis
Full code
Die Cutter has discussed poor prognosis multiple times with the family. They still want full code. I also discussed with Son 08/13 and he is in process discussing with his other son and will make a decision. They are aware of patient's poor
prognosis.
I spent a total of 53 minutes with the patient or on the floor. More than 50% of this time involved counseling and coordination of care.
Anticipated Discharge: > 48 hours
Subjective/Interval History
-
Date of Service: August 15, 2023
Continues to be intubated
Objective Data
-
Labs:
Laboratory Results
08/15/23
04:28
WBC 8.4
Hgb 11.8 L
Hct 33.7 L
Plt Count 79 L
HCO3 29.8 H
Sodium 131 L
Potassium 3.8
Chloride 96 L
Carbon Dioxide 26
BUN 52 H
Creatinine 0.9
Glucose 159 H
Calcium 7.8 L
Vital Signs:
Vital Signs
Temp Pulse Resp BP Pulse Ox
97.9 F 111 18 100/52 96
08/15/23 07:52 08/15/23 12:00 08/15/23 12:00 08/14/23 21:46 08/15/23 12:00
I&O
08/14/23 08/15/23 08/16/23
06:59 06:59 06:59
Intake Total 915.6 / 1695.6 2574.3 / 2674.9 838.7 / 838.7
Output Total 2550 / 2550 2535 / 2535 370 / 370
Balance -1634.4 / -854.4 39.3 / 139.9 468.7 / 468.7
--- NOTE | 2023-08-15 14:37 | PN.CDI ---
CDI
- -
CDI:
Physician Documentation Request
Admit Date: 08/09/23 15:44
Dear Doctor Everardo,
Patient admitted following cardiac arrest.
08/14 [facility] PN: 'Acute on chronic HFpEF'
08/14 Cardiology PN: 'acute HFpef'
08/14 Hospitalist PN: 'Suspect acute CHF with preserved ejection fraction, Continue with IV Lasix'
Please provide further specificity regarding the most likely acuity of CHF you are evaluating, treating or monitoring.
Acute HFpEF
Acute on chronic HFpEF
Other
Use of terms such as suspected, likely, concern for, or probable (associated with a specific diagnosis that is being evaluated, monitored, or treated as if it exists) are acceptable and can be coded in the inpatient setting, when documented at the
time of discharge.
Thank you,
Sujey Bueno RN, BSN
CDI Specialist
Available via [employer] text
Please use your independent medical judgment in providing your response.
--- NOTE | 2023-08-15 14:38 | PTCARENOTE ---
Rhythm change noted, rate similar and perfusion appears the same. Consulted Cardiology PA, ECG ordered if change returns.
--- NOTE | 2023-08-15 17:05 | PTCARENOTE ---
Assessment unchanged. Sedation remains off with CPOT 2. No pain meds given this shift. Pt's eyes open and turns to noise but not focusing. follows no commands. weak cough, gag, and pain reflexes. Son to bedside. Plan discussed. Awaiting Brother
to arrive from [place] to make hospice/comfort care decisions
[2023-08-15 17:38] LABS: Glucose - Point of Care 140 mg/dl (70-99)
--- NOTE | 2023-08-15 20:30 | PTCARENOTE ---
received patient. b/l pupils 3mm sluggish. does not follow commands. eyes opens spontaneously. afib on monitor. + Doppler pedal pulses. levo gtt infusing through R PICC to maintain MAP >65. #7 ETT, 25 at lip, adjusted to right side. vent settings:
AC 16-370-5-40%. rhonchi breath sounds noted. dickinson in place, rectal trumpet in place. care ongoing.
[2023-08-15] MEDS: TYLENOL ORAL SOLUTION 650 MG PO (21:02)
--- NOTE | 2023-08-15 22:06 | PTCARENOTE ---
pt bathed with CHG wipes, oral care and sxn provided, dickinson care done. bite block replaced. extremities elevated on pillow. TF increased to goal rate. care ongoing.
[2023-08-16 00:23] LABS: Glucose - Point of Care 123 mg/dl (70-99)
[2023-08-16] MEDS: SUBLIMAZE 50 MCG IV ×4 (00:24→22:39)
[2023-08-16] MEDS: NOVOLOG FLEXPEN-MODERATE RESISTANCE SC ×4 (00:25→17:38)
[2023-08-16] MEDS: LOPRESSOR 12.5 MG PO ×5 (00:25→22:40)
--- NOTE | 2023-08-16 01:07 | PTCARENOTE ---
patient reassessed, no changes noted. pt repositioned, oral care provided. PRN fentanyl given per CPOT. care ongoing.
[2023-08-16] MEDS: MAXIPIME 1000 MG IV ×3 (03:10→17:38)
[2023-08-16] MEDS: DEPACON 57.5 MG IV ×2 (03:10→14:23)
[2023-08-16] MEDS: STERILE WATER FOR INJECTION 10 ML IV ×3 (03:10→17:38)
[2023-08-16] MEDS: ProAmatine 5 MG TUBE ×3 (03:11→17:38)
[2023-08-16 03:33] LABS: Hematocrit 31.6 % (37.0-47.0); Hemoglobin 11.2 g/dL (12.0-16.0); Mean Corp Hgb Conc. 35.4 g/dL (33.0-37.0); Mean Corpuscular Hgb 29.1 pg (27.0-31.0); Mean Corpuscular Volume 82.1 fL (81.0-99.0); Mean Platelet Volume 11.9 fL (7.4-10.4); Platelet Count 80 10^3/uL (130-400); Red Blood Cell Count 3.85 10^6/uL (4.20-5.40); White Blood Cell Count 9.8 10^3/uL (4.8-10.8)
[2023-08-16 03:45] LABS: B.E. 5.5 mmol/L; HCO3 29.9 mmol/L (21-28); Ionized Calcium 1.09 mMOL/L (1.15-1.33); O2 Saturation % 98.4 % (94-98); PCO2 42 mmHg (32-35); PO2 89 mmHg (83-108); Potassium 3.9 mMOL/L (3.5-5.1); Sodium 128 mMOL/L (136-145); pH 7.46 (7.35-7.45)
[2023-08-16 03:53] LABS: O2 Therapy 40%
[2023-08-16 04:00] VITALS: BMI 25.1
[2023-08-16 04:20] LABS: Blood Urea Nitrogen 58 mg/dl (7-17); Calcium 7.6 mg/dl (8.4-10.2); Carbon Dioxide 27 mmol/L (22-30); Chloride 96 mmol/L (98-107); Estimated Creatinine Clearance 30 ml/min; Glucose 139 mg/dl (70-99); Magnesium 1.8 mg/dl (1.6-2.3); Sodium 130 mmol/L (135-145); eGFR 53.85
--- NOTE | 2023-08-16 05:00 | PTCARENOTE ---
patient reassessed, no changes noted. AM labs sent. pt repositioned, oral care provided, ETT adjusted. care ongoing.
[2023-08-16] MEDS: LEVOPHED 250 IV ×3 (05:11→22:39)
[2023-08-16] MEDS: CALCIUM CHLORIDE 10% SYRINGE 60 MG IV (05:25)
[2023-08-16 06:14] LABS: Glucose - Point of Care 127 mg/dl (70-99)
[2023-08-16] MEDS: PACERONE 400 MG TUBE ×3 (07:21→19:35)
[2023-08-16] MEDS: LASIX 40 MG IV ×2 (07:21→15:02)
[2023-08-16] MEDS: KEPPRA 1000 MG IV ×2 (07:21→19:35)
[2023-08-16] MEDS: SENNA SYRUP 8.80000000000000071 MG TUBE ×2 (07:21→19:35)
[2023-08-16] MEDS: ELIQUIS 2.5 MG TUBE ×2 (07:21→19:36)
[2023-08-16] MEDS: MIRALAX 17 GRAMS TUBE (07:22)
[2023-08-16] MEDS: CELEXA 10 MG TUBE ×2 (07:22→19:36)
--- NOTE | 2023-08-16 07:55 | W.PN.CARDCBS ---
Today's Communication / Plan
-
Continue amiodarone and metoprolol via tube. Ventricular rates are adequate
Continue Lasix 40 mg IV twice daily
Creatinine is stable.
Continue Eliquis via tube
Wean pressors as tolerated
Would recommend comfort care
Impression / Plan
-
.
Primary Packager And Strapper: Dr. BRENNAN Caicedo, last seen in office 2021
Impression:
Presentation with OOH arrest s/p CPR and epi with ROSC 08/09/23
Hypotensive shock, requiring pressor support
VDRF, s/p agonal breathing per EMS, requiring intubation 08/09/23
Pneumothorax status post chest tube 08/10
Elevated lactic acid
Leukocytosis, mild
Elevated troponin
Permanent atrial fibrillation, now with rapid response on chronic OAC with eliquis
acute HFpef
mod to severe MR and AR, severe TR by echo 05/2023
Admission to for FTT 07/13-07/19/23, discharged to [facility] for SNF
History of rectal bleeding
HTN
LOPES
GERD
Depression
History of CVA on MRI imaging
ECHO 05/20/23: EF 60-65%, mild cLVH, mod to severe eccentric jet MR with flow reversal in pulm veins, dilated LA, mod to severe AR, severe TR, PAP 46mmHg
CT chest/abd/pelvis August 09 2023: moderate interstitial and confluent alveolar airspace disease in both perihilar regions extending into the mid and lower portions of both lungs, most consistent with pneumonia associated with small left moderate
right pleural effusions. Cardiomegaly without associated pulmonary edema. Atherosclerosis. Bilateral nonobstructing calculi.
Echo August 09 2023: EF 55 to 60% with mild to moderate aortic regurgitation, severe tricuspid regurgitation, pulmonary artery pressure 46 mmHg
Plan:
A-fib remains relatively well rate controlled. Continue amiodarone and metoprolol. Remains on pressors. It has been difficult to wean her Levophed.
Would continue to try and diurese with IV Lasix twice daily. Weight is down some. She does have severe mitral, tricuspid, and aortic regurgitation
Still has chest tube for pneumothorax
Peak troponin was 0.063, in the setting of cardiac arrest this makes ACS unlikely. Suspect mechanism of arrest was respiratory, possibly multifactorial pneumonia, CHF
Antibiotics per primary team and job cost estimator.
She should be considered strongly for hospice/comfort care
CC time 31 min
HPI: 88-year-old woman known to Dr Caicedo, last seen in the office in April 2022, at which point she was active cleaning her home and offering no complaints. She declined over 2022 and was admitted with failure to thrive in June 2023,
possibly with UTI and with marked decrease in activity tolerance. She was transferred to [facility], and today became unresponsive, received CPR and had ROSC. She was never shocked, and was intubated by paramedics at the scene for respiratory
failure. Seen in the emergency department on high-dose Levophed and low-dose dopamine she has a heart rate of approximately 100 with a blood pressure of approximately 100. Urgent echocardiography shows preserved LV function, biatrial dilatation,
mitral and aortic regurgitation but no pulmonary hypertension. She is unresponsive on propofol and having been paralyzed. Son at bedside.
Progress Note - Packager And Strapper
Subjective
Date of Service: August 16, 2023
remains on vent. on pressors. Afebrile
Objective
Labs:
08/16/23 03:21
08/16/23 03:21
Labs
Hgb 11.2 g/dL (12.0-16.0) L 08/16/23 03:21
Hct 31.6 % (37.0-47.0) L 08/16/23 03:21
Plt Count 80 10^3/uL (130-400) L 08/16/23 03:21
PT 19.1 Sec (11.4-14.6) H 08/09/23 18:35
INR 1.62 08/09/23 18:35
APTT 34.6 Sec (23.4-35.0) 08/09/23 18:35
Sodium 130 mmol/L (135-145) L 08/16/23 03:21
Potassium 4.0 mmol/L (3.5-5.1) 08/16/23 03:21
BUN 58 mg/dl (7-17) H 08/16/23 03:21
Creatinine 1.0 mg/dL (0.6-1.0) 08/16/23 03:21
Glucose 139 mg/dl (70-99) H 08/16/23 03:21
Vital Signs and I&O:
Vital Signs
Temp Pulse Resp BP Pulse Ox
99.6 F 89 16 119/55 95
08/16/23 03:07 08/16/23 06:30 08/16/23 06:30 08/16/23 05:11 08/16/23 06:30
Vital Signs
Temp Pulse Resp BP Pulse Ox
99.6 F 89 16 119/55 95
08/16/23 03:07 08/16/23 06:30 08/16/23 06:30 08/16/23 05:11 08/16/23 06:30
Intake & Output
08/14/23 08/15/23 08/16/23 08/17/23
06:59 06:59 06:59 06:59
Intake Total 915.6 / 1695.6 2574.3 / 2674.9 1805.7 / 1805.7
Output Total 2550 / 2550 2535 / 2535 1415 / 1415
Balance -1634.4 / -854.4 39.3 / 139.9 390.7 / 390.7
Physical Exam
Physical Exam
GEN: No distress, intubated
HEENT: supple, anicteric, mmm, ET tube
LUNGS: scatt rhonchi
CV: irreg, S1/S2, 1/6 syst LSB, no gallop
ABD: soft, BS+, NT/ND
EXT: No edema
NEURO: Gross non-focal
SKIN: No rash
--- NOTE | 2023-08-16 08:20 | PTCARENOTE ---
received patient. b/l pupils 3mm sluggish. does not follow commands. eyes opens spontaneously. afib on monitor. + Doppler pedal pulses. levo gtt infusing through R PICC to maintain MAP >65. #7 ETT. vent settings: AC 16-370-5-40%. rhonchi noted.
dickinson in place, rectal trumpet in place. care ongoing.
[2023-08-16 09:18] VITALS: BP_SYST 119; BP_SYST 120
--- NOTE | 2023-08-16 11:01 | W.PN.HOSP.TC ---
Today's Communication/Plan
-
monitor vitals
see plan
prognosis appears guarded; ongoing [facility] discussion with family
continue to fail weaning
cw chest tube
cw amio,lasix
Assessment / Plan
Assessment / Plan
Physical exam:
General: On vent, opens eyes occasionally
HEENT: anicteric; pink conjunctiva
Respiratory: Ventilated breath sounds, normal respiratory effort, no respiratory distress,
Heart: S1, S2 tachycardic with irregular irregular
Gastrointestinal: soft, nontender, no guarding
Extremities: No pitting edema
Assessment and plan:
[id number] cardiac arrest status post successful resuscitation of ROSC. Possibility in light of A-fib with RVR or septic shock.
Continue Levophed, wean as tolerated, midodrine added
Continue with cefepime; last day 08/18
Muscle twitching, myoclonus could be secondary to post code anoxic injury
Neurology following
Started on valproate, Keppra
Unclear etiology for cardiac arrest. Possible to be related to septic shock with A-fib with RVR, known history of A-fib. No acute ST-T changes. No significant troponin elevation yet. Patient with significant valvular heart disease concern if
she has new cardiomyopathy and secondary arrhythmia. Echo August 09 2023: EF 55 to 60% with mild to moderate aortic regurgitation, severe tricuspid regurgitation, pulmonary artery pressure 46 mmHg. Doubt PE - on correction AC and receiving it at [place].
Failing weaning trial. Not following much commands.
Acute hypoxic hypercapnic respiratory failure
Continues to be intubated, vent management per appeals and generalist clerk
on tube feeds; monitor
failing weaning trial, ongoing goals of care discussion with family
Lactic acidosis
monitor
Large left spontaneous secondary pneumothorax status post IR chest tube 08/10
Monitor
mild air leak at times; will monitor
Suspected non-ischemic myocardial injury
Permanent Afib - now in RVR -patient hypotensive post cardiac arrest and on Levophed. Normally on Cardizem and beta-rosa elena which she may not tolerate now.
Continue Eliquis
Cardiology input appreciated
On amiodarone
Suspect acute CHF with preserved ejection fraction
Continue with IV Lasix
Cardiology following
Moderate to severe AR/moderate to severe MR/severe TR
Pulmonary hypertension
History of Xavier
Thrombocytopenia
Monitor
Hypophosphatemia
Resolved
Hyponatremia
Monitor
Hypomagnesemia
Hypocalcemia
replete
Hypotensive shock-patient currently requiring vasopressors postcardiac arrest. Continue with vasopressors.
Lactic acidosis-suspect secondary to cardiac arrest and hypotension. Continue to follow .
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 LFTs normal. No clinical evidence of ascites.
Essential hypertension-hold home medications due to current hypotension
DVTppx
Eliquis
Full code
Aircraft Maintenance Engineer has discussed poor prognosis multiple times with the family. They still want full code. I also discussed with Son 08/13 and he is in process discussing with his other son and will make a decision. They are aware of patient's poor
prognosis.
I spent a total of 52 minutes with the patient or on the floor. More than 50% of this time involved counseling and coordination of care.
Anticipated Discharge: > 48 hours
Subjective/Interval History
-
Date of Service: August 16, 2023
continues to be intubated
Objective Data
-
Labs:
Laboratory Results
08/16/23
03:21
WBC 9.8
Hgb 11.2 L
Hct 31.6 L
Plt Count 80 L
HCO3 29.9 H
Sodium 130 L
Potassium 4.0
Chloride 96 L
Carbon Dioxide 27
BUN 58 H
Creatinine 1.0
Glucose 139 H
Calcium 7.6 L
Vital Signs:
Vital Signs
Temp Pulse Resp BP Pulse Ox
99.1 F 89 25 119/55 95
08/16/23 08:26 08/16/23 09:18 08/16/23 09:18 08/16/23 05:11 08/16/23 09:18
I&O
08/15/23 08/16/23 08/17/23
06:59 06:59 06:59
Intake Total 2574.3 / 2674.9 1805.7 / 1828.2 100.1 / 100.1
Output Total 2535 / 2535 1415 / 1480 255 / 255
Balance 39.3 / 139.9 390.7 / 348.2 -154.9 / -154.9
--- NOTE | 2023-08-16 11:53 | W.PN.INTV ---
Today's Communication / Plan
Recommendations
Continue mechanical ventilation without change
Continue to minimize sedation
Wean off vasopressors as able
Continue cefepime
Continue diuretics
Nutritional support
Continue chest tube in place for now.
Assessment
-
88-year-old with PMHx of HTN, A-fib on AC, valvular heart disease, Hx of GI bleed and pHTN who presents with unresponsiveness while at [facility]. Staff at [facility] found her and pt was pulseless and CPR started - appears that CPR was started soon after pt
became unresponsive. Pt achieved ROSC after 2-3 mins. 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 Vitals in ER were BP 99/50, HR 92, RR 18 and SpO2 98% on vent. Labs showed WBC 11.9, Hb 12.8, plt 191, pH 7.2, pCO2 51, pO2
157, glucose 193, lactate 6.1 Vent settings are: 16/450/5/50%. Imaging done with CT head/chest/abd/pelvis, and there is no acute intracranial pathology, there is e/o multifocal PNA, normal appearing liver, bilateral renal stones (non-obstructing)
measuring up to 1.2cm, and diverticuli without diverticulosis. In ER she was given 1L NS 0.9%, vecuronium 10mg IVP x1, started on propofol gtt and levophed + dopamine also started due to hypotension with SBP in 80s. Patient then became tachycardic
and dopamine was stopped. Lopressor 5 mg IV was given as well. Given her cardiac arrest and need for continuous monitoring while on ventilator, pt admitted to ICU and Hypo Dipper consulted for additional management/recommendations.
Impression:
[id number] cardiac arrest - difficult to say if pt actually lost a pulse as unknown which rhythm she was in and does not appear that she received any epinephrine/drugs during 'code'
Acute respiratory failure with hypoxemia and hypercapnia on mechanical ventilation
Left large spontaneous secondary pneumothorax s/p IR chest tube (placed 08/11/2023)
Septic shock from UTI
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
Acute on chronic HFpEF
Bilateral pleural effusions (R>L) with acute pulmonary edema
A-fib with RVR
Jerking movements likely myoclonus
Lactic acidosis -improving- likely worsened in setting of tension PTX and septic shock on vasopressors
Elevated troponin - likely due to cardiac arrest with resultant type II CO - troponin peaked at 0.063 on 08/10/2023
Hypoalbuminemia
UTI - due to Staph simulans (she has a hx of Staph epidermidis from [facility] on 07/15/2023)
Hyperglycemia (improved)- likely due to critical illness
Chronic liver disease with cirrhotic appearing morphology on abd US
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
Atrial fibrillation on Eliquis
hypertension
valvular heart disease
history of GI bleed
pulmonary pretension
history of UTI
Hx of FTT
Plan:
Unfortunately, not much change on neurological status.
No meaningful recovery, significant anoxic brain injury suspected. Remains critically ill, on vasopressors on mechanical ventilation.
-
Only requiring occasional fentanyl bolus per
Propofol, fentanyl infusion present infusion has been discontinued.
Continue to limit sedation so we can assess her neurological status.
-
Intubated for cardiac arrest/hypoxia and hypercarbia.
Left large spontaneous secondary pneumothorax s/p IR chest tube (placed 08/11/2023)--water seal, still with infrequent leaks as of 08/16/2023. Will remain until patient is extubated.
-
Patient remains critically ill on mechanical ventilation.
Mechanical ventilation settings reviewed, pulmonary mechanics currently adequate.
Minimal oxygen requirements
Continue mechanical ventilation without change.
Not ready for spontaneous breathing trial, failed due to fatigue.
She does have a mild cough and she is opening eyes spontaneously. High risk for reintubation if extubated.
Will need to discuss with family goals of care before ongoing spontaneous breathing trial and considering extubation.
-
Continue low-dose Levophed. Will titrate down as able.
Continue midodrine
Renal function is adequate.
Carrion is in place.
-
Acute HFpEF, moderate PH on ECHO, mild-mod MR, proBNP 6640--worsening to 8260/declining now
Permanent Afib - on Eliquis
Will continue diuresis as able.
Monitor fluid balance and electrolytes.
Continue PO amiodarone
Continue low dose BB with metoprolol 12.5mg BID (she takes Toprol-XL 100mg at home), raise dose as needed/tolerated
Cards following
-
Chest x-ray 08/15/2023: Continues to demonstrate right lower lobe infiltrate. Rotated film. Left chest tube in place. Tiny apical pneumothorax.
HAP suspected but sputum culture remains neg
Urine + Staph, she has prior history of UTI
-
Continue broad spectrum Abx with cefepime (started 08/09/2023)-will complete total 7 days of antibiotics.
IV vanco DC'd given negative MRSA swab (she got 2 doses of IV vanco on 08/08 + 08/09)
Follow up paredes-culture with blood, sputum and urine Cx --> Urine Cx grew S. simulans
Maintain BG 140-180mg/dL and with ISS q6hr
Hba1c 04/26/22: 5.9
NPO, TFs on and titrated to goal
Stress ulcer ppx: continue PPI
Aspiration precautions
DVT ppx: Continue Eliquis 2.5mg BID
SCDs
Will continue to discuss with family goals of care. Apparently his son is coming tomorrow from last time.
Family Discussions
Dr Blake- Guarded prognosis - had GOC/code status discussion with son on 08-13-2023. I explained that she is now less responsive and is continuing to be weak and I doubt that we can successfully extubate her over the coming days. He tells me
that prior to her coming to the hospital that she was not very mobile, would be frequently living a sedentary lifestyle. Based on this information I do not think she will improve and have a meaningful recovery. I encouraged him to discuss with his
brother about changing code status to DNR at very least. He will discuss this with his brother and then get back to me.
Diagnostic Data
CT Chest/Abd/Pelvis without Contrast 08-09-2023: There is moderate interstitial and confluent alveolar airspace disease in both perihilar regions extending into the mid and lower portions of both lungs, most consistent with pneumonia associated with
small left moderate right pleural effusions. Cardiomegaly without associated pulmonary edema. Atherosclerosis. Bilateral nonobstructing calculi. Moderate bilateral cortical atrophy. 9.5 cm left renal cyst. Imaging for bowel pathology is limited by
the lack of enteric contrast Diverticuli are present in the colon with no CT evidence of diverticulitis. There is mild thoracolumbar dextroscoliosis. There is multilevel degenerative disc disease
CT Head without Contrast 08-09-2023: No acute intracranial abnormality. Stable chronic findings
CXR 08-09-2023: Endotracheal tube with tip in trachea above the darshan. No pneumothorax. Some mild bibasilar opacification such as subsegmental atelectasis and/or pneumonia cannot be excluded, left greater than right.
CXR 08-10-2023: Endotracheal tube is present with its tip 5.6 cm above the darshan. Airspace opacities within both lungs, with appearance most suggestive of pneumonia, although pulmonary edema could have a similar appearance. Slight interval increase
in confluent increased density over the left lower hemithorax.
CXR 08-11-2023: Significantly improved left pneumothorax following chest tube insertion. Mild cardiomegaly. Central pulmonary vascular congestion. Bibasilar opacities, which may represent pneumonia, subsegmental atelectasis, or aspiration. Tiny
bilateral pleural effusions.
CXR 08-12-2023: No pneumothorax on the current study. Interstitial prominence, consistent with mild pulmonary edema, more pronounced compared to prior chest x-ray. Bibasilar airspace consolidation, also pronounced. Differential diagnosis includes
pneumonia, subsegmental atelectasis, aspiration, and alveolar pulmonary edema. Small bilateral pleural effusions may be present.
CXR 08-13-2023: Slightly improved aeration in the right mid to lower lung zone. Persistent patchy opacity is noted on the right, most pronounced in the right perihilar distribution. There is persistent relatively homogeneous retrocardiac opacity
without significant interval change. Endotracheal tube remains in place, unchanged. The gastric tube remains extending into the stomach. Stable right PICC line catheter. Stable chest tube catheter overlying the lower left hemithorax. No
pneumothorax. The cardiomedial subtle margins are stable.
CXR 08-14-2023: Possible faint/trace left apical pneumothorax.
EEG 08-10-2023: This EEG is abnormal due to the presence of polymorphic moderate to severe diffuse slowing of the background consistent with moderate to severe diffuse cerebral dysfunction, nonspecific in etiology. No clear epileptiform
abnormalities were noted.
Echo 08/09/23: EF 55 to 60% with mild to moderate aortic regurgitation, severe tricuspid regurgitation, pulmonary artery pressure 46 mmHg
-----
Critical Care time 32 mins -- The patient is admitted for acute critical illness for the treatment of vital organ failure and/or prevention of further life-threatening conditions. Total care includes time spent in review of history, physical exam,
medications, hemodynamic/ventilator parameters, laboratory data, imaging and discussion with house staff, pharmacy, respiratory therapy, repairer helper, and nursing.
Subjective Dataa
Subjective Data
Date of Service:
Date of Service: August 16, 2023
Chief Complaint: Hypo Dipper Follow Up
Subjective:
Remains critically ill, on mechanical ventilation. Intubated.
Requiring low-dose vasopressors
Unable to provide history.
Review of Systems
General: Unobtainable - Pat Unresp
Objective Data
Data Reviewed
Vital Signs / I&O / Oxygen:
Vital Signs
Temp Pulse Resp BP Pulse Ox
99.1 F 87 18 119/55 96
08/16/23 08:26 08/16/23 11:45 08/16/23 11:45 08/16/23 05:11 08/16/23 11:45
Intake and Output
08/15/23 08/16/23 08/17/23
06:59 06:59 06:59
Intake Total 2574.3 / 2674.9 1805.7 / 1863.2 385.1 / 385.1
Output Total 2535 / 2535 1415 / 1480 255 / 255
Balance 39.3 / 139.9 390.7 / 383.2 130.1 / 130.1
SaO2 [A/C] 95
SaO2 96
Physical Exam
General: Respiratory Distress (n)
HEENT: Normocephalic and Anicteric
Cardiovascular: Irregular Rhythm (Irregularly irregular) and Peripheral Edema (Trace LE pitting edema )
Respiratory: Wheeze (negative), Crackles (negative), Rhonchi (bilaterally), Accessory Resp Muscle Use (negative), Stridor (negative), ET Tube, Chest Tube (left hemithorax, intermittent airleak) and Other (Coarse breath sounds heard bilaterally;
mechanical breath sounds heard)
GI: Soft, Non Distended, Non Tender, Normal Bowel Sounds and Feeding Tube
Neurology: Tremors (Negative), Unresponsive (Moves arms/legs to tactile stimuli but not following commands) and Other (Pupils +2mm and brisk, opening eyes spontaneously but not following commands.)
Skin: Warm, Dry and Jaundice (negative)
Labs/Micro/Reports
Lab Data
08/16/23 03:21
08/16/23 03:21
Laboratory Results
08/16/23
03:21
pH 7.46 H
pCO2 42 H
pO2 89
HCO3 29.9 H
O2 Delivery Level 40%
Microbiology
08/09/23 17:47 Blood/Venous Blood Culture - Final
No Growth - Final Report
08/09/23 17:34 Blood/Venous Blood Culture - Final
No Growth - Final Report
[2023-08-16 12:10] LABS: Glucose - Point of Care 130 mg/dl (70-99)
--- NOTE | 2023-08-16 12:39 | PTCARENOTE ---
Assessment unchanged. Air leak continues in L chest tube.
--- NOTE | 2023-08-16 12:52 | CM ---
CM following re: discharge planning.
Discussed in rounds, reviewed pt's chart. Per rounds meeting, pt remains intubated, continue antibiotics, continue supportive care. GOC discussion with family is ongoing, awaiting for son and family to arrive.
D/C plan: uncertain at this time and will depend on pt's progress. Possible comfort care.
CM will follow with discharge plan updates as hospitalization progresses
--- NOTE | 2023-08-16 15:51 | PTCARENOTE ---
Pt yelling for water, removing NC, pullimg at leads. Reoriented and reminded of Lasix admin, necessity of O2 for recovery. Small amount of UOP noted with turn. SpO2 88-91% on 15L. Video Tape Editor notified.
[2023-08-16 17:31] LABS: Glucose - Point of Care 117 mg/dl (70-99)
--- NOTE | 2023-08-16 19:46 | PTCARENOTE ---
received patient. b/l pupils 3mm sluggish. does not follow commands. eyes opens spontaneously. afib on monitor. + Doppler pedal pulses. levo gtt infusing through R PICC to maintain MAP >65. #7 ETT, 25 at lip. vent settings: AC 16-370-5-40%. rhonchi
breath sounds noted. CT to WS, serosang drainage noted. Dobbhoff with TF infusing at goal. dickinson in place, rectal trumpet in place. care ongoing.
--- NOTE | 2023-08-16 23:31 | PTCARENOTE ---
patient reassessed. CHG bath, oral care and suction provided, dickinson care done. rectal trumpet replaced. system assessments unchanged. pt repositioned, extremities elevated on pillows. care ongoing.
[2023-08-16 23:43] LABS: Glucose - Point of Care 114 mg/dl (70-99)
[2023-08-17] MEDS: NOVOLOG FLEXPEN-MODERATE RESISTANCE SC ×3 (00:07→11:51)
[2023-08-17] MEDS: ProAmatine 5 MG TUBE ×3 (03:11→18:29)
[2023-08-17] MEDS: STERILE WATER FOR INJECTION 10 ML IV ×3 (03:11→21:54)
[2023-08-17] MEDS: DEPACON 57.5 MG IV ×2 (03:11→15:39)
[2023-08-17] MEDS: MAXIPIME 1000 MG IV ×3 (03:11→21:54)
[2023-08-17 04:00] LABS: Blood Urea Nitrogen 68 mg/dl (7-17); Calcium 8.1 mg/dl (8.4-10.2); Carbon Dioxide 28 mmol/L (22-30); Chloride 92 mmol/L (98-107); Estimated Creatinine Clearance 25 ml/min; Glucose 120 mg/dl (70-99); Sodium 129 mmol/L (135-145); Triglycerides 114 mg/dl (10-149); eGFR 43.27
--- NOTE | 2023-08-17 04:05 | PTCARENOTE ---
patient reassessed, no changes noted in assessment. levo gtt titrated to maintain MAP >65. patient repositioned, oral care provided. AM labs sent. care ongoing.
[2023-08-17] MEDS: LOPRESSOR 12.5 MG PO ×3 (05:05→18:29)
[2023-08-17 05:15] VITALS: BMI 25.3
[2023-08-17 06:11] LABS: Glucose - Point of Care 129 mg/dl (70-99)
[2023-08-17] MEDS: SUBLIMAZE 50 MCG IV ×2 (06:16→19:50)
[2023-08-17] MEDS: KEPPRA 1000 MG IV ×2 (07:56→19:50)
--- NOTE | 2023-08-17 08:15 | PTCARENOTE ---
Assumed care of pt at 0715 following shift report. Pt received on vent w/ settings as documented, #7 ETT 21cm at Lt lip- POx 92%. Resp. Therapy in room and ETT advanced to ordered 24cm. Bilateral breath sounds auscultated w/ Pox improved to 94-95%
Pt noted to open eyes spontaneously but does not seem to focus gaze or track staff movement. Does not blink to visual threat. Pt does not follow any commands but withdraws to noxious stimuli. No distress noted. Pt remains unrestrained w/ limited
spontaneous, nonpurposeful movement of bilateral upper extremities noted. No spontaneous movement of LE noted. Pt occasionally moves head from side to side w/ rare tearing of eyes noted. Physical assessment completed as documented. Pt remains on
Levophed gtt via PICC as documented. Dr Cristobal in room to see pt- aware of current dose of Levophed and urine ouptut overnight- order received to hold this AM's dose of Lasix. Pt turned/repositioned, comfort care/hygiene provided. Safe environment
maintained.
[2023-08-17] MEDS: CELEXA 10 MG TUBE ×2 (08:21→19:50)
[2023-08-17] MEDS: PACERONE 400 MG TUBE ×3 (08:21→19:53)
[2023-08-17] MEDS: SENNA SYRUP 8.80000000000000071 MG TUBE ×2 (08:22→19:50)
[2023-08-17] MEDS: MIRALAX TUBE (08:25)
[2023-08-17] MEDS: ELIQUIS 2.5 MG TUBE ×2 (08:25→19:50)
[2023-08-17] MEDS: LASIX IV ×2 (08:25→15:41)
--- NOTE | 2023-08-17 09:04 | W.PN.CARDCBS ---
Today's Communication / Plan
-
A-fib remains rate controlled. Continue metoprolol and amiodarone.
Continue Levophed and midodrine.
Continue antibiotics.
Creatinine is now slightly rising. Will continue IV diuretics for another 24 hours with severe mitral, aortic and tricuspid regurgitation.
Impression / Plan
-
.
Primary [employer]essori Program Director: Dr. BRENNAN Caicedo, last seen in office 2021
Impression:
Presentation with OOH arrest s/p CPR and epi with ROSC 08/09/23
Hypotensive shock, requiring pressor support
VDRF, s/p agonal breathing per EMS, requiring intubation 08/09/23
Pneumothorax status post chest tube 08/10
Elevated lactic acid
Leukocytosis, mild
Elevated troponin
Permanent atrial fibrillation, now with rapid response on chronic OAC with eliquis
acute HFpef
mod to severe MR and AR, severe TR by echo 05/2023
Admission to for FTT 07/13-07/19/23, discharged to [facility] for SNF
History of rectal bleeding
HTN
LOPES
GERD
Depression
History of CVA on MRI imaging
ECHO 05/20/23: EF 60-65%, mild cLVH, mod to severe eccentric jet MR with flow reversal in pulm veins, dilated LA, mod to severe AR, severe TR, PAP 46mmHg
CT chest/abd/pelvis August 09 2023: moderate interstitial and confluent alveolar airspace disease in both perihilar regions extending into the mid and lower portions of both lungs, most consistent with pneumonia associated with small left moderate
right pleural effusions. Cardiomegaly without associated pulmonary edema. Atherosclerosis. Bilateral nonobstructing calculi.
Echo August 09 2023: EF 55 to 60% with mild to moderate aortic regurgitation, severe tricuspid regurgitation, pulmonary artery pressure 46 mmHg
Plan:
A-fib remains relatively well rate controlled. Continue amiodarone and metoprolol. Remains on pressors and Midodrine. It has been difficult to wean her Levophed.
We will continue the Lasix for another 24 hours. Creatinine and BUN are slowly rising. Will likely need to hold diuretics soon. She does have severe mitral, tricuspid, and aortic regurgitation
Still has chest tube for pneumothorax
Peak troponin was 0.063, in the setting of cardiac arrest this makes ACS unlikely. Suspect mechanism of arrest was respiratory, possibly multifactorial pneumonia, CHF
Antibiotics per primary team and cell repairer.
Prognosis remains extremely poor.
Again, she should be considered strongly for hospice/comfort care.
CC time 33 min
HPI: 88-year-old woman known to Dr Caicedo, last seen in the office in April 2022, at which point she was active cleaning her home and offering no complaints. She declined over 2022 and was admitted with failure to thrive in June 2023,
possibly with UTI and with marked decrease in activity tolerance. She was transferred to [facility], and today became unresponsive, received CPR and had ROSC. She was never shocked, and was intubated by paramedics at the scene for respiratory
failure. Seen in the emergency department on high-dose Levophed and low-dose dopamine she has a heart rate of approximately 100 with a blood pressure of approximately 100. Urgent echocardiography shows preserved LV function, biatrial dilatation,
mitral and aortic regurgitation but no pulmonary hypertension. She is unresponsive on propofol and having been paralyzed. Son at bedside.
Progress Note - Montessori Program Director
Subjective
Date of Service: August 17, 2023
intubated/sedated
Objective
Labs:
08/16/23 03:21
08/17/23 03:19
Labs
Hgb 11.2 g/dL (12.0-16.0) L 08/16/23 03:21
Hct 31.6 % (37.0-47.0) L 08/16/23 03:21
Plt Count 80 10^3/uL (130-400) L 08/16/23 03:21
PT 19.1 Sec (11.4-14.6) H 08/09/23 18:35
INR 1.62 08/09/23 18:35
APTT 34.6 Sec (23.4-35.0) 08/09/23 18:35
Sodium 129 mmol/L (135-145) L 08/17/23 03:19
Potassium 4.0 mmol/L (3.5-5.1) 08/17/23 03:19
BUN 68 mg/dl (7-17) H 08/17/23 03:19
Creatinine 1.2 mg/dL (0.6-1.0) H 08/17/23 03:19
Glucose 120 mg/dl (70-99) H 08/17/23 03:19
Vital Signs and I&O:
Vital Signs
Temp Pulse Resp BP Pulse Ox
99 F 109 16 114/59 94
08/17/23 07:34 08/17/23 08:21 08/17/23 07:00 08/17/23 08:21 08/17/23 07:38
Vital Signs
Temp Pulse Resp BP Pulse Ox
99 F 109 16 114/59 94
08/17/23 07:34 08/17/23 08:21 08/17/23 07:00 08/17/23 08:21 08/17/23 07:38
Intake & Output
08/15/23 08/16/23 08/17/23 08/18/23
06:59 06:59 06:59 06:59
Intake Total 2574.3 / 2674.9 1805.7 / 1863.2 1630.1 / 1630.1
Output Total 2535 / 2535 1415 / 1480 1390 / 1390
Balance 39.3 / 139.9 390.7 / 383.2 240.1 / 240.1
Physical Exam
Physical Exam
GEN: No distress, awake, Ox3
HEENT: supple, anicteric, mmm
LUNGS: bilat rhonchi
CV: irreg, S1/S2, 1/6 syst LSB, no gallop
ABD: soft, BS+, NT/ND
EXT: No edema
NEURO: Gross non-focal
SKIN: No rash
--- NOTE | 2023-08-17 11:07 | W.PN.INTV ---
Today's Communication / Plan
Recommendations
Mechanical ventilation settings adjusted, respiratory rate decreased.
Continue antibiotics for total 7 days
Diuretics as able
Follow renal function closely
Continue tube feedings, currently at goal
Waiting for family to discuss goals of care.
Assessment
-
88-year-old with PMHx of HTN, A-fib on AC, valvular heart disease, Hx of GI bleed and pHTN who presents with unresponsiveness while at [facility]. Staff at [facility] found her and pt was pulseless and CPR started - appears that CPR was started soon after pt
became unresponsive. Pt achieved ROSC after 2-3 mins. 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 Vitals in ER were BP 99/50, HR 92, RR 18 and SpO2 98% on vent. Labs showed WBC 11.9, Hb 12.8, plt 191, pH 7.2, pCO2 51, pO2
157, glucose 193, lactate 6.1 Vent settings are: 16/450/5/50%. Imaging done with CT head/chest/abd/pelvis, and there is no acute intracranial pathology, there is e/o multifocal PNA, normal appearing liver, bilateral renal stones (non-obstructing)
measuring up to 1.2cm, and diverticuli without diverticulosis. In ER she was given 1L NS 0.9%, vecuronium 10mg IVP x1, started on propofol gtt and levophed + dopamine also started due to hypotension with SBP in 80s. Patient then became tachycardic
and dopamine was stopped. Lopressor 5 mg IV was given as well. Given her cardiac arrest and need for continuous monitoring while on ventilator, pt admitted to ICU and Mud Analysis Supervisor consulted for additional management/recommendations.
Impression:
[id number] cardiac arrest - difficult to say if pt actually lost a pulse as unknown which rhythm she was in and does not appear that she received any epinephrine/drugs during 'code'
Acute respiratory failure with hypoxemia and hypercapnia on mechanical ventilation
Left large spontaneous secondary pneumothorax s/p IR chest tube (placed 08/11/2023)
Septic shock from UTI
Hypothermia - likely auto-hypothermic in ?setting of cardiac arrest with autonomic dysfunction and likely due to reduced PO intake INFORMATION SYSTEMS SECURITY OFFICER
Acute on chronic HFpEF
Bilateral pleural effusions (R>L) with acute pulmonary edema
A-fib with RVR
Jerking movements likely myoclonus
Lactic acidosis -improving- likely worsened in setting of tension PTX and septic shock on vasopressors
Elevated troponin - likely due to cardiac arrest with resultant type II TN - troponin peaked at 0.063 on 08/10/2023
Hypoalbuminemia
UTI - due to Staph simulans (she has a hx of Staph epidermidis from [facility] on 07/15/2023)
Hyperglycemia (improved)- likely due to critical illness
Chronic liver disease with cirrhotic appearing morphology on abd US
Chronic medical conditions INFORMATION SYSTEMS SECURITY OFFICER:
Atrial fibrillation on Eliquis
hypertension
valvular heart disease
history of GI bleed
pulmonary pretension
history of UTI
Hx of FTT
Plan:
Unfortunately, not much change on neurological status.
No meaningful recovery, significant anoxic brain injury suspected. Remains critically ill
-
Only requiring occasional fentanyl bolus.
Propofol, fentanyl infusion infusion has been discontinued.
-
Intubated for cardiac arrest/hypoxia and hypercarbia.
Left large spontaneous secondary pneumothorax s/p IR chest tube (placed 08/11/2023)---water seal, still with infrequent leaks as of 08/16/2023. Will remain until patient is extubated.
-
Patient remains critically ill on mechanical ventilation.
Mechanical ventilation settings reviewed, pulmonary mechanics currently adequate.
ABG 08/16/2023: 7.46/42/89
Minimal oxygen requirements
Pulmonary mechanics reviewed, peak pressures 22. No significant secretions.
Not ready for spontaneous breathing trial, failed due to fatigue.
Will decrease respiratory rate to 12.
She does have a mild cough and she is opening eyes spontaneously. High risk for reintubation if extubated.
Will need to discuss with family goals of care before ongoing spontaneous breathing trial.
-
Continue low-dose Levophed. Will titrate down as able.
Hold diuresis as the blood pressure is borderline.
Continue midodrine
Renal function is adequate. Creatinine is slightly elevated at 1.2.
Carrion is in place.
-
Acute HFpEF, moderate PH on ECHO, mild-mod MR, proBNP was elevated.
Patient has generalized edema, likely due to low albumin as well.
Permanent Afib - on Eliquis
Levophed remains @6mcg-continue to wean off as able.
Maintain net negative fluid balance as tolerated -- worsening bilateral pleural effusions on CXR
To continue diuretics as able. Creatinine elevated at 1.2. Reassess on a daily basis.
Continue PO amiodarone
Cards following.
--
HAP suspected but sputum culture remains neg
Continue current antibiotics and complete 7 days.
-
No history of renal disease, creatinine is rising. Monitor closely particularly on diuretics.
Monitor I/Os, UO
Daily weights, limit volume intake
Maintain BG 140-180mg/dL and with ISS q6hr
-
NPO, TFs on and titrated to goal
Stress ulcer ppx: continue PPI
Aspiration precautions
DVT ppx: Continue Eliquis 2.5mg BID
SCDs
Again, would proceed with a spontaneous breathing trial to extubation once family members make a decision regarding goals of care.

Family Discussions
Dr Blake- Guarded prognosis - had GOC/code status discussion with son on 08-13-2023. I explained that she is now less responsive and is continuing to be weak and I doubt that we can successfully extubate her over the coming days. He tells me
that prior to her coming to the hospital that she was not very mobile, would be frequently living a sedentary lifestyle. Based on this information I do not think she will improve and have a meaningful recovery. I encouraged him to discuss with his
brother about changing code status to DNR at very least. He will discuss this with his brother and then get back to me.
Diagnostic Data
CT Chest/Abd/Pelvis without Contrast 08-09-2023: There is moderate interstitial and confluent alveolar airspace disease in both perihilar regions extending into the mid and lower portions of both lungs, most consistent with pneumonia associated with
small left moderate right pleural effusions. Cardiomegaly without associated pulmonary edema. Atherosclerosis. Bilateral nonobstructing calculi. Moderate bilateral cortical atrophy. 9.5 cm left renal cyst. Imaging for bowel pathology is limited by
the lack of enteric contrast Diverticuli are present in the colon with no CT evidence of diverticulitis. There is mild thoracolumbar dextroscoliosis. There is multilevel degenerative disc disease
CT Head without Contrast 08-09-2023: No acute intracranial abnormality. Stable chronic findings
CXR 08-09-2023: Endotracheal tube with tip in trachea above the darshan. No pneumothorax. Some mild bibasilar opacification such as subsegmental atelectasis and/or pneumonia cannot be excluded, left greater than right.
CXR 08-10-2023: Endotracheal tube is present with its tip 5.6 cm above the darshan. Airspace opacities within both lungs, with appearance most suggestive of pneumonia, although pulmonary edema could have a similar appearance. Slight interval increase
in confluent increased density over the left lower hemithorax.
CXR 08-11-2023: Significantly improved left pneumothorax following chest tube insertion. Mild cardiomegaly. Central pulmonary vascular congestion. Bibasilar opacities, which may represent pneumonia, subsegmental atelectasis, or aspiration. Tiny
bilateral pleural effusions.
CXR 08-12-2023: No pneumothorax on the current study. Interstitial prominence, consistent with mild pulmonary edema, more pronounced compared to prior chest x-ray. Bibasilar airspace consolidation, also pronounced. Differential diagnosis includes
pneumonia, subsegmental atelectasis, aspiration, and alveolar pulmonary edema. Small bilateral pleural effusions may be present.
CXR 08-13-2023: Slightly improved aeration in the right mid to lower lung zone. Persistent patchy opacity is noted on the right, most pronounced in the right perihilar distribution. There is persistent relatively homogeneous retrocardiac opacity
without significant interval change. Endotracheal tube remains in place, unchanged. The gastric tube remains extending into the stomach. Stable right PICC line catheter. Stable chest tube catheter overlying the lower left hemithorax. No
pneumothorax. The cardiomedial subtle margins are stable.
CXR 08-14-2023: Possible faint/trace left apical pneumothorax.
EEG 08-10-2023: This EEG is abnormal due to the presence of polymorphic moderate to severe diffuse slowing of the background consistent with moderate to severe diffuse cerebral dysfunction, nonspecific in etiology. No clear epileptiform
abnormalities were noted.
Echo 08/09/23: EF 55 to 60% with mild to moderate aortic regurgitation, severe tricuspid regurgitation, pulmonary artery pressure 46 mmHg
-----
Critical Care time 31 mins -- The patient is admitted for acute critical illness for the treatment of vital organ failure and/or prevention of further life-threatening conditions. Total care includes time spent in review of history, physical exam,
medications, hemodynamic/ventilator parameters, laboratory data, imaging and discussion with house staff, pharmacy, respiratory therapy, farm equipment assembler, and nursing.
Subjective Dataa
Subjective Data
Date of Service:
Date of Service: August 17, 2023
Chief Complaint: Mud Analysis Supervisor Follow Up (Acute hypoxemic respiratory failure requiring mechanical ventilation.)
Subjective:
Remains unresponsive.
On mechanical ventilation, intubated.
Unable to provide history.
Review of Systems
General: Unobtainable - Sedation
Objective Data
Data Reviewed
Vital Signs / I&O / Oxygen:
Vital Signs
Temp Pulse Resp BP Pulse Ox
99 F 102 16 108/54 95
08/17/23 07:34 08/17/23 09:30 08/17/23 09:30 08/17/23 10:50 08/17/23 09:30
Intake and Output
08/16/23 08/17/23 08/18/23
06:59 06:59 06:59
Intake Total 1805.7 / 1863.2 1630.1 / 1687.6 230.0 / 230.0
Output Total 1415 / 1480 1390 / 1420 150 / 150
Balance 390.7 / 383.2 240.1 / 267.6 80.0 / 80.0
SaO2 [A/C] 95
SaO2 95
Physical Exam
General: Respiratory Distress (n)
HEENT: Normocephalic and Anicteric
Cardiovascular: Irregular Rhythm (Irregularly irregular) and Peripheral Edema (Trace LE pitting edema )
Respiratory: Wheeze (negative), Crackles (negative), Rhonchi (bilaterally), Accessory Resp Muscle Use (negative), Stridor (negative), ET Tube, Chest Tube (left hemithorax, intermittent airleak) and Other (Coarse breath sounds heard bilaterally;
mechanical breath sounds heard)
GI: Soft, Non Distended, Non Tender, Normal Bowel Sounds and Feeding Tube
Neurology: Tremors (Negative), Unresponsive (Moves arms/legs to tactile stimuli but not following commands) and Other (Pupils +2mm and brisk, opening eyes spontaneously but not following commands.)
Skin: Warm, Dry and Jaundice (negative)
Labs/Micro/Reports
Lab Data
08/16/23 03:21
08/17/23 03:19
Microbiology
08/09/23 17:47 Blood/Venous Blood Culture - Final
No Growth - Final Report
08/09/23 17:34 Blood/Venous Blood Culture - Final
No Growth - Final Report
--- NOTE | 2023-08-17 11:09 | W.PN.HOSP.TC ---
Today's Communication/Plan
-
IV lasix
IV abx
vent per icu
prognosis poor
Assessment / Plan
Assessment / Plan
Physical exam:
General: On vent, opens eyes occasionally
HEENT: anicteric; pink conjunctiva
Respiratory: Ventilated breath sounds, normal respiratory effort, no respiratory distress,
Heart: S1, S2 tachycardic with irregular irregular
Gastrointestinal: soft, nontender, no guarding
Extremities: No pitting edema
Assessment and plan:
[id number] cardiac arrest status post successful resuscitation of ROSC. Possibility in light of A-fib with RVR or septic shock.
Continue Levophed, wean as tolerated, midodrine added
Continue with cefepime; last day 08/19/23
Muscle twitching, myoclonus could be secondary to post code anoxic injury
Neurology following
Started on valproate, Keppra
Unclear etiology for cardiac arrest. Possible to be related to septic shock with A-fib with RVR, known history of A-fib. No acute ST-T changes. No significant troponin elevation yet. Patient with significant valvular heart disease concern if
she has new cardiomyopathy and secondary arrhythmia. Echo August 09 2023: EF 55 to 60% with mild to moderate aortic regurgitation, severe tricuspid regurgitation, pulmonary artery pressure 46 mmHg. Doubt PE - on petroleum terminal plant operator AC and receiving it at [place].
Failing weaning trial. Not following much commands.
Acute hypoxic hypercapnic respiratory failure
Continues to be intubated, vent management per game farm helper
on tube feeds; monitor
failing weaning trial, ongoing goals of care discussion with family
Lactic acidosis
monitor
Large left spontaneous secondary pneumothorax status post IR chest tube 08/10
Monitor
mild air leak at times; will monitor
Suspected non-ischemic myocardial injury
Permanent Afib - now in RVR -patient hypotensive post cardiac arrest and on Levophed. Normally on Cardizem and beta-rosa elena which she may not tolerate now.
Continue Eliquis
Cardiology input appreciated
On amiodarone and lopressor
Suspect acute CHF with preserved ejection fraction
Continue with IV Lasix. Monitor Cr. May need to hold it if with worsening renal function
Cardiology following
Moderate to severe AR/moderate to severe MR/severe TR
Pulmonary hypertension
CRICKET likely 2/2 overdiuresis
BNP elevated. BUN uptrending
may need to hold diuresis in 24h if with worsening
History of Xavier
Thrombocytopenia
Monitor
Hypophosphatemia
Resolved
Hyponatremia
Monitor
Hypomagnesemia
Hypocalcemia
replete
Hypotensive shock-patient currently requiring vasopressors postcardiac arrest. Continue with vasopressors.
Lactic acidosis-suspect secondary to cardiac arrest and hypotension. Continue to follow .
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 LFTs normal. No clinical evidence of ascites.
Essential hypertension-hold home medications due to current hypotension
DVTppx
Eliquis
Full code
I spent a total of 53 minutes with the patient or on the floor. More than 50% of this time involved counseling and coordination of care.
Anticipated Discharge: > 48 hours
Subjective/Interval History
-
Date of Service: August 17, 2023
Remains intubated/sedated
Objective Data
-
Labs:
Laboratory Results
08/17/23
03:19
Sodium 129 L
Potassium 4.0
Chloride 92 L
Carbon Dioxide 28
BUN 68 H
Creatinine 1.2 H
Glucose 120 H
Calcium 8.1 L
Vital Signs:
Vital Signs
Temp Pulse Resp BP Pulse Ox
99 F 102 16 108/54 95
08/17/23 07:34 08/17/23 09:30 08/17/23 09:30 08/17/23 10:50 04/03/24 09:30
I&O
08/16/23 08/17/23 08/18/23
06:59 06:59 06:59
Intake Total 1805.7 / 1863.2 1630.1 / 1687.6 230.0 / 230.0
Output Total 1415 / 1480 1390 / 1420 150 / 150
Balance 390.7 / 383.2 240.1 / 267.6 80.0 / 80.0
[2023-08-17 11:51] LABS: Glucose - Point of Care 141 mg/dl (70-99)
--- NOTE | 2023-08-17 12:18 | PTCARENOTE ---
Pt continues to rest quietly. Set rate on vent decreased to 12 bpm by RT by order Dr Cristobal. Pt turned repositioned q2h or more frequently, oral care and hygiene completed. No changes from previous assessment findings. Rt chest tube dressing
reinforced. Rt chest tube remains w/ air leak as documented.
--- NOTE | 2023-08-17 15:31 | CM ---
CM following re: discharge planning.
Discussed in rounds, reviewed pt's chart. Pt's son James and pt's son lei who came from [place] at bedside. Per rounds meeting, pt remains intubated, continue antibiotics, continue supportive care. GOC discussion with family is ongoing.
Both pt's son James and pt's son Lei expressed their understanding of pt's condition. Pt's son Lei stated that his mother was born in [facility], described her mother as a 'strong woman' and appreciated his brother James for taking care of her. Pt;s
son stated they will discuss a goals of carte with MD. MD is aware.
D/C plan: uncertain at this time and will depend on pt's progress. GOC discussions ongoing.
CM will follow with discharge plan updates as hospitalization progresses
--- NOTE | 2023-08-17 15:45 | PTCARENOTE ---
Pt's two son's in room to visit- one son just arrived from [place] and w/ multiple questions re: pt's present condition, plan of care, prognosis/goals of care. Questions answered and emotional support provided. Dr Cristobal notified that son's
would like an update and would like to discuss goals of care. Pt's Pox down to 86%- despite no change in tidal volume, PIP, assessment of chest tube. Resp Therapy notified and FiO2 increased to 50% w/ POx improved to 94%. No additional changes from
previous assessment findings.
--- NOTE | 2023-08-17 16:36 | W.PN.UPDATE ---
Update Note
Progress Note Update
I personally discussed patient's critical situation with both sons at the bedside.
They agree that likely recovery will be unlikely. Prognosis is very guarded.
I suggested no aggressive interventions and possibly extubation. They will discuss tonight and come up with a decision tomorrow.
They are leaning towards comfort measures.
DNR status was instituted. Order has been placed. No heroic interventions at this point.
[2023-08-17 17:23] LABS: Glucose - Point of Care 136 mg/dl (70-99)
[2023-08-17] MEDS: LEVOPHED 250 IV (19:49)
--- NOTE | 2023-08-17 20:30 | PTCARENOTE ---
received patient. b/l pupils 3mm sluggish. does not follow commands. eyes opens spontaneously. afib on monitor. + Doppler pedal pulses. levo gtt infusing through R PICC to maintain MAP >65. #7 ETT, 24 at lip, adjusted to left side. vent settings: AC
12-370-5-50%. rhonchi breath sounds noted. CT to WS, serosang drainage noted. Dobbhoff with TF infusing at goal. dickinson in place, rectal trumpet in place. pt repositioned, CHG bath, oral care and sxn provided, dickinson care done. care ongoing.
[2023-08-17 23:56] LABS: Glucose - Point of Care 139 mg/dl (70-99)
--- NOTE | 2023-08-18 00:28 | PTCARENOTE ---
systems reassessed, no changed noted. patient repositioned, oral care provided. care ongoing.
[2023-08-18] MEDS: ProAmatine 5 MG TUBE ×2 (01:58→09:55)
[2023-08-18] MEDS: LOPRESSOR 12.5 MG PO ×2 (01:58→04:31)
[2023-08-18] MEDS: DEPACON 57.5 MG IV (01:59)
[2023-08-18] MEDS: SUBLIMAZE 50 MCG IV (04:31)
--- NOTE | 2023-08-18 05:00 | PTCARENOTE ---
patient reassessed. continues on levo gtt, vent settings remain the same. AM labs sent. rectal trumpet with leakage, pt cleaned and repositioned. oral care provided. care ongoing.
[2023-08-18] MEDS: LEVOPHED 250 IV (05:01)
[2023-08-18 05:37] VITALS: BMI 25.5
[2023-08-18 05:37] LABS: Blood Urea Nitrogen 74 mg/dl (7-17); Carbon Dioxide 25 mmol/L (22-30); Chloride 95 mmol/L (98-107); Estimated Creatinine Clearance 23 ml/min; Glucose 103 mg/dl (70-99); Magnesium 1.8 mg/dl (1.6-2.3); Potassium 3.8 mmol/L (3.5-5.1); Sodium 128 mmol/L (135-145); eGFR 39.31
[2023-08-18] MEDS: LASIX 40 MG IV (08:24)
[2023-08-18] MEDS: KEPPRA 1000 MG IV (08:24)
[2023-08-18] MEDS: ELIQUIS 2.5 MG TUBE (08:26)
[2023-08-18] MEDS: PACERONE 400 MG TUBE (08:26)
[2023-08-18] MEDS: CELEXA 10 MG TUBE (08:26)
[2023-08-18] MEDS: SENNA SYRUP 8.80000000000000071 MG TUBE (08:26)
[2023-08-18] MEDS: MIRALAX 17 GRAMS TUBE (08:26)
--- NOTE | 2023-08-18 08:30 | PTCARENOTE ---
received patient. b/l pupils 3mm sluggish. does not follow commands. eyes opens spontaneously. afib on monitor. + pedal pulses. levo gtt infusing through R PICC to maintain MAP >65. #7 ETT, 24 at lip, AC 12-370-5-50%. rhonchi breath sounds noted. CT
to WS, serosang drainage noted with small air leak. Dobbhoff with TF infusing at goal. dickinson in place, rectal trumpet replaced with FMS due to lack of rectal tone. pt repositioned, oral care and sxn provided, dickinson care done. care ongoing.
[2023-08-18 08:35] VITALS: BP_SYST 109
[2023-08-18 08:50] VITALS: BP_SYST 109
--- NOTE | 2023-08-18 09:19 | W.PN.CARDCBS ---
Today's Communication / Plan
-
Rate controlled in AFib, cont current amio and metoprolol
With rising Cr will decrease lasix to once daily
Impression / Plan
-
.
Primary Block Inspector: Dr. BRENNAN Caicedo, last seen in office 2021
Impression:
Presentation with out of hospital arrest s/p CPR and epi with ROSC 08/09/23
Hypotensive shock, requiring pressor support
VDRF, s/p agonal breathing per EMS, requiring intubation 08/09/23
Pneumothorax status post chest tube 08/10
Elevated lactic acid
Leukocytosis, mild
Elevated troponin
Permanent atrial fibrillation, now with rapid response on chronic OAC with eliquis
acute HFpef
mod to severe MR and AR, severe TR by echo 05/2023
Admission to for FTT 07/13-07/19/23, discharged to [facility] for SNF
History of rectal bleeding
HTN
LOPES
GERD
Depression
History of CVA on MRI imaging
ECHO 05/20/23: EF 60-65%, mild cLVH, mod to severe eccentric jet MR with flow reversal in pulm veins, dilated LA, mod to severe AR, severe TR, PAP 46mmHg
CT chest/abd/pelvis August 09 2023: moderate interstitial and confluent alveolar airspace disease in both perihilar regions extending into the mid and lower portions of both lungs, most consistent with pneumonia associated with small left moderate
right pleural effusions. Cardiomegaly without associated pulmonary edema. Atherosclerosis. Bilateral nonobstructing calculi.
Echo August 09 2023: EF 55 to 60% with mild to moderate aortic regurgitation, severe tricuspid regurgitation, pulmonary artery pressure 46 mmHg
Plan:
A-fib remains relatively well rate controlled. Continue amiodarone and metoprolol. Remains on pressors and Midodrine. Wean Levophed as able.
Cr is rising. Will decrease IV Lasix to once daily.
Peak troponin was 0.063, in the setting of cardiac arrest this makes ACS unlikely. Suspect mechanism of arrest was respiratory, possibly multifactorial pneumonia, CHF
Antibiotics per primary team and airframe technical officer.
Ongoing [facility] discussions - prognosis is guarded
HPI: 88-year-old woman known to Dr Caicedo, last seen in the office in April 2022, at which point she was active cleaning her home and offering no complaints. She declined over 2022 and was admitted with failure to thrive in June 2023,
possibly with UTI and with marked decrease in activity tolerance. She was transferred to [facility], and today became unresponsive, received CPR and had ROSC. She was never shocked, and was intubated by paramedics at the scene for respiratory
failure. Seen in the emergency department on high-dose Levophed and low-dose dopamine she has a heart rate of approximately 100 with a blood pressure of approximately 100. Urgent echocardiography shows preserved LV function, biatrial dilatation,
mitral and aortic regurgitation but no pulmonary hypertension. She is unresponsive on propofol and having been paralyzed. Son at bedside.
Progress Note - Block Inspector
Subjective
Date of Service: August 18, 2023
NAOE. Remains intubated and sedated in the ICU, requiring pressor support.
Objective
Labs:
08/16/23 03:21
08/18/23 04:47
Labs
Hgb 11.2 g/dL (12.0-16.0) L 08/16/23 03:21
Hct 31.6 % (37.0-47.0) L 08/16/23 03:21
Plt Count 80 10^3/uL (130-400) L 08/16/23 03:21
PT 19.1 Sec (11.4-14.6) H 08/09/23 18:35
INR 1.62 08/09/23 18:35
APTT 34.6 Sec (23.4-35.0) 08/09/23 18:35
Sodium 128 mmol/L (135-145) L 08/18/23 04:47
Potassium 3.8 mmol/L (3.5-5.1) 08/18/23 04:47
BUN 74 mg/dl (7-17) H 08/18/23 04:47
Creatinine 1.3 mg/dL (0.6-1.0) H 08/18/23 04:47
Glucose 103 mg/dl (70-99) H 08/18/23 04:47
Vital Signs and I&O:
Vital Signs
Temp Pulse Resp BP Pulse Ox
98.3 F 80 14 116/52 96
08/18/23 07:35 08/18/23 08:35 08/18/23 08:35 08/18/23 04:31 08/18/23 08:35
Vital Signs
Temp Pulse Resp BP Pulse Ox
98.3 F 80 14 116/52 96
08/18/23 07:35 08/18/23 08:35 08/18/23 08:35 08/18/23 04:31 08/18/23 08:35
Intake & Output
08/16/23 08/17/23 08/18/23 08/19/23
06:59 06:59 06:59 06:59
Intake Total 1805.7 / 1863.2 1630.1 / 1687.6 1571.6 / 1571.6
Output Total 1415 / 1480 1390 / 1420 640 / 640
Balance 390.7 / 383.2 240.1 / 267.6 931.6 / 931.6
Physical Exam
Physical Exam
Gen: NAD
HEENT: NC/AT, sclera anicteric
Neck: Increased JVP
CV: irregularly irregular
Lungs: Mechanically ventilated
Abd: S/ND
: Carrion with kathleen urine.
Ext: 2+ pitting pedal edema
Skin: Warm, dry.
Neuro: Sedated
--- NOTE | 2023-08-18 09:42 | W.PN.HOSP.TC ---
Today's Communication/Plan
-
Prognosis guarded
Continue antibiotic
Continue with diuresis
Monitor heart rate
Assessment / Plan
Assessment / Plan
Physical exam:
General: On vent, opens eyes occasionally
HEENT: anicteric; pink conjunctiva
Respiratory: Ventilated breath sounds, normal respiratory effort, no respiratory distress,
Heart: S1, S2 tachycardic with irregular irregular
Gastrointestinal: soft, nontender, no guarding
Extremities: No pitting edema
Assessment and plan:
[id number] cardiac arrest status post successful resuscitation of ROSC. Possibility in light of A-fib with RVR or septic shock.
Continue Levophed, wean as tolerated, midodrine added
Continue with cefepime
Muscle twitching, myoclonus could be secondary to post code anoxic injury
Neurology following
Started on valproate, Keppra
Unclear etiology for cardiac arrest. Possible to be related to septic shock with A-fib with RVR, known history of A-fib. No acute ST-T changes. No significant troponin elevation yet. Patient with significant valvular heart disease concern if
she has new cardiomyopathy and secondary arrhythmia. Echo August 09 2023: EF 55 to 60% with mild to moderate aortic regurgitation, severe tricuspid regurgitation, pulmonary artery pressure 46 mmHg. Doubt PE - on terminal operations manager AC and receiving it at [facility].
Failing weaning trial. Not following much commands.
Acute hypoxic and hypercapnic respiratory failure status post intubation and mechanical ventilation
vent management per entry level drafter
on tube feeds; monitor
failing weaning trial, ongoing goals of care discussion with family
Lactic acidosis
monitor
Large left spontaneous secondary pneumothorax status post IR chest tube 08/10
Pleural effusions bilateral
Monitor
Suspected non-ischemic myocardial injury
Permanent Afib - now in RVR -patient hypotensive post cardiac arrest and on Levophed. Normally on Cardizem and beta-rosa elena which she may not tolerate now.
Continue Eliquis
Cardiology input appreciated
On amiodarone and lopressor
Suspect acute CHF with preserved ejection fraction
Moderate to severe AR/moderate to severe MR/severe TR
Pulmonary hypertension
Continue with IV Lasix and switched to daily. Monitor Cr. May need to hold it if with worsening renal function
Cardiology following
Mild hpyonatremia
monitor for now
CRICKET likely 2/2 overdiuresis
BNP elevated. BUN uptrending
may need to hold diuresis in 24h if with worsening
History of Xavier
Thrombocytopenia
Monitor
Hypophosphatemia
Resolved
Hyponatremia
Monitor
Hypomagnesemia
Hypocalcemia
replete
Hypotensive shock-patient currently requiring vasopressors postcardiac arrest. Continue with pressors.
Lactic acidosis-suspect secondary to cardiac arrest and hypotension. Continue to follow .
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 LFTs normal. No clinical evidence of ascites.
Essential hypertension-hold home medications due to current hypotension
DVTppx
Eliquis
CODE STATUS DNR per entry level drafter discussed with family.
Anticipated Discharge: > 48 hours
Subjective/Interval History
-
Date of Service: August 18, 2023
Remains intubated and sedated
Objective Data
-
Labs:
Laboratory Results
08/18/23
04:47
Sodium 128 L
Potassium 3.8
Chloride 95 L
Carbon Dioxide 25
BUN 74 H
Creatinine 1.3 H
Glucose 103 H
Calcium 8.0 L
Vital Signs:
Vital Signs
Temp Pulse Resp BP Pulse Ox
98.3 F 80 14 116/52 89
08/18/23 07:35 08/18/23 08:50 08/18/23 08:50 08/18/23 04:31 08/18/23 09:38
I&O
08/17/23 08/18/23 08/19/23
06:59 06:59 06:59
Intake Total 1630.1 / 1687.6 1571.6 / 1571.6
Output Total 1390 / 1420 640 / 640
Balance 240.1 / 267.6 931.6 / 931.6
Data Reviewed
-
Total Time Spent with Patient (in minutes): 56
[2023-08-18] MEDS: MAXIPIME 1000 MG IV (09:54)
[2023-08-18] MEDS: STERILE WATER FOR INJECTION 10 ML IV (09:55)
--- NOTE | 2023-08-18 10:58 | W.PN.INTV ---
Today's Communication / Plan
Recommendations
Continue mechanical ventilation without change
Failed spontaneous breathing trial
Continue antibiotics�continue diuresis
Will replete electrolytes as able
Follow renal function
Continue nutritional support
Goals of care discussions today
Assessment
-
88-year-old with PMHx of HTN, A-fib on AC, valvular heart disease, Hx of GI bleed and pHTN who presents with unresponsiveness while at [facility]. Staff at [facility] found her and pt was pulseless and CPR started - appears that CPR was started soon after pt
became unresponsive. Pt achieved ROSC after 2-3 mins. 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 Vitals in ER were BP 99/50, HR 92, RR 18 and SpO2 98% on vent. Labs showed WBC 11.9, Hb 12.8, plt 191, pH 7.2, pCO2 51, pO2
157, glucose 193, lactate 6.1 Vent settings are: 16/450/5/50%. Imaging done with CT head/chest/abd/pelvis, and there is no acute intracranial pathology, there is e/o multifocal PNA, normal appearing liver, bilateral renal stones (non-obstructing)
measuring up to 1.2cm, and diverticuli without diverticulosis. In ER she was given 1L NS 0.9%, vecuronium 10mg IVP x1, started on propofol gtt and levophed + dopamine also started due to hypotension with SBP in 80s. Patient then became tachycardic
and dopamine was stopped. Lopressor 5 mg IV was given as well. Given her cardiac arrest and need for continuous monitoring while on ventilator, pt admitted to ICU and Electrical High Tension Tester consulted for additional management/recommendations.
Impression:
[id number] cardiac arrest - difficult to say if pt actually lost a pulse as unknown which rhythm she was in and does not appear that she received any epinephrine/drugs during 'code'
Acute respiratory failure with hypoxemia and hypercapnia on mechanical ventilation
Left large spontaneous secondary pneumothorax s/p IR chest tube (placed 08/11/2023)
Septic shock from UTI
Hypothermia - likely auto-hypothermic in ?setting of cardiac arrest with autonomic dysfunction and likely due to reduced PO intake COMPUTER HARDWARE DEVELOPER
Acute on chronic HFpEF
Bilateral pleural effusions (R>L) with acute pulmonary edema
A-fib with RVR
Jerking movements likely myoclonus
Lactic acidosis -improving- likely worsened in setting of tension PTX and septic shock on vasopressors
Elevated troponin - likely due to cardiac arrest with resultant type II DC - troponin peaked at 0.063 on 08/10/2023
Hypoalbuminemia
UTI - due to Staph simulans (she has a hx of Staph epidermidis from [facility] on 07/15/2023)
Hyperglycemia (improved)- likely due to critical illness
Chronic liver disease with cirrhotic appearing morphology on abd US
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
Atrial fibrillation on Eliquis
hypertension
valvular heart disease
history of GI bleed
pulmonary pretension
history of UTI
Hx of FTT
Plan:
Unfortunately, not much change on neurological status.
No meaningful recovery, significant anoxic brain injury suspected. Remains critically ill
-
Only requiring occasional fentanyl bolus.
Propofol, fentanyl infusion infusion has been discontinued.
-
Intubated for cardiac arrest/hypoxia and hypercarbia.
Left large spontaneous secondary pneumothorax s/p IR chest tube (placed 08/11/2023)---water seal, still with infrequent leaks as of 08/16/2023. Will remain until patient is extubated.
-
Patient remains critically ill on mechanical ventilation.
Mechanical ventilation settings reviewed, pulmonary mechanics currently adequate.
ABG 08/16/2023: 7.46/42/89, respiratory rate has been adjusted.
Minimal oxygen requirements
Pulmonary mechanics reviewed, unchanged. No significant secretions.
Spontaneous breathing trial performed 08/18/2023: Failed due to increased work of breathing after 15 to 20 minutes.
-
I personally discussed with 2 sons on 08/17/2023: Likelihood of being liberated from mechanical ventilation without tracheotomy and feeding tube are very unlikely.
Will readdress goals of care today 08/18/2023.
-
Continue low-dose Levophed. Wean off as able.
On IV Lasix. Dosage has been decreased.
Continue midodrine
Renal function is adequate. Creatinine is slightly elevated at 1.3
Hyponatremia noted, continue to follow.
Carrion is in place.
-
Acute HFpEF, moderate PH on ECHO, mild-mod MR, proBNP was elevated.
Patient has generalized edema, likely due to low albumin as well.
Permanent Afib - on Eliquis
Will attempt negative fluid balance if possible.
On IV Lasix. Continue to follow renal function and electrolytes.
Continue PO amiodarone
Cards following.
--
HAP suspected but sputum culture remains neg
Continue current antibiotics and complete 7 days.
-
No history of renal disease, creatinine is rising. Monitor closely particularly on diuretics.
Monitor I/Os, UO
Daily weights, limit volume intake
Maintain BG 140-180mg/dL and with ISS q6hr
-
NPO, TFs on and titrated to goal
Stress ulcer ppx: continue PPI
Aspiration precautions
DVT ppx: Continue Eliquis 2.5mg BID
SCDs
DNR status after discussing with sons on 08/17/2023. Ongoing goals of care discussions today.

Family Discussions
Dr Blake- Guarded prognosis - had GOC/code status discussion with son on 08-13-2023. I explained that she is now less responsive and is continuing to be weak and I doubt that we can successfully extubate her over the coming days. He tells me
that prior to her coming to the hospital that she was not very mobile, would be frequently living a sedentary lifestyle. Based on this information I do not think she will improve and have a meaningful recovery. I encouraged him to discuss with his
brother about changing code status to DNR at very least. He will discuss this with his brother and then get back to me.
Diagnostic Data
CT Chest/Abd/Pelvis without Contrast 08-09-2023: There is moderate interstitial and confluent alveolar airspace disease in both perihilar regions extending into the mid and lower portions of both lungs, most consistent with pneumonia associated with
small left moderate right pleural effusions. Cardiomegaly without associated pulmonary edema. Atherosclerosis. Bilateral nonobstructing calculi. Moderate bilateral cortical atrophy. 9.5 cm left renal cyst. Imaging for bowel pathology is limited by
the lack of enteric contrast Diverticuli are present in the colon with no CT evidence of diverticulitis. There is mild thoracolumbar dextroscoliosis. There is multilevel degenerative disc disease
CT Head without Contrast 08-09-2023: No acute intracranial abnormality. Stable chronic findings
CXR 08-09-2023: Endotracheal tube with tip in trachea above the darshan. No pneumothorax. Some mild bibasilar opacification such as subsegmental atelectasis and/or pneumonia cannot be excluded, left greater than right.
CXR 08-10-2023: Endotracheal tube is present with its tip 5.6 cm above the darshan. Airspace opacities within both lungs, with appearance most suggestive of pneumonia, although pulmonary edema could have a similar appearance. Slight interval increase
in confluent increased density over the left lower hemithorax.
CXR 08-11-2023: Significantly improved left pneumothorax following chest tube insertion. Mild cardiomegaly. Central pulmonary vascular congestion. Bibasilar opacities, which may represent pneumonia, subsegmental atelectasis, or aspiration. Tiny
bilateral pleural effusions.
CXR 08-12-2023: No pneumothorax on the current study. Interstitial prominence, consistent with mild pulmonary edema, more pronounced compared to prior chest x-ray. Bibasilar airspace consolidation, also pronounced. Differential diagnosis includes
pneumonia, subsegmental atelectasis, aspiration, and alveolar pulmonary edema. Small bilateral pleural effusions may be present.
CXR 08-13-2023: Slightly improved aeration in the right mid to lower lung zone. Persistent patchy opacity is noted on the right, most pronounced in the right perihilar distribution. There is persistent relatively homogeneous retrocardiac opacity
without significant interval change. Endotracheal tube remains in place, unchanged. The gastric tube remains extending into the stomach. Stable right PICC line catheter. Stable chest tube catheter overlying the lower left hemithorax. No
pneumothorax. The cardiomedial subtle margins are stable.
CXR 08-14-2023: Possible faint/trace left apical pneumothorax.
EEG 08-10-2023: This EEG is abnormal due to the presence of polymorphic moderate to severe diffuse slowing of the background consistent with moderate to severe diffuse cerebral dysfunction, nonspecific in etiology. No clear epileptiform
abnormalities were noted.
Echo 08/09/23: EF 55 to 60% with mild to moderate aortic regurgitation, severe tricuspid regurgitation, pulmonary artery pressure 46 mmHg
-----
Critical Care time 31 mins -- The patient is admitted for acute critical illness for the treatment of vital organ failure and/or prevention of further life-threatening conditions. Total care includes time spent in review of history, physical exam,
medications, hemodynamic/ventilator parameters, laboratory data, imaging and discussion with house staff, pharmacy, respiratory therapy, instrument technologist, and nursing.
Subjective Dataa
Subjective Data
Date of Service:
Date of Service: August 18, 2023
Chief Complaint: Electrical High Tension Tester Follow Up (Acute hypoxemic respiratory failure requiring mechanical ventilation.)
Subjective:
Remains critically ill, on mechanical ventilation.
No meaningful neurological recovery.
Not following commands
Unable to provide history
Review of Systems
General: Unobtainable - Pat Unresp
Objective Data
Data Reviewed
Vital Signs / I&O / Oxygen:
Vital Signs
Temp Pulse Resp BP Pulse Ox
98.3 F 80 14 116/52 89
08/18/23 07:35 08/18/23 08:50 08/18/23 08:50 08/18/23 04:31 08/18/23 09:38
Intake and Output
08/17/23 08/18/23 08/19/23
06:59 06:59 06:59
Intake Total 1630.1 / 1687.6 1571.6 / 1625.4 280.4 / 280.4
Output Total 1390 / 1420 640 / 640
Balance 240.1 / 267.6 931.6 / 985.4 266.4 / 266.4
SaO2 [A/C] 94
SaO2 89
Physical Exam
General: Respiratory Distress (n)
HEENT: Normocephalic and Anicteric
Cardiovascular: Irregular Rhythm (Irregularly irregular) and Peripheral Edema (Trace LE pitting edema )
Respiratory: Wheeze (negative), Crackles (negative), Rhonchi (bilaterally), Accessory Resp Muscle Use (negative), Stridor (negative), ET Tube, Chest Tube (left hemithorax, intermittent airleak) and Other (Coarse breath sounds heard bilaterally;
mechanical breath sounds heard)
GI: Soft, Non Distended, Non Tender, Normal Bowel Sounds and Feeding Tube
Neurology: Tremors (Negative), Unresponsive (Moves arms/legs to tactile stimuli but not following commands) and Other (Pupils +2mm and brisk, opening eyes spontaneously but not following commands.)
Skin: Warm, Dry and Jaundice (negative)
Labs/Micro/Reports
Lab Data
08/16/23 03:21
08/18/23 04:47
--- NOTE | 2023-08-18 11:20 | PTCARENOTE ---
SBT lasted 1 hr 8/5/50%. Pt became tachypneic and SpO2 to 80s.
--- NOTE | 2023-08-18 12:00 | W.PN.UPDATE ---
Addendum entered and electronically signed by Uli Oconnor MD 08/18/23 15:54:
Patient has been extubated.
Will continue morphine and Ativan as needed for comfort.
Critical care team will sign off.
Transition to [facility]
Original Note:
Update Note
Progress Note Update
Discussed with 2 sons, given poor prognosis and no meaningful recovery after several days. We have decided to focus on comfort.
Will discontinue all medications.
Will start morphine as needed for increased work of breathing.
Will plan for extubation today.
[2023-08-18] MEDS: MORPHINE SULFATE 2 MG IV ×2 (12:25→13:57)
[2023-08-18] MEDS: ATIVAN 1 MG IV (12:45)
--- NOTE | 2023-08-18 12:45 | RESPNOTE ---
Patient extubated per MD order for comfort care.
--- NOTE | 2023-08-18 12:56 | PTCARENOTE ---
Pt terminally extubated to room air as per wishes of both sons. Levophed off. Dobhoff removed. Sons at the bedside. Morphine given prior to extubation, Ativan given after due to agitation.
--- NOTE | 2023-08-18 14:35 | CM ---
CM following re: discharge planning.
Discussed in rounds, reviewed pt's chart, met with pt. per MD, pt's sons decided comfort care, extubation today with comfort measure
D/C plan: comfort care.
CM is available for emotional support.
--- NOTE | 2023-08-18 17:18 | W.PN.DEATH ---
Pronouncement of
-
Called to see patient to pronounce.
No spontaneous heart tones or respirations noted.
Patient not responsive to verbal stimuli.
Patient is pronounced .
Time of : 17:02
Date of : 08/18/23
Cause of : respiratory failure septic shock acute heart failure afib rvrv
Family Notified: Yes (family at bedside)
--- NOTE | 2023-08-18 17:42 | PTCARENOTE ---
Pt passed with sons at bedside. Bank Manager refused by sons. Time of 170, pronounced by Dr. Monique.
--- NOTE | 2023-08-19 07:57 | W.DCSUMMARY ---
Discharge Summary
Discharge Data
Date of Admission: 08/09/23
Date of Discharge: 08/18/23
-
Pending Results: No
Hospital Course
88 female past medical history of primary hypertension, atrial fibrillation, chronic coagulopathy, valvular heart disease, history of GI gastrointestinal bleeding, pulmonary hypertension who is presented with [facility]responsiveness at the [facility] living.�
CPR was started at the senior living and ROSC was achieved.� Patient was intubated in the field and brought into the ER.� Upon admission patient underwent imaging of CT chest abdomen pelvis and no acute pathology was found.� There was concern for
multifocal pneumonia and started on antibiotics.� Cardiology was consulted.� Patient underwent echocardiogram which showed EF 55 to 60% with mild to moderate aortic regurgitation, severe tricuspid regurgitation, pulmonary artery pressure 46 mmHg.�
Patient with atrial fibrillation with rapid ventricular response and received amiodarone metoprolol.� Patient with hypotensive and was started on Levophed.� Midodrine was also started.� Patient also with acute heart failure with pulmonary
hypertension was started on intravenous Lasix.� Cardiac arrest mechanism was seems multifactorial if patient lost pulse could be due to pneumonia congestive heart failure versus atrial fibrillation.� Patient with muscle twitching with myoclonus and
neurology was consulted.� Started on valproic acid and Keppra.� Patient also with large left pneumothorax status post chest tube placement on 08/10.� Patient case was discussed with the family who decided to transition patient to DNR.� Further family
decided to transition patient to comfort care status post terminal extubation. Patient on 08/18/23 at 1702.
Discharge Plan
-
Patient Disposition:
Date/Time
Date/Time: 08/18/23 17:02
Discharge Date and Time
Discharge Date/Time: 08/18/23 17:02
Print Language: CANADI[place]
== END 2023-08-18 17:02 | disposition expired | DRG 870 ==
LOC: ICU 15:44
PROVIDERS: Nurse Practitioner Family; Nurse Practitioner Primary Care; Radiology Diagnostic Radiology; Radiology Vascular & Interventional Radiology; ADMITTING PHYSICIAN Internal Medicine; ATTENDING PHYSICIAN Hospitalist; CONSULT PHYSICIAN Internal Medicine Cardiovascular Disease; CONSULT PHYSICIAN Internal Medicine Critical Care Medicine; EMERGENCY PHYSICIAN Emergency Medicine; FAMILY PHYSICIAN Internal Medicine; OTHER PHYSICIAN Psychiatry & Neurology Neurology
PROC: 0DH67UZ Insertion of Feeding Device into Stomach, Via Natural or Artificial Opening (ICD-10-PCS; 2023-08-09)
PROC: 02HV33Z Insertion of Infusion Device into Superior Vena Cava, Percutaneous Approach (ICD-10-PCS; 2023-08-09)
PROC: 5A1955Z Respiratory Ventilation, Greater than 96 Consecutive Hours (ICD-10-PCS; 2023-08-09)
PROC: 3E033XZ Introduction of Vasopressor into Peripheral Vein, Percutaneous Approach (ICD-10-PCS; 2023-08-09)
PROC: 0W9B30Z Drainage of Left Pleural Cavity with Drainage Device, Percutaneous Approach (ICD-10-PCS; 2023-08-11)
DX: A41.9 Sepsis, unspecified organism (principal); J96.01 Acute respiratory failure with hypoxia; R65.21 Severe sepsis with septic shock; J18.9 Pneumonia, unspecified organism; J96.02 Acute respiratory failure with hypercapnia; I50.33 Acute on chronic diastolic (congestive) heart failure; G92.8 Other toxic encephalopathy; E87.29 Other acidosis; Z99.11 Dependence on respirator [ventilator] status; J93.12 Secondary spontaneous pneumothorax; N39.0 Urinary tract infection, site not specified; I5A Non-ischemic myocardial injury (non-traumatic); E87.1 Hypo-osmolality and hyponatremia; G93.1 Anoxic brain damage, not elsewhere classified; I48.21 Permanent atrial fibrillation; I46.9 Cardiac arrest, cause unspecified; I08.3 Combined rheumatic disorders of mitral, aortic and tricuspid valves; I27.20 Pulmonary hypertension, unspecified; I11.0 Hypertensive heart disease with heart failure; K75.81 Nonalcoholic steatohepatitis (NASH); K74.60 Unspecified cirrhosis of liver; F32.A Depression, unspecified; R73.9 Hyperglycemia, unspecified; E88.09 Other disorders of plasma-protein metabolism, not elsewhere classified; R68.0 Hypothermia, not associated with low environmental temperature; G90.9 Disorder of the autonomic nervous system, unspecified; D69.6 Thrombocytopenia, unspecified; N28.1 Cyst of kidney, acquired; R62.7 Adult failure to thrive; B95.7 Other staphylococcus as the cause of diseases classified elsewhere; K21.9 Gastro-esophageal reflux disease without esophagitis; Z88.1 Allergy status to other antibiotic agents; Z88.0 Allergy status to penicillin; Z88.2 Allergy status to sulfonamides; Z86.73 Personal history of transient ischemic attack (TIA), and cerebral infarction without residual deficits; Z87.442 Personal history of urinary calculi; Z87.19 Personal history of other diseases of the digestive system; Z79.01 Long term (current) use of anticoagulants; Z87.440 Personal history of urinary (tract) infections; Z68.25 Body mass index [BMI] 25.0-25.9, adult; Z66 Do not resuscitate; G25.3 Myoclonus
CPT/HCPCS: 32556; 70450; 71045; 71250; 74018; 74176; 80048; 80053; 80202; 81003; 81015; 82040; 82330; 82533; 82805; 82962; 83605; 83735; 83880; 84100; 84132; 84145; 84302; 84478; 84484; 85025; 85027; 85610; 85730; 87040; 87070; 87077; 87086; 87147; 87186; 87205; 87449; 87899; 93005; 93306; 94002; 94003; 95714; 96361; 96374; 96375; 99291; P9047